=== PATIENT | female | born 1935 | race Caucasian/White ===

== ENCOUNTER 2017-09-25 18:10 | Inpatient (IN) ==
--- NOTE | 2017-09-25 19:35 | Emergency Department Report ---
Psych HPI - General Chief Complaint: Psychiatric Symptoms Stated Complaint: Eval Time Seen by Provider: 09/25/17 20:00 Source: patient Mode of arrival: wheelchair Limitations: no limitations - History of Present Illness HPI Narrative: 82 YO F brought to the ED by family from [place] for medical clearance for [facility]. Family who accompanies patient states that patient has been agitated, aggressive towards staff, having obsessive behaviors with increased memory problems over the last 2 weeks. Family also states that patient intermittently reports pain in different areas of her body and then denies having pain in those same areas later. Family says patient has had fall around the first of the year with no CT done at that time. No known acute injury from fall. Family denies that patient has had fever, chills, cough, CP, vomiting, abdominal pain, dysuria, headaches or ataxia. Patient pain or any complaint on arrival to the ED. MD complaint: other - Related Data Home Medications Medication Instructions Recorded Confirmed Acetaminophen [Acetaminophen Extra 1,000 mg PO BID 09/25/17 09/25/17 Strength] Aspirin [Aspirin EC] 81 mg PO QAM 09/25/17 09/25/17 Calcitonin,[place],Synthetic 1 spray SAE QAM 09/25/17 09/25/17 [Calcitonin-[place]] Calcium Carbonate/Vitamin D3 1 tab PO QAM 09/25/17 09/25/17 [Calcium 600-Vit D3 400 Tablet] Fruit Ball 30 ml PO QAM 09/25/17 09/25/17 Hydrocodone/APAP 5/325 [[place] 1 - 2 tab PO Q4-6HR PRN 09/25/17 09/25/17 5/325] Lovastatin [Mevacor] 40 mg PO HS 09/25/17 09/26/17 Lutein 20 mg PO QAM 09/25/17 09/25/17 Multivitamin with Minerals 1 tab PO QAM 09/25/17 09/25/17 [Eow-Y-Meix-Minerals] Peg 3350 238 G Bottle [Miralax] 17 gm PO BID 09/25/17 09/25/17 Raloxifene [Evista] 60 mg PO QAM 09/25/17 09/25/17 Zeaxanthin 10 mg PO QAM 09/25/17 09/25/17 Ergocalciferol (Vitamin D2) 1 tab PO MO@0800 09/26/17 09/26/17 [Vitamin D2] Fluvoxamine Maleate 50 mg PO HS 09/26/17 09/26/17 Fluvoxamine Maleate 75 mg PO DAILY 09/26/17 09/26/17 Allergies Allergy/AdvReac Type Severity Reaction Status Date / Time alprazolam Allergy Verified 09/25/17 19:48 Sulfa (Sulfonamide Allergy Verified 09/25/17 19:48 Antibiotics) Review of Systems All systems: reviewed and negative except as stated Neurological: Reports: as per HPI (agitation), other (memory problems) Psychiatric: Reports: as per HPI, other (agitated, obsessive behaviors) PFS Patient Stated Medical History Dementia Yes Macular Degeneration Yes Other HEENT Yes: glasses Hypertension Yes Hx Urinary Tract Infection Yes Anemia Yes Other Musculoskeletal Yes: osteoporosis Other Behavioral Health Yes: cognitive communication defiect Surgical History: Lumpectomy 2 Family History: Noncontributory - Social History Housing: long term Physical Exam - Limitations Limitations: no limitations - General General appearance: alert, in no apparent distress - Normal Exams: Head:: Normocephalic without trauma Eyes:: Pupils are PERRLA w/ EOMI, No scleral icterus, irritation ENMT:: No facial trauma, nasal exudates, pharyngeal erythema Neck:: Full range of motion, without adenopathy, JVD Chest/Respirations:: Clear all kim, with good airflow, and symmetry bilaterally Cardiovascular:: Regular rate and rhythm, without murmur or gallop, Pulses 2+ all extremities Abdomen:: Bowel sounds positive, soft, non-tender, non-distended, no hepatosplenomegaly Musculoskeletal:: No tenderness, all extremities Integumentary:: No rashes Neurological:: Patient is alert, and oriented, cranial nerves, motor/sensory/ cerebellar, exams w/o gross deficits, to observation Psychiatric:: Patient exhibits, appropriate attention, emotion and affect - ENT ENT exam: Present: mucous membranes moist, TM's normal bilaterally - Neck Neck exam: Present: trachea midline - Extremities Exam Extremities exam: Present: pedal edema (bilaterally) - Skin Skin exam: Present: warm, dry Course Vital Signs Pulse Rate 80 09/25/17 18:20 Respiratory Rate 16 09/25/17 18:20 Temperature 97.2 F 10/07/17 08:00 Pulse Rate 92 10/07/17 08:00 Respiratory Rate 16 10/07/17 08:00 Blood Pressure 140/74 H 10/07/17 08:00 Pulse Oximetry 96 10/07/17 08:00 Psych - MDM Narrative Medical decision making narrative: Patient labs are unremarkable Patient has been cooperative and pleasant while in the ED. Patient is cleared medically for [facility] - Differential Diagnosis Likely: acute psychosis, depression, drug-induced psychotic disorder, acute anxiety - Lab Data Attestation: I reviewed the patient's lab results. Result diagrams: 10/05/17 06:59 10/05/17 06:59 Lab Results 09/25/17 09/25/17 09/25/17 Range/Units 20:13 20:13 20:13 WBC 4.4 L (4.5-11.0) T/MM3 RBC 3.72 L (4.00-5.20) M/MM3 Hgb 11.7 L (12-16) GM/DL Hct 37.8 (36-46) % MCV 101.6 H (80-100) UM3 MCH 31.5 (26-34) UUG MCHC 31.0 (31-37) GM/DL RDW Std Deviation 50.7 H (36.9-50.2) FL Plt Count 205 (130-400) T/MM3 MPV 9.7 (9.4-12.4) UM3 Immature Gran % (Auto) 0.2 (0.0-0.5) % Neut % (Auto) 60.4 (33-66) % Lymph % (Auto) 23.9 (23-45) % [place] % (Auto) 11.4 H (0-9.0) % Eos % (Auto) 3.2 (0-4) % Baso % (Auto) 0.9 (0-2) % Neut # (Auto) 2.7 (1.8-7.7) T/MM3 Lymph # (Auto) 1.1 (1-4.8) T/MM3 [place] # (Auto) 0.5 (0-0.8) T/MM3 Eos # (Auto) 0.1 (0-0.5) T/MM3 Baso # (Auto) 0.0 (0-0.2) T/MM3 Abs Immat Gran (auto) 0.01 (0.00-0.03) T/MM3 Turbidity < 20 (0-20) Sodium 139 (134-144) MEQ/L Potassium 4.7 (3.6-5) MEQ/L Chloride 105 (98-107) MEQ/L Carbon Dioxide 27 (22-30) MEQ/L Anion Gap 7 (5-15) MEQ/L BUN 21.0 H (7-17) MG/DL Creatinine 0.8 (0.7-1.2) MG/DL GFR Calculation 69 BUN/Creatinine Ratio 26 (6-26) RATIO Glucose 110 (65-110) MG/DL Calculated Osmolality 272 (261-280) MOSM/KG Calcium 9.2 (8.4-10.2) MG/DL Total Bilirubin 0.30 (0.20-1.30) MG/DL Icterus Index < 2 (0-7) AST 34 (14-36) U/L ALT 43 (9-52) U/L Alkaline Phosphatase 117 (38-126) U/L Total Protein 7.3 (6.3-8.2) G/DL Albumin 3.8 (3.5-5.0) G/DL Globulin 3.5 (2.4-3.6) G/DL Albumin/Globulin Ratio 1.1 (1.1-2.2) RATIO Vitamin B12 476 (239-931) PG/ML TSH 1.41 (0.47-4.68) MIU/L Specimen Hemolysis < 15 (0-25) - Radiology Data Attestation: I reviewed the patient's radiology results. Head CT: No acute intracranial findings (V-RAD) Disposition Clinical Impression: Encounter for medical clearance for patient hold Disposition: 65 [place] [facility] [facility] Condition: Stable - Seen By: midlevel
--- OUTSIDE RECORDS SUMMARY | 2017-09-25 21:18 | External Medical Summary | Referral Summary ---
:1935 Author Organization [facility], Surgery Address [address] [address] Care Team Providers Name Role Phone Denita Mg Primary Care Physician Encounter VC Date(s): 05/25/15 - 05/25/15 [facility], 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 Dementia(Confirmed) Active Fracture of left inferior pubic ramus Active with routine healing(Confirmed) Fracture of left superior pubic ramus Active with routine healing(Confirmed) Hyperlipidemia(Confirmed) Active Obesity(Confirmed) Active patient Osteoporosis, Active postmenopausal(Confirmed) 1Problem added automatically by system based on initiation of Bowel Dysfunction Plan of Care Allergies, Adverse Reactions, Alerts Substance Reaction Severity Status ALPRAZolam nightmares Active sulfamethoxazole as a child/ Rash Active Medications acetaminophen 325 mg oral tablet 650 mg 2 tabs, Oral, q4hr, Other (See Comment), 0 Refill(s) Start Date: 10/07/15 Status: Orderedalendronate 70 mg oral tablet 70 mg 1 tabs, Oral, qWeek, # 12 tabs, 1 Refill(s), Pharmacy: [facility] # [id number], 1 tabs Oral qWeek Start Date: 01/19/15 Status: Orderedaspirin 325 mg, Oral, Daily, 0 Refill(s) Start Date: 10/04/15 Status: Orderedcalcium-vitamin D 500 mg-200 intl units oral tablet 1,500 mg, Oral, Daily, 0 Refill(s) Start Date: 04/22/14 Status: OrderedCentrum 1 tabs, Oral, Daily, 0 Refill(s) Start Date: 04/22/14 Status: OrderedEvista 60 mg oral tablet 1 tabs, Oral, Daily, # 30 tabs, eRx: [facility] #[id number], TAKE ONE TABLET BY MOUTH DAILY Start Date: 09/09/14 Status: Orderedhydrochlorothiazide 25 mg, Oral, Daily, 0 Refill(s) Start Date: 10/04/15 Status: Orderedlactulose 10 g/15 mL oral syrup 20 g 30 mL, Oral, TID, 0 Refill(s) Start Date: 10/07/15 Status: Orderedlovastatin 40 mg, Oral, Daily, 0 Refill(s) Start Date: 10/04/15 Status: Orderedlutein 12 mg, Oral, Daily, 0 Refill(s) Start Date: 04/22/14 Status: OrderedMacrobid 100 mg oral capsule 100 mg 1 caps, Oral, BID, # 14 caps, 0 Refill(s) Start Date: 11/04/15 Stop Date: 11/11/15 Status: OrderedMilk of Magnesia 30 mL, Oral, Daily, as needed for constipation, 0 Refill(s) Start Date: 10/04/15 Status: OrderedMiraLax 17 g 1 packets, Oral, BID, 0 Refill(s) Start Date: 10/07/15 Status: Orderedpotassium chloride 10 mEq oral tablet, extended release 10 mEq 1 tabs, Oral, Daily, 0 Refill(s) Start Date: 10/04/15 Status: OrderedProtonix 40 mg oral delayed release tablet 40 mg 1 tabs, Oral, BID, 0 Refill(s) Start Date: 10/07/15 Status: OrderedVitamin C 500 mg, Oral, Daily, 0 Refill(s) Start Date: 04/22/14 Status: OrderedVitamin D2 1999 Int_unit, Oral, Saturday, 0 Refill(s) Start Date: 10/04/15 Status: Ordered Results No data available for this section Immunizations Vaccine Date Refusal Reason tetanus/diphth/pertuss (Tdap) adult/adol 06/21/15 influenza virus vaccine, inactivated 06/21/15 pneumococcal 23-polyvalent vaccine 03/25/07 zoster vaccine live 10/20/09 Procedures Procedure Date Related Diagnosis Body Site CT L PUBIC RAMUS FX [facility] BUHR1 09/23/15 (L) 2007 (R) foot Tubal ligation 1S32.592A, S32.512A L SUPERIOR & INFERIOR PUBIC RAMUS FXS ACC 09/23/2015 HOME [facility] [employer] 12/22/2015 Social History Social History Type Response Smoking Status Former smoker Assessment and Plan Extracted from: Title: Ambulatory Patient Education Author: Yasmin Crump MD Date: Family Medicine Breast Cancer Survivor Follow-up Breast cancer treatment aims to get rid of all cancer cells, but sometimes a few remain in the body. These cells can then grow and cause the cancer to return (recur). If this happens, the goal is to fin d the cancer as soon as possible. Cancer can recur just a few months after treatment or years later. Most cases of recurrent breast cancer develop 35 years after treatment. WILL MY CANCER RETURN? There is no way to know if your breast cancer will return. However, your chance of developing recurrent breast cancer is greater if you had: Breast cancer before 60 years of age. Breast cancer that involved the lymph nodes. A tumor that was bigger than 2 inches (5 cm). A high-grade tumor. These are tumors that grow more quickly than other types of tumors. A close tumor margin. This means the space between the tumor and normal, noncancerous cells was small. Inflammatory breast cancer. HER2 cancer. Surgery to remove the tumor but not the entire breast (lumpectomy) and no radiation therapy. SYMPTOMS OF RECURRENT BREAST CANCER Examine your breasts every month. You may find it helpful to do this on the same day each month and juana your calendar as a reminder. Let your health care provider know immediately if you have any signs or symptoms of recurrent breast cancer. Signs and symptoms of recurrent breast cancer vary. It depends on where the cancer is and how the original cancer was treated. Symptoms of a cancer that comes back in the same spot (local recurrence) after a lumpectomy, or a recurrence in the opposite breast may include: A new lump or thickening in the breast. A change in the way the skin of the breast looks (such as a rash, dimpling , or wrinkling). Redness or swelling of the breast. Changes in the nipple (such as it may be red, puckered, swollen, or leaking fluid). Symptoms of a recurrence after breast removal surgery (mastectomy) may include: A lump or thickening under the skin. A thickening around the mastectomy scar. Symptoms of a cancer that comes back in the lymph nodes near the breast ( regional recurrence) may include: A lump under the arm or above the collarbone. Swelling of the arm. Pain in the arm, shoulder, or chest. Numbness in the hand or arm. Symptoms of cancer that comes back in an area of the body far away from the original cancer site (distant recurrence) may include: A cough that does not go away. Trouble breathing or shortness of breath. Pain in the bones or the chest. This is pain that lasts or does not improve with rest and medicine. Headaches. Sudden vision problems. Dizziness. Nausea or vomiting. Weight loss. Persistent abdominal pain. Changes in bowel movements or blood in the stool. Yellowing of the skin or eyes (jaundice). Blood in the urine or bloody vaginal discharge. FOLLOWING UP WITH YOUR HEALTH CARE PROVIDER Decide who your primary health care provider will be. Most people continue to see their cancer specialist (oncologist) every 36 months for the first year after cancer treatment. At some point, you ma y want to go back to seeing a family health care provider instead of your oncologist for regular checkups. Many women do this about 1 year after getting a breast cancer diagnosis. You would still need t o see your oncologist as directed. You should also: Keep a schedule of appointments for the tests and exams you need ( including physical exams, breast exams, and exams of the lymph nodes). For the first 3 years after being treated for breast cancer, see your health care provider every 36 months. In the fourth and fifth years after being treated for breast cancer, see your health care provider every 612 months. From 5 years on after your breast cancer treatment, see your health care provider at least once a year. Continue to have regular breast X-rays (mammograms), even if you had a mastectomy. Get a mammogram 1 year after the mammogram that first detected breast cancer. Get a mammogram every 612 months after that or as often as your health care provider suggests. Have a pelvic exam every year or as often as your health care provider suggests. Some tests are not recommended for routine screening. Someone recovering from breast cancer does not need to have these tests if there are no problems. The tests have risks, such as radiation expos ure, and can be costly. The risks of these tests are thought to be greater than the benefits: Blood tests. Chest X-rays. Bone scans. Liver ultrasound. CT. MRI. Positron emission tomography (PET scan). SEEK MEDICAL CARE IF: You have any signs or symptoms of recurrent breast cancer. You are taking a medicine prescribed to treat your breast cancer and have vaginal bleeding. You discover new lumps in your breast. You have headaches, bone, chest, or abdominal pain. You have shortness of breath. You have a cough that does not go away. You have discharge from your nipple. You have a rash on your breast. SEEK IMMEDIATE MEDICAL CARE IF: You have trouble breathing. You have chest pain. Document Released: 04/16/2012 Document Revised: 08/24/2014 Document Reviewed: 06/25/2014 [facility] Patient Information 2015 [employer]. This information is not intended to replace advice given to you by your health care provider. Make sure you discuss any questions you have with your health care provider. No follow up information was provided. Extracted from: Title: BREAST CLINIC NOTE Author: Yasmin Crump MD Date: 05/25/15 Assessment/Plan 1.Personal history of breast cancer 1. 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 At this time there is no sign of recurrence or new cancer based on imaging or examination. 2. The patient will be due for aleft diagnostic mammogram in 6 months and will not need to see me back in the office at that time. I would then like her to have bilateral diagnostic mammograms in one year and have her see me back in the office. These were arranged for her today. Ordered: Office Visit Level 3 Est [id number]
--- OUTSIDE RECORDS SUMMARY | 2017-09-25 21:18 | External Medical Summary | Referral Summary ---
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 Discharge Disposition: 01-Home or Self Care Attending Physician: Trinity Glover MD Admitting Physician: Trinity Glover MD Vital Signs Most recent to oldest [Reference Range]: 1 Peripheral Pulse Rate [60-100 bpm] 77 bpm (06/21/15 9:50 AM) Blood Pressure [90-140/60-90 mmHg] 122/90 mmHg (06/21/15 9:50 AM) SpO2 99 % (06/21/15 9:50 AM) Problem List Condition Effective Dates Status Health Status Informant Hypertension, essential, Active benign(Confirmed) Carcinoma in situ of breast(Confirmed) Active Generalized osteoarthritis(Confirmed) Active Dementia(Confirmed) Active Hyperlipidemia(Confirmed) Active Obesity(Confirmed) Active patient Osteoporosis, Active postmenopausal(Confirmed) Allergies, Adverse Reactions, Alerts Substance Reaction Severity Status ALPRAZolam nightmares Active sulfamethoxazole as a child/ Rash Active Medications alendronate 70 mg oral tablet 70 mg 1 tabs, Oral, qWeek, # 12 tabs, 1 Refill(s), Pharmacy: [facility] # [id number], 1 tabs Oral qWeek Start Date: 01/19/15 Status: Orderedcalcium-vitamin D 500 mg-200 intl units oral tablet 1,500 mg, Oral, Daily, 0 Refill(s) Start Date: 04/22/14 Status: OrderedCentrum 1 tabs, Oral, Daily, 0 Refill(s) Start Date: 04/22/14 Status: OrderedDrisdol 50,000 intl units (1.25 mg) oral capsule See Instructions, TAKE 1 CAPSULE BY MOUTH EVERY OTHER WEEK, # 12 caps, eRx: [facility] #[id number], TAKE 1 CAPSULE BY MOUTH EVERY OTHER WEEK Start Date: 03/30/15 Status: Orderedetodolac 400 mg oral tablet, extended release See Instructions, TAKE ONE TABLET BY MOUTH DAILY, # 30 tabs, 3 Refill(s), eRx: [facility] #[id number], TAKE ONE TABLET BY MOUTH DAILY Start Date: 03/24/15 Status: OrderedEvista 60 mg oral tablet 1 tabs, Oral, Daily, # 30 tabs, eRx: [facility] #[id number], TAKE ONE TABLET BY MOUTH DAILY Start Date: 09/09/14 Status: Orderedhydrochlorothiazide 50 mg oral tablet See Instructions, TAKE ONE-HALF TABLET BY MOUTH ONCE A DAY, # 30 tabs, 3 Refill( s), eRx: [facility] #[id number], TAKE ONE TABLET BY MOUTH ONCE A DAY Start Date: 06/16/15 Status: Orderedlovastatin 40 mg oral tablet See Instructions, TAKE ONE TABLET BY MOUTH EVERY DAY, # 30 tabs, 5 Refill(s), eRx: [facility] #[id number], TAKE ONE TABLET BY MOUTH EVERY DAY Start Date: 05/12/15 Status: Orderedlutein 12 mg, Oral, Daily, 0 Refill(s) Start Date: 04/22/14 Status: Orderedpotassium chloride 10 mEq oral tablet, extended release See Instructions, TAKE TWO TABLETS BY MOUTH EVERY DAY, # 60 unknown unit, 5 Refill(s), eRx: [facility] #[id number], TAKE TWO TABLETS BY MOUTH EVERY DAY Start Date: 06/20/15 Status: OrderedVitamin C 500 mg, Oral, Daily, 0 Refill(s) Start Date: 04/22/14 Status: Ordered Results Chemistry Most recent to oldest [Reference Range]: 1 Sodium Lvl [135-144 mEq/L] 134 mEq/L *LOW* (06/21/15 10:48 AM) Potassium Lvl [3.5-5.2 mEq/L] 3.4 mEq/L *LOW* (06/21/15 10:48 AM) Chloride [99-111 mEq/L] 95 mEq/L *LOW* (06/21/15 10:48 AM) CO2 [22-31 mEq/L] 29 mEq/L (06/21/15 10:48 AM) AGAP [3-20] 10 (06/21/15 10:48 AM) BUN [10-20 mg/dL] 11 mg/dL (06/21/15 10:48 AM) Glucose Lvl [70-99 mg/dL] 97 mg/dL (06/21/15 10:48 AM) Creatinine Lvl [0.57-1.11 mg/dL] 0.86 mg/dL (06/21/15 10:48 AM) eGFR [>60 mL/min] >60 mL/min 1 (06/21/15 10:48 AM) Calcium Lvl [8.9-10.5 mg/dL] 10.2 mg/dL (06/21/15 10:48 AM) Albumin Lvl [3.4-4.8 gm/dL] 4.0 gm/dL (06/21/15 10:48 AM) Total Protein [6.2-8.1 gm/dL] 7.2 gm/dL (06/21/15 10:48 AM) Globulin [1.8-4.0 gm/dL] 3.2 gm/dL (06/21/15 10:48 AM) ALT [0-55 U/L] 18 U/L (06/21/15 10:48 AM) AST [5-34 U/L] 27 U/L (06/21/15 10:48 AM) Alk Phos [40-150 U/L] 70 U/L (06/21/15 10:48 AM) Bili Total [0.2-1.2 mg/dL] 0.8 mg/dL (06/21/15 10:48 AM) Chol [0-199 mg/dL] 195 mg/dL (06/21/15 10:48 AM) Trig [0-149 mg/dL] 57 mg/dL (06/21/15 10:48 AM) HDL [40-84 mg/dL] 78 mg/dL (06/21/15 10:48 AM) LDL [0-130 mg/dL] 106 mg/dL (06/21/15 10:48 AM) VLDL Cholesterol [0-28 mg/dL] 11 mg/dL (06/21/15 10:48 AM) Cardiac Risk [0.0-5.0] 2.5 (06/21/15 10:48 AM) 1Result Comment: Multiply eGFR results by 1.21 for race. Immunizations Vaccine Date Refusal Reason tetanus/diphth/pertuss (Tdap) adult/adol 06/21/15 influenza virus vaccine, inactivated 06/21/15 pneumococcal 23-polyvalent vaccine 03/25/07 zoster vaccine live 10/20/09 Procedures Procedure Date Related Diagnosis Body Site (L) 2007 (R) foot Tubal ligation Social History Social History Type Response Smoking Status Former smoker Assessment and Plan Extracted from: Title: Ambulatory Patient Education Author: Trinity Glover MD Date: 06/21/15 Family Medicine Health Maintenance Adopting a healthy lifestyle and getting preventive care can go a long way to promote health and wellness. Talk with your health care provider about what schedule of regular examinations is right for yo u. This is a good chance for you to check in with your provider about disease prevention and staying healthy. In between checkups, there are plenty of things you can do on your own. Experts have done a lot of research about which lifestyle changes and preventive measures are most likely to keep you healthy. Ask your health care provider for more information. WEIGHT AND DIET Eat a healthy diet Be sure to include plenty of vegetables, fruits, low-fat dairy products, and lean protein. Do not eat a lot of foods high in solid fats, added sugars, or salt. Get regular exercise. This is one of the most important things you can do for your health. Most adults should exercise for at least 150 minutes each week. The exercise should increase your heart rate and make you sweat (moderate-intensity exercise). Most adults should also do strengthening exercises at least twice a week. This is in addition to the moderate-intensity exercise. Maintain a healthy weight Body mass index (BMI) is a measurement that can be used to identify possible weight problems. It estimates body fat based on height and weight. Your health care provider can help determine your BMI and help you achieve or maintain a healthy weight. For females 20 years of age and older: A BMI below 18.5 is considered underweight. A BMI of 18.5 to 24.9 is normal. A BMI of 25 to 29.9 is considered overweight. A BMI of 30 and above is considered obese. Watch levels of cholesterol and blood lipids You should start having your blood tested for lipids and cholesterol at 20 years of age, then have this test every 5 years. You may need to have your cholesterol levels checked more often if: Your lipid or cholesterol levels are high. You are older than 50 years of age. You are at high risk for heart disease. CANCER SCREENING Lung Cancer Lung cancer screening is recommended for adults 5580 years old who are at high risk for lung cancer because of a history of smoking. A yearly low-dose CT scan of the lungs is recommended for people who: Currently smoke. Have quit within the past 15 years. Have at least a 96-mtjc-scig history of smoking. A pack year is smoking an average of one pack of cigarettes a day for 1 year. Yearly screening should continue until it has been 15 years since you quit. Yearly screening should stop if you develop a health problem that would prevent you from having lung cancer treatment. Breast Cancer Practice breast self-awareness. This means understanding how your breasts normally appear and feel. It also means doing regular breast self-exams. Let your health care provider know about any changes, no matter how small. If you are in your 20s or 30s, you should have a clinical breast exam (CBE ) by a health care provider every 13 years as part of a regular health exam. If you are 40 or older, have a CBE every year. Also consider having a breast X-ray (mammogram) every year. If you have a family history of breast cancer, talk to your health care provider about genetic screening. If you are at high risk for breast cancer, talk to your health care provider about having an MRI and a mammogram every year. Breast cancer gene (BRCA) assessment is recommended for women who have family members with BRCA-related cancers. BRCA-related cancers include: Breast. Ovarian. Tubal. Peritoneal cancers. Results of the assessment will determine the need for genetic counseling and BRCA1 and BRCA2 testing. Cervical Cancer Routine pelvic examinations to screen for cervical cancer are no longer recommended for non women who are considered low risk for cancer of the pelvic organs (ovaries, uterus, and vagina) and wh o do not have symptoms. A pelvic examination may be necessary if you have symptoms including those associated with pelvic infections. Ask your health care provider if a screening pelvic exam is right for you. The Pap test is the screening test for cervical cancer for women who are considered at risk. If you had a hysterectomy for a problem that was not cancer or a condition that could lead to cancer, then you no longer need Pap tests. If you are older than 65 years, and you have had normal Pap tests for the past 10 years, you no longer need to have Pap tests. If you have had past treatment for cervical cancer or a condition that could lead to cancer, you need Pap tests and screening for cancer for at least 20 years after your treatment. If you no longer get a Pap test, assess your risk factors if they change ( such as having a new sexual partner). This can affect whether you should start being screened again. Some women have medical problems that increase their chance of getting cervical cancer. If this is the case for you, your health care provider may recommend more frequent screening and Pap tests. The human papillomavirus (HPV) test is another test that may be used for cervical cancer screening. The HPV test looks for the virus that can cause cell changes in the cervix. The cells collected during the Pap test can be tested for HPV. The HPV test can be used to screen women 30 years of age and older. Getting tested for HPV can extend the interval between normal Pap tests from three to five years. An HPV test also should be used to screen women of any age who have unclear Pap test results. After 30 years of age, women should have HPV testing as often as Pap tests. Colorectal Cancer This type of cancer can be detected and often prevented. Routine colorectal cancer screening usually begins at 50 years of age and continues through 75 years of age. Your health care provider may recommend screening at an earlier age if you have risk factors for colon cancer. Your health care provider may also recommend using home test kits to check for hidden blood in the stool. A small camera at the end of a tube can be used to examine your colon directly (sigmoidoscopy or colonoscopy). This is done to check for the earliest forms of colorectal cancer. Routine screening usually begins at age 50. Direct examination of the colon should be repeated every 510 years through 75 years of age. However, you may need to be screened more often if early forms of precancerous polyps or small growths are found. Skin Cancer Check your skin from head to toe regularly. Tell your health care provider about any new moles or changes in moles, especially if there is a change in a mole's shape or color. Also tell your health care provider if you have a mole that is larger than the size of a pencil eraser. Always use sunscreen. Apply sunscreen liberally and repeatedly throughout the day. Protect yourself by wearing long sleeves, pants, a wide-brimmed hat, and sunglasses whenever you are outside. HEART DISEASE, DIABETES, AND HIGH BLOOD PRESSURE Have your blood pressure checked at least every 12 years. High blood pressure causes heart disease and increases the risk of stroke. If you are between 55 years and 79 years old, ask your health care provider if you should take aspirin to prevent strokes. Have regular diabetes screenings. This involves taking a blood sample to check your fasting blood sugar level. If you are at a normal weight and have a low risk for diabetes, have this test once every three years after 45 years of age. If you are overweight and have a high risk for diabetes, consider being tested at a younger age or more often. PREVENTING INFECTION Hepatitis B If you have a higher risk for hepatitis B, you should be screened for this virus. You are considered at high risk for hepatitis B if: You were born in a country where hepatitis B is common. Ask your health care provider which countries are considered high risk. Your parents were born in a high-risk country, and you have not been immunized against hepatitis B (hepatitis B vaccine). You have HIV or AIDS. You use needles to inject street drugs. You live with someone who has hepatitis B. You have had sex with someone who has hepatitis B. You get hemodialysis treatment. You take certain medicines for conditions, including cancer, organ transplantation, and autoimmune conditions. Hepatitis C Blood testing is recommended for: Everyone born from 1945 through 1965. Anyone with known risk factors for hepatitis C. Sexually transmitted infections (STIs) You should be screened for sexually transmitted infections (STIs) including gonorrhea and chlamydia if: You are sexually active and are younger than 24 years of age. You are older than 24 years of age and your health care provider tells you that you are at risk for this type of infection. Your sexual activity has changed since you were last screened and you are at an increased risk for chlamydia or gonorrhea. Ask your health care provider if you are at risk. If you do not have HIV, but are at risk, it may be recommended that you take a prescription medicine daily to prevent HIV infection. This is called pre- exposure prophylaxis (PrEP). You are considered at risk if: You are sexually active and do not regularly use condoms or know the HIV status of your partner(s). You take drugs by injection. You are sexually active with a partner who has HIV. Talk with your health care provider about whether you are at high risk of being infected with HIV. If you choose to begin PrEP, you should first be tested for HIV. You should then be tested every 3 months for as long as you are taking PrEP. If you are premenopausal and you may become , ask your health care provider about preconception counseling. If you may become , take 400 to 800 micrograms (mcg) of folic acid every day. If you want to prevent , talk to your health care provider about control (contraception). OSTEOPOROSIS AND MENOPAUSE Osteoporosis is a disease in which the bones lose minerals and strength with aging. This can result in serious bone fractures. Your risk for osteoporosis can be identified using a bone density scan. If you are 65 years of age or older, or if you are at risk for osteoporosis and fractures, ask your health care provider if you should be screened. Ask your health care provider whether you should take a calcium or vitamin D supplement to lower your risk for osteoporosis. Menopause may have certain physical symptoms and risks. Hormone replacement therapy may reduce some of these symptoms and risks. Talk to your health care provider about whether hormone replacement therapy is right for you. HOME CARE INSTRUCTIONS Schedule regular health, dental, and eye exams. Stay current with your immunizations. Do not use any tobacco products including cigarettes, chewing tobacco, or electronic cigarettes. If you are , do not drink alcohol. If you are , limit how much and how often you drink alcohol. Limit alcohol intake to no more than 1 drink per day for non women. One drink equals 12 ounces of beer, 5 ounces of wine, or 1 ounces of hard liquor. Do not use street drugs. Do not share needles. Ask your health care provider for help if you need support or information about quitting drugs. Tell your health care provider if you often feel depressed. Tell your health care provider if you have ever been abused or do not feel safe at home. Document Released: 03/03/2012 Document Revised: 01/03/2015 Document Reviewed: 07/21/2014 ExitCare Patient Information 2015 [employer]. This information is not intended to replace advice given to you by your health care provider. Make sure you discuss any questions you have with your health care provider. No follow up information was provided. Extracted from: Title: Annual Wellness Visit- female Author: Trinity Glover MD Date: 06/21/15 Impression and Plan Diagnosis Medicare annual wellness visit, subsequent (BLE71-OM Z00.00, Discharge, Medical ). Plan: Flu shot: Today and here Tdap: Today and here PPV23: 2006, no need for another shot Zostavax: 2009 Pap's: deferred due to age Mammo 2015: Normal. Due to personal history of carcinoma in situ of the breast , we will do screening mammogram every year. Colonoscopy: Patient refused DEXA scan 2015: Osteoporosis Fall risk: Patient denies any falling episodes or balance problems for the past 6 months. Home Safety Screen: Patient denies loose rugs or clutter in hallways. House had grab bars in bathroom, working smoke detectors, handrails on stairs, and good lighting throughout the house. 2-item depression screen: Negative for depression. Mini-COG screen: Negative for dementia. MMSE: 30/30 Hearing screen: Patient had bilateral hearing aides Vision screen: Deferred to freelance operator Patient is still able to do all basic ADLs and instrumental ADLs independently. Advance directives: Patient had DNR, living will, and DPOA. Provider List: Dr. Satya MARSHALL, Dr. Crump (breast surgeon), Dr. Lisa ( reiki practitioner) DME list: bilateral hearing aides Senior wellness assessment was performed and discussed with patient as mentioned above. MMSE form scanned. Family history, past medical history, and past surgical history reviewed. Medication list was reconciled. Allergy list reviewed and updated as needed. Age-appropriate anticipatory guidance, recommended routine screening tests, and immunizations were discussed to patient. Eating heart-healthy diet and increasing physical activity to maintain healthy weight was reemphasized. Return to clinic in 6 months. . Diagnosis Hypertension, essential, benign ([id number] I10, Discharge, Medical). Course: Well controlled. Orders Current BP at goal. Discussed goal BP (less than 140/90). Continue current antihypertensive medications. Continue heart-healthy, low-salt diet and exercise. . Diagnosis Hyperlipidemia (LLX68-EJ E78.5, Discharge, Medical). Orders Lipids at goal. No myalgia. Continue meds and low-fat diet. For fasting lipid panel and CMP today. . Diagnosis Osteoporosis, postmenopausal (YHY54-JX M81.0, Discharge, Medical). Orders Continue alendronate 70 mg once weekly. Continue calcium and vitamin D supplements. Continue weightbearing exercises. Continue follow-up with Dr. Lisa. . Diagnosis Carcinoma in situ of breast (QUY67-EA D05.90, Discharge, Medical). Orders For screening mammograms every year. Dr. Crump following .
--- OUTSIDE RECORDS SUMMARY | 2017-09-25 21:19 | External Medical Summary | Referral Summary ---
:1935 Author Organization [facility] Address [address] [place] [address] Care Team Providers Name Role Phone Trinity Glover Primary Care Physician Encounter VC Date(s): 06/21/15 - 06/21/15 [facility] [address] [place] [address]- [place] Discharge Diagnosis: Hyperlipidemia Discharge [...] Refill(s), Pharmacy: [facility] # [id number], 1 tabs Oral qWeek Start Date: 01/19/15 Status: Orderedcalcium-vitamin D 500 mg-200 intl units oral tablet 1,500 mg, Oral, Daily, 0 Refill(s) Start Date: 04/22/14 Status: OrderedCentrum 1 tabs, Oral, Daily, 0 Refill(s) Start Date: 04/22/14 Status: OrderedDrisdol 50,000 intl units (1.25 mg) oral capsule See Instructions, TAKE 1 CAPSULE BY MOUTH EVERY OTHER WEEK, # 12 caps, eRx: [facility] #[id number], TAKE 1 CAPSULE BY MOUTH EVERY OTHER WEEK Start Date: 03/30/15 Status: Orderedetodolac 400 mg oral tablet, extended release See Instructions, TAKE ONE TABLET BY MOUTH DAILY, # 30 tabs, 3 Refill(s), eRx: [facility] #[id number], TAKE ONE TABLET BY MOUTH DAILY Start Date: 03/24/15 Status: OrderedEvista 60 mg oral tablet 1 tabs, Oral, Daily, # 30 tabs, eRx: [facility] #[id number], TAKE ONE TABLET BY MOUTH DAILY Start Date: 09/09/14 Status: Orderedhydrochlorothiazide 50 mg oral tablet See Instructions, TAKE ONE-HALF TABLET BY MOUTH ONCE A DAY, # 30 tabs, 3 Refill( s), eRx: [facility] #[id number], TAKE ONE TABLET BY MOUTH ONCE A DAY Start Date: 06/16/15 Status: Orderedlovastatin 40 mg oral tablet See Instructions, TAKE ONE TABLET BY MOUTH EVERY DAY, # 30 tabs, 5 Refill(s), eRx: [facility] #[id number], TAKE ONE TABLET BY MOUTH EVERY DAY Start Date: 05/12/15 Status: Orderedlutein 12 mg, Oral, Daily, 0 Refill(s) Start Date: 04/22/14 Status: Orderedpotassium chloride 10 mEq oral tablet, extended release See Instructions, TAKE TWO TABLETS BY MOUTH EVERY DAY, # 60 unknown unit, 5 Refill(s), eRx: [facility] #[id number], TAKE TWO TABLETS BY MOUTH EVERY DAY [...] past 15 years. Have at least a [id number] history of smoking. A pack year is [...] Document Reviewed: 07/21/2014 ExitCare Patient Information 2015 [employer]. This information is not intended to replace advice given to you by your health care provider. Make sure you discuss any questions you have with your health care provider. No follow up information was provided. Extracted from: Title: Annual Wellness Visit- female Author: Trinity Glover MD Date: 06/21/15 Impression and Plan Diagnosis Medicare annual wellness visit, subsequent (OGL32-VX Z00.00, Discharge, Medical ). Plan: Flu shot: [...] bilateral hearing aides Vision screen: Deferred to editor farm journal Patient is still able to do all basic ADLs and instrumental ADLs independently. Advance directives: Patient had DNR, living will, and DPOA. Provider List: Dr. Satya MARSHALL, Dr. Crump (breast surgeon), Dr. Lisa ( makeup sales consultant) DME list: bilateral hearing aides Senior wellness [...] 6 months. . Diagnosis Hypertension, essential, benign (PFI25-CG I10, Discharge, Medical). Course: Well controlled. Orders Current BP at goal. Discussed goal BP (less than 140/90). Continue current antihypertensive medications. Continue heart-healthy, low-salt diet and exercise. . Diagnosis Hyperlipidemia (YVE82-ES E78.5, Discharge, Medical). Orders Lipids at goal. No myalgia. Continue meds and low-fat diet. For fasting lipid panel and CMP today. . Diagnosis Osteoporosis, postmenopausal (OXB57-TP M81.0, Discharge, Medical). Orders Continue alendronate 70 mg once weekly. Continue calcium and vitamin D supplements. Continue weightbearing exercises. Continue follow-up with Dr. Lisa. . Diagnosis Carcinoma in situ of breast (VEA38-GJ D05.90, Discharge, Medical). Orders For screening mammograms every year. Dr. Crump following .
--- OUTSIDE RECORDS SUMMARY | 2017-09-25 21:19 | External Medical Summary ---
:1935 Author Organization [facility]. Summary purpose CCDA Sent to [facility] Chief Complaint and Reason for Visit No authorized Reason for Visit (Admitting Diagnosis) is available for this visit. Problem list No authorized problems tracked for continuity of care are available for this visit. Encounters No authorized problems tracked for encounter diagnoses are available for this visit. Medications No medications recorded for this patient visit Allergies, adverse reactions, alerts No allergy information is available for this patient. Immunizations No immunizations recorded for this patient visit Relevant diagnostic tests and/or laboratory data No authorized results are available for this patient visit History of procedures No procedures recorded for this patient visit. Functional status No functional or cognitive status observations are available for this visit. Vital signs No authorized vital signs are available for this visit. Social history No Social History or smoking status observations were recorded for this visit. ( Unknown if ever smoked.) Treatment Plan No treatment plan text is available for this visit. Hospital discharge instructions No discharge instruction text is available for this visit.
--- OUTSIDE RECORDS SUMMARY | 2017-09-25 21:19 | External Medical Summary | Referral Summary ---
:1935 Author Organization [facility] Address [address] [place] [address] Care Team Providers Name Role Phone Adalberto Trinity Palacios Primary Care Physician Encounter VC Date(s): 01/19/15 - 01/19/15 [facility] [address] [place] [address]- us Discharge Diagnosis: Osteoporosis Discharge Disposition: 01-Home or Self Care Attending Physician: Annamaria Lisa MD Admitting Physician: Annamaria Lisa MD Vital Signs Most recent to oldest [Reference Range]: 1 Peripheral Pulse Rate [60-100 bpm] 79 bpm (01/19/15 10:36 AM) Blood Pressure [90-140/60-90 mmHg] 138/82 mmHg (01/19/15 10:36 AM) Problem List Condition Effective Dates Status [...] qWeek, # 12 tabs, 1 Refill(s), Pharmacy: [facility] # [id number], 1 tabs Oral qWeek Start Date: 01/19/15 Status: Orderedcalcium-vitamin D 500 mg-200 intl units oral tablet 1,500 mg, Oral, Daily, 0 Refill(s) Start Date: 04/22/14 Status: OrderedCentrum 1 tabs, Oral, Daily, 0 Refill(s) Start Date: 04/22/14 Status: OrderedDrisdol 50,000 intl units (1.25 mg) oral capsule See Instructions, TAKE 1 CAPSULE BY MOUTH EVERY OTHER WEEK, # 12 caps, eRx: [facility] #[id number], TAKE 1 CAPSULE BY MOUTH EVERY OTHER WEEK Start Date: 03/30/15 Status: Orderedetodolac 400 mg oral tablet, extended release See Instructions, TAKE ONE TABLET BY MOUTH DAILY, # 30 tabs, 2 Refill(s), eRx: [facility] #[id number], TAKE ONE TABLET BY MOUTH DAILY Start Date: 07/22/15 Status: OrderedEvista 60 mg oral tablet 1 tabs, Oral, Daily, # 30 tabs, eRx: [facility] #[id number], TAKE ONE TABLET BY MOUTH DAILY Start Date: 09/09/14 Status: Orderedhydrochlorothiazide 50 mg oral tablet See Instructions, TAKE ONE-HALF TABLET BY MOUTH ONCE A DAY, # 30 tabs, 3 Refill( s), eRx: [facility] #[id number], TAKE ONE TABLET BY MOUTH ONCE A DAY Start Date: 06/16/15 Status: Orderedlovastatin 40 mg oral tablet See Instructions, TAKE ONE TABLET BY MOUTH EVERY DAY, # 30 tabs, 5 Refill(s), eRx: [facility] #[id number], TAKE ONE TABLET BY MOUTH EVERY DAY Start Date: 05/12/15 Status: Orderedlutein 12 mg, Oral, Daily, 0 Refill(s) Start Date: 04/22/14 Status: Orderedpotassium chloride 10 mEq oral tablet, extended release See Instructions, TAKE TWO TABLETS BY MOUTH EVERY DAY, # 60 unknown unit, 5 Refill(s), eRx: [facility] #[id number], TAKE TWO TABLETS BY MOUTH EVERY DAY Start Date: 06/20/15 Status: OrderedVitamin C 500 mg, Oral, Daily, 0 Refill(s) Start Date: 04/22/14 Status: Ordered Results No data available for this section Immunizations Vaccine Date Refusal Reason tetanus/diphth/pertuss (Tdap) adult/adol 06/21/15 influenza virus vaccine, inactivated 06/21/15 pneumococcal 23-polyvalent vaccine 03/25/07 zoster vaccine live 10/20/09 Procedures Procedure Date Related Diagnosis Body Site (L) 2008 (R) foot Tubal ligation Social History Social History Type Response Smoking Status Former smoker Assessment and Plan Extracted from: Title: Office note Author: Annamaria Lisa MD Date: 01/19/15 Assessment/Plan 1.Osteoporosis She does have a long-standing history of osteoporosis. She is currently offraloxifene. it ispossible that this medication has helped to keep her bone density stable though it has not given improvement. She does take calcium and vitamin D supplementation.It wouldbe worthwhile to recheck her vitamin D level which has not been checked in some time. I discussed restart ing alendronate. I reviewed the potential risks which may occur in association this medication including jaw necrosis, atypical fractures, gastrointestinal side effects etc. I discussed that she sh ould taking a full glass of water and stay upright for 30 minutes after she takes it and should not take any other intake for at least 30 minutes to help with absorption of the medication andefficacy. I discussed that it isone tablet once a week. She can continue her raloxifene. Her bone density can be repeated in 1-2 years; there is no standard for repeating it after changing the medication.One year may be insufficient to note change. Thank you for allowing me to participate in her care. Please contact with any questions. Follow-up as needed.
--- OUTSIDE RECORDS SUMMARY | 2017-09-25 21:19 | External Medical Summary | Referral Summary ---
:1935 Author Organization [facility] Address [address] [place] [address] Care Team Providers Name Role Phone Trinity Glover Primary Care Physician Encounter VC Date(s): 09/22/15 - 09/22/15 [facility] [address] [place] [address] Discharge Diagnosis: Pubic ramus fracture Discharge Diagnosis: Fall Discharge Disposition: 01-Home or Self Care Attending Physician: Rick Pierre DO Admitting Physician: Rick Pierre DO Vital Signs Most recent to oldest [Reference Range]: 1 Temperature Temporal Artery [36.3-37.8 degC] 36.1 degC *LOW* (09/22/15 1:38 PM) Peripheral Pulse Rate [60-100 bpm] 64 bpm (09/22/15 5:50 PM) Heart Rate Monitored [60-100 bpm] 79 bpm (09/22/15 5:07 PM) Respiratory Rate [14-20 br/min] 17 br/min (09/22/15 5:50 PM) Blood Pressure [90-140/60-90 mmHg] 134/67 mmHg (09/22/15 5:50 PM) Mean Arterial Pressure, Cuff 96 mmHg (09/22/15 5:07 PM) SpO2 97 % (09/22/15 5:50 PM) Problem List Condition Effective Dates Status Health [...] qWeek, # 12 tabs, 1 Refill(s), Pharmacy: [facility] # [id number], 1 tabs Oral qWeek Start Date: 01/19/15 Status: Orderedcalcium-vitamin D 500 mg-200 intl units oral tablet 1,500 mg, Oral, Daily, 0 Refill(s) Start Date: 04/22/14 Status: OrderedCentrum 1 tabs, Oral, Daily, 0 Refill(s) Start Date: 04/22/14 Status: OrderedDrisdol 50,000 intl units (1.25 mg) oral capsule See Instructions, TAKE 1 CAPSULE BY MOUTH EVERY OTHER WEEK, # 12 caps, eRx: [facility] #[id number], TAKE 1 CAPSULE BY MOUTH EVERY OTHER WEEK Start Date: 03/30/15 Status: Orderedetodolac 400 mg oral tablet, extended release See Instructions, TAKE ONE TABLET BY MOUTH DAILY, # 30 tabs, 2 Refill(s), eRx: [facility] #[id number], TAKE ONE TABLET BY MOUTH DAILY Start Date: 07/22/15 Status: OrderedEvista 60 mg oral tablet 1 tabs, Oral, Daily, # 30 tabs, eRx: [facility] #[id number], TAKE ONE TABLET BY MOUTH DAILY Start Date: 09/09/14 Status: Orderedhydrochlorothiazide 50 mg oral tablet See Instructions, TAKE ONE-HALF TABLET BY MOUTH ONCE A DAY, # 30 tabs, 3 Refill( s), eRx: [facility] #[id number], TAKE ONE TABLET BY MOUTH ONCE A DAY Start Date: 06/16/15 Status: OrderedHYDROcodone-acetaminophen 5 mg-325 mg oral tablet 1 tabs, Oral, q4hr, Pain Moderate (4-6), X 3 days, # 18 tabs, 0 Refill(s) Start Date: 09/22/15 Stop Date: 09/25/15 Status: Orderedlovastatin 40 mg oral tablet See Instructions, TAKE ONE TABLET BY MOUTH EVERY DAY, # 30 tabs, 5 Refill(s), eRx: [facility] #[id number], TAKE ONE TABLET BY MOUTH EVERY DAY Start Date: 05/12/15 Status: Orderedlutein 12 mg, Oral, Daily, 0 Refill(s) Start Date: 04/22/14 Status: Orderedpotassium chloride 10 mEq oral tablet, extended release See Instructions, TAKE TWO TABLETS BY MOUTH EVERY DAY, # 60 unknown unit, 5 Refill(s), eRx: [facility] #[id number], TAKE TWO TABLETS BY MOUTH EVERY DAY Start Date: 06/20/15 Status: OrderedVitamin C 500 mg, Oral, Daily, 0 Refill(s) Start Date: 04/22/14 Status: Ordered Results Hematology Most recent to oldest [Reference Range]: 1 WBC [4.8-10.8 10*3/uL] 8.7 10*3/uL (09/22/15 2:13 PM) RBC [4.00-5.20] 4.53 (09/22/15 2:13 PM) Hgb [12.0-16.0 gm/dL] 14.7 gm/dL (09/22/15 2:13 PM) Hct [37.0-47.0 %] 43.0 % (09/22/15 2:13 PM) MCV [82.0-99.0 fL] 94.9 fL (09/22/15 2:13 PM) MCH [27.0-32.0 pg] 32.5 pg *HI* (09/22/15 2:13 PM) MCHC [32.0-36.0 gm/dL] 34.2 gm/dL (09/22/15 2:13 PM) RDW [11.5-14.5 %] 13.2 % (09/22/15 2:13 PM) Platelet [150-400 10*3/uL] 240 10*3/uL (09/22/15 2:13 PM) MPV [9.4-12.4 fL] 9.7 fL (09/22/15 2:13 PM) Immature Granulocytes [0.0-1.0 %] 0.3 % (09/22/15 2:13 PM) Neutrophils [51-75 %] 83 % *HI* (09/22/15 2:13 PM) Lymphocytes [20-46 %] 7 % *LOW* (09/22/15 2:13 PM) Monocytes [4-11 %] 10 % (09/22/15 2:13 PM) Eosinophils [0-4 %] 0 % (09/22/15 2:13 PM) Basophils [0-2 %] 0 % (09/22/15 2:13 PM) Neutro Absolute [1.90-7.00 10*3] 7.20 10*3 *HI* (09/22/15 2:13 PM) Lymph Absolute [0.80-3.30 10*3] 0.59 10*3 *LOW* (09/22/15 2:13 PM) [place] Absolute [0.30-1.00 10*3] 0.83 10*3 (09/22/15 2:13 PM) Eos Absolute [0.00-0.50 10*3] 0.03 10*3 (09/22/15 2:13 PM) Baso Absolute [0.00-0.20 10*3] 0.02 10*3 (09/22/15 2:13 PM) Nucleated RBC Automated [0 /100 WBC] 0.0 /100 WBC (09/22/15 2:13 PM) Chemistry Most recent to oldest [Reference Range]: 1 Sodium Lvl [136-144 mEq/L] 131 mEq/L *LOW* (09/22/15 2:13 PM) Potassium Lvl [3.6-5.1 mEq/L] 2.8 mEq/L 1 *LOW* (09/22/15 2:13 PM) Chloride [99-109 mEq/L] 89 mEq/L *LOW* (09/22/15 2:13 PM) CO2 [22-32 mEq/L] 28 mEq/L (09/22/15 2:13 PM) AGAP [3-20] 14 (09/22/15 2:13 PM) BUN [4-20 mg/dL] 18 mg/dL (09/22/15 2:13 PM) Glucose Lvl [70-100 mg/dL] 126 mg/dL *HI* (09/22/15 2:13 PM) Creatinine Lvl [0.44-1.03 mg/dL] 0.98 mg/dL (09/22/15 2:13 PM) eGFR [>60] 55 2 *ABN* (09/22/15 2:13 PM) Calcium Lvl [8.6-10.0 mg/dL] 10.0 mg/dL (09/22/15 2:13 PM) 1Result Comment: Hemolyzed specimen. The following test may be affected: Potassium.2Result Comment: Multiply eGFR results by 1.21 for race. Immunizations Vaccine Date Refusal Reason tetanus/diphth/pertuss (Tdap) adult/adol 06/21/15 influenza virus vaccine, inactivated 06/21/15 pneumococcal 23-polyvalent vaccine 03/25/07 zoster vaccine live 10/20/09 Procedures Procedure Date Related Diagnosis Body Site (L) 2007 (R) foot Tubal ligation Social History Social History Type Response Smoking Status Former smoker Assessment and Plan No data available for this section
--- OUTSIDE RECORDS SUMMARY | 2017-09-25 21:19 | External Medical Summary ---
:1935 Author Organization [facility]. Summary purpose CCDA Sent to NME Chief Complaint and Reason for Visit No [...] visit Relevant diagnostic tests and/or laboratory data RESULTS CBC [id number] Result Normal Range Units WBC L 4.00 4.8-10.8 x103/mm3 Neutrophil % 55.7 50-70 % Lymph % 30.0 20-50 % [place] % H 12.0 1.0-9.0 % Eosinophil % 2.0 0-4 % Basophil % 0.3 0-2 % Neutrophil # L 2.23 3.0-7.0 x103/mm3 Lymph # 1.20 1.0-4.0 x103/mm3 [place] # 0.48 0.0-0.8 x103/mm3 Eosinophil # 0.08 0-0.5 x103/mm3 Basophil # 0.01 0-0.2 x103/mm3 RBC L 3.85 4.20-5.40 x103/mm3 HGB 12.8 12.0-16.0 g/dl HCT 38.7 37.0-47.0 % MCV H 100.5 81-99 FL MCH H 33.2 27.0-31.0 pg MCHC 33.1 32.0-36.0 g/dl RDW 13.6 12-15 % Platelet 181 150-400 x103/mm3 MPV H 10.9 6.0-10.0 FL History of procedures Procedure Code Code Type Description Date Performed Performing Physician [id number] CPT-4 COMPLETE CBC, 10-03-2016 GRIFFIN HAIRSTON AUTOMATED Functional status No functional or cognitive status [...]
--- OUTSIDE RECORDS SUMMARY | 2017-09-25 21:19 | External Medical Summary ---
:1935 Author Organization [facility]. Summary purpose CCDA Sent to [facility] Chief Complaint and Reason for Visit Admit Diagnosis 1 back pain Problem list No authorized problems tracked for [...]
--- OUTSIDE RECORDS SUMMARY | 2017-09-25 21:19 | External Medical Summary | Referral Summary ---
:1935 Author Organization [facility], [facility] Address [address] [place] [address] Care Team Providers Name Role Phone Trinity Glover Primary Care Physician Encounter VC Date(s): 06/21/15 - 06/21/15 [facility], Internal Medicine [address] [place] [address]- [place] Discharge Diagnosis: Hyperlipidemia Discharge [...] qWeek, # 12 tabs, 1 Refill(s), Pharmacy: [facility] # [id number], 1 tabs Oral qWeek Start Date: 01/19/15 Status: Orderedcalcium-vitamin D 500 mg-200 intl units oral tablet 1,500 mg, Oral, Daily, 0 Refill(s) Start Date: 04/22/14 Status: OrderedCentrum 1 tabs, Oral, Daily, 0 Refill(s) Start Date: 04/22/14 Status: OrderedDrisdol 50,000 intl units (1.25 mg) oral capsule See Instructions, TAKE 1 CAPSULE BY MOUTH EVERY OTHER WEEK, # 12 caps, eRx: [facility] #[id number], TAKE 1 CAPSULE BY MOUTH EVERY OTHER WEEK Start Date: 03/30/15 Status: Orderedetodolac 400 mg oral tablet, extended release See Instructions, TAKE ONE TABLET BY MOUTH DAILY, # 30 tabs, 3 Refill(s), eRx: [facility] #[id number], TAKE ONE TABLET BY MOUTH DAILY Start Date: 03/24/15 Status: OrderedEvista 60 mg oral tablet 1 tabs, Oral, Daily, # 30 tabs, eRx: [facility] #[id number], TAKE ONE TABLET BY MOUTH DAILY Start Date: 09/09/14 Status: Orderedhydrochlorothiazide 50 mg oral tablet See Instructions, TAKE ONE-HALF TABLET BY MOUTH ONCE A DAY, # 30 tabs, 3 Refill( s), eRx: [facility] #[id number], TAKE ONE TABLET BY MOUTH ONCE A DAY Start Date: 06/16/15 Status: Orderedlovastatin 40 mg oral tablet See Instructions, TAKE ONE TABLET BY MOUTH EVERY DAY, # 30 tabs, 5 Refill(s), eRx: [facility] #[id number], TAKE ONE TABLET BY MOUTH EVERY DAY Start Date: 05/12/15 Status: Orderedlutein 12 mg, Oral, Daily, 0 Refill(s) Start Date: 04/22/14 Status: Orderedpotassium chloride 10 mEq oral tablet, extended release See Instructions, TAKE TWO TABLETS BY MOUTH EVERY DAY, # 60 unknown unit, 5 Refill(s), eRx: [facility] #[id number], TAKE TWO TABLETS BY MOUTH EVERY DAY [...] past 15 years. Have at least a 32-[id number]-[id number] history of smoking. A pack year is [...] Document Reviewed: 07/21/2014 Exit[employer] Patient Information 2015 [employer]. This information is not intended to replace advice given to you by your health care provider. Make sure you discuss any questions you have with your health care provider. No follow up information was provided. Extracted from: Title: Annual Wellness Visit- female Author: Trinity Glover MD Date: 06/21/15 Impression and Plan Diagnosis Medicare annual wellness visit, subsequent ([id number] Z00.00, Discharge, Medical ). Plan: Flu shot: [...] bilateral hearing aides Vision screen: Deferred to financial aid counselor Patient is still able to do all basic ADLs and instrumental ADLs independently. Advance directives: Patient had DNR, living will, and DPOA. Provider List: Dr. Satya MARSHALL, Dr. Crump (breast surgeon), Dr. Lisa ( maintenance worker) DME list: bilateral hearing aides Senior wellness [...] 6 months. . Diagnosis Hypertension, essential, benign ([id number] I10, Discharge, Medical). Course: Well controlled. Orders Current BP at goal. Discussed goal BP (less than 140/90). Continue current antihypertensive medications. Continue heart-healthy, low-salt diet and exercise. . Diagnosis Hyperlipidemia ([id number] E78.5, Discharge, Medical). Orders Lipids at goal. No myalgia. Continue meds and low-fat diet. For fasting lipid panel and CMP today. . 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 Orders Continue alendronate 70 mg once weekly. Continue calcium and vitamin D supplements. Continue weightbearing exercises. Continue follow-up with Dr. Lisa. . Diagnosis Carcinoma in situ of breast ([id number] D05.90, Discharge, Medical). Orders For screening mammograms every year. Dr. Crump following .
--- OUTSIDE RECORDS SUMMARY | 2017-09-25 21:19 | External Medical Summary ---
:1935 Author Organization [facility]. Summary purpose CCDA Sent to [facility] Chief Complaint and Reason for [...]
--- OUTSIDE RECORDS SUMMARY | 2017-09-25 21:19 | External Medical Summary | Referral Summary ---
:1935 Author Organization [facility] Address [address] [place] [address] Care Team Providers Name Role Phone Trinity Glover Primary Care Physician Encounter [facility] Date(s): 10/04/15 - 10/08/15 [facility] [address] [place] [address] Discharge Disposition: 03-[facility] Facility Attending Physician: Airam Villagran DO Admitting Physician: Carlos Duran MD Vital Signs Most recent to oldest [Reference Range]: 1 Temperature Oral [35.8-37.3 degC] 36.7 degC (10/08/15 12:00 PM) Peripheral Pulse Rate [60-100 bpm] 85 bpm (10/08/15 12:00 PM) Heart Rate Monitored [60-100 bpm] 86 bpm (10/04/15 10:00 PM) Respiratory Rate [14-20 br/min] 18 br/min (10/08/15 12:00 PM) Blood Pressure [90-140/60-90 mmHg] 119/65 mmHg (10/08/15 12:00 PM) Mean Arterial Pressure, Cuff 120 mmHg (10/04/15 11:05 PM) SpO2 97 % (10/08/15 12:00 PM) Problem List Condition Effective Dates Status [...] qWeek, # 12 tabs, 1 Refill(s), Pharmacy: [facility] # [id number], 1 tabs Oral qWeek Start Date: 01/19/15 Status: Orderedaspirin 325 mg, Oral, Daily, 0 Refill(s) Start Date: 10/04/15 Status: Orderedcalcium-vitamin D 500 mg-200 intl units oral tablet 1,500 mg, Oral, Daily, 0 Refill(s) Start Date: 04/22/14 Status: OrderedCentrum 1 tabs, Oral, Daily, 0 Refill(s) Start Date: 04/22/14 Status: OrderedEvista 60 mg oral tablet 1 tabs, Oral, Daily, # 30 tabs, eRx: [facility] #[id number], TAKE ONE TABLET BY MOUTH DAILY Start Date: 09/09/14 Status: Orderedhydrochlorothiazide 25 mg, Oral, Daily, 0 Refill(s) Start Date: 10/04/15 Status: OrderedKeflex 500 mg oral capsule 500 mg 1 caps, Oral, q8hr, X 4 days, # 12 caps, 0 Refill(s) Start Date: 10/07/15 Stop Date: 10/11/15 Status: Orderedlactulose 10 g/15 mL oral syrup 20 g 30 mL, Oral, TID, 0 Refill(s) Start Date: 10/07/15 Status: Orderedlovastatin 40 mg, Oral, Daily, 0 Refill(s) Start Date: 10/04/15 Status: Orderedlutein 12 mg, Oral, Daily, 0 Refill(s) Start Date: 04/22/14 Status: OrderedMilk of Magnesia 30 mL, Oral, Daily, as needed for constipation, 0 Refill(s) Start Date: 10/04/15 Status: OrderedMiraLax 17 g 1 packets, Oral, BID, 0 Refill(s) Start Date: 10/07/15 Status: OrderedNorco 5 mg-325 mg oral tablet 2 tabs, Oral, q4hr, as needed for pain, 1 to 2 tabs, 0 Refill(s) Start Date: 10/04/15 Status: Orderedpotassium chloride 10 mEq oral tablet, extended release 10 mEq 1 tabs, Oral, Daily, 0 Refill(s) Start Date: 10/04/15 Status: OrderedProtonix 40 mg oral delayed release tablet 40 mg 1 tabs, Oral, BID, 0 Refill(s) Start Date: 10/07/15 Status: OrderedVitamin C 500 mg, Oral, Daily, 0 Refill(s) Start Date: 04/22/14 Status: OrderedVitamin D2 2000 Int_unit, Oral, Saturday, 0 Refill(s) Start Date: 10/04/15 Status: Ordered Results Hematology Most recent to oldest [Reference Range]: 1 WBC [4.8-10.8 10*3/uL] 4.0 10*3/uL *LOW* (10/08/15 6:34 AM) RBC [4.00-5.20] 2.92 *LOW* (10/08/15 6:34 AM) Hgb [12.0-16.0 gm/dL] 9.0 gm/dL *LOW* (10/08/15 6:34 AM) Hct [37.0-47.0 %] 28.3 % *LOW* (10/08/15 6:34 AM) MCV [82.0-99.0 fL] 96.9 fL (10/08/15 6:34 AM) MCH [27.0-32.0 pg] 30.8 pg (10/08/15 6:34 AM) MCHC [32.0-36.0 gm/dL] 31.8 gm/dL *LOW* (10/08/15 6:34 AM) RDW [11.5-14.5 %] 14.1 % (10/08/15 6:34 AM) Platelet [150-400 10*3/uL] 305 10*3/uL (10/08/15 6:34 AM) MPV [9.4-12.4 fL] 9.1 fL *LOW* (10/08/15 6:34 AM) Immature Granulocytes [0.0-1.0 %] 0.4 % (2/5/16 6:22 AM) Neutrophils [51-75 %] 64 % (10/07/15 6:22 AM) Lymphocytes [20-46 %] 22 % (10/07/15 6:22 AM) Monocytes [4-11 %] 12 % *HI* (10/07/15 6:22 AM) Eosinophils [0-4 %] 1 % (10/07/15 6:22 AM) Basophils [0-2 %] 0 % (10/07/15 6:22 AM) Neutro Absolute [1.90-7.00 10*3] 2.91 10*3 (10/07/15 6:22 AM) Lymph Absolute [0.80-3.30 10*3] 1.00 10*3 (10/07/15 6:22 AM) Lyman Absolute [0.30-1.00 10*3] 0.52 10*3 (10/07/15 6:22 AM) Eos Absolute [0.00-0.50 10*3] 0.06 10*3 (10/07/15 6:22 AM) Baso Absolute [0.00-0.20 10*3] 0.02 10*3 (10/07/15 6:22 AM) Nucleated RBC Automated [0 /100 WBC] 0.0 /100 WBC (10/07/15:22 AM) Chemistry Most recent to oldest [Reference Range]: 1 Sodium Lvl [136-144 mEq/L] 131 mEq/L *LOW* (10/08/15 6:34 AM) Potassium Lvl [3.6-5.1 mEq/L] 3.3 mEq/L *LOW* (10/08/15:34 AM) Chloride [99-109 mEq/L] 97 mEq/L *LOW* (10/08/15 6:34 AM) CO2 [22-32 mEq/L] 28 mEq/L (10/08/15 6:34 AM) AGAP [3-20] 6 (10/08/15 6:34 AM) BUN [4-20 mg/dL] 8 mg/dL (10/08/15 6:34 AM) Glucose Lvl [70-100 mg/dL] 99 mg/dL (10/08/15 6:34 AM) Creatinine Lvl [0.44-1.03 mg/dL] 0.60 mg/dL (10/08/15 6:34 AM) eGFR [>60] >60 1 (10/08/15 6:34 AM) Calcium Lvl [8.6-10.0 mg/dL] 7.7 mg/dL *LOW* (10/08/15 6:34 AM) Albumin Lvl [3.5-4.8 gm/dL] 2.0 gm/dL *LOW* (10/08/15 6:34 AM) Total Protein [6.1-7.9 gm/dL] 6.5 gm/dL (10/04/15 5:23 PM) Globulin [1.9-4.3 gm/dL] 3.9 gm/dL (10/04/15 5:23 PM) ALT [14-54 U/L] 40 U/L (10/04/15 5:23 PM) AST [15-41 U/L] 39 U/L (10/04/15 5:23 PM) Alk Phos [26-104 U/L] 145 U/L *HI* (10/04/15 5:23 PM) Bili Total [0.2-1.2 mg/dL] 0.6 mg/dL 2 (10/04/15 5:23 PM) Phosphorus [2.4-4.7 mg/dL] 2.9 mg/dL 3 (10/08/15 6:34 AM) Lipase Lvl [8-48 U/L] 34 U/L (10/04/15 5:23 PM) Lactic Acid Lvl [0.5-2.2 mEq/L] 1.7 mEq/L (10/04/15 9:14 PM) Occult Blood, Stool NPT [Negative] Negative (10/04/15 8:46 PM) Blood Glucose, Capillary [70-100 mg/dL] 105 mg/dL *HI* (10/07/15 5:49 AM) 1Result Comment: Multiply eGFR results by 1.21 for race.2Result Comment: Naproxen, specifically the metabolite O-desmethylnaproxen, may cause spurious elevation in Total Bilirubin levels.3Result Comment: High dosages of liposomal Amphotericin B (AmBisome) therapy or other drug preparations that use a liposomal envelope to facilitate drug delivery may cause falsely elevated results for phosphorus.Urinalysis Most recent to oldest [Reference Range]: 1 UA Color Brisa *ABN* (10/04/15 8:01 PM) UA Appear Cloudy *ABN* (10/04/15 8:01 PM) UA pH [5.0-8.0] 6.0 (10/04/15 8:01 PM) UA Leuk Est [Negative] Pos 2+ *ABN* (10/04/15 8:01 PM) UA Nitrite [Negative] Positive *ABN* (10/04/15 8:01 PM) UA Protein [Negative] Pos 2+ *ABN* (10/04/15 8:01 PM) UA Glucose [Negative] Negative (10/04/15 8:01 PM) UA Ketones [Negative] Negative (10/04/15 8:01 PM) UA Urobilinogen [<1.0] Negative (10/04/15 8:01 PM) UA Bili [Negative] Negative (10/04/15 8:01 PM) UA Blood [Negative] Pos 3+ *ABN* (10/04/15 8:01 PM) UA Spec Grav [1.003-1.030] 1.025 (10/04/15 8:01 PM) Type Clean Catch (10/04/15 8:01 PM) UA WBC [0-4 /HPF] >50 /HPF *ABN* (10/04/15 8:01 PM) UA RBC [0-2 /HPF] >50 /HPF *ABN* (10/04/15 8:01 PM) Epithelial Cells None Seen (10/04/15 8:01 PM) UA Bacteria Numerous *ABN* (10/04/15 8:01 PM) UA Mucous Present (10/04/15 8:01 PM) Microbiology Reports TEST:Blood Culture STATUS:Order in Progress BODY SITE: SOURCE:Blood COLLECTED DATE/TIME:10/04/15 9:14 PMBlood CultureNo growth after 12 hours incubation. Nursing unit will be called if growth is detected. - A blood culture drawn through a catheter with a differential time to positivity at least 2 hours sooner than one drawn from a peripheral vein at the same time suggests a catheter-related bloodstream infection.TEST:Blood Culture STATUS:Order in Progress BODY SITE: SOURCE:Blood COLLECTED DATE/TIME:10/04/15 9:14 PMBlood CultureNo growth after 12 hours incubation. Nursing unit will be called if growth is detected. - A blood culture drawn through a catheter with a differential time to positivity at least 2 hours sooner than one drawn from a peripheral vein at the same time suggests a catheter-related bloodstream infection.TEST:Urine Culture STATUS:Auth (Verified) BODY SITE: SOURCE:Urine COLLECTED DATE/TIME:10/04/15 8:01 PMUrine Culture- - - - - - - Positive urine culture (even if >100,000 cfu/ml) without presence of symptoms does not require antibiotic treatment unless the patient is or undergoing urinary surgery. Please document as bacteriuria. Escherichia coli >100,000 cfu/ml ORGANISM:Escherichia coli Immunizations Vaccine Date Refusal Reason tetanus/diphth/pertuss (Tdap) adult/adol 06/21/15 influenza virus vaccine, inactivated 06/21/15 pneumococcal 23-polyvalent vaccine 03/25/07 zoster vaccine live 10/20/09 Procedures Procedure Date Related Diagnosis Body Site CT L PUBIC RAMUS FX [facility] BUHR1 09/23/15 (L) 2008 (R) foot Tubal ligation 1S32.592A, S32.512A L SUPERIOR & INFERIOR PUBIC RAMUS FXS ACC 09/23/2015 HOME Dreampod 12/22/2015 Social History Social History Type Response Smoking Status Former smoker Assessment and Plan No data available for this section
--- OUTSIDE RECORDS SUMMARY | 2017-09-25 21:19 | External Medical Summary | Referral Summary ---
:1935 Author Organization [facility] Address [address] [place] [address] Care Team Providers Name Role Phone Denita Mg Primary Care Physician Encounter [facility] [id number] Date(s): 11/04/15 - 11/04/15 [facility] [address] [address] [place] [address]- us Discharge Diagnosis: Fracture of left inferior pubic ramus with routine healing Discharge Diagnosis: Fracture of left superior pubic ramus with routine healing Discharge Diagnosis: Encounter for orthopedic follow-up care Discharge Disposition: 01-Home or Self Care Attending Physician: Bruce Burrows APRN Admitting Physician: Bruce Burrows APRN Vital Signs Most recent to oldest [Reference Range]: 1 Respiratory Rate [14-20 br/min] 16 br/min (11/04/15 11:06 AM) Problem List Condition Effective Dates Status [...] # 12 tabs, 1 Refill(s), Pharmacy: [facility] # [id number], 1 tabs Oral qWeek Start Date: 01/19/15 Status: Orderedaspirin 325 mg, Oral, Daily, 0 Refill(s) Start Date: 10/04/15 Status: Orderedcalcium-vitamin D 500 mg-200 intl units oral tablet 1,500 mg, Oral, Daily, 0 Refill(s) Start Date: 04/22/14 Status: OrderedCentrum 1 tabs, Oral, Daily, 0 Refill(s) Start Date: 04/22/14 Status: OrderedEvista 60 mg oral tablet 1 tabs, Oral, Daily, # 30 tabs, eRx: [facility] #[id number], TAKE ONE TABLET BY MOUTH DAILY Start [...] INFERIOR PUBIC RAMUS FXS ACC 09/23/2015 HOME iFulfillment 12/22/2015 Social History Social History Type Response Smoking Status Former smoker Assessment and Plan Extracted from: Title: Office Visit Note Author: Bruce Burrows APRN Date: 11/04/15 Assessment/Plan 1.Fracture of left superior pubic ramus with routine healing Ordered: Postoperative Est 15617 2.Fracture of left inferior pubic ramus with routine healing Ordered: Postoperative Est 50515 3.Encounter for orthopedic follow-up care Reviewed radiographs taken today with the patient and family friend. Discussed patient's progress and prognosis. Patient denies any pain in the pelvis region. A she is not taking anynarcotic pain medication. Patient has been weightbearing as toleratedbilateral lower extremities. Patient is using a walker as an ambulation aide. Recommend patient continue with physical and occupational therapy. Discussed with the patient andfamily friendthat [facility]by the attending provider,therapist,shoe parts caser and nursing staff. Family friend does state thatMs. Torres living at homeindependentlyprior to her falland pelvic fractures.Patient liborio l follow-up on an as-needed basis. Patient and family will call with any questions or concerns regarding care and treatment of the leftpelvic fractures. Patient and family friend are in agreement with this plan. Ordered: Postoperative Est 33480
--- OUTSIDE RECORDS SUMMARY | 2017-09-25 21:19 | External Medical Summary ---
:1935 Author Organization [facility]. Summary purpose CCDA Sent to [facility] Chief Complaint and Reason for Visit No [...] Relevant diagnostic tests and/or laboratory data RESULTS Chemistry Group [id number]:23:00 Result Normal Range Units Sodium 143 134-145 mmol/L Potassium 4.7 3.6-5.0 mmol/L Chloride 99 98-107 mmol/L CO2 29 22-30 mmol/L Glucose 95 75-110 mg/dl BUN 16 9-20 mg/dl Creatinine .80 0.8-1.7 mg/dl eGFR 84 ml/min. Calcium 9.6 8.4-10.2 mg/dl History of procedures No procedures recorded for [...]
--- OUTSIDE RECORDS SUMMARY | 2017-09-25 21:19 | External Medical Summary | Referral Summary ---
:1935 Author Organization [facility] Address [address] [place] [address] Care Team Providers Name Role Phone Trinity Glover Primary Care Physician Encounter [facility] Date(s): 06/21/15 - 06/21/15 [facility] [address] [place] [address]- [place] Discharge Diagnosis: Hyperlipidemia Discharge [...] qWeek, # 12 tabs, 1 Refill(s), Pharmacy: [facility] # [id number], 1 tabs Oral qWeek Start Date: 01/19/15 Status: Orderedcalcium-vitamin D 500 mg-200 intl units oral tablet 1,500 mg, Oral, Daily, 0 Refill(s) Start Date: 04/22/14 Status: OrderedCentrum 1 tabs, Oral, Daily, 0 Refill(s) Start Date: 04/22/14 Status: OrderedDrisdol 50,000 intl units (1.25 mg) oral capsule See Instructions, TAKE 1 CAPSULE BY MOUTH EVERY OTHER WEEK, # 12 caps, eRx: [facility] #[id number], TAKE 1 CAPSULE BY MOUTH EVERY OTHER WEEK Start Date: 03/30/15 Status: Orderedetodolac 400 mg oral tablet, extended release See Instructions, TAKE ONE TABLET BY MOUTH DAILY, # 30 tabs, 3 Refill(s), eRx: [facility] #[id number], TAKE ONE TABLET BY MOUTH DAILY Start Date: 03/24/15 Status: OrderedEvista 60 mg oral tablet 1 tabs, Oral, Daily, # 30 tabs, eRx: [facility] #[id number], TAKE ONE TABLET BY MOUTH DAILY Start Date: 09/09/14 Status: Orderedhydrochlorothiazide 50 mg oral tablet See Instructions, TAKE ONE-HALF TABLET BY MOUTH ONCE A DAY, # 30 tabs, 3 Refill( s), eRx: [facility] #[id number], TAKE ONE TABLET BY MOUTH ONCE A DAY Start Date: 06/16/15 Status: Orderedlovastatin 40 mg oral tablet See Instructions, TAKE ONE TABLET BY MOUTH EVERY DAY, # 30 tabs, 5 Refill(s), eRx: [facility] #[id number], TAKE ONE TABLET BY MOUTH EVERY DAY Start Date: 05/12/15 Status: Orderedlutein 12 mg, Oral, Daily, 0 Refill(s) Start Date: 04/22/14 Status: Orderedpotassium chloride 10 mEq oral tablet, extended release See Instructions, TAKE TWO TABLETS BY MOUTH EVERY DAY, # 60 unknown unit, 5 Refill(s), eRx: [facility] #[id number], TAKE TWO TABLETS BY MOUTH EVERY DAY [...] past 15 years. Have at least a 77-paeb-ihov history of smoking. A pack year is [...] Document Reviewed: 07/21/2014 Exit[employer] Patient Information 2015 [email or web address]. This information is not intended to replace advice given to you by your health care provider. Make sure you discuss any questions you have with your health care provider. No follow up information was provided. Extracted from: Title: Annual Wellness Visit- female Author: Trinity Glover MD Date: 06/21/15 Impression and Plan Diagnosis Medicare annual wellness visit, subsequent (XSY81-CI Z00.00, Discharge, Medical ). Plan: Flu shot: [...] bilateral hearing aides Vision screen: Deferred to plate grainer Patient is still able to do all basic ADLs and instrumental ADLs independently. Advance directives: Patient had DNR, living will, and DPOA. Provider List: Dr. Satya MARSHALL, Dr. Crump (breast surgeon), Dr. Lisa ( carton maker) DME list: bilateral hearing aides Senior wellness [...] 6 months. . Diagnosis Hypertension, essential, benign (WHT89-WN I10, Discharge, Medical). Course: Well controlled. Orders Current BP at goal. Discussed goal BP (less than 140/90). Continue current antihypertensive medications. Continue heart-healthy, low-salt diet and exercise. . Diagnosis Hyperlipidemia (JSR43-YR E78.5, Discharge, Medical). Orders Lipids at goal. No myalgia. Continue meds and low-fat diet. For fasting lipid panel and CMP today. . 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 Orders Continue alendronate 70 mg once weekly. Continue calcium and vitamin D supplements. Continue weightbearing exercises. Continue follow-up with Dr. Lisa. . Diagnosis Carcinoma in situ of breast (MKX84-BB D05.90, Discharge, Medical). Orders For screening mammograms every year. Dr. Crump following .
--- OUTSIDE RECORDS SUMMARY | 2017-09-25 21:19 | External Medical Summary | Referral Summary ---
:1935 Author Organization [facility] Address [address] [place] [address] Care Team Providers Name Role Phone Trinity Glover Primary Care Physician Encounter [facility] Date(s): 09/23/15 - 09/23/15 [facility] [address] [place] [address]- [place] Discharge Disposition: 01-Home or Self Care Attending Physician: Trinity Glover MD Admitting Physician: Trinity Glover MD Referring Physician: Trinity Glover MD Vital Signs Most recent to oldest [Reference Range]: 1 Peripheral Pulse Rate [60-100 bpm] 59 bpm *LOW* (09/23/15 11:34 AM) Blood Pressure [90-140/60-90 mmHg] 122/68 mmHg (09/23/15 11:34 AM) SpO2 95 % (09/23/15 11:34 AM) Problem List Condition Effective Dates Status [...] qWeek, # 12 tabs, 1 Refill(s), Pharmacy: [facility] # [id number], 1 tabs Oral qWeek Start Date: 01/19/15 Status: Orderedcalcium-vitamin D 500 mg-200 intl units oral tablet 1,500 mg, Oral, Daily, 0 Refill(s) Start Date: 04/22/14 Status: OrderedCentrum 1 tabs, Oral, Daily, 0 Refill(s) Start Date: 04/22/14 Status: OrderedDrisdol 50,000 intl units (1.25 mg) oral capsule See Instructions, TAKE 1 CAPSULE BY MOUTH EVERY OTHER WEEK, # 12 caps, eRx: [facility] #[id number], TAKE 1 CAPSULE BY MOUTH EVERY OTHER WEEK Start Date: 03/30/15 Status: Orderedetodolac 400 mg oral tablet, extended release See Instructions, TAKE ONE TABLET BY MOUTH DAILY, # 30 tabs, 2 Refill(s), eRx: [facility] #[id number], TAKE ONE TABLET BY MOUTH DAILY Start Date: 07/22/15 Status: OrderedEvista 60 mg oral tablet 1 tabs, Oral, Daily, # 30 tabs, eRx: [facility] #[id number], TAKE ONE TABLET BY MOUTH DAILY Start Date: 09/09/14 Status: Orderedhydrochlorothiazide 50 mg oral tablet See Instructions, TAKE ONE-HALF TABLET BY MOUTH ONCE A DAY, # 30 tabs, 3 Refill( s), eRx: [facility] #[id number], TAKE ONE TABLET BY MOUTH ONCE A DAY Start Date: 06/16/15 Status: OrderedHYDROcodone-acetaminophen 5 mg-325 mg oral tablet 1 tabs, Oral, q4hr, Pain Moderate (4-6), X 3 days, # 18 tabs, 0 Refill(s) Start Date: 09/22/15 Stop Date: 09/25/15 Status: Orderedlovastatin 40 mg oral tablet See Instructions, TAKE ONE TABLET BY MOUTH EVERY DAY, # 30 tabs, 5 Refill(s), eRx: [facility] #[id number], TAKE ONE TABLET BY MOUTH EVERY DAY Start Date: 05/12/15 Status: Orderedlutein 12 mg, Oral, Daily, 0 Refill(s) Start Date: 04/22/14 Status: Orderedpotassium chloride 10 mEq oral tablet, extended release See Instructions, TAKE TWO TABLETS BY MOUTH EVERY DAY, # 60 unknown unit, 5 Refill(s), eRx: [facility] #[id number], TAKE TWO TABLETS BY MOUTH EVERY DAY [...] smoker Assessment and Plan Extracted from: Title: Ortho Appt Request Author: Heidi Nixon RN Date: 09/23/15 received a phone call from Dr. Glover, stating pt fell on ice yesterday and was seen in ER with pelvic fractures and was discharged as weightbearing, states pt is currently in clinic unable to bear weight and requesting ortho office visit today, discussed no opportunities today for appt, discussed Dr. Jones on trauma call at [facility], Dr. Glover states will refer pt to [facility]
--- OUTSIDE RECORDS SUMMARY | 2017-09-25 21:19 | External Medical Summary ---
:1935 Author Organization [facility]. Summary purpose CCDA Sent to [facility] Chief Complaint and Reason for Visit No [...] tests and/or laboratory data RESULTS Chemistry Group [id number]:00 Result Normal Range Units Cholesterol H 175 130-170 mg/dl Triglyceride 145 < 200 mg/dl HDL 48 40-60 mg/dl LDL Gómez 98 30-100 mg/dl VLDL 29 0 Chol/HDL 3.64 0.00-5.00 Ratio History of procedures Procedure Code Code Type Description Date Performed Performing Physician 25616 CPT-4 LIPID PANEL 02-06-2017 GRIFFIN HAIRSTON Functional status No functional or cognitive status [...]
--- OUTSIDE RECORDS SUMMARY | 2017-09-25 21:19 | External Medical Summary ---
:1935 Author Organization [facility]. Summary purpose CCDA Sent to [facility] Chief Complaint and Reason for Visit No [...] Relevant diagnostic tests and/or laboratory data RESULTS Reference Lab Group [id number] Result Normal Range Units C. Diff toxin B ge See Comment .Site: Received : 10/22/15 14:49 .Order#: [id number] C. difficile toxin B gene by PCR FINAL 10/23/15 07:21 .Negative--Toxigenic C. difficile not detected COLE FOR RESULTS: * - NEW RESULT - RESULT WAS MODIFIED AFTER FINAL STATUS SET C. difficile toxin B gene by PCR performed at [facility], [address] [place] [address] Operations Mgr Fifi Ham DO [id number] Result Normal Range Units Culture Urine See Comment .Site: Received : 10/22/15 14:49 .Order#: [id number] Urine Culture FINAL 10/24/15 08:46 .Escherichia coli .>100,000 cfu/ml . E. coli Antibiotic CAROLE INT Ampicillin <=2 S Ampicillin/sulbactam <=2 S Cefazolin<=4 S Ceftriaxone<=1 S Ciprofloxacin <=0.25 S Gentamicin <=1 S Nitrofurantoin <=16 S Trimethoprim/Sulfa <=20 S .S=SUSCEPTIBLE I=INTERMEDIATE R=RESISTANT S-DD=SUSCEPTIBLE, DOSE DEPENDENT COLE FOR RESULTS: * - NEW RESULT - RESULT WAS MODIFIED AFTER FINAL STATUS SET Urine Culture performed at [facility], [address] [place] [id number] Operations Mgr Fifi Ham DO History of procedures No procedures recorded for [...]
--- OUTSIDE RECORDS SUMMARY | 2017-09-25 21:19 | External Medical Summary ---
:1935 Author Organization [facility]. Summary purpose CCDA Sent to [facility] Chief Complaint and Reason for Visit No [...] diagnostic tests and/or laboratory data RESULTS CBC [id number]:00 Result Normal Range Units WBC L 4.78 4.8-10.8 x103/mm3 Neutrophil % 55.5 50-70 % Lymph % 27.8 20-50 % Trigg % H 12.3 1.0-9.0 % Eosinophil % 3.8 0-4 % Basophil % 0.6 0-2 % Neutrophil # L 2.65 3.0-7.0 x103/mm3 Lymph # 1.33 1.0-4.0 x103/mm3 Trigg # 0.59 0.0-0.8 x103/mm3 Eosinophil # 0.18 0-0.5 x103/mm3 Basophil # 0.03 0-0.2 x103/mm3 RBC L 3.82 4.20-5.40 x103/mm3 HGB 12.3 12.0-16.0 g/dl HCT 37.9 37.0-47.0 % MCV H 99.2 81-99 FL MCH H 32.2 27.0-31.0 pg MCHC 32.5 32.0-36.0 g/dl RDW 13.5 12-15 % Platelet 174 150-400 x103/mm3 MPV H 10.5 6.0-10.0 FL History of procedures Procedure Code Code Type Description Date Performed Performing Physician 86160 CPT-4 COMPLETE CBC, 04-03-2017 GRIFFIN HAIRSTON AUTOMATED Functional status No functional [...]
--- OUTSIDE RECORDS SUMMARY | 2017-09-25 21:19 | External Medical Summary ---
:1935 Author Organization [facility]. Summary purpose CCDA Sent to [facility] Chief Complaint and Reason for Visit No [...] and/or laboratory data RESULTS Reference Lab Group [id number] Result Normal Range Units Vitamin B12 245 213-816 pg/mL Folate Serum 15.7 7.0-31.4 ng/mL B12 and Folate performed at [facility], [address] [place] [address] Pump And Still Operator Fifi Ham, DO Ferritin 45 5-204 ng/mL Ferritin performed at [facility] Reference Lab, [address] [place] [address] Pump And Still Operator Fifi Ham, DO Iron L 19 50-170 ug/dL Iron Binding Capacity 301 260-445 ug/dL UIBC 282 126-382 ug/dl Iron Profile performed at [facility] Reference Lab, [address] [place] [address] Pump And Still Operator Fifi Ham, DO % Saturation L 6 11-46 % Reticulocyte Count H 4.0 0.6-2.5 % Reticulocyte Count Auto performed at [facility] Reference Lab, [address] [place] [address] Pump And Still Operator Fifi Ham, History of procedures No procedures recorded for [...]
--- OUTSIDE RECORDS SUMMARY | 2017-09-25 21:19 | External Medical Summary | Referral Summary ---
:1935 Author Organization [facility], Jimmy Seymour, Internal Medicine Address [address] [place] [address] Care Team Providers Name Role Phone Trinity Glover Primary Care Physician Encounter VC Date(s): 06/21/15 - 06/21/15 [facility], Internal Medicine [address] [place] [address]- [place] Discharge Diagnosis: Hyperlipidemia Discharge [...] # 12 tabs, 1 Refill(s), Pharmacy: [facility] # [id number], 1 tabs Oral qWeek Start Date: 01/19/15 Status: Orderedcalcium-vitamin D 500 mg-200 intl units oral tablet 1,500 mg, Oral, Daily, 0 Refill(s) Start Date: 04/22/14 Status: OrderedCentrum 1 tabs, Oral, Daily, 0 Refill(s) Start Date: 04/22/14 Status: OrderedDrisdol 50,000 intl units (1.25 mg) oral capsule See Instructions, TAKE 1 CAPSULE BY MOUTH EVERY OTHER WEEK, # 12 caps, eRx: [facility] #[id number], TAKE 1 CAPSULE BY MOUTH EVERY OTHER WEEK Start Date: 03/30/15 Status: Orderedetodolac 400 mg oral tablet, extended release See Instructions, TAKE ONE TABLET BY MOUTH DAILY, # 30 tabs, 3 Refill(s), eRx: [facility] #[id number], TAKE ONE TABLET BY MOUTH DAILY Start Date: 03/24/15 Status: OrderedEvista 60 mg oral tablet 1 tabs, Oral, Daily, # 30 tabs, eRx: [facility] #[id number], TAKE ONE TABLET BY MOUTH DAILY Start Date: 09/09/14 Status: Orderedhydrochlorothiazide 50 mg oral tablet See Instructions, TAKE ONE-HALF TABLET BY MOUTH ONCE A DAY, # 30 tabs, 3 Refill( s), eRx: [facility] #[id number], TAKE ONE TABLET BY MOUTH ONCE A DAY Start Date: 06/16/15 Status: Orderedlovastatin 40 mg oral tablet See Instructions, TAKE ONE TABLET BY MOUTH EVERY DAY, # 30 tabs, 5 Refill(s), eRx: [facility] #[id number], TAKE ONE TABLET BY MOUTH EVERY DAY Start Date: 05/12/15 Status: Orderedlutein 12 mg, Oral, Daily, 0 Refill(s) Start Date: 04/22/14 Status: Orderedpotassium chloride 10 mEq oral tablet, extended release See Instructions, TAKE TWO TABLETS BY MOUTH EVERY DAY, # 60 unknown unit, 5 Refill(s), eRx: [facility] #[id number], TAKE TWO TABLETS BY MOUTH EVERY DAY [...] past 15 years. Have at least a 85-lrwq-fijt history of smoking. A pack year is [...] Document Reviewed: 07/21/2014 ExitCare Patient Information 2015 [employer]. This information is not intended to replace advice given to you by your health care provider. Make sure you discuss any questions you have with your health care provider. No follow up information was provided. Extracted from: Title: Annual Wellness Visit- female Author: Trinity Glover MD Date: 06/21/15 Impression and Plan Diagnosis Medicare annual wellness visit, subsequent (QJT10-NW Z00.00, Discharge, Medical ). Plan: Flu shot: [...] bilateral hearing aides Vision screen: Deferred to supervisor reclamation Patient is still able to do all basic ADLs and instrumental ADLs independently. Advance directives: Patient had DNR, living will, and DPOA. Provider List: Dr. Satya MARSHALL, Dr. Crump (breast surgeon), Dr. Lisa ( recovery engineer) DME list: bilateral hearing aides Senior wellness [...] 6 months. . Diagnosis Hypertension, essential, benign ([id number] I10, Discharge, Medical). Course: Well controlled. Orders Current BP at goal. Discussed goal BP (less than 140/90). Continue current antihypertensive medications. Continue heart-healthy, low-salt diet and exercise. . Diagnosis Hyperlipidemia (OHF89-CY E78.5, Discharge, Medical). Orders Lipids at goal. No myalgia. Continue meds and low-fat diet. For fasting lipid panel and CMP today. . Diagnosis Osteoporosis, postmenopausal (NMG84-JX M81.0, Discharge, Medical). Orders Continue alendronate 70 mg once weekly. Continue calcium and vitamin D supplements. Continue weightbearing exercises. Continue follow-up with Dr. Lisa. . Diagnosis Carcinoma in situ of breast (DAK52-PK D05.90, Discharge, Medical). Orders For screening mammograms every year. Dr. Crump following .
--- OUTSIDE RECORDS SUMMARY | 2017-09-25 21:20 | External Medical Summary | Referral Summary ---
:1935 Author Organization [facility], [facility] Se[facility], Internal Medicine Address [address] [place] [address] Care Team Providers Name Role Phone Denita Mg Primary Care Physician Encounter VC Date(s): 06/21/15 - 06/21/15 [facility] Jimmy Seym[facility], Internal Medicine [address] [place] [address]- Discharge Diagnosis: Hyperlipidemia Discharge Diagnosis: Medicare annual [...] qWeek, # 12 tabs, 1 Refill(s), Pharmacy: [facility] # [id number], 1 tabs Oral qWeek Start Date: 01/19/15 Status: Orderedaspirin 325 mg, Oral, Daily, 0 Refill(s) Start Date: 10/04/15 Status: Orderedcalcium-vitamin D 500 mg-200 intl units oral tablet 1,500 mg, Oral, Daily, 0 Refill(s) Start Date: 04/22/14 Status: OrderedCentrum 1 tabs, Oral, Daily, 0 Refill(s) Start Date: 04/22/14 Status: OrderedEvista 60 mg oral tablet 1 tabs, Oral, Daily, # 30 tabs, eRx: [facility] #[id number], TAKE ONE TABLET BY MOUTH DAILY Start [...] Refill(s) Start Date: 10/04/15 Status: Ordered Results Chemistry Most recent to [...] PUBIC RAMUS FXS ACC 09/23/2015 HOME GLOBAL ENDS 12/22/2015 Social History Social History Type Response [...] past 15 years. Have at least a 24-dgdw-pyda history of smoking. A pack year is [...] Document Reviewed: 07/21/2014 ExitCare Patient Information 2015 [employer] [facility]. This information is not intended to replace advice given to you by your health care provider. Make sure you discuss any questions you have with your health care provider. No follow up information was provided. Extracted from: Title: Annual Wellness Visit- female Author: Trinity Glover MD Date: 06/21/15 Impression and Plan Diagnosis Medicare annual wellness visit, subsequent (JVP14-WU Z00.00, Discharge, Medical ). Plan: Flu shot: Today and here Tdap: Today and here PPV23: 2007, no need for another shot Zostavax: 2009 [...] bilateral hearing aides Vision screen: Deferred to allied health instructor Patient is still able to do all basic ADLs and instrumental ADLs independently. Advance directives: Patient had DNR, living will, and DPOA. Provider List: Dr. Satya MARSHALL, Dr. Crump (breast surgeon), Dr. Lisa ( utility teller) DME list: bilateral hearing aides Senior wellness [...] 6 months. . Diagnosis Hypertension, essential, benign ([id number] I10, Discharge, Medical). Course: Well controlled. Orders Current BP at goal. Discussed goal BP (less than 140/90). Continue current antihypertensive medications. Continue heart-healthy, low-salt diet and exercise. . Diagnosis Hyperlipidemia (YYZ46-WZ E78.5, Discharge, Medical). Orders Lipids at goal. No myalgia. Continue meds and low-fat diet. For fasting lipid panel and CMP today. . Diagnosis Osteoporosis, postmenopausal (MRE74-FH M81.0, Discharge, Medical). Orders Continue alendronate 70 mg once weekly. Continue calcium and vitamin D supplements. Continue weightbearing exercises. Continue follow-up with Dr. Lisa. . Diagnosis Carcinoma in situ of breast (SQO47-OK D05.90, Discharge, Medical). Orders For screening mammograms every year. Dr. Crump following .
--- OUTSIDE RECORDS SUMMARY | 2017-09-25 21:20 | External Medical Summary | Referral Summary ---
:1935 Author Organization [facility] Se[facility], Internal Medicine Address [address] [place] [address] Care Team Providers Name Role Phone Trinity Glover Primary Care Physician Encounter VC Date(s): 06/21/15 - 06/21/15 [facility], Jmimy Se[facility], Internal Medicine [address] [place] [address]- [place] Discharge Diagnosis: Hyperlipidemia Discharge [...] qWeek, # 12 tabs, 1 Refill(s), Pharmacy: [facility] # [id number], 1 tabs Oral qWeek Start Date: 01/19/15 Status: Orderedcalcium-vitamin D 500 mg-200 intl units oral tablet 1,500 mg, Oral, Daily, 0 Refill(s) Start Date: 04/22/14 Status: OrderedCentrum 1 tabs, Oral, Daily, 0 Refill(s) Start Date: 04/22/14 Status: OrderedDrisdol 50,000 intl units (1.25 mg) oral capsule See Instructions, TAKE 1 CAPSULE BY MOUTH EVERY OTHER WEEK, # 12 caps, eRx: [facility] #[id number], TAKE 1 CAPSULE BY MOUTH EVERY OTHER WEEK Start Date: 03/30/15 Status: Orderedetodolac 400 mg oral tablet, extended release See Instructions, TAKE ONE TABLET BY MOUTH DAILY, # 30 tabs, 3 Refill(s), eRx: [facility] #[id number], TAKE ONE TABLET BY MOUTH DAILY Start Date: 03/24/15 Status: OrderedEvista 60 mg oral tablet 1 tabs, Oral, Daily, # 30 tabs, eRx: [facility] #[id number], TAKE ONE TABLET BY MOUTH DAILY Start Date: 09/09/14 Status: Orderedhydrochlorothiazide 50 mg oral tablet See Instructions, TAKE ONE-HALF TABLET BY MOUTH ONCE A DAY, # 30 tabs, 3 Refill( s), eRx: [facility] #[id number], TAKE ONE TABLET BY MOUTH ONCE A DAY Start Date: 06/16/15 Status: Orderedlovastatin 40 mg oral tablet See Instructions, TAKE ONE TABLET BY MOUTH EVERY DAY, # 30 tabs, 5 Refill(s), eRx: [facility] #[id number], TAKE ONE TABLET BY MOUTH EVERY DAY Start Date: 05/12/15 Status: Orderedlutein 12 mg, Oral, Daily, 0 Refill(s) Start Date: 04/22/14 Status: Orderedpotassium chloride 10 mEq oral tablet, extended release See Instructions, TAKE TWO TABLETS BY MOUTH EVERY DAY, # 60 unknown unit, 5 Refill(s), eRx: [facility] #[id number], TAKE TWO TABLETS BY MOUTH EVERY DAY [...] past 15 years. Have at least a 72-buqv-vzyf history of smoking. A pack year is [...] Document Reviewed: 07/21/2014 ExitCare Patient Information 2015 [employer]. This information is not intended to replace advice given to you by your health care provider. Make sure you discuss any questions you have with your health care provider. No follow up information was provided. Extracted from: Title: Annual Wellness Visit- female Author: Trinity Glover MD Date: 06/21/15 Impression and Plan Diagnosis Medicare annual wellness visit, subsequent ([id number]-HJ Z00.00, Discharge, Medical ). Plan: Flu shot: [...] bilateral hearing aides Vision screen: Deferred to oral and maxillofacial surgery Patient is still able to do all basic ADLs and instrumental ADLs independently. Advance directives: Patient had DNR, living will, and DPOA. Provider List: Dr. Satya MARSHALL, Dr. Crump (breast surgeon), Dr. Lisa ( flat drier) DME list: bilateral hearing aides Senior wellness [...] 6 months. . Diagnosis Hypertension, essential, benign (JII51-EO I10, Discharge, Medical). Course: Well controlled. Orders Current BP at goal. Discussed goal BP (less than 140/90). Continue current antihypertensive medications. Continue heart-healthy, low-salt diet and exercise. . Diagnosis Hyperlipidemia (NIT14-EQ E78.5, Discharge, Medical). Orders Lipids at goal. No myalgia. Continue meds and low-fat diet. For fasting lipid panel and CMP today. . Diagnosis Osteoporosis, postmenopausal (NOG78-RM M81.0, Discharge, Medical). Orders Continue alendronate 70 mg once weekly. Continue calcium and vitamin D supplements. Continue weightbearing exercises. Continue follow-up with Dr. Lisa. . Diagnosis Carcinoma in situ of breast (ISR28-MP D05.90, Discharge, Medical). Orders For screening mammograms every year. Dr. Crump following .
--- OUTSIDE RECORDS SUMMARY | 2017-09-25 21:20 | External Medical Summary | Continuity of Care Document ---
:1935 Author Organization [facility] Allergies Active Description Code Type Severity Reaction Onset Reported/ Identified Relationship Clinical to Patient Status Yes Alprazolam 05209 Drug Moderate N/A 002WW Aller gy Yes Sulfonamides 55983 Drug Moderate N/A 66663 Aller gy Yes alprazolam alpra Drug Unknown UNKNOWN 09/23/2015 zolam Aller gy Yes sulfamethizo sulfa Drug Unknown UNKNOWN 09/23/2015 le methi Aller zole gy Medications There is no data. Problems Date Dx Attending Type Code Diagnosis Diagnosed By Coded 09/23/2015 Kit Jones MD E78.5 HYPERLIPIDEMIA, R UNSPECIFIED 09/23/2015 Kit Jones MD E87.1 HYPO-OSMOLALITY AND R HYPONATREMIA 09/23/2015 Kit Jones MD E87.6 HYPOKALEMIA R 09/23/2015 Kit Jones MD R10.2 PELVIC AND PERINEAL PAIN R 09/23/2015 Kit Jones MD R60.9 EDEMA, UNSPECIFIED R 09/23/2015 Kit Jones MD S32.502A UNSP FRACTURE OF LEFT R PUBIS, INIT ENCNTR FOR CLOSE 09/23/2015 Kit Jones MD W19.XXXA UNSPECIFIED FALL, INITIAL R ENCOUNTER 09/23/2015 Kit Jones MD Y92.89 [facility] PLACES THE PLACE R OF OCCURRENCE OF THE EXTER 09/23/2015 Kit Jones MD Y93.89 ACTIVITY, OTHER SPECIFIED R 09/23/2015 Kit Jones MD Z79.82 ASSISTED (CURRENT) USE R OF ASPIRIN 09/23/2015 Kit Jones MD 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 10/14/2015 Mino SHELLEY, F 808.8 Unspecified closed pelvic Quin L fracture 10/14/2015 Mino SHELLEY, F 733.09 Osteoporosis, other Quin L 10/14/2015 Mino SHELLEY, F 788.29 Urinary retention, other Quin L specified retention 10/14/2015 Mino SHELLEY, F 272.0 Hypercholesterolemia Quin L 10/15/2015 Mino SHELLEY, F 564.01 Constipation Quin L 10/21/2015 ULLOM MINNICH D R19.4 Change in bowel habit GRIFFIN MONROY 10/21/2015 ULLOM MINNICH D R35.0 Frequency of micturition GRIFFIN MONROY 11/10/2015 Mino SHELLEY, F 401.1 HTN Quin L 11/16/2015 ULLOM MINNICH D D64.9 Anemia, unspecified GRIFFIN MONRYO 11/16/2015 ULLOM MINNICH D E78.5 Hyperlipidemia, GRIFFIN MONROY unspecified 11/16/2015 ULLOM MINNICH D M81.0 Age-related osteoporosis GRIFFIN MONROY w/o current pathological fracture 11/16/2015 ULLOM MINNICH D R60.9 Edema, unspecified GRIFFIN MONROY 11/18/2015 ULKEIVNM MINNICH D D64.9 Anemia, unspecified GRIFFIN MONRYO 11/29/2015 Mino SHELLEY, F 530.81 GERD Quin L 12/16/2015 Mino SHELLEY, F 285.9 Unspecified anemia Quin L 12/16/2015 Mino SHELLEY, F 280.9 Iron deficiency anemia, Quin L unspecified 12/16/2015 Mino SHELLEY, F 285.9 Unspecified anemia Quin L 12/23/2015 Mino SHELLEY, F 266.2 Vitamin B12 deficiency Quin L 02/15/2016 ULLOM MINNICH D M81.0 Age-related osteoporosis GRIFFIN MONROY w/o current pathological fracture 02/15/2016 ULLOM MINNICH D R60.9 Edema, unspecified GRIFFIN MONROY 03/29/2016 ULLOM MINNICH D D64.9 Anemia, unspecified GRIFFIN MORNOY 10/03/2016 ULLOM MINNICH D D64.9 Anemia, unspecified GRIFFIN MONROY 01/31/2017 Mino SHELLEY, F 280.9 Iron deficiency anemia, Quin L unspecified 02/06/2017 ULLOM MINNICH D E78.00 Pure GRIFFIN MONROY hypercholesterolemia, unspecified 04/03/2017 ULLOM MINNICH D D64.9 Anemia, unspecified , GRIFFIN Carter 04/04/2017 Mino SHELLEY, F 280.9 Iron deficiency anemia, Quin Deluca unspecified 06/06/2017 Mino SHELLEY, F 280.9 Iron deficiency anemia, Quin L unspecified 08/09/2017 Mino SHELLEY, F 280.9 Iron deficiency anemia, Quin L unspecified 08/09/2017 Mino SHELLEY, F 290.0 Dementia Quin L 09/20/2017 Mino SHELLEY, F 724.5 Back pain Quin L 09/21/2017 Mino SHELLEY, F 805.2 T12 compression fracture Quin Deluca Procedures Code Description [place] [id number] 10/20/2015 Office/outpatient visit; new patient, level 5 35829 URINE RITCHIE HAIRSTON MD, 10/21/2015 CULTURE/COLONY COUNT GRIFFIN Carter [id number] C DIFF RITCHIE HAIRSTON MD, 10/21/2015 AMPLIFIED PROBE GRIFFIN Carter 42457 Subsequent 10/21/2015 nurse fac care, day, EM pt, 2/3 components; signific complication/problem; 25 minutes [id number] Subsequent 11/08/2015 nurse fac care, day, EM pt, 2/3 components; signific complication/problem; 25 minutes 10679 Subsequent 11/10/2015 nurse fac care, day, EM pt, 2/3 components; signific complication/problem; 25 minutes 77943 COMPREHEN RITCHIE HAIRSTON MD, 11/16/2015 METABOLIC PANEL GRIFFIN R 58511 LIPID PANEL RITCHIE HAIRSTON MD, 11/16/2015 GRIFFIN Carter [id number] COMPLETE CBC, RITCHIE HAIRSTON MD, 11/16/2015 AUTOMATED GRIFFIN Carter [id number] ASSAY OF RITCHIE HAIRSTON MD, 11/18/2015 FERRITIN GRIFFIN Carter 43584 ASSAY OF IRON RITCHIE HAIRSTON MD, 11/18/2015 GRIFFIN Carter [id number] IRON BINDING RITCHIE HAIRSTON MD, 11/18/2015 TEST GRIFFIN Carter [id number] AUTOMATED RITCHIE HAIRSTON MD, 11/18/2015 RETICULOCYTE COUNT GRIFFIN R 12953 Subsequent 12/15/2015 nurse fac care, day, EM pt, 2/3 components; signific complication/problem; 25 minutes 03514 Collection of 12/23/2015 venous blood by venipuncture 43715 Complete blood 12/23/2015 count (CBC), automated (Hgb, Hct, RBC, WBC, platelets) and automated differential WBC 78885 Vitamin D, 12/23/2015 25-Hydroxy 23658 12/23/2015 Office/outpatient visit; established patient, level 4 89589 Collection of 01/17/2016 venous blood by venipuncture 53557 Vitamin D, 01/17/2016 25-Hydroxy 91610 Complete blood 01/17/2016 count (CBC), automated (Hgb, Hct, RBC, WBC, platelets) and automated differential WBC 05758 01/17/2016 Office/outpatient visit; established patient, level 4 48807 Subsequent 01/19/2016 nurse fac care, day, EM pt, 2/3 components; signific complication/problem; 25 minutes 37534 METABOLIC RITCHIE HAIRSTON MD, 02/15/2016 PANEL TOTAL CA GRIFFIN R 03297 COMPLETE CBC, RITCHIE HAIRSTON MD, 03/29/2016 AUTOMATED GRIFFIN R 45730 Subsequent 03/29/2016 nurse fac care, day, EM pt, 2/3 components; signific complication/problem; 25 minutes 64312 Collection of 03/29/2016 venous blood by venipuncture 70156 Complete blood 03/29/2016 count (CBC), automated (Hgb, Hct, RBC, WBC, platelets) and automated differential WBC FU2MO Follow up 03/29/2016 appointment in 2 months MIN20 20 minute 03/29/2016 appointment [id number] 03/29/2016 Office/outpatient visit; established patient, level 4 36265 Complete blood 05/08/2016 count (CBC), automated (Hgb, Hct, RBC, WBC, platelets) and automated differential WBC 28682 05/08/2016 Office/outpatient visit; established patient, level 4 69222 Collection of 05/08/2016 venous blood by venipuncture FU2MO Follow up 05/08/2016 appointment in 2 months MIN20 20 minute 05/08/2016 appointment [id number] 05/29/2016 Office/outpatient visit; established patient, level 4 17293 07/31/2016 Office/outpatient visit; established patient, level 4 FU2MO Follow up 07/31/2016 appointment in 2 months MIN20 20 minute 07/31/2016 appointment [id number] 07/31/2016 Office/outpatient visit; established patient, level 4 73355 09/27/2016 Office/outpatient visit; established patient, level 4 FU2MO Follow up 09/27/2016 appointment in 2 months MIN20 20 minute 09/27/2016 appointment [id number] 09/27/2016 Office/outpatient visit; established patient, level 4 90987 COMPLETE CBC, RITCHIE HAIRSTON MD, 10/03/2016 AUTOMATED GRIFFIN R 52316 11/29/2016 Office/outpatient visit; established patient, level 4 FU2MO Follow up 11/29/2016 appointment in 2 months MIN20 20 minute 11/29/2016 appointment [id number] 11/29/2016 Office/outpatient visit; established patient, level 4 80194 01/31/2017 Office/outpatient visit; established patient, level 4 FU2MO Follow up 01/31/2017 appointment in 2 months MIN20 20 minute 01/31/2017 appointment [id number] Dual-energy 01/31/2017 X-ray absorptiometry (DXA), bone density study, 1 or more sites; axial skeleton (eg hips TWOMO Check the 01/31/2017 chart for orders due in two months 27860 01/31/2017 Office/outpatient visit; established patient, level 4 32946 LIPID PANEL RITCHIE HAIRSTON MD, 02/06/2017 GRIFFIN R 08626 COMPLETE CBC, RITCHIE HAIRSTON MD, 04/03/2017 AUTOMATED GRIFFIN R 02030 04/04/2017 Office/outpatient visit; established patient, level 4 FU2MO Follow up 04/04/2017 appointment in 2 months TWOMO Check the 04/04/2017 chart for orders due in two months MIN20 20 minute 04/04/2017 appointment [id number] Dual-energy 04/04/2017 X-ray absorptiometry (DXA), bone density study, 1 or more sites; axial skeleton (eg hips 71492 Collection of 04/04/2017 venous blood by venipuncture 37429 Vitamin D, 04/04/2017 25-Hydroxy 38691 04/04/2017 Cyanocobalamin, (Vitamin B-12) 14175 04/04/2017 Office/outpatient visit; established patient, level 4 91175 Collection of 06/06/2017 venous blood by venipuncture 47628 Dual-energy 06/06/2017 X-ray absorptiometry (DXA), bone density study, 1 or more sites; axial skeleton (eg hips 98780 Vitamin D, 06/06/2017 25-Hydroxy 20690 06/06/2017 Cyanocobalamin, (Vitamin B-12) 55695 06/06/2017 Office/outpatient visit; established patient, level 4 FU2MO Follow up 06/06/2017 appointment in 2 months MIN20 20 minute 06/06/2017 appointment [id number] 06/07/2017 Office/outpatient visit; established patient, level 4 97889 08/09/2017 Office/outpatient visit; established patient, level 4 FU2MO Follow up 08/09/2017 appointment in 2 months MIN20 20 minute 08/09/2017 appointment [id number] 08/09/2017 Office/outpatient visit; established patient, level 4 90678 09/20/2017 Office/outpatient visit; established patient, level 3 88437 09/21/2017 Office/outpatient visit; established patient, level 3 46466 Initial 09/21/2017 hospital care, per day, level 1 43573 Initial 09/22/2017 hospital care, per day, level 1 81468 Subsequent 09/22/2017 hospital care, per day, level 2 <section xmlns="urn:hl7-org:v3" xmlns:xsi="http://www.w3.org/ 2001/XMLSchema-instance"> <templateId root=" [id number]" /> <templateId root=" [id number]" /> <code codeSystemName=" LOINC" codeSystem="[id number]" code="11754-1&quot ; displayName="Results" /> <title>Results</title> &lt ;text> <table> <thead> <tr> <th& gt;Test</th> <th>Result</th> <th>Range </th> </tr> </thead> <tbody> &lt ;tr> <th colspan="10">CBC W/DIFF - 09/23/15 15:00&lt ;/th> </tr> <tr> <td>BASOPHIL #</ td> <td>0.0 k/cumm</td> <td>0.0-0.2</ td> </tr> <tr> <td>BASOPHIL &#37 ;</td> <td>1 %</td> <td>0-1&lt ;/td> </tr> <tr> <td>EOSINOPHIL #&lt ;/td> <td>0.1 k/cumm</td> <td>0.1-0.5< /td> </tr> <tr> <td>EOSINOPHIL & #37;</td> <td>1 %</td> <td>2-4 </td> </tr> <tr> <td>GRANULOCYTE #</td> <td>3.7 k/cumm</td> <td>2.0-9.0 </td> </tr> <tr> <td>GRANULOCYTE & amp;#37;</td> <td>63 %</td> <td>50-75& lt;/td> </tr> <tr> <td>LYMPHOCYTE #& lt;/td> <td>1.2 k/cumm</td> <td>1.0-4.0& lt;/td> </tr> <tr> <td>LYMPHOCYTE & amp;#37;</td> <td>20 %</td> <td& gt;20-30</td> </tr> <tr> <td> MEAN CELL HGB</td> <td>31.5 pg</td> <td& gt;27.0-33.0</td> </tr> <tr> <td> MEAN CELL HGB CONCENTRATION</td> <td>33.5 g/dL</td> <td>32.0-37.0</td> </tr> <tr> <td>MEAN CELL VOLUME</td> <td>94.0 fl</td&gt ; <td>80.0-100.0</td> </tr> <tr> <td>MONOCYTE #</td> <td>0.9 k/cumm</td& gt; <td>0.1-1.0</td> </tr> <tr> <td>MONOCYTE %</td> <td>15 %&lt ;/td> <td>4-6</td> </tr> <tr> <td>RED BLOOD CELL</td> <td>4.16 m/cumm</td& gt; <td>4.00-6.00</td> </tr> <tr&gt ; <td>RED CELL DISTRIBUTION WIDTH</td> <td> 13.3 %</td> <td>11.0-15.6</td> </tr& gt; <tr> <td>WHITE BLOOD CELL</td> & lt;td>5.9 k/cumm</td> <td>5.0-10.0</td> &lt ;/tr> <tr> <td>HEMOGLOBIN</td> < td>13.1 gm/dL</td> <td>12.0-16.0</td> </ tr> <tr> <td>HEMATOCRIT</td> <td&gt ;39.1 %</td> <td>37.0-47.0</td> </ tr> <tr> <td>PLATELET COUNT</td> & lt;td>263 k/cumm</td> <td>150-400</td> < /tr> <tr> <th colspan="10">C REACTIVE PROTEIN - 09/23/15 15:00</th> </tr> <tr> <td>C REACTIVE PROTEIN</td> <td>20.6 mg/L</td& gt; <td>< 8.0</td> </tr> <tr& gt; <th colspan="10">METABOLIC PANEL, COMPREHN - 15:00</th> </tr> <tr> <td> POTASSIUM</td> <td>3.1 mmol/L</td> <td&gt ;3.5-5.3</td> </tr> <tr> <td>EST GFR (MDRD)</td> <td>60 mL/min</td> <td> > 59</td> </tr> <tr> <td> ANION GAP</td> <td>14 mmol/L</td> <td>5-15 </td> </tr> <tr> <td>GLUCOSE</ td> <td>122 mg/dL</td> <td>70-99</td& gt; </tr> <tr> <td>CALCIUM</td> <td>8.5 mg/dL</td> <td>8.5-10.1</td> & lt;/tr> <tr> <td>BLOOD UREANITROGEN</td> <td>20 mg/dL</td> <td>7-20</td></tr& gt; <tr> <td>CREATININE</td> <td& gt;0.9 mg/dL</td> <td>0.6-1.0</td> </tr&gt ; <tr> <td>SODIUM</td> <td>132 mmol/L</td> <td>135-148</td> </tr> <tr> <td>CHLORIDE</td> <td>93 mmol/L& lt;/td> <td>98-110</td> </tr> <tr > <td>AST/SGOT</td> <td>29 Units/L</td > <td>10-37</td> </tr> <tr> <td>ALT/SGPT</td> <td>25 Units/L</td> <td>< 66</td> </tr> <tr> <td>CARBON DIOXIDE</td> <td>25 mmol/L</td> <td>21-32</td> </tr> <tr> <td>TOTAL PROTEIN</td> <td>7.5 gm/dL</td> <td>6.4-8.2</td> </tr> <tr> & lt;td>ALBUMIN</td> <td>3.2 gm/dL</td> &lt ;td>3.4-5.0</td> </tr> <tr> <td& gt;BILI TOTAL</td> <td>0.5 mg/dL</td> <td >0.0-1.0</td> </tr> <tr> <td> ALKALINE PHOSPHATASE TOTAL</td> <td>172 IU/L</td> <td>45-117</td> </tr> <tr> <thcolspan="10">CHEM/HEM PROFILE-BEDSIDE - 09/23/15 15:14</ th> </tr> <tr> <td>POTASSIUM</td> <td>2.8 mmol/L</td> <td>3.5-5.3</td> </tr> <tr> <td>METHOD</td> & lt;td>Bedside </td> <td /> </tr> &lt ;tr> <td>ANION GAP</td> <td>14 mmol/L< /td> <td>10-20</td> </tr> <tr&gt ; <td>METHOD</td><td>Bedside </td> &lt ;td /> </tr> <tr> <td>GLUCOSE</td > <td>131 mg/dL</td> <td>70-99</td&gt ; </tr> <tr> <td>BLOOD UREA NITROGEN&lt ;/td> <td>21 mg/dL</td> <td>7-20</td& gt; </tr> <tr> <td>CREATININE</td> <td>0.9 mg/dL</td> <td>0.6-1.0</td> </tr> <tr> <td>HEMOGLOBIN</td> < td>12.2 gm/dL</td> <td>12.0-16.0</td> </ tr> <tr> <td>HEMATOCRIT</td> < td>36.0 %</td> <td>37.0-47.0</td> </tr& gt; <tr> <td>SODIUM</td> <td> 130 mmol/L</td> <td>135-148</td> </tr> <tr> <td>CHLORIDE</td> <td>92 mmol/L</td> <td>98-110</td> </tr> <tr> <td>CARBON DIOXIDE</td> <td>28 mmol/L</td> <td>21-32</td></tr> <tr& gt; <td>CALCIUM IONIZED</td> <td>4.1 mg/dL& lt;/td> <td>4.5-5.3</td> </tr> < tr> <th colspan="10">MRSA SURVEILLANCE SCREEN - 20:00</th> </tr> <tr> <td> Microbiology</td> <td> </td> <td /> & lt;/tr> <tr> <th colspan="10">CBC - 06:52</th> </tr> <tr> <td> MEAN CELL HGB</td> <td>31.2 pg</td> <td& gt;27.0-33.0</td> </tr> <tr> <td> MEAN CELL HGB CONCENTRATION</td> <td>32.3 g/dL</td> <td>32.0-37.0</td> </tr> <tr> & lt;td>MEAN CELL VOLUME</td> <td>96.7 fl</td> <td>80.0-100.0</td> </tr> <tr> <td>RED BLOOD CELL</td> <td>3.94 m/cumm</td> <td>4.00-6.00</td> </tr> <tr> <td>RED CELL DISTRIBUTION WIDTH</td> <td>13.4 & amp;#37;</td> <td>11.0-15.6</td> </tr> <tr> <td>WHITE BLOOD CELL</td> <td> 3.3 k/cumm</td> <td>5.0-10.0</td> </tr> <tr> <td>HEMOGLOBIN</td> <td> 12.3 gm/dL</td> <td>12.0-16.0</td> </tr&gt ; <tr> <td>HEMATOCRIT</td> <td> 38.1 %</td> <td>37.0-47.0</td> </tr& gt; <tr> <td>PLATELET COUNT</td> < td>244 k/cumm</td> <td>150-400</td> </tr& gt; <tr> <th colspan="10">METABOLIC PANEL , BASIC- 09/24/15 06:52</th> </tr> <tr> <td>POTASSIUM</td> <td>3.9 mmol/L</td> <td>3.5-5.3</td> </tr> <tr> & lt;td>EST GFR (MDRD)</td> <td>53 mL/min</td> <td>> 59</td> </tr> <tr> <td>ANION GAP</td> <td>7 mmol/L</td> <td>5-15</td> </tr> <tr> <td> EST CrCl (CG)</td> <td>35 mL/min</td> <td >> 59</td> </tr> <tr> <td> GLUCOSE</td> <td>131 mg/dL</td> <td>70 -99</td> </tr> <tr> <td>CALCIUM& lt;/td> <td>8.4 mg/dL</td> <td>8.5-10.1& lt;/td> </tr> <tr> <td>BLOOD UREA NITROGEN& lt;/td> <td>20 mg/dL</td> <td>7-20</td > </tr> <tr> <td>CREATININE</td& gt; <td>1.0 mg/dL</td> <td>0.6-1.0</td> </tr> <tr> <td>SODIUM</td> & lt;td>138 mmol/L</td> <td>135-148</td> < /tr> <tr> <td>CHLORIDE</td> <td&gt ;100 mmol/L</td> <td>98-110</td> </tr> & lt;tr> <td>CARBON DIOXIDE</td> <td>31 mmol/L</td> <td>21-32</td> </tr> < tr> <th colspan="10">MAGNESIUM - 09/24/15 06:52</ th> </tr> <tr> <td>MAGNESIUM</td& gt; <td>2.0 mg/dL</td> <td>1.8-2.4</td&gt ; </tr> <tr> <th colspan="10"&gt ;CALCIUM IONIZED - 09/24/15 06:55</th> </tr> <tr&gt ; <td>CALCIUM IONIZED</td> <td>4.7 mg/dL< /td> <td>4.5-5.3</td> </tr> <tr& gt; <th colspan="10">C. difficile toxin B ge - 15:28</th> </tr> <tr> <td>C. difficile toxin B ge</td> <td>See Comment </td> <td /> </tr> <tr> <th colspan=& quot;10">Culture Urine - 10/24/15 13:28</th> </tr> <tr> <td>Culture Urine</td> <td> See Comment </td> <td /> </tr> <tr& gt; <th colspan="10">[facility] Metabolic Panel - 09:16</th> </tr> <tr> <td> Sodium</td> <td>142 MMOLL</td> <td>134 -145</td> </tr> <tr> <td> Potassium</td> <td>4.2 MMOLL</td> <td>3.6-5.0& lt;/td> </tr> <tr> <td>Chloride</ td> <td>101 MMOLL</td> <td>98-107</td& gt; </tr> <tr> <td>CO2</td> < td>28 MMOLL</td> <td>22-30</td> </tr&gt ; <tr> <td>Glucose</td> <td>90 MG/DL</td> <td>75-110</td> </tr> <tr> <td>BUN</td> <td>16 MG/DL</td& gt; <td>9-20</td> </tr> <tr> <td>Creatinine</td> <td>.68 MG/DL</td> <td>0.8-1.7</td> </tr> <tr> &lt ;td>Calcium</td> <td>9.3 MG/DL</td> < td>8.4-10.2</td> </tr> <tr> <td& gt;T Bili</td> <td>.3 MG/DL</td> <td> 0.2-1.3</td> </tr> <tr> <td>T. Protein</td> <td>7.3 G/DL</td> <td>6.3-8.2< /td> </tr> <tr> <td>A/G Ratio</td > <td>1.0 RATIO</td> <td /> </ tr> <tr> <td>Albumin</td> <td& gt;3.7 G/DL</td> <td>3.5-5.0</td> </tr> <tr> <td>Alk Phos</td> <td>82 U/L< /td> <td>38-126</td> </tr> <tr&gt ; <td>ALT</td> <td>12 U/L</td> <td>11-66</td> </tr> <tr> < td>AST</td> <td>21 U/L</td> <td>14- 36</td> </tr> <tr> <th colspan=&quot ;10">Lipid Profile - 11/16/15 09:16</th> </tr> <tr> <td>HDL</td> <td>60 MG/DL</ td> <td>40-60</td> </tr> <tr> <td>LDL Calculated</td> <td>90 MG/DL</td> <td>30-100</td> </tr> <tr> & lt;td>Triglyceride</td><td>92 MG/DL</td> <td&gt ;< 200</td> </tr> <tr> <td&gt ;VLDL</td> <td>18 </td> <td /> & lt;/tr> <tr> <td>Chol/HDL</td> &lt ;td>2.79 RATIO</td> <td>0.00-5.00</td> < /tr> <tr><td>Cholesterol</td> <td> 168 MG/DL</td> <td>130-170</td> </tr> <tr> <th colspan="10">CBC - 11/16/15 09:39& lt;/th> </tr> <tr> <td>Eos #</td& gt; <td>0.23 x10^3</td> <td>0-0.5</td> & lt;/tr> <tr> <td>Eos %</td> <td>6.5 %</td> <td>0-4</td> </tr&gt ; <tr> <td>HCT</td> <td>31.8 &# 37;</td> <td>37.0-47.0</td> </tr> & lt;tr> <td>HGB</td> <td>9.7 G/DL</td& gt; <td>12.0-16.0</td> </tr> <tr&gt ; <td>Lymph #</td> <td>1.15 x10^3</td&gt ; <td>1.0-4.0</td> </tr> <tr> <td>Lymph %</td> <td>32.7 %< /td> <td>20-50</td> </tr> <tr&gt ; <td>MCH</td> <td>30.6 PG</td> <td>27.0-31.0</td> </tr> <tr> <td>MCHC</td> <td>30.5 G/DL</td> &lt ;td>32.0-36.0</td> </tr> <tr> <td >MCV</td> <td>100.3 FL</td> <td>81- 99</td> </tr> <tr> <td>[place] #< /td> <td>0.46 x10^3</td> <td>0.0-0.8</ td> </tr> <tr> <td>[place] %&lt ;/td> <td>13.1 %</td> <td>1.0-9.0 </td> </tr> <tr> <td>MPV</td& gt; <td>10.4 FL</td> <td>6.0-10.0</td&gt ; </tr> <tr> <td>Platelet</td> <td>280 x10^3</td> <td>150-400</td> </tr> <tr> <td>RBC</td> &lt ;td>3.17 x10^3</td> <td>4.20-5.40</td> < /tr> <tr> <td>RDW</td> <td> 15.6 %</td> <td>12-15</td> </tr&gt ; <tr> <td>WBC</td> <td>3.52 x10^3</td> <td>4.8-10.8</td> </tr> <tr> <td>Baso #</td> <td>0.06 x10^3 </td> <td>0-0.2</td> </tr> <tr& gt; <td>Baso %</td> <td>1.7 &#37 ;</td> <td>0-2</td> </tr> <tr& gt; <td>Neut %</td> <td>46.0 %< /td> <td>50-70</td> </tr> <tr&gt ; <td>Neut #</td> <td>1.62 x10^3</td> <td>3.0-7.0</td> </tr> <tr> &lt ;th colspan="10">Iron/TIBC Profile - 11/19/15 07:28</th> &lt ;/tr> <tr> <td>Iron</td> <td&gt ;19 ug/dL</td> <td>50-170</td> </tr> <tr> <td>% Saturation</td> < td>6 %</td> <td>11-46</td> </tr& gt; <tr> <td>Iron Binding Capacity</td> < td>301 ug/dL</td> <td>260-445</td> </tr& gt; <tr> <td>UIBC</td> <td>282 ug/dl</td> <td>126-382</td> </tr> <tr> <th colspan="10">Ferritin - 11/19/15 07:28 </th> </tr> <tr> <td>Ferritin< /td> <td>45 ng/mL</td> <td>5-204</td& gt; </tr> <tr> <th colspan="10"& gt;B12 and Folate - 11/19/15 07:28</th> </tr> <tr& gt; <td>Folic Acid (Folate)</td><td>15.7 ng/mL</td > <td>7.0-31.4</td> </tr> <tr&gt ; <td>Vitamin B12</td> <td>245 pg/mL</td& gt; <td>213-816</td> </tr> <tr> <th colspan="10">Reticulocyte Count Auto - 11/19/15 07: 28</th> </tr> <tr> <td>Reticulocyte Count Auto</td> <td>4.0 %</td> <td> 0.6-2.5</td> </tr> <tr> <th colspan= "10">Basic Metabolic Panel - 02/15/16 09:11</th> </ tr> <tr><td>Sodium</td> <td>143 MMOLL </td> <td>134-145</td> </tr> < tr> <td>Potassium</td> <td>4.7 MMOLL</ td> <td>3.6-5.0</td> </tr> <tr&gt ; <td>Chloride</td> <td>99 MMOLL</td> <td>98-107</td> </tr> <tr> & lt;td>CO2</td> <td>29 MMOLL</td> <td& gt;22-30</td> </tr> <tr> <td> Glucose</td> <td>95 MG/DL</td> <td>75- 110</td> </tr> <tr> <td>BUN</ td> <td>16 MG/DL</td> <td>9-20</td&gt ; </tr> <tr> <td>Creatinine</td> <td>.80 MG/DL</td> <td>0.8-1.7</td> </tr> <tr> <td>Calcium</td> <td>9.6 MG/DL</td> <td>8.4-10.2</td> </tr> <tr> <td>EGFR</td> &lt ;td>84 MLMIN</td> <td /> </tr> < tr> <th colspan="10">CBC - 03/30/16 12:02</th&gt ; </tr> <tr> <td>Eos #</td> & lt;td>0.09 x10^3</td> <td>0-0.5</td> </ tr> <tr> <td>Eos %</td> & lt;td>1.9 %</td> <td>0-4</td> </ tr> <tr> <td>HCT</td> <td> 38.5 %</td> <td>37.0-47.0</td> </tr > <tr> <td>HGB</td> <td>12.4 G/DL< /td> <td>12.0-16.0</td> </tr> <tr > <td>Lymph #</td> <td>1.37 x10^3</td& gt; <td>1.0-4.0</td> </tr> <tr> <td>Lymph %</td> <td>28.8 %</td& gt; <td>20-50</td> </tr> <tr> <td>MCH</td> <td>31.6 PG</td> & lt;td>27.0-31.0</td> </tr> <tr> < td>MCHC</td> <td>32.2 G/DL</td> <td&gt ;32.0-36.0</td> </tr> <tr> <td> MCV</td> <td>98.2 FL</td> <td>81-99&lt ;/td> </tr> <tr> <td>[place] #</td> <td>0.76 x10^3</td> <td>0.0-0.8</td> </tr> <tr> <td>[place] %</td& gt; <td>16.0 %</td> <td>1.0-9.0</td> </tr> <tr> <td>MPV</td> < td>11.0 FL</td> <td>6.0-10.0</td> </tr& gt; <tr> <td>Platelet</td> <td> 192 x10^3</td> <td>150-400</td> </tr> & lt;tr> <td>RBC</td> <td>3.92 x10^3</td > <td>4.20-5.40</td> </tr> <tr&gt ; <td>RDW</td> <td>14.6 %</td> <td>12-15</td> </tr> <tr> <td& gt;WBC</td> <td>4.76 x10^3</td> <td> 4.8-10.8</td> </tr> <tr> <td> Baso #</td> <td>0.02 x10^3</td> <td>0- 0.2</td> </tr> <tr> <td>Baso %& lt;/td> <td>0.4 %</td> <td>0-2< /td> </tr> <tr> <td>Neut %& lt;/td> <td>52.9 %</td> <td>50-70 </td> </tr> <tr> <td>Neut #</td> <td>2.52 x10^3</td> <td>3.0-7.0</td> </tr> <tr> <th colspan="10"> CBC - 10/03/16 08:34</th> </tr> <tr> <td> Eos #</td> <td>0.08 x10^3</td> <td>0- 0.5</td> </tr> <tr> <td>Eos & #37;</td> <td>2.0 %</td> <td>0 -4</td> </tr> <tr> <td>HCT</td& gt; <td>38.7 %</td> <td>37.0-47.0&lt ;/td> </tr> <tr> <td>HGB</td> <td>12.8 G/DL</td> <td>12.0-16.0</td&gt ; </tr> <tr> <td>Lymph #</td> <td>1.20 x10^3</td> <td>1.0-4.0</td> </tr> <tr> <td>Lymph %</td&gt ; <td>30.0 %</td> <td>20-50</td& gt; </tr> <tr> <td>MCH</td> <td>33.2 PG</td> <td>27.0-31.0</td> </tr> <tr> <td>MCHC</td> <td& gt;33.1 G/DL</td> <td>32.0-36.0</td> </tr& gt; <tr> <td>MCV</td> <td>100.5 FL </td> <td>81-99</td> </tr> <tr > <td>[place] #</td> <td>0.48 x10^3</td> <td>0.0-0.8</td> </tr> <tr> &lt ;td>[place] %</td> <td>12.0 %</td> <td>1.0-9.0</td> </tr> <tr> <td>MPV</td> <td>10.9 FL</td> < td>6.0-10.0</td> </tr> <tr> <td& gt;Platelet</td> <td>181 x10^3</td> <td&gt ;150-400</td> </tr> <tr> <td>RBC& lt;/td> <td>3.85 x10^3</td> <td>4.20-5.40 </td> </tr> <tr> <td>RDW</td& gt; <td>13.6 %</td> <td>12-15</td > </tr> <tr> <td>WBC</td> <td>4.00 x10^3</td> <td>4.8-10.8</td> </tr> <tr> <td>Baso #</td> <td>0.01 x10^3</td> <td>0-0.2</td> &lt ;/tr> <tr> <td>Baso %</td> <td>0.3 %</td> <td>0-2</td> </tr > <tr> <td>Neut %</td> &lt ;td>55.7 %</td> <td>50-70</td> < /tr> <tr> <td>Neut #</td> <td>2.23 x10^3</td> <td>3.0-7.0</td> </tr> <tr> <th colspan="10">Lipid Profile - 02/06/17 08:32</th> </tr> <tr> <td>HDL< /td> <td>48 MG/DL</td> <td>40-60</td&gt ; </tr> <tr> <td>LDL Calculated</td& gt; <td>98 MG/DL</td> <td>30-100</td> & lt;/tr> <tr> <td>Triglyceride</td> <td>145 MG/DL</td> <td>< 200</td> </tr> <tr> <td>VLDL</td> & lt;td>29 </td> <td /> </tr> <tr> <td>Chol/HDL</td> <td>3.64 RATIO</td> <td>0.00-5.00</td> </tr> <tr> &lt ;td>Cholesterol</td> <td>175 MG/DL</td><td> 130-170</td> </tr> <tr> <th colspan= "10">CBC - 04/03/17 08:18</th> </tr> < tr> <td>Eos #</td> <td>0.18 x10^3</td& gt; <td>0-0.5</td> </tr> <tr> <td>Eos %</td> <td>3.8 %</ td> <td>0-4</td> </tr> <tr> <td>HCT</td> <td>37.9 %</td> <td>37.0-47.0</td> </tr> <tr> <td>HGB</td> <td>12.3 G/DL</td> & lt;td>12.0-16.0</td> </tr> <tr> < td>Lymph #</td> <td>1.33 x10^3</td> < td>1.0-4.0</td> </tr> <tr> <td&gt ;Lymph %</td> <td>27.8 %</td> <td>20-50</td> </tr> <tr> < td>MCH</td> <td>32.2 PG</td> <td> 27.0-31.0</td> </tr> <tr> <td> MCHC</td> <td>32.5 G/DL</td> <td>32.0- 36.0</td> </tr> <tr> <td>MCV</td& gt; <td>99.2 FL</td> <td>81-99</td> </tr> <tr> <td>[place] #</td> <td>0.59 x10^3</td> <td>0.0-0.8</td> </tr> <tr> <td>[place] %</td> < td>12.3 %</td> <td>1.0-9.0</td> &lt ;/tr> <tr> <td>MPV</td> <td> 10.5 FL</td> <td>6.0-10.0</td> </tr> <tr> <td>Platelet</td> <td>174 x10^3</td> <td>150-400</td> </tr> <tr> <td>RBC</td> <td>3.82 x10^3< /td> <td>4.20-5.40</td> </tr> <tr > <td>RDW</td> <td>13.5 %</td& gt; <td>12-15</td> </tr> <tr> <td>WBC</td> <td>4.78 x10^3</td> <td>4.8-10.8</td> </tr> <tr> & lt;td>Baso #</td> <td>0.03 x10^3</td> &lt ;td>0-0.2</td> </tr> <tr> <td> Baso %</td> <td>0.6 %</td> & lt;td>0-2</td> </tr> <tr> <td>Neut %</td> <td>55.5 %</td> < td>50-70</td> </tr> <tr> <td> Neut #</td> <td>2.65 x10^3</td> <td> 3.0-7.0</td> </tr> <tr> <th colspan= "10">CBC w/ Auto Diff - 09/18/17 06:54</th> </tr&gt ; <tr> <td>Differential?</td> <td>No & amp;quot;"</td> <td /> </tr> & lt;tr> <td>WBC</td> <td>4.65 "& amp;quot;</td> <td>4.80-10.80</td> </tr> <tr> <td>RBC</td> <td>4.08 x10</ td> <td>4.20-5.40</td> </tr> <tr& gt; <td>Hgb</td> <td>13.1 gm/dL</td> <td>12.0-16.0</td> </tr> <tr> & lt;td>Hct</td> <td>41.8 %</td> & lt;td>37.0-47.0</td> </tr> <tr> < td>MCV</td> <td>102 fL</td> <td>81-99< /td> </tr> <tr> <td>MCH</td> <td>32.1 pg</td> <td>27.0-31.0</td> </tr> <tr> <td>MCHC</td> < td>31.3 gm/dL</td> <td>32.0-36.0</td> </ tr> <tr> <td>RDW</td> <td>14 %</td> <td>12-15</td> </tr> & lt;tr> <td>Platelet</td> <td>228 x10</ td><td>150-400</td> </tr> <tr> <td>MPV</td> <td>10.6 fL</td> <td& gt;6.0-10.0</td> </tr> <tr> <th colspan=& quot;10">.Auto Diff - 09/18/17 06:54</th> </tr> <tr> <td>Neutro Auto</td> <td>60.7 %</td> <td>50.0-70.0</td> </tr> <tr><td>Lymph Auto</td> <td>24.9 &# 37;</td> <td>20.0-50.0</td> </tr> <tr> <td>[place] Auto</td> <td>11.4 %&lt ;/td> <td>1.0-9.0</td> </tr><tr> <td>Eos Auto</td> <td>2.8 %</td> <td>0.0-4.0</td> </tr> <tr> &lt ;td>Basophil Auto</td> <td>0.2 %</td> <td>0.0-2.0</td> </tr> <tr> <td>Neutro Absolute</td> <td>2.8 x10</td> <td>3.0-7.0</td> </tr> <tr> <td>Lymph Absolute</td> <td>1.2 x10</td> <td>1.0-4.0</td> </tr> <tr> <td>[place] Absolute</td> <td>0.5 x10</td> <td>0.0-0.8</td> </tr> <tr> & lt;td>Eos Absolute</td> <td>0.1 x10</td> <td>0.0-0.5</td> </tr> <tr> < td>Baso Absolute</td> <td>0.0 x10</td> <td& gt;0.0-0.2</td> </tr> <tr> <th colspan="10">Hgb A1c - 09/18/17 06:54</th> </tr&gt ; <tr> <td>Hgb A1c</td> <td> 5.9 %</td> <td>4.2-6.5</td> </tr&gt ; <tr> <th colspan="10">Urinalysis Dipstick - 09/21/17 13:45</th> </tr> <tr> <td>UA Color</td> <td>Yellow "" </td> <td /> </tr> <tr> & lt;td>UA Appear</td> <td>Clear ""</td& gt; <td>Clear</td> </tr> <tr> <td>UA pH</td> <td>7.0 ""&lt ;/td> <td>5.0-9.0</td> </tr> <tr& gt; <td>UA Spec Grav</td> <td>1.015 & quot;"</td> <td>1.005-1.030</td> < /tr> <tr> <td>UA Glucose</td> < td>Negative ""</td> <td>Negative</ td> </tr> <tr> <td>UA Ketones</td > <td>Negative ""</td> <td >Negative</td> </tr> <tr> <td> UA Blood</td> <td>Negative ""</td> <td>Negative</td> </tr> <tr>< td>UA Protein</td> <td>Negative ""< /td><td>Negative</td> </tr> <tr> <td>UA Bili</td> <td>Negative "&quot ;</td> <td>Negative</td> </tr> & lt;tr> <td>UA Urobilinogen</td> <td>0.2 mg/dL</td> <td>>=0.2</td> </tr> <tr> <td>UA Nitrite</td> <td> Negative ""</td> <td>Negative</td> </tr> <tr> <td>UALeuk Est</td> <td>Negative ""</td> <td> Negative</td> </tr> </tbody> </table> & lt;/text> <entry> <organizer moodCode="EVN" classCode= "BATTERY"> <templateId root=" 2.16.840.1.901471.10.20.22.4.1" /> <id nullFlavor="NA&quot ; /> <code codeSystem="local" code="CBCD" displayName= "CBC W/DIFF" /> <statusCode code="completed" /&gt ; <component> <observation moodCode="EVN" classCode="OBS"> <templateId root=" 2.16.840.1.273652.10.20.22.4.2" /> <id nullFlavor="NA& quot; /> <code codeSystem="local" code="BA#" displayName="BASOPHIL #" /> <statusCode code=" completed" /> <effectiveTime value="644490321315"/ > <value unit="k/cumm" xsi:type="PQ" value=& quot;0.0" /> <referenceRange> < observationRange> <text>0.0-0.2</text> & lt;/observationRange> </referenceRange> </ observation> </component> <component> < observation moodCode="EVN" classCode="OBS"> < templateId root="2.16.840.1.284783.10.20.22.4.2" /> < id nullFlavor="NA" /> <code codeSystem="local&quot ; code="BA%" displayName="BASOPHIL %" /> <statusCode code="completed" /> < effectiveTime value="218101830014" /> <value unit=&quot ;%" xsi:type="PQ" value="1" /> < referenceRange> <observationRange> <text> 0-1</text> </observationRange> </ referenceRange> </observation> </component> < component> <observation moodCode="EVN" classCode=" OBS"> <templateId root="2.16.840.1.484597.10.20.22.4.2& quot; /> <id nullFlavor="NA" /> <code codeSystem="local" code="EO#" displayName="EOSINOPHIL # " /> <statusCode code="completed" /> & lt;effectiveTime value="535063450733" /> <valueunit=& quot;k/cumm" xsi:type="PQ" value="0.1" /> & lt;referenceRange> <observationRange> <text& gt;0.1-0.5</text> </observationRange> </ referenceRange> </observation> </component> < component> <observation moodCode="EVN" classCode=" OBS"> <templateId root="2.16.840.1.091025.10.20.22.4.2& quot; /> <id nullFlavor="NA" /> <code codeSystem="local" code="EO%" displayName=" EOSINOPHIL %" /> <statusCode code="completed& quot; /> <effectiveTime value="290924372632" /> <value unit="%" xsi:type="PQ" value="1 " /> <interpretationCode codeSystem="local" code=& quot;*" /> <referenceRange> <observationRange> <text>2-4</text> </observationRange> </referenceRange> </observation> </component& gt; <component> <observation moodCode="EVN" classCode="OBS"> <templateId root=" 2.16.840.1.166723.10.20.22.4.2" /> <id nullFlavor="NA& quot; /> <code codeSystem="local" code="GR#" displayName="GRANULOCYTE #" /> <statusCode code=" completed" /> <effectiveTime value="904507083758" /> <value unit="k/cumm" xsi:type="PQ" value=& quot;3.7" /> <referenceRange> < observationRange> <text>2.0-9.0</text> & lt;/observationRange> </referenceRange> </ observation> </component> <component> <observation moodCode="EVN" classCode="OBS"> <templateId root="2.16.840.1.473009.10.20.22.4.2" /> <id nullFlavor ="NA" /> <code codeSystem="local" code="GR& amp;#37;" displayName="GRANULOCYTE %" /> < statusCode code="completed" /> <effectiveTime value=& quot;389323460853" /> <value unit="%" xsi: type="PQ" value="63" /> <referenceRange> <observationRange> <text>50-75</text> </observationRange> </referenceRange> & lt;/observation> </component> <component> < observation moodCode="EVN" classCode="OBS"> < templateId root="2.16.840.1.639378.10.20.22.4.2" /> < id nullFlavor="NA" /> <code codeSystem="local" code="LY#" displayName="LYMPHOCYTE #"/> < statusCode code="completed" /> <effectiveTime value=& quot;754228367282" /> <value unit="k/cumm" xsi: type="PQ" value="1.2" /> <referenceRange> <observationRange><text>1.0-4.0</text> </observationRange> </referenceRange> </ observation> </component> <component> < observation moodCode="EVN" classCode="OBS"> < templateId root="2.16.840.1.678931.10..22.4.2" /> < id nullFlavor="NA" /> <code codeSystem="local&quot ; code="LY%" displayName="LYMPHOCYTE %" /&gt ; <statusCode code="completed" /> < effectiveTime value="014303061219" /> <value unit=&quot ;%" xsi:type="PQ" value="20" /> &lt ;referenceRange> <observationRange><text>20-30</ text> </observationRange> </referenceRange> </observation> </component> <component> <observation moodCode="EVN" classCode="OBS"> <templateId root="2.16.840.1.843485.10.20.22.4.2" /> <id nullFlavor="NA" /> <code codeSystem=" local" code="MCH" displayName="MEAN CELL HGB" /> <statusCode code="completed" /> < effectiveTime value="868279706725" /> <value unit=&quot ;pg" xsi:type="PQ" value="31.5" /> < referenceRange> <observationRange> <text> 27.0-33.0</text> </observationRange> </ referenceRange> </observation> </component> < component> <observation moodCode="EVN" classCode=" OBS"> <templateId root="2.16.840.1.752073.10.20.22.4.2& quot; /> <id nullFlavor="NA" /> <code codeSystem="local" code="MCHC" displayName="MEAN CELL HGB CONCENTRATION" /> <statusCode code="completed&quot ; /> <effectiveTime value="805957363021" /> <value unit="g/dL" xsi:type="PQ" value="33.5&quot ; /> <referenceRange> <observationRange> <text>32.0-37.0</text> </observationRange> </referenceRange> </observation> </component& gt; <component> <observation moodCode="EVN" classCode="OBS"> <templateId root=" 2.16.840.1.688803.10.20.22.4.2" /> <id nullFlavor="NA& quot; /> <code codeSystem="local" code="MCV" displayName="MEAN CELL VOLUME" /> <statusCode code=& quot;completed" /> <effectiveTime value="495630260638& quot; /><value unit="fl" xsi:type="PQ" value=" 94.0" /> <referenceRange> <observationRange > <text>80.0-100.0</text> </ observationRange> </referenceRange> </observation&gt ;</component> <component> <observation moodCode=&quot ;EVN" classCode="OBS"> <templateId root=" 2.16.840.1.184579.10.20.22.4.2" /> <id nullFlavor="NA" /> <code codeSystem="local" code="MO#" displayName="MONOCYTE #" /> <statusCode code=" completed" /> <effectiveTime value="475809650059" /> <value unit="k/cumm" xsi:type="PQ" value=& quot;0.9" /> <referenceRange> <observationRange > <text>0.1-1.0</text> </ observationRange> </referenceRange> </observation&gt ; </component> <component> <observation moodCode=& quot;EVN" classCode="OBS"> <templateId root=" 2.16.840.1.376330.10.20.22.4.2" /> <id nullFlavor="NA& quot; /> <code codeSystem="local" code="MO&#37 ;" displayName="MONOCYTE %" /> < statusCode code="completed" /> <effectiveTime value=& quot;718361441385" /> <value unit="%" xsi: type="PQ" value="15" /> <interpretationCode codeSystem="local" code="*" /> < referenceRange> <observationRange> <text> 4-6</text> </observationRange> </referenceRange> </observation> </component> <component> <observation moodCode="EVN" classCode="OBS"> <templateId root="2.16.840.1.772994.10.20.22.4.2" /> <id nullFlavor="NA" /> <code codeSystem=" local" code="RBC" displayName="RED BLOOD CELL" /> <statusCode code="completed" /> < effectiveTime value="983877332018" /> <value unit=&quot ;m/cumm" xsi:type="PQ" value="4.16" /> < referenceRange> <observationRange> <text>4.00 -6.00</text> </observationRange> </ referenceRange> </observation> </component> < component> <observation moodCode="EVN" classCode=" OBS"> <templateId root="2.16.840.1.115454.10.20.22.4.2& quot; /> <id nullFlavor="NA" /> <code codeSystem="local" code="RDW" displayName="RED CELL DISTRIBUTION WIDTH" /> <statusCode code="completed&quot ; /> <effectiveTime value="374916084422" /> <value unit="%" xsi:type="PQ" value="13.3& quot; /> <referenceRange> <observationRange> <text>11.0-15.6</text> </observationRange > </referenceRange> </observation> </ component> <component> <observation moodCode="EVN& quot; classCode="OBS"> <templateId root=" 2.16.840.1.750153.10.20.22.4.2" /> <id nullFlavor="NA& quot; /> <code codeSystem="local" code="WBC" displayName="WHITE BLOOD CELL" /> <statusCode code=& quot;completed" /> <effectiveTime value="262145406261& quot; /> <value unit="k/cumm" xsi:type="PQ" value="5.9" /> <referenceRange> < observationRange> <text>5.0-10.0</text> </ observationRange> </referenceRange> </observation&gt ; </component> <component> <observation moodCode ="EVN" classCode="OBS"> <templateId root=& quot;2.16.840.1.097865.10.20.22.4.2" /> <id nullFlavor=&quot ;NA" /> <code codeSystem="local" code="HGBT& quot; displayName="HEMOGLOBIN" /> <statusCode code=& quot;completed" /> <effectiveTime value="674534459863& quot; /> <value unit="gm/dL" xsi:type="PQ" value="13.1" /> <referenceRange> < observationRange> <text>12.0-16.0</text> </observationRange> </referenceRange> </ observation> </component> <component> < observation moodCode="EVN" classCode="OBS"> < templateId root="2.16.840.1.126163.10.20.22.4.2" /> < id nullFlavor="NA" /> <code codeSystem="local&quot ; code="HCTT" displayName="HEMATOCRIT" /> < statusCode code="completed" /> <effectiveTime value=& quot;214821032799" /> <value unit="%" xsi:type=& quot;PQ" value="39.1" /> <referenceRange> <observationRange> <text>37.0-47.0</text> </observationRange> </referenceRange> & lt;/observation> </component> <component> < observation moodCode="EVN" classCode="OBS"> < templateId root="2.16.840.1.279444.10.20.22.4.2" /> < id nullFlavor="NA" /> <code codeSystem="local&quot ; code="PLT" displayName="PLATELET COUNT" /> &lt ;statusCode code="completed" /> <effectiveTime value=& quot;889625276395" /> <value unit="k/cumm" xsi: type="PQ" value="263" /> <referenceRange> <observationRange> <text>150-400</text& gt;</observationRange> </referenceRange> </ observation> </component> </organizer> </entry> & lt;entry> <organizer moodCode="EVN" classCode="BATTERY& quot;> <templateId root="2.16.840.1.315146.10..22.4.1" /& gt; <id nullFlavor="NA" /> <code codeSystem=" local" code="CRP" displayName="C REACTIVE PROTEIN" /&gt ; <statusCode code="completed" /> <component> <observation moodCode="EVN" classCode="OBS"> <templateId root="2.16.840.1.822860.10.20.22.4.2" /> <id nullFlavor="NA" /> <code codeSystem="local& quot; code="CRP" displayName="C REACTIVE PROTEIN" /> <statusCode code="completed" /> < effectiveTime value="742597869459" /> <value unit=&quot ;mg/L" xsi:type="PQ" value="20.6" /> < interpretationCode codeSystem="local" code="*" /> <referenceRange><observationRange> <text>& lt; 8.0</text> </observationRange> </ referenceRange> </observation> </component> </ organizer> </entry> <entry> <organizer moodCode="EVN " classCode="BATTERY"> <templateId root=" 2.16.840.1.514180.10.20.22.4.1" /> <id nullFlavor="NA" /& gt; <code codeSystem="local" code="METABC" displayName="METABOLIC PANEL, COMPREHN" /> <statusCode code ="completed" /> <component> <observation moodCode="EVN" classCode="OBS"> <templateId root="2.16.840.1.505626.10.20.22.4.2" /> <id nullFlavor="NA " /> <code codeSystem="local" code="K" displayName="POTASSIUM" /> <statusCode code=" completed" /> <effectiveTime value="595414517639" /> <value unit="mmol/L" xsi:type="PQ" value=& quot;3.1" /> <interpretationCode codeSystem="local&quot ; code="*" /> <referenceRange> < observationRange> <text>3.5-5.3</text> & lt;/observationRange> </referenceRange> </observation> </component> <component> <observation moodCode=& quot;EVN" classCode="OBS"> <templateId root=" 2.16.840.1.657322.10.20.22.4.2" /> <id nullFlavor="NA& quot; /> <code codeSystem="local" code="eGFR&quot ; displayName="EST GFR (MDRD)" /> <statusCode code=& quot;completed" /> <effectiveTime value="& quot; /> <value unit="mL/min" xsi:type="PQ" value="60" /> <referenceRange> < observationRange> <text>> 59</text> < /observationRange> </referenceRange> </observation& gt; </component> <component> <observation moodCode="EVN" classCode="OBS"> <templateId root="2.16.840.1.128488.10..22.4.2" /> <id nullFlavor ="NA" /> <code codeSystem="local" code=" GAP" displayName="ANION GAP" /> <statusCode code=&quot ;completed" /> <effectiveTime value="040459304613&quot ; /> <value unit="mmol/L" xsi:type="PQ" value ="14" /> <referenceRange> < observationRange> <text>5-15</text> </ observationRange> </referenceRange> </observation&gt ; </component> <component> <observation moodCode ="EVN" classCode="OBS"> <templateId root=& quot;2.16.840.1.506250.10.20.22.4.2" /> <id nullFlavor=&quot ;NA" /> <code codeSystem="local" code="GLU& quot; displayName="GLUCOSE" /> <statusCode code=" completed" /> <effectiveTime value="424294301764" /> <value unit="mg/dL" xsi:type="PQ" value=& quot;122" /> <interpretationCode codeSystem="local&quot ; code="*" /> <referenceRange> < observationRange> <text>70-99</text> < /observationRange> </referenceRange> </observation& gt; </component> <component> <observation moodCode="EVN" classCode="OBS"> <templateId root="2.16.840.1.186362.10.20.22.4.2" /> <id nullFlavor ="NA" /> <code codeSystem="local" code=" CA" displayName="CALCIUM" /> <statusCode code=& quot;completed" /> <effectiveTime value="934885356829& quot; /> <value unit="mg/dL" xsi:type="PQ" value="8.5" /> <referenceRange> < observationRange> <text>8.5-10.1</text> & lt;/observationRange> </referenceRange> </observation> </component> <component> <observation moodCode=&quot ;EVN" classCode="OBS"> <templateIdroot=" 2.16.840.1.280550.10.20.22.4.2" /> <id nullFlavor="NA& quot; /> <code codeSystem="local" code="BUN" displayName="BLOOD UREA NITROGEN" /> <statusCode code=& quot;completed" /> <effectiveTime value="043460260051& quot; /> <value unit="mg/dL" xsi:type="PQ" value="20" /> <referenceRange> < observationRange> <text>7-20</text> </ observationRange> </referenceRange> </observation&gt ; </component> <component> <observation moodCode ="EVN" classCode="OBS"> <templateId root=& quot;2.16.840.1.306739.10.20.22.4.2" /> <id nullFlavor=&quot ;NA" /> <code codeSystem="local" code="CREAT& quot; displayName="CREATININE" /> <statusCode code=" completed" /> <effectiveTime value="617991343794" /> <value unit="mg/dL" xsi:type="PQ" value=& quot;0.9" /> <referenceRange> < observationRange> <text>0.6-1.0</text> & lt;/observationRange> </referenceRange> </ observation> </component> <component> < observation moodCode="EVN" classCode="OBS"> < templateId root="2.16.840.1.711158.10.20.22.4.2" /> < id nullFlavor="NA" /> <code codeSystem="local&quot ; code="NA" displayName="SODIUM" /> < statusCode code="completed" /> <effectiveTime value=& quot;627291541785" /> <value unit="mmol/L" xsi: type="PQ" value="132" /> <interpretationCode codeSystem="local" code="*" /> < referenceRange> <observationRange> <text> 135-148</text> </observationRange> </ referenceRange> </observation> </component> < component> <observation moodCode="EVN" classCode=" OBS"> <templateId root="2.16.840.1.243795.10.20.22.4.2& quot; /> <id nullFlavor="NA" /> <code codeSystem="local" code="CL" displayName="CHLORIDE&quot ; /> <statusCode code="completed" /> < effectiveTime value="551833626274" /> <value unit=&quot ;mmol/L" xsi:type="PQ" value="93" /> < interpretationCode codeSystem="local" code="*" /> <referenceRange> <observationRange> <text& gt;98-110</text> </observationRange> </ referenceRange> </observation> </component> < component> <observation moodCode="EVN" classCode=" OBS"> <templateId root="2.16.840.1.168004.10.20.22.4.2& quot; /> <id nullFlavor="NA" /> <code codeSystem="local" code="AST" displayName="AST/SGOT& quot; /> <statusCode code="completed" /> < effectiveTime value="070634215678" /> <value unit=&quot ;Units/L" xsi:type="PQ" value="29" /> < referenceRange> <observationRange> <text> 10-37</text> </observationRange> </ referenceRange> </observation> </component> < component> <observation moodCode="EVN" classCode=" OBS"> <templateId root="2.16.840.1.715824.10.20.22.4.2& quot; /> <id nullFlavor="NA" /> <code codeSystem="local" code="ALT" displayName="ALT/SGPT& quot; /> <statusCode code="completed" /> & lt;effectiveTime value="712962291758" /> <value unit=& quot;Units/L" xsi:type="PQ" value="25" /> & lt;referenceRange> <observationRange> <text& gt;< 66</text> </observationRange> </ referenceRange> </observation> </component> < component> <observation moodCode="EVN" classCode=" OBS"> <templateId root="2.16.840.1.006616.10.20.22.4.2& quot; /> <id nullFlavor="NA" /> <code codeSystem="local" code="CO2" displayName="CARBON DIOXIDE" /> <statusCode code="completed" /> <effectiveTime value="436192759770" /> < value unit="mmol/L" xsi:type="PQ" value="25" /&gt ; <referenceRange> <observationRange> <text>21-32</text> </observationRange> </referenceRange> </observation> </component> <component> <observation moodCode="EVN" classCode= "OBS"> <templateId root=" 2.16.840.1.962262.10.20.22.4.2" /> <id nullFlavor="NA& quot; /> <code codeSystem="local" code="TP" displayName="TOTAL PROTEIN" /> <statusCode code=" completed" /> <effectiveTime value="339965163885" /> <value unit="gm/dL" xsi:type="PQ" value="7.5 " /> <referenceRange> <observationRange&gt ; <text>6.4-8.2</text> </observationRange > </referenceRange> </observation> </ component> <component> <observation moodCode="EVN& quot; classCode="OBS"> <templateId root=" 2.16.840.1.773806.10.20.22.4.2" /> <id nullFlavor="NA& quot; /> <code codeSystem="local" code="ALB" displayName="ALBUMIN" /> <statusCode code=" completed" /> <effectiveTime value="637780151359" /> <value unit="gm/dL" xsi:type="PQ" value=& quot;3.2" /> <interpretationCode codeSystem="local&quot ; code="*" /> <referenceRange> < observationRange> <text>3.4-5.0</text> & lt;/observationRange> </referenceRange></observation> </component> <component> <observation moodCode=& quot;EVN" classCode="OBS"> <templateId root=" 2.16.840.1.560872.10.20.22.4.2" /> <id nullFlavor="NA& quot; /> <code codeSystem="local" code="BILTOT& quot; displayName="BILI TOTAL" /> <statusCode code=& quot;completed" /> <effectiveTime value="322159263050& quot; /> <value unit="mg/dL" xsi:type="PQ" value="0.5" /> <referenceRange> < observationRange> <text>0.0-1.0</text> & lt;/observationRange> </referenceRange> </ observation> </component> <component> < observation moodCode="EVN" classCode="OBS"> < templateId root="216.840.1.927427.10.20.22.4.2" /> < id nullFlavor="NA" /> <code codeSystem="local&quot ; code="ALKP" displayName="ALKALINE PHOSPHATASE TOTAL" /&gt ; <statusCodecode="completed" /> < effectiveTime value="563264944073" /> <value unit="IU/L " xsi:type="PQ" value="172" /> < interpretationCode codeSystem="local" code="*" /> <referenceRange> <observationRange> < text>45-117</text> </observationRange> </ referenceRange> </observation> </component> </ organizer> </entry> <entry> <organizer moodCode="EVN "classCode="BATTERY"> <templateId root=" 2.16.840.1.954295.10.20.22.4.1" /> <id nullFlavor="NA&quot ; /> <code codeSystem="local" code="iCHEM8" displayName="CHEM/HEM PROFILE-BEDSIDE" /> <statusCode code= "completed" /> <component> <observation moodCode="EVN" classCode="OBS"> <templateId root="2..840.1.903061.10..22.4.2" /> <id nullFlavor ="NA" /> <code codeSystem="local" code=" K" displayName="POTASSIUM" /> <statusCode code=& quot;completed" /> <effectiveTime value="[id number]& quot; /> <value unit="mmol/L" xsi:type="PQ" value="2.8" /> <interpretationCode codeSystem=" local" code="*" /> <referenceRange> <observationRange> <text>3.5-5.3</text> </observationRange> </referenceRange> </ observation> </component> <component> < observation moodCode="EVN" classCode="OBS"> < templateId root="[id number]" /> < id nullFlavor="NA" /> <code codeSystem="local&quot ; code="CMETHOD" displayName="METHOD" /> < statusCode code="completed" /> <effectiveTime value=& quot;[id number]" /> <value unit="" xsi:type=& quot;PQ" value="Bedside" /> <referenceRange> <observationRange> <text /> </ observationRange> </referenceRange> </observation> </component> <component> <observation moodCode=& quot;EVN" classCode="OBS"> <templateId root=" [id number]2.4.2" /> <id nullFlavor="NA& quot; /> <code codeSystem="local" code="GAP" displayName="ANION GAP" /> <statusCode code=" completed" /> <effectiveTime value="[id number]" /> <value unit="mmol/L" xsi:type="PQ" value=& quot;14" /><referenceRange> <observationRange> <text>10-20</text> </observationRange> </referenceRange> </observation> </component& gt; <component> <observation moodCode="EVN" classCode="OBS"> <templateId root=" 2.16.840.1.602028.10.20.22.4.2" /> <id nullFlavor="NA& quot; /> <code codeSystem="local" code="HMETHOD& quot; displayName="METHOD" /> <statusCode code=" completed" /> <effectiveTime value="[id number]" /> <value unit="" xsi:type="PQ" value=" Bedside" /> <referenceRange> < observationRange> <text /> </ observationRange> </referenceRange> </observation> </component> <component> <observation moodCode= "EVN" classCode="OBS"> <templateId root=&quot ;2.16.840.1.863896.10.20.22.4.2" /> <id nullFlavor="NA& quot; /> <code codeSystem="local" code="GLU" displayName="GLUCOSE" /> <statusCode code=" completed" /> <effectiveTime value="[id number]" /> <value unit="mg/dL" xsi:type="PQ" value=& quot;131" /> <interpretationCode codeSystem="local&quot ; code="*" /> <referenceRange> < observationRange> <text>70-99</text> < /observationRange> </referenceRange> </observation& gt; </component> <component> <observation moodCode="EVN" classCode="OBS"> <templateId root="2.16.840.1.185696.10.20.22.4.2" /> <id nullFlavor ="NA" /> <code codeSystem="local" code=" BUN" displayName="BLOOD UREA NITROGEN" /> < statusCode code="completed" /> <effectiveTime value=& quot;807060015831" /> <value unit="mg/dL" xsi:type ="PQ" value="21" /> <interpretationCode codeSystem ="local" code="*" /> <referenceRange> <observationRange> <text>7-20</text> &lt ;/observationRange> </referenceRange> </observation& gt; </component> <component> <observation moodCode="EVN" classCode="OBS"> <templateId root="2.16.840.1.323711.10..22.4.2" /> <id nullFlavor ="NA" /> <code codeSystem="local" code=" CREAT" displayName="CREATININE" /> <statusCode code="completed" /> <effectiveTime value=" " /> <value unit="mg/dL" xsi:type=& quot;PQ" value="0.9" /> <referenceRange> < observationRange> <text>0.6-1.0</text> & lt;/observationRange> </referenceRange> </ observation> </component> <component> < observation moodCode="EVN" classCode="OBS"> < templateId root="2.16.840.1.436663.10..22.4.2" /> < id nullFlavor="NA" /> <code codeSystem="local&quot ; code="HGBT" displayName="HEMOGLOBIN" /> < statusCode code="completed" /> <effectiveTime value=& quot;461460863758" /> <value unit="gm/dL" xsi:type ="PQ" value="12.2" /> <referenceRange> <observationRange> <text>12.0-16.0</text&gt ; </observationRange> </referenceRange> </ observation> </component> <component> < observation moodCode="EVN" classCode="OBS"> < templateIdroot="2.16.840.1.161601.10.20.22.4.2" /> <id nullFlavor="NA" /> <code codeSystem="local" code="HCTT" displayName="HEMATOCRIT" /> < statusCode code="completed" /> <effectiveTime value=& quot;868187354457" /> <value unit="%" xsi: type="PQ" value="36.0" /> < interpretationCode codeSystem="local" code="*" /> <referenceRange> <observationRange> < text>37.0-47.0</text> </observationRange> &lt ;/referenceRange> </observation> </component> < component> <observation moodCode="EVN" classCode=" OBS"> <templateId root="2.16.840.1.654960.10.20.22.4.2& quot; /> <id nullFlavor="NA" /> <code codeSystem="local" code="NA" displayName="SODIUM" /> <statusCodecode="completed" /> < effectiveTime value="352498579986" /> <value unit="mmol /L" xsi:type="PQ" value="130" /> < interpretationCode codeSystem="local" code="*" /> <referenceRange> <observationRange> < text>135-148</text> </observationRange> </ referenceRange> </observation> </component> < component> <observation moodCode="EVN" classCode=" OBS"> <templateId root="2.16.840.1.514789.10.20.22.4.2& quot; /> <id nullFlavor="NA" /> <code codeSystem="local" code="CL"displayName="CHLORIDE&quot ; /> <statusCode code="completed" /> < effectiveTime value="416901262046" /> <value unit=&quot ;mmol/L" xsi:type="PQ" value="92" /> < interpretationCode codeSystem="local" code="*" /> <referenceRange> <observationRange> < text>98-110</text> </observationRange> </ referenceRange> </observation> </component> < component> <observation moodCode="EVN" classCode=" OBS"> <templateId root="2.16.840.1.266630.10.20.22.4.2& quot; /> <id nullFlavor="NA" /> <code codeSystem="local" code="CO2" displayName="CARBON DIOXIDE"/> <statusCode code="completed" /> <effectiveTime value="311108781519" /> <value unit="mmol/L" xsi:type="PQ" value="28" /> <referenceRange> <observationRange> &lt ;text>21-32</text> </observationRange> </ referenceRange> </observation> </component> < component> <observation moodCode="EVN" classCode=" OBS"> <templateId root="2.16.840.1.818912.10.20.22.4.2& quot; /> <id nullFlavor="NA" /> <code codeSystem="local" code="CAION" displayName="CALCIUM IONIZED" /> <statusCode code="completed" /> <effectiveTime value="234592977573" /> < value unit="mg/dL" xsi:type="PQ" value="4.1" /&gt ; <interpretationCode codeSystem="local" code="*&quot ; /> <referenceRange> <observationRange> <text>4.5-5.3</text> </observationRange> </referenceRange> </observation> </component& gt; </organizer> </entry> <entry> <organizer moodCode="EVN" classCode="BATTERY"> <templateId root="2.16.840.1.514100.10.20.22.4.1" /> <id nullFlavor=& quot;NA" /> <code codeSystem="local" code="MRSAS& quot; displayName="MRSA SURVEILLANCE SCREEN" /> < statusCode code="completed" /> <component> < observation moodCode="EVN" classCode="OBS"> < templateId root="2.16.840.1.542911.10.20.22.4.2" /> < id nullFlavor="NA" /> <code codeSystem="local&quot ; code="MB" displayName="Microbiology" /> < statusCode code="completed" /> <effectiveTime value=& quot;301829070143" /> <value xsi:type="ST" value="< pre><b>MRSA SURVEILLANCE SCREEN</b> See BelowMRSA SURVEILLANCE SCREEN(F) Neel Date/Time: 09/23/2015 20:00 Oneal Date/Time: 09/25/2015 07: 13SOURCE: ANTERIOR NARESSPEC DESC: NNO [facility]ETHICILLIN [facility]IST[facility] [place] [address]</pre>" / > <referenceRange> <observationRange> & lt;text /> </observationRange> </referenceRange& gt; </observation> </component> </organizer> & lt;/entry> <entry> <organizer moodCode="EVN" classCode ="BATTERY"> <templateId root=" 2.16.840.1.952012.10.20.22.4.1" /> <id nullFlavor="NA&quot ; /> <code codeSystem="local" code="CBC" displayName="CBC" /> <statusCode code="completed&quot ; /> <component> <observation moodCode="EVN" classCode="OBS"> <templateId root=" 2.16.840.1.122658.10.20.22.4.2" /> <id nullFlavor="NA& quot; /> <code codeSystem="local" code="MCH" displayName="MEAN CELL HGB" /> <statusCode code=" completed" /> <effectiveTime value="291008042601" /> <value unit="pg" xsi:type="PQ" value="31.2 " /> <referenceRange> <observationRange&gt ; <text>27.0-33.0</text> </ observationRange> </referenceRange> </observation&gt ; </component> <component> <observation moodCode ="EVN" classCode="OBS"> <templateId root=& quot;2.16.840.1.686317.10.20.22.4.2" /> <id nullFlavor=&quot ;NA" /> <code codeSystem="local" code="MCHC& quot; displayName="MEAN CELL HGB CONCENTRATION" /> < statusCode code="completed" /> <effectiveTime value=" 543046376346" /> <value unit="g/dL" xsi:type=&quot ;PQ" value="32.3" /> <referenceRange> <observationRange> <text>32.0-37.0</text> </observationRange> </referenceRange> </ observation> </component> <component> < observation moodCode="EVN" classCode="OBS"> < templateId root="2.16.840.1.770751.10.20.22.4.2" /> < id nullFlavor="NA" /> <code codeSystem="local&quot ; code="MCV" displayName="MEAN CELL VOLUME" /> & lt;statusCode code="completed" /> <effectiveTime value= "842668328607" /> <value unit="fl" xsi:type=& quot;PQ" value="96.7" /> <referenceRange> <observationRange> <text>80.0-100.0</text&gt ; </observationRange> </referenceRange> & lt;/observation> </component> <component>< observation moodCode="EVN" classCode="OBS"> < templateId root="2.16.840.1.855964.10.20.22.4.2" /> < id nullFlavor="NA" /> <code codeSystem="local" code ="RBC" displayName="RED BLOOD CELL" /> < statusCode code="completed" /> <effectiveTime value=& quot;216442166185" /> <value unit="m/cumm" xsi: type="PQ" value="3.94" /> < interpretationCode codeSystem="local" code="*" /> <referenceRange> <observationRange> < text>4.00-6.00</text> </observationRange> &lt ;/referenceRange> </observation> </component> & lt;component> <observation moodCode="EVN" classCode=&quot ;OBS"> <templateId root="2.16.840.1.869127.10.20.22.4.2 " /> <id nullFlavor="NA" /> <code codeSystem="local" code="RDW" displayName="RED CELL DISTRIBUTION WIDTH" /> <statusCode code="completed" /> <effectiveTime value="229260481334" /> < value unit="%" xsi:type="PQ" value="13.4" /> <referenceRange> <observationRange> <text>11.0-15.6</text> </observationRange> </referenceRange> </observation> </component> <component> <observation moodCode="EVN" classCode ="OBS"> <templateId root=" 2.16.840.1.530123.10.20.22.4.2" /> <id nullFlavor="NA& quot; /> <code codeSystem="local" code="WBC" displayName="WHITE BLOOD CELL" /> <statusCode code=& quot;completed" /> <effectiveTime value="028537681036& quot; /> <value unit="k/cumm" xsi:type="PQ" value="3.3" /> <interpretationCode codeSystem="local& quot; code="*" /> <referenceRange> < observationRange> <text>5.0-10.0</text> </ observationRange> </referenceRange> </observation&gt ; </component> <component> <observation moodCode ="EVN" classCode="OBS"> <templateId root=& quot;2.16.840.1.780456.10.20.22.4.2" /> <id nullFlavor="NA& quot; /> <code codeSystem="local" code="HGBT&quot ; displayName="HEMOGLOBIN" /> <statusCode code=" completed" /> <effectiveTime value="438411926029" /> <value unit="gm/dL" xsi:type="PQ" value=& quot;12.3" /> <referenceRange> < observationRange> <text>12.0-16.0</text> </observationRange> </referenceRange> </ observation> </component> <component> < observation moodCode="EVN" classCode="OBS"> < templateId root="2.16.840.1.584637.10.20.22.4.2" /> < id nullFlavor="NA" /> <code codeSystem="local&quot ; code="HCTT" displayName="HEMATOCRIT" /> < statusCode code="completed" /><effectiveTime value=" 670465572391" /> <value unit="%"xsi:type=& quot;PQ" value="38.1" /> <referenceRange> <observationRange> <text>37.0-47.0</text> </observationRange> </referenceRange> & lt;/observation> </component> <component> < observation moodCode="EVN" classCode="OBS"> < templateId root="2.16.840.1.719693.10.20.22.4.2" /> < id nullFlavor="NA" /> <code codeSystem="local&quot ; code="PLT" displayName="PLATELET COUNT" /> &lt ;statusCode code="completed" /> <effectiveTime value=& quot;845415867514" /> <value unit="k/cumm" xsi: type="PQ" value="244" /> <referenceRange> <observationRange> <text>150-400</text& gt; </observationRange> </referenceRange> </observation> </component> </organizer> </entry > <entry> <organizer moodCode="EVN" classCode=" BATTERY"> <templateId root="2.16.840.1.074140.10.20.22.4.1& quot; /> <id nullFlavor="NA" /> <code codeSystem ="local" code="METAB" displayName="METABOLIC PANEL, BASIC" /> <statusCode code="completed" /> < component> <observation moodCode="EVN" classCode=" OBS"> <templateId root="2.16.840.1.694579.10.20.22.4.2& quot; /> <id nullFlavor="NA" /> <code codeSystem="local" code="K" displayName="POTASSIUM&quot ; /> <statusCode code="completed" /> < effectiveTimevalue="662452175705" /> <value unit=" mmol/L" xsi:type="PQ" value="3.9" /> < referenceRange> <observationRange> <text>3.5 -5.3</text> </observationRange> </ referenceRange> </observation> </component> < component> <observation moodCode="EVN" classCode=" OBS"> <templateId root="2.16.840.1.626025.10..22.4.2& quot; /> <id nullFlavor="NA" /> <code codeSystem="local" code="eGFR" displayName="EST GFR ( MDRD)" /> <statusCode code="completed" /> <effectiveTime value="001924018274" /> <value unit="mL/min" xsi:type="PQ" value="53" /> <interpretationCode codeSystem="local" code="*" /&gt ; <referenceRange> <observationRange> <text>> 59</text> </observationRange> </referenceRange> </observation> </component& gt; <component> <observation moodCode="EVN" classCode="OBS"> <templateId root=" 2.16.840.1.093888.10.20.22.4.2" /> <id nullFlavor="NA& quot; /> <code codeSystem="local" code="GAP" displayName="ANION GAP" /> <statusCode code=" completed" /> <effectiveTime value="655301339006" /> <value unit="mmol/L" xsi:type="PQ" value=& quot;7" /> <referenceRange> < observationRange> <text>5-15</text> </ observationRange> </referenceRange> </observation&gt ; </component> <component> <observation moodCode ="EVN" classCode="OBS"> <templateId root=& quot;2.16.840.1.276559.10.20.22.4.2" /> <id nullFlavor=&quot ;NA" /> <code codeSystem="local" code="eCrCl& quot; displayName="EST CrCl (CG)" /> <statusCode code=& quot;completed"/> <effectiveTime value="054059746256& quot; /> <value unit="mL/min" xsi:type="PQ" value="35" /> <interpretationCode codeSystem=" local" code="*" /> <referenceRange> <observationRange> <text>> 59</text> </observationRange> </referenceRange> </ observation> </component> <component> < observation moodCode="EVN" classCode="OBS"> < templateId root="2.16.840.1.085483.10..22.4.2" /> < id nullFlavor="NA" /> <code codeSystem="local&quot ; code="GLU" displayName="GLUCOSE" /> < statusCode code="completed" /> <effectiveTime value=& quot;929309296182" /> <value unit="mg/dL" xsi:type ="PQ"value="131" /> <interpretationCode codeSystem="local" code="*" /> < referenceRange> <observationRange> <text> 70-99</text> </observationRange> </ referenceRange></observation> </component> < component> <observation moodCode="EVN" classCode=" OBS"> <templateId root="2.16.840.1.431901.10.20.22.4.2& quot; /> <id nullFlavor="NA" /> <code codeSystem="local" code="CA" displayName="CALCIUM&quot ; /> <statusCode code="completed" /> < effectiveTime value="476187200128" /> <value unit="mg/dL& quot; xsi:type="PQ" value="8.4" /> < interpretationCode codeSystem="local" code="*" /> <referenceRange> <observationRange> < text>8.5-10.1</text> </observationRange> < /referenceRange> </observation> </component> &lt ;component> <observation moodCode="EVN" classCode=" OBS"> <templateId root="2.16.840.1.531490.10.20.22.4.2& quot; /> <id nullFlavor="NA" /> <code codeSystem="local" code="BUN" displayName="BLOOD UREA NITROGEN" /> <statusCode code="completed" /> <effectiveTime value="140574692461" /> < value unit="mg/dL" xsi:type="PQ" value="20" /> <referenceRange> <observationRange> <text >7-20</text> </observationRange> </ referenceRange> </observation> </component> < component> <observation moodCode="EVN" classCode=" OBS"> <templateId root="2.16.840.1.415836.10..22.4.2& quot; /> <id nullFlavor="NA" /> <code codeSystem="local" code="CREAT" displayName="CREATININE " /> <statusCode code="completed" /> & lt;effectiveTime value="885284932500" /> <value unit=& quot;mg/dL" xsi:type="PQ" value="1.0" /> & lt;referenceRange> <observationRange> <text& gt;0.6-1.0</text> </observationRange> </ referenceRange> </observation> </component> < component> <observation moodCode="EVN" classCode="OBS" > <templateId root="2.16.840.1.076100.10.20.22.4.2" /& gt; <id nullFlavor="NA" /> <code codeSystem=& quot;local" code="NA" displayName="SODIUM" /> <statusCode code="completed" /> <effectiveTime value="522986615387" /> <value unit="mmol/L" xsi:type="PQ" value="138" /> <referenceRange& gt; <observationRange> <text>135-148</ text> </observationRange> </referenceRange> </observation> </component> <component> < observation moodCode="EVN" classCode="OBS"> < templateId root="2.16.840.1.211613.10.20.22.4.2" /> < id nullFlavor="NA" /> <code codeSystem="local&quot ; code="CL" displayName="CHLORIDE" /> < statusCodecode="completed" /> <effectiveTime value=& quot;764681320401" /> <value unit="mmol/L" xsi:type=& quot;PQ" value="100" /> <referenceRange> <observationRange> <text>98-110</text> </observationRange> </referenceRange> </ observation> </component> <component> < observation moodCode="EVN" classCode="OBS"> < templateId root="2.16.840.1.532414.10.20.22.4.2" /> <id nullFlavor="NA" /> <code codeSystem="local" code="CO2" displayName="CARBON DIOXIDE" /> < statusCode code="completed" /> <effectiveTime value=& quot;309691741214" /> <value unit="mmol/L" xsi: type="PQ" value="31" /> <referenceRange> <observationRange> <text>21-32</text> </observationRange> </referenceRange> & lt;/observation> </component> </organizer> </entry&gt ; <entry> <organizer moodCode="EVN" classCode=" BATTERY"> <templateId root="2.16.840.1.855302.10.20.22.4.1& quot; /> <id nullFlavor="NA" /> <code codeSystem ="local" code="MAG" displayName="MAGNESIUM" /> <statusCode code="completed" /> <component> <observation moodCode="EVN" classCode="OBS"> <templateId root="2.16.840.1.556948.10.20.22.4.2" /> <id nullFlavor="NA" /> <code codeSystem=" local" code="MAG" displayName="MAGNESIUM" /> <statusCode code="completed" /> <effectiveTime value=&quot ;048680543712" /> <value unit="mg/dL" xsi:type=& quot;PQ" value="2.0" /> <referenceRange> <observationRange> <text>1.8-2.4</text> </observationRange> </referenceRange> </ observation> </component> </organizer> </entry> & lt;entry> <organizer moodCode="EVN" classCode="BATTERY& quot;> <templateId root="2.16.840.1.944349.10.20.22.4.1" /& gt; <id nullFlavor="NA" /> <code codeSystem=" local" code="CAION" displayName="CALCIUM IONIZED" /&gt ; <statusCode code="completed" /> <component> <observation moodCode="EVN" classCode="OBS"> <templateId root="2.16.840.1.206244.10.20.22.4.2" /> <id nullFlavor="NA" /> <code codeSystem=" local" code="CAION" displayName="CALCIUM IONIZED" /&gt ; <statusCode code="completed" /> < effectiveTime value="377232011621" /> <value unit=&quot ;mg/dL" xsi:type="PQ" value="4.7" /> < referenceRange> <observationRange> <text> 4.5-5.3</text> </observationRange> </referenceRange&gt ; </observation> </component> </organizer> &lt ;/entry> <entry> <organizer moodCode="EVN" classCode=& quot;BATTERY"> <templateId root=" 2.16.840.1.038157.10.20.22.4.1" /> <id nullFlavor="NA&quot ; /> <code codeSystem="local" code="CDIFBR" displayName="C. difficile toxin B ge" /> <statusCode code=& quot;completed" /> <component> <observation moodCode="EVN" classCode="OBS"> <templateId root=& quot;2.16.840.1.091573.10..22.4.2" /> <id nullFlavor=&quot ;NA" /> <code codeSystem="local" code="CDIFBR " displayName="C. difficile toxin B ge" /> < statusCode code="completed" /> <effectiveTime value=" 138613441545" /> <value unit="" xsi:type="PQ& quot; value="See Comment" /> <referenceRange>< observationRange> <text /> </ observationRange> </referenceRange> </observation&gt ; </component> </organizer> </entry> <entry> <organizer moodCode="EVN" classCode="BATTERY"> <templateId root="2.16.840.1.462150.10..22.4.1" /> < id nullFlavor="NA" /> <code codeSystem="local" code="CUAGR" displayName="Culture Urine" /> < statusCode code="completed" /> <component> < observation moodCode="EVN" classCode="OBS"> < templateId root="2.16.840.1.599272.10..22.4.2" /> < id nullFlavor="NA" /> <code codeSystem="local&quot ; code="CUAIR" displayName="Culture Urine" /> & lt;statusCode code="completed" /> <effectiveTimevalue=& quot;189068358040" /> <value unit="" xsi:type=& quot;PQ" value="See Comment" /> <referenceRange&gt ; <observationRange> <text /> < /observationRange> </referenceRange> </observation> </component> </organizer> </entry> <entry> <organizer moodCode="EVN" classCode="BATTERY"> & lt;templateId root="2.16.840.1.325601.10..22.4.1" /> <id nullFlavor="NA" /> <code codeSystem="local" code= "CMP13" displayName="Comprehensive MetabolicPanel" /> <statusCode code="completed" /> <component>< observation moodCode="EVN" classCode="OBS"> < templateId root="2.16.840.1.286061.10..22.4.2" /> < id nullFlavor="NA" /> <code codeSystem="local" code ="NA" displayName="Sodium" /> <statusCode code=& quot;completed" /> <effectiveTime value="488058099459& quot; /> <value unit="MMOLL" xsi:type="PQ" value="142" /> <referenceRange> < observationRange> <text>134-145</text> & lt;/observationRange> </referenceRange></observation> </component> <component> <observation moodCode=& quot;EVN" classCode="OBS"> <templateId root=" 2.16.840.1.490748.10..22.4.2" /> <id nullFlavor="NA& quot; /> <code codeSystem="local" code="K" displayName="Potassium" /> <statusCode code=" completed" /> <effectiveTime value="258919226306" /> <value unit="MMOLL" xsi:type="PQ" value="4.2 " /> <referenceRange> <observationRange&gt ; <text>3.6-5.0</text> </observationRange& gt; </referenceRange> </observation> </component > <component> <observation moodCode="EVN" classCode="OBS"> <templateId root=" 2.16.840.1.611714.10.20.22.4.2" /> <id nullFlavor="NA&quot ; /> <code codeSystem="local" code="CL" displayName="Chloride" /> <statusCode code=" completed" /> <effectiveTime value="046734940238" /> <value unit="MMOLL" xsi:type="PQ" value=& quot;101" /> <referenceRange> <observationRange& gt; <text>98-107</text> </ observationRange> </referenceRange> </observation&gt ; </component> <component> <observation moodCode=& quot;EVN" classCode="OBS"> <templateId root=" 2.16.840.1.006651.10.20.22.4.2" /> <id nullFlavor="NA& quot; /> <code codeSystem="local" code="CO2" displayName="CO2" /> <statusCode code="completed& quot; /> <effectiveTime value="861839761348" /> <value unit="MMOLL" xsi:type="PQ" value="28& quot; /> <referenceRange> <observationRange> <text>22-30</text> </observationRange&gt ; </referenceRange> </observation> </ component> <component> <observation moodCode="EVN& quot; classCode="OBS"> <templateId root=" 2.16.840.1.574400.10.20.22.4.2" /> <id nullFlavor="NA& quot; /> <code codeSystem="local" code="GLU" displayName="Glucose" /> <statusCode code="completed& quot; /> <effectiveTime value="533783595191" /> <value unit="MG/DL" xsi:type="PQ" value="90& quot; /> <referenceRange> <observationRange> <text>75-110</text> </observationRange& gt; </referenceRange> </observation> </ component> <component> <observation moodCode="EVN& quot; classCode="OBS"> <templateId root=" 2.16.840.1.212964.10.20.22.4.2" /> <id nullFlavor="NA& quot; /> <code codeSystem="local" code="BUN" displayName="BUN" /> <statusCode code="completed& quot; /> <effectiveTime value="051380263253" /> <value unit="MG/DL" xsi:type="PQ" value="16& quot; /> <referenceRange> <observationRange> <text>9-20</text> </observationRange&gt ; </referenceRange> </observation> </ component> <component> <observation moodCode="EVN& quot; classCode="OBS"> <templateId root=" 2.16.840.1.660920.10.20.22.4.2" /> <id nullFlavor="NA& quot; /> <code codeSystem="local" code="CREAT&quot ; displayName="Creatinine" /> <statusCode code=" completed" /> <effectiveTime value="329597686745" /& gt; <value unit="MG/DL" xsi:type="PQ" value=& quot;.68" /> <interpretationCode codeSystem="local&quot ; code="L" /> <referenceRange> < observationRange> <text>0.8-1.7</text> & lt;/observationRange> </referenceRange> </ observation> </component> <component> < observation moodCode="EVN" classCode="OBS"> < templateId root="2.16.840.1.970786.10.20.22.4.2" /> < id nullFlavor="NA" /> <code codeSystem="local" code="CA" displayName="Calcium" /> < statusCode code="completed" /> <effectiveTime value=& quot;503315493263" /> <value unit="MG/DL" xsi:type ="PQ" value="9.3" /> <referenceRange> <observationRange> <text>8.4-10.2</text> </observationRange> </referenceRange> < /observation> </component> <component> < observation moodCode="EVN" classCode="OBS"> < templateId root="2.16.840.1.000454.10.20.22.4.2" /> < id nullFlavor="NA" /> <code codeSystem="local&quot ; code="TBIL" displayName="T Bili" /> < statusCode code="completed" /> <effectiveTime value=& quot;608015357832" /> <value unit="MG/DL" xsi:type= "PQ" value=".3" /> <referenceRange> < observationRange> <text>0.2-1.3</text> & lt;/observationRange> </referenceRange> </ observation> </component> <component> < observation moodCode="EVN" classCode="OBS"> < templateId root="2.16.840.1.878387.10.20.22.4.2" /> < id nullFlavor="NA" /> <code codeSystem="local&quot ; code="TP" displayName="T. Protein" /> < statusCode code="completed" /> <effectiveTime value=& quot;229280084499" /> <value unit="G/DL" xsi:type= "PQ" value="7.3" /> <referenceRange> <observationRange> <text>6.3-8.2</text> </observationRange> </referenceRange> < /observation> </component> <component> < observation moodCode="EVN" classCode="OBS"> < templateId root="2.16.840.1.322721.10.20.22.4.2" /> < id nullFlavor="NA" /> <code codeSystem="local&quot ; code="AG" displayName="A/G Ratio" /> < statusCode code="completed" /> <effectiveTime value=& quot;594768690227" /> <value unit="RATIO" xsi:type ="PQ" value="1.0" /> <referenceRange> <observationRange> <text /> </ observationRange> </referenceRange> </observation&gt ; </component> <component> <observation moodCode ="EVN" classCode="OBS"> <templateId root=& quot;2.1[id number]" /> <id nullFlavor=&quot ;NA" /> <code codeSystem="local" code="ALB& quot; displayName="Albumin" /> <statusCode code="completed& quot; /> <effectiveTime value="[id number]" /> <value unit="G/DL" xsi:type="PQ" value="3.7& quot; /> <referenceRange> <observationRange> <text>3.5-5.0</text> </observationRange& gt; </referenceRange> </observation> </ component> <component> <observation moodCode="EVN& quot; classCode="OBS"> <templateId root=" [id number]" /> <id nullFlavor="NA& quot; /> <code codeSystem="local" code="ALP" displayName="Alk Phos" /> <statusCode code=" completed" /> <effectiveTime value="831784165603" /> <value unit="U/L" xsi:type="PQ" value=& quot;82" /> <referenceRange> < observationRange> <text>38-126</text> </ observationRange> </referenceRange> </observation&gt ; </component> <component> <observation moodCode ="EVN" classCode="OBS"> <templateId root=& quot;2.16.840.1.921047.10.20.22.4.2" /> <id nullFlavor=&quot ;NA" /> <code codeSystem="local" code="ALT& quot; displayName="ALT" /> <statusCode code=" completed" /> <effectiveTime value="862459346542" /> <value unit="U/L" xsi:type="PQ" value="12& quot; /> <referenceRange> <observationRange> <text>11-66</text> </observationRange&gt ; </referenceRange> </observation> </component> <component> <observation moodCode="EVN" classCode="OBS"> <templateId root=" 2.16.840.1.515692.10.20.22.4.2" /> <id nullFlavor="NA& quot; /> <code codeSystem="local" code="AST" displayName="AST" /> <statusCode code="completed& quot; /> <effectiveTime value="991452487462" /> <value unit="U/L" xsi:type="PQ" value="21&quot ; /> <referenceRange> <observationRange> <text>14-36</text> </observationRange> </referenceRange> </observation> </component> </organizer> </entry> <entry> <organizer moodCode=" EVN" classCode="BATTERY"> <templateId root=" 2.16.840.1.138609.10.20.22.4.1" /> <id nullFlavor="NA&quot ; /> <code codeSystem="local" code="LIPID1" displayName="Lipid Profile" /> <statusCode code=" completed" /> <component> <observation moodCode=& quot;EVN" classCode="OBS"> <templateId root=" 2.16.840.1.737897.10.20.22.4.2" /> <id nullFlavor="NA& quot; /> <code codeSystem="local" code="HDL" displayName="HDL" /> <statusCode code="completed& quot; /> <effectiveTime value="091080097009" /> <value unit="MG/DL" xsi:type="PQ" value="60&quot ; /> <referenceRange> <observationRange> <text>40-60</text> </observationRange> </referenceRange> </observation> </component&gt ; <component> <observation moodCode="EVN" classCode="OBS"> <templateId root=" 2.16.840.1.550933.10.20.22.4.2" /> <id nullFlavor="NA& quot; /> <code codeSystem="local" code="LDLCAL& quot; displayName="LDL Calculated" /> <statusCode code= "completed" /> <effectiveTime value="965715349299& quot; /> <valueunit="MG/DL" xsi:type="PQ" value="90" /> <referenceRange> < observationRange> <text>30-100</text> &lt ;/observationRange> </referenceRange> </observation& gt; </component> <component> <observation moodCode="EVN" classCode="OBS"> <templateId root="2.16.840.1.683142.10..22.4.2" /> <id nullFlavor ="NA" /> <code codeSystem="local" code=" TRIG" displayName="Triglyceride" /> <statusCode code="completed" /> <effectiveTime value=" 767625138421" /> <value unit="MG/DL" xsi:type=& quot;PQ" value="92" /> <referenceRange> <observationRange> <text>< 200</text&gt ; </observationRange> </referenceRange> & lt;/observation> </component> <component> < observation moodCode="EVN" classCode="OBS"> < templateId root="2.16.840.1.421058.10..22.4.2" /> < id nullFlavor="NA" /> <code codeSystem="local&quot ; code="VLDL" displayName="VLDL" /> < statusCode code="completed" /> <effectiveTime value=& quot;506932421063" /> <value unit="" xsi:type=& quot;PQ"value="18" /> <referenceRange> <observationRange> <text /> </ observationRange> </referenceRange> </observation&gt ; </component> <component> <observation moodCode ="EVN" classCode="OBS"> <templateId root=& quot;2.16.840.1.258003.10.20.22.4.2" /> <id nullFlavor=&quot ;NA" /> <code codeSystem="local" code="CH& quot; displayName="Chol/HDL" /> <statusCode code=" completed" /> <effectiveTime value="840458522596" /> <value unit="RATIO" xsi:type="PQ" value="2.79& quot; /> <referenceRange> <observationRange> <text>0.00-5.00</text> </ observationRange> </referenceRange> </observation&gt ; </component> <component> <observation moodCode=& quot;EVN" classCode="OBS"> <templateId root=" 2.16.840.1.835438.10.20.22.4.2" /> <id nullFlavor="NA& quot; /> <code codeSystem="local" code="CHOL&quot ; displayName="Cholesterol" /> <statusCode code=" completed" /> <effectiveTime value="485056568918" /> <value unit="MG/DL" xsi:type="PQ" value=& quot;168" /> <referenceRange> < observationRange> <text>130-170</text> & lt;/observationRange> </referenceRange> </ observation> </component> </organizer> </entry> & lt;entry> <organizer moodCode="EVN" classCode="BATTERY& quot;> <templateId root="2.16.840.1.170812.10.20.22.4.1" /& gt; <id nullFlavor="NA" /> <code codeSystem=" local" code="CBC6" displayName="CBC" /> < statusCode code="completed" /> <component> < observation moodCode="EVN" classCode="OBS"> < templateId root="2.16.840.1.925572.10..22.4.2" /> < id nullFlavor="NA" /> <code codeSystem="local&quot ; code="EOS#" displayName="Eos #" /> < statusCode code="completed" /> <effectiveTime value=& quot;531071082983" /> <value unit="x10^3" xsi:type ="PQ" value="0.23" /> <referenceRange> <observationRange> <text>0-0.5</text> </observationRange> </referenceRange> < /observation> </component> <component> < observation moodCode="EVN" classCode="OBS"> < templateId root="2.16.840.1.198056.10.20.22.4.2" /> < id nullFlavor="NA" /> <code codeSystem="local" code="EOS%" displayName="Eos %" /> <statusCode code="completed" /> < effectiveTimevalue="353717786314" /> <value unit=" %" xsi:type="PQ" value="6.5" /> &lt ;interpretationCode codeSystem="local" code="H" /> <referenceRange> <observationRange> < text>0-4</text> </observationRange> </ referenceRange> </observation> </component> < component> <observation moodCode="EVN" classCode=" OBS"> <templateId root="2.16.840.1.413547.10.20.22.4.2& quot; /> <id nullFlavor="NA" /> <code codeSystem="local" code="HCT" displayName="HCT" /& gt; <statusCode code="completed" /> < effectiveTime value="935998435245" /> <value unit="&# 37;" xsi:type="PQ" value="31.8" /> < interpretationCode codeSystem="local" code="L" /> <referenceRange> <observationRange> < text>37.0-47.0</text> </observationRange> </ referenceRange> </observation> </component> < component> <observation moodCode="EVN" classCode=" OBS"> <templateId root="2.16.840.1.866397.10.20.22.4.2& quot; /> <id nullFlavor="NA" /> <code codeSystem="local" code="HGB" displayName="HGB" /& gt; <statusCode code="completed" /> < effectiveTime value="319906965167" /> <value unit=&quot ;G/DL" xsi:type="PQ" value="9.7" /> < interpretationCode codeSystem="local" code="L" /> <referenceRange> <observationRange> < text>12.0-16.0</text> </observationRange> &lt ;/referenceRange> </observation> </component> & lt;component> <observation moodCode="EVN" classCode="OBS& quot;> <templateId root="2.16.840.1.290372.10.20.22.4.2&quot ; /> <id nullFlavor="NA" /> <code codeSystem= "local" code="LYMPH#" displayName="Lymph #" /> <statusCode code="completed" /> < effectiveTime value="035233081860" /> <value unit=&quot ;x10^3" xsi:type="PQ" value="1.15" /> < referenceRange> <observationRange> <text> 1.0-4.0</text> </observationRange> </ referenceRange> </observation> </component> < component> <observation moodCode="EVN" classCode=" OBS"> <templateId root="2.16.840.1.388955.10.20.22.4.2& quot; /> <id nullFlavor="NA" /> <code codeSystem="local" code="LYMPH%" displayName=" Lymph %" /> <statusCode code="completed" /& gt; <effectiveTime value="449956034996" /> &lt ;value unit="%" xsi:type="PQ" value="32.7&quot ; /> <referenceRange> <observationRange> <text>20-50</text> </observationRange> </referenceRange> </observation> </component&gt ; <component> <observation moodCode="EVN" classCode="OBS"> <templateId root=" 2.16.840.1.965401.10.20.22.4.2" /> <id nullFlavor="NA& quot; /> <code codeSystem="local" code="MCH" displayName="MCH" /> <statusCode code="completed& quot; /> <effectiveTime value="649018250336" /> & lt;value unit="PG" xsi:type="PQ" value="30.6" /&gt ; <referenceRange> <observationRange> <text>27.0-31.0</text> </observationRange> </referenceRange> </observation> </component> <component> <observation moodCode="EVN" classCode ="OBS"> <templateId root=" 2.16.840.1.765714.10.20.22.4.2" /> <id nullFlavor="NA& quot; /> <code codeSystem="local" code="MCHC&quot ; displayName="MCHC" /> <statusCode code=" completed"/> <effectiveTime value="233009920163" / > <value unit="G/DL" xsi:type="PQ" value=& quot;30.5" /> <interpretationCode codeSystem="local& quot; code="L" /> <referenceRange> < observationRange> <text>32.0-36.0</text> </observationRange> </referenceRange> </observation > </component> <component> <observation moodCode="EVN" classCode="OBS"> <templateId root="2.16.840.1.909273.10.20.22.4.2" /> <id nullFlavor ="NA" /> <code codeSystem="local" code=" MCV" displayName="MCV" /> <statusCode code=" completed" /> <effectiveTime value="385674817971" /> <value unit="FL" xsi:type="PQ" value=&quot ;100.3" /> <interpretationCode codeSystem="local" code="H"/> <referenceRange> < observationRange> <text>81-99</text> < /observationRange> </referenceRange> </observation& gt; </component> <component> <observation moodCode="EVN" classCode="OBS"> <templateId root="2.16.840.1.035378.10.20.22.4.2" /> <id nullFlavor ="NA" /> <code codeSystem="local" code=" MONO#" displayName="[place] #" /> <statusCode code=& quot;completed" /> <effectiveTime value="890041226017& quot; /> <value unit="x10^3" xsi:type="PQ" value="0.46" /> <referenceRange> < observationRange> <text>0.0-0.8</text> </ observationRange> </referenceRange> </observation&gt ; </component> <component> <observation moodCode ="EVN" classCode="OBS"> <templateId root=& quot;2.16.840.1.509590.10.20.22.4.2" /> <id nullFlavor="NA&quot ; /> <code codeSystem="local" code="MONO%& quot; displayName="[place] %" /> <statusCode code= "completed" /> <effectiveTime value="936878214090& quot; /> <value unit="%" xsi:type="PQ&quot ; value="13.1" /> <interpretationCode codeSystem=" local" code="H" /> <referenceRange> < observationRange> <text>1.0-9.0</text> & lt;/observationRange> </referenceRange> </ observation> </component> <component> < observation moodCode="EVN" classCode="OBS"> < templateId root="2.16.840.1.807099.10.20.22.4.2" /> < id nullFlavor="NA" /> <code codeSystem="local&quot ; code="MPV" displayName="MPV" /> < statusCode code="completed" /> <effectiveTime value=& quot;491384017455" /> <value unit="FL" xsi:type=& quot;PQ" value="10.4" /> <interpretationCode codeSystem="local" code="H" /> < referenceRange> <observationRange> <text>6.0-10.0</ text> </observationRange> </referenceRange> </observation> </component> <component> <observation moodCode="EVN" classCode="OBS"> <templateId root="2.16.840.1.637999.10..22.4.2" /> <id nullFlavor="NA" /> <code codeSystem=" local" code="PLT" displayName="Platelet" /> <statusCode code="completed" /> <effectiveTime value="714234384163"/> <value unit="x10^3" xsi:type="PQ" value="280" /> <referenceRange&gt ; <observationRange> <text>150-400</text& gt; </observationRange> </referenceRange> </observation> </component> <component> &lt ;observation moodCode="EVN" classCode="OBS"> &lt ;templateId root="2.16.840.1.820702.10..22.4.2" /> < id nullFlavor="NA" /> <code codeSystem="local&quot ; code="RBC" displayName="RBC" /> < statusCode code="completed" /> <effectiveTime value=& quot;674132885130" /> <value unit="x10^3" xsi:type ="PQ" value="3.17" /> <interpretationCode codeSystem="local" code="L" /> < referenceRange><observationRange> <text>4.20-5.40&lt ;/text> </observationRange> </referenceRange&gt ; </observation> </component> <component> <observation moodCode="EVN" classCode="OBS"> &lt ;templateId root="2.16.840.1.106658.10.20.22.4.2" /> < id nullFlavor="NA" /> <code codeSystem="local&quot ; code="RDW" displayName="RDW" /> < statusCode code="completed" /> <effectiveTime value=& quot;476937680896" /> <value unit="%" xsi: type="PQ" value="15.6" /> < interpretationCode codeSystem="local" code="H" /> <referenceRange> <observationRange> <text>12-15 </text> </observationRange> </referenceRange& gt; </observation> </component> <component> <observation moodCode="EVN" classCode="OBS"> <templateId root="2.16.840.1.079680.10..22.4.2" /> <id nullFlavor="NA" /> <code codeSystem=&quot ;local" code="WBC" displayName="WBC" /> &lt ;statusCode code="completed" /> <effectiveTime value=& quot;068154917509" /> <value unit="x10^3" xsi:type=& quot;PQ" value="3.52" /> <interpretationCode codeSystem=& quot;local" code="L" /> <referenceRange> <observationRange> <text>4.8-10.8</text> </observationRange> </referenceRange> </ observation> </component> <component> < observation moodCode="EVN" classCode="OBS"> < templateId root="2.16.840.1.139004.10.20.22.4.2" /> < id nullFlavor="NA" /> <code codeSystem="local&quot ; code="BASO#" displayName="Baso #" /> < statusCode code="completed" /> <effectiveTime value=& quot;727730017600" /> <value unit="x10^3" xsi:type ="PQ" value="0.06" /> <referenceRange>< observationRange> <text>0-0.2</text> < /observationRange> </referenceRange> </observation& gt; </component> <component> <observation moodCode="EVN" classCode="OBS"> <templateId root="2.16.840.1.941884.10.20.22.4.2" /> <id nullFlavor ="NA" /> <code codeSystem="local" code=" BASO%" displayName="[place] %" /> < statusCode code="completed" /> <effectiveTime value=" 911933958977" /> <value unit="%" xsi:type= "PQ" value="1.7" /> <referenceRange> <observationRange> <text>0-2</text> </observationRange> </referenceRange> </ observation> </component> <component> < observation moodCode="EVN" classCode="OBS"> < templateId root="2.16.840.1.965331.10.20.22.4.2" /> < id nullFlavor="NA" /> <code codeSystem="local&quot ; code="SEG%" displayName="Neut %" /> <statusCode code="completed" /> < effectiveTime value="488937936556" /> <value unit=&quot ;%" xsi:type="PQ" value="46.0" /> & lt;interpretationCode codeSystem="local" code="L" /> <referenceRange> <observationRange> < text>50-70</text> </observationRange> </ referenceRange> </observation> </component> < component> <observation moodCode="EVN" classCode=" OBS"> <templateId root="2.16.840.1.345817.10.20.22.4.2& quot; /> <id nullFlavor="NA" /> <code codeSystem="local" code="SEG#" displayName="Neut #&quot ; /> <statusCode code="completed" /> < effectiveTime value="551015334491" /> <value unit=&quot ;x10^3" xsi:type="PQ" value="1.62"/> < interpretationCode codeSystem="local" code="L" />< referenceRange> <observationRange> <text> 3.0-7.0</text> </observationRange> </ referenceRange> </observation> </component> </ organizer> </entry> <entry> <organizer moodCode="EVN " classCode="BATTERY"> <templateId root=" 2.16.840.1.827909.10.20.22.4.1" /> <id nullFlavor="NA&quot ; /> <code codeSystem="local" code="FEPG1R" displayName="Iron/TIBC Profile" /> <statusCode code=" completed" /> <component> <observation moodCode=& quot;EVN" classCode="OBS"> <templateId root=" 2.16.840.1.644798.10.20.22.4.2" /> <id nullFlavor="NA& quot; /> <code codeSystem="local" code="DELMA" displayName="Iron" /> <statusCode code="completed& quot; /> <effectiveTime value="877124883317" /> <value unit="ug/dL" xsi:type="PQ" value="19& quot; /> <interpretationCode codeSystem="local" code=& quot;L" /> <referenceRange> <observationRange> <text>50-170</text> </observationRange> </referenceRange> </observation> </ component> <component> <observation moodCode="EVN& quot; classCode="OBS"> <templateId root=" 2.16.840.1.971920.10.20.22.4.2" /> <id nullFlavor="NA& quot; /> <code codeSystem="local" code="SAT" displayName="% Saturation" /> <statusCode code= "completed" /><effectiveTime value="367702933154" /&gt ; <value unit="%"xsi:type="PQ" value=& quot;6" /> <interpretationCode codeSystem="local" code="L" /> <referenceRange> < observationRange> <text>11-46</text> < /observationRange> </referenceRange> </observation& gt; </component> <component> <observation moodCode="EVN" classCode="OBS"> <templateId root="2.16.840.1.794750.10.20.22.4.2" /> <id nullFlavor ="NA" /><code codeSystem="local" code="TIBCR&quot ; displayName="Iron Binding Capacity" /> <statusCode code="completed" /> <effectiveTime value=" 585176678612" /> <value unit="ug/dL" xsi:type=& quot;PQ" value="301" /> <referenceRange> <observationRange> <text>260-445</text> & lt;/observationRange> </referenceRange> </ observation> </component> <component> < observation moodCode="EVN" classCode="OBS"> < templateId root="2.16.840.1.882751.10.20.22.4.2" /> < id nullFlavor="NA" /> <code codeSystem="local&quot ; code="UIBCR" displayName="UIBC" /> < statusCode code="completed" /> <effectiveTime value=& quot;245206666952" /> <value unit="ug/dl" xsi:type ="PQ" value="282" /> <referenceRange> <observationRange> <text>126-382</text> </observationRange> </referenceRange> < /observation> </component> </organizer> </entry> <entry> <organizer moodCode="EVN" classCode="BATTERY& quot;> <templateId root="2.16.840.1.389982.10.20.22.4.1" /& gt; <id nullFlavor="NA" /> <code codeSystem=" local" code="FERR" displayName="Ferritin" /> & lt;statusCode code="completed" /> <component> &lt ;observation moodCode="EVN" classCode="OBS"> &lt ;templateId root="2.16.840.1.695591.10.20.22.4.2" /> < id nullFlavor="NA" /> <code codeSystem="local&quot ; code="FERR" displayName="Ferritin" /> < statusCode code="completed" /> <effectiveTime value=& quot;878170809151" /> <value unit="ng/mL" xsi:type ="PQ" value="45" /> <referenceRange> <observationRange> <text>5-204</text> </observationRange> </referenceRange> </ observation> </component> </organizer> </entry> & lt;entry> <organizer moodCode="EVN" classCode="BATTERY& quot;> <templateId root="2.16.840.1.952294.10.20.22.4.1" /& gt; <id nullFlavor="NA" /> <code codeSystem=" local" code="S66JA3G" displayName="B12 and Folate" /&gt ; <statusCode code="completed" /> <component> <observation moodCode="EVN" classCode="OBS"> <templateId root="2.16.840.1.956372.10.20.22.4.2" /> & lt;id nullFlavor="NA" /> <code codeSystem="local& quot; code="FOLR" displayName="Folic Acid (Folate)" /> <statusCode code="completed" /> < effectiveTime value="558920469852" /> <value unit=&quot ;ng/mL" xsi:type="PQ" value="15.7" /> < referenceRange> <observationRange> <text> 7.0-31.4</text> </observationRange> </ referenceRange> </observation> </component> < component> <observation moodCode="EVN" classCode=" OBS"> <templateId root="2.16.840.1.401426.10.20.22.4.2& quot; /> <id nullFlavor="NA" /> <code codeSystem="local" code="B12R" displayName="Vitamin B12 " /> <statusCode code="completed" /> & lt;effectiveTime value="534413892361" /> <value unit=& quot;pg/mL" xsi:type="PQ" value="245" /> & lt;referenceRange> <observationRange> <text& gt;213-816</text> </observationRange> </ referenceRange> </observation> </component> </ organizer> </entry> <entry> <organizer moodCode="EVN " classCode="BATTERY"> <templateId root=" 2.16.840.1.162581.10.20.22.4.1" /> <id nullFlavor="NA&quot ; /> <code codeSystem="local" code="RETICR" displayName="Reticulocyte Count Auto" /> <statusCode code=& quot;completed" /> <component> <observation moodCode="EVN" classCode="OBS"> <templateId root="2.16.840.1.655988.10.20.22.4.2" /> <idnullFlavor= "NA" /> <code codeSystem="local" code=" RETICR" displayName="Reticulocyte Count Auto" /> < statusCode code="completed" /> <effectiveTime value=& quot;493222664163" /> <value unit="%" xsi: type="PQ" value="4.0" /> <interpretationCode codeSystem="local" code="H" /> < referenceRange><observationRange> <text>0.6-2.5</ text> </observationRange> </referenceRange> </observation> </component> </organizer> </ entry> <entry> <organizer moodCode="EVN" classCode=& quot;BATTERY"> <templateId root=" 2.16.840.1.776633.10.20.22.4.1" /> <id nullFlavor="NA&quot ; /> <code codeSystem="local" code="BMP15" displayName="Basic Metabolic Panel" /> <statusCode code=& quot;completed" /> <component> <observation moodCode="EVN" classCode="OBS"> <templateId root="2.16.840.1.737098.10.20.22.4.2" /> <id nullFlavor ="NA" /> <code codeSystem="local" code=" NA" displayName="Sodium" /> <statusCode code=&quot ;completed" /> <effectiveTime value="172266222548&quot ; /> <value unit="MMOLL" xsi:type="PQ" value= "143" /> <referenceRange> < observationRange> <text>134-145</text> & lt;/observationRange> </referenceRange> </observation> </component> <component> <observation moodCode= "EVN" classCode="OBS"> <templateId root=&quot ;2.16.840.1.754592.10.20.22.4.2" /> <id nullFlavor="NA& quot; /> <code codeSystem="local" code="K" displayName="Potassium" /> <statusCode code=" completed" /> <effectiveTime value="392675349665" /> <value unit="MMOLL" xsi:type="PQ" value=& quot;4.7" /> <referenceRange> < observationRange> <text>3.6-5.0</text> </ observationRange> </referenceRange> </observation&gt ; </component> <component> <observation moodCode ="EVN" classCode="OBS"> <templateId root=& quot;2.16.840.1.391379.10.20.22.4.2" /> <id nullFlavor=&quot ;NA" /> <code codeSystem="local" code="CL& quot; displayName="Chloride" /> <statusCode code=" completed" /> <effectiveTime value="845182115245" /> <value unit="MMOLL" xsi:type="PQ" value=& quot;99" /> <referenceRange> <observationRange& gt; <text>98-107</text> </ observationRange> </referenceRange> </observation&gt ; </component> <component> <observation moodCode ="EVN"classCode="OBS"> <templateId root=&quot ;2.16.840.1.106535.10.20.22.4.2" /> <id nullFlavor="NA& quot; /> <code codeSystem="local" code="CO2" displayName="CO2" /> <statusCode code="completed& quot; /> <effectiveTime value="485988151161" /> <value unit="MMOLL" xsi:type="PQ" value="29& quot; /> <referenceRange> <observationRange> <text>22-30</text> </observationRange> </referenceRange> </observation> </ component> <component> <observation moodCode="EVN& quot; classCode="OBS"> <templateId root=" 2.16.840.1.372084.10.20.22.4.2" /> <id nullFlavor="NA& quot; /> <code codeSystem="local" code="GLU" displayName="Glucose" /> <statusCode code=" completed" /> <effectiveTime value="112170398866" /> <value unit="MG/DL" xsi:type="PQ" value=& quot;95" /> <referenceRange> < observationRange> <text>75-110</text> &lt ;/observationRange> </referenceRange> </observation& gt; </component> <component> <observation moodCode=& quot;EVN" classCode="OBS"> <templateId root=" 2.16.840.1.961451.10.20.22.4.2" /> <id nullFlavor="NA& quot; /> <code codeSystem="local" code="BUN" displayName="BUN" /> <statusCode code="completed& quot; /> <effectiveTime value="352663517866" /> <value unit="MG/DL" xsi:type="PQ" value="16& quot; /> <referenceRange> <observationRange> <text>9-20</text> </observationRange&gt ; </referenceRange> </observation> </ component> <component> <observation moodCode="EVN& quot; classCode="OBS"> <templateId root=" 2.16.840.1.900239.10.20.22.4.2" /> <id nullFlavor="NA& quot; /> <code codeSystem="local" code="CREAT&quot ; displayName="Creatinine" /> <statusCodecode=" completed" /> <effectiveTime value="363083852038" /> <value unit="MG/DL" xsi:type="PQ" value=" .80" /> <referenceRange> <observationRange& gt; <text>0.8-1.7</text> </ observationRange> </referenceRange> </observation&gt ; </component> <component> <observation moodCode=& quot;EVN" classCode="OBS"> <templateId root=" 2.16.840.1.578080.10.20.22.4.2" /> <id nullFlavor="NA& quot; /> <code codeSystem="local" code="CA" displayName="Calcium" /> <statusCode code=" completed" /> <effectiveTime value="074941153126" /> <value unit="MG/DL" xsi:type="PQ" value=& quot;9.6" /> <referenceRange> <observationRange& gt; <text>8.4-10.2</text> </ observationRange> </referenceRange> </observation&gt ; </component> <component> <observation moodCode=& quot;EVN" classCode="OBS"> <templateId root=" 2.16.840.1.927353.10.20.22.4.2" /> <id nullFlavor="NA& quot; /> <code codeSystem="local" code="EGFR&quot ; displayName="EGFR" /> <statusCode code=" completed" /> <effectiveTime value="737989488364" /> <value unit="MLMIN" xsi:type="PQ" value=& quot;84" /> <referenceRange> < observationRange> <text /> </ observationRange> </referenceRange> </observation&gt ; </component> </organizer> </entry> <entry> <organizer moodCode="EVN" classCode="BATTERY"> <templateId root="[id number]" /> < id nullFlavor="NA" /> <code codeSystem="local" code ="CBC6" displayName="CBC" /> <statusCode code=" completed" /> <component> <observation moodCode=& quot;EVN" classCode="OBS"> <templateId root=" [id number]" /> <id nullFlavor="NA& quot; /> <code codeSystem="local" code="EOS#&quot ; displayName="Eos #" /> <statusCode code=" completed" /> <effectiveTime value="987554682876" /> <value unit="x10^3" xsi:type="PQ" value=&quot ;0.09" /> <referenceRange> <observationRange> <text>0-0.5</text> </observationRange> </referenceRange> </observation> </component& gt; <component> <observation moodCode="EVN" classCode="OBS"> <templateId root=" 2.16.840.1.138447.10.20.22.4.2" /> <id nullFlavor="NA& quot; /> <code codeSystem="local" code="EOS&# 37;" displayName="Eos %" /> <statusCode code="completed" /> <effectiveTime value=" 391890781025" /> <value unit="%" xsi:type= "PQ" value="1.9" /> <referenceRange> <observationRange> <text>0-4</text> & lt;/observationRange> </referenceRange> </ observation> </component> <component> < observation moodCode="EVN" classCode="OBS"> < templateId root="2.16.840.1.405261.10.20.22.4.2" /> <id nullFlavor="NA" /> <code codeSystem="local" code="HCT" displayName="HCT" /> <statusCode code="completed" /> <effectiveTime value="101692880399 " /> <value unit="%" xsi:type="PQ& quot; value="38.5" /> <referenceRange> < observationRange> <text>37.0-47.0</text> </observationRange> </referenceRange> </ observation> </component> <component> < observation moodCode="EVN" classCode="OBS"> < templateId root="2.16.840.1.955387.10.20.22.4.2" /> < id nullFlavor="NA" /> <code codeSystem="local&quot ; code="HGB" displayName="HGB" /> < statusCode code="completed" /> <effectiveTime value=& quot;865860480968" /> <value unit="G/DL" xsi:type= "PQ" value="12.4" /> <referenceRange> <observationRange> <text>12.0-16.0</text> </observationRange> </referenceRange> & lt;/observation> </component> <component> < observation moodCode="EVN" classCode="OBS"> < templateId root="2.16.840.1.918000.10.20.22.4.2" /> < id nullFlavor="NA" /> <code codeSystem="local" code=& quot;LYMPH#" displayName="Lymph #" /> <statusCode code="completed" /> <effectiveTime value=" 263303607428" /> <value unit="x10^3" xsi:type=& quot;PQ" value="1.37" /> <referenceRange> <observationRange> <text>1.0-4.0</text> </observationRange> </referenceRange> </ observation> </component> <component> < observation moodCode="EVN" classCode="OBS"> < templateId root="2.16.840.1.077748.10.20.22.4.2" /> < id nullFlavor="NA" /> <code codeSystem="local&quot ; code="LYMPH%" displayName="Lymph %" /> <statusCode code="completed" /> < effectiveTime value="372531866923" /> <value unit=&quot ;%" xsi:type="PQ" value="28.8" /> & lt;referenceRange> <observationRange> <text& gt;20-50</text> </observationRange> </ referenceRange> </observation> </component> < component> <observation moodCode="EVN" classCode=" OBS"> <templateId root="2.16.840.1.572924.10.20.22.4.2& quot; /> <id nullFlavor="NA" /> <code codeSystem="local" code="MCH" displayName="MCH" /& gt; <statusCode code="completed" /> < effectiveTime value="503237689951" /> <value unit="PG&quot ; xsi:type="PQ" value="31.6" /> < interpretationCode codeSystem="local" code="H" /> <referenceRange> <observationRange> < text>27.0-31.0</text> </observationRange> &lt ;/referenceRange> </observation> </component> & lt;component> <observation moodCode="EVN" classCode=&quot ;OBS"> <templateId root="2.16.840.1.996774.10.20.22.4.2 " /> <id nullFlavor="NA" /> <code codeSystem="local" code="MCHC" displayName="MCHC" /> <statusCode code="completed" /> < effectiveTime value="635260758755" /> <value unit=&quot ;G/DL" xsi:type="PQ" value="32.2" /> < referenceRange> <observationRange> <text> 32.0-36.0</text> </observationRange> </ referenceRange> </observation> </component> < component> <observation moodCode="EVN" classCode=" OBS"> <templateId root="2.16.840.1.036088.10.20.22.4.2& quot; /> <id nullFlavor="NA" /> <code codeSystem="local" code="MCV" displayName="MCV"/& gt; <statusCode code="completed" /> < effectiveTime value="284321566421" /> <value unit=&quot ;FL" xsi:type="PQ" value="98.2" /> < referenceRange> <observationRange> <text> 81-99</text> </observationRange> </ referenceRange> </observation> </component> < component> <observation moodCode="EVN" classCode=" OBS"> <templateId root="2.16.840.1.754840.10.20.22.4.2& quot; /> <id nullFlavor="NA" /> <code codeSystem="local" code="MONO#" displayName="[place] #& quot; /> <statusCode code="completed" /> & lt;effectiveTime value="522602157321" /> <value unit=& quot;x10^3" xsi:type="PQ" value="0.76" /> < referenceRange> <observationRange> <text> 0.0-0.8</text> </observationRange> </ referenceRange> </observation> </component> < component> <observation moodCode="EVN" classCode=" OBS"> <templateId root="2.16.840.1.001455.10.20.22.4.2& quot; /> <id nullFlavor="NA" /> <code codeSystem="local" code="MONO%" displayName=" [place] %" /> <statusCode code="completed" /& gt; <effectiveTime value="043147128204" /> <value unit="%" xsi:type="PQ" value="16.0" />& lt;interpretationCode codeSystem="local" code="H" /> <referenceRange> <observationRange> & lt;text>1.0-9.0</text></observationRange> </ referenceRange> </observation> </component> < component> <observation moodCode="EVN" classCode=" OBS"> <templateId root="2.16.840.1.068495.10.20.22.4.2& quot; /> <id nullFlavor="NA" /> <code codeSystem="local" code="MPV" displayName="MPV" /& gt; <statusCode code="completed" /> <effectiveTime value="105460945609" /> <value unit="FL" xsi: type="PQ" value="11.0" /> < interpretationCode codeSystem="local" code="H" /> <referenceRange> <observationRange> < text>6.0-10.0</text> </observationRange> < /referenceRange> </observation> </component> &lt ;component> <observation moodCode="EVN" classCode=" OBS"> <templateId root="2.16.840.1.459407.10.20.22.4.2& quot; /> <id nullFlavor="NA" /><code codeSystem=& quot;local" code="PLT" displayName="Platelet" /> <statusCode code="completed" /> <effectiveTime value="961385763742" /> <value unit="x10^3" xsi:type="PQ" value="192" /> <referenceRange& gt; <observationRange> <text>150-400</ text> </observationRange> </referenceRange> </observation> </component> <component> <observation moodCode="EVN" classCode="OBS"> <templateId root="2.16.840.1.480376.10.20.22.4.2" /> <id nullFlavor="NA" /> <code codeSystem=" local" code="RBC" displayName="RBC" /> < statusCode code="completed" /> <effectiveTime value=& quot;387584318723" /> <value unit="x10^3" xsi:type ="PQ" value="3.92" /> <interpretationCode codeSystem="local" code="L" /> < referenceRange> <observationRange> <text> 4.20-5.40</text> </observationRange> </ referenceRange> </observation> </component> < component> <observation moodCode="EVN" classCode=" OBS"> <templateId root="2.16.840.1.622447.10.20.22.4.2& quot; /> <id nullFlavor="NA" /> <code codeSystem="local" code="RDW" displayName="RDW" /& gt; <statusCode code="completed" /> < effectiveTime value="738979592792" /> <value unit=&quot ;%" xsi:type="PQ" value="14.6" /> & lt;referenceRange> <observationRange> <text& gt;12-15</text> </observationRange> </ referenceRange> </observation> </component> < component> <observation moodCode="EVN" classCode=" OBS"> <templateId root="2.16.840.1.640980.10.20.22.4.2& quot; /> <id nullFlavor="NA" /> <code codeSystem="local" code="WBC" displayName="WBC" /& gt; <statusCode code="completed" /> < effectiveTime value="873489065089" /> <value unit=&quot ;x10^3" xsi:type="PQ" value="4.76" /> < interpretationCode codeSystem="local" code="L" /> <referenceRange> <observationRange> < text>4.8-10.8</text> </observationRange> < /referenceRange> </observation> </component> &lt ;component> <observation moodCode="EVN" classCode=" OBS"> <templateId root="2.16.840.1.433135.10.20.22.4.2& quot; /> <id nullFlavor="NA" /> <code codeSystem="local" code="BASO#" displayName="[place] #& quot; /> <statusCode code="completed" /> & lt;effectiveTime value="745926511249" /> <value unit=& quot;x10^3" xsi:type="PQ" value="0.02" /> & lt;referenceRange> <observationRange> <text& gt;0-0.2</text> </observationRange> </referenceRange > </observation> </component> <component> <observation moodCode="EVN" classCode="OBS"> <templateId root="2.16.840.1.506939.10.20.22.4.2" /> & lt;id nullFlavor="NA" /> <code codeSystem="local& quot; code="BASO%" displayName="[place] %" /&gt ; <statusCode code="completed" /> < effectiveTime value="157555086097" /> <valueunit=" %" xsi:type="PQ" value="0.4" /> &lt ;referenceRange> <observationRange> <text&gt ;0-2</text> </observationRange> </ referenceRange> </observation> </component> < component> <observation moodCode="EVN" classCode=" OBS"> <templateId root="2.16.840.1.120402.10.20.22.4.2& quot; /> <id nullFlavor="NA" /> <code codeSystem="local" code="SEG%" displayName=" Neut %" /> <statusCode code="completed" /& gt; <effectiveTime value="951786722172" /> &lt ;value unit="%" xsi:type="PQ" value="52.9&quot ; /> <referenceRange> <observationRange> <text>50-70</text> </observationRange> </referenceRange> </observation> </component& gt; <component> <observation moodCode="EVN" classCode="OBS"> <templateId root=" 2.16.840.1.347923.10.20.22.4.2" /> <id nullFlavor="NA& quot; /> <code codeSystem="local" code="SEG#&quot ; displayName="Neut #" /> <statusCode code=" completed" /> <effectiveTime value="370106574890" /> <value unit="x10^3" xsi:type="PQ" value=& quot;2.52" /> <interpretationCode codeSystem="local& quot; code="L" /> <referenceRange> < observationRange> <text>3.0-7.0</text> < /observationRange> </referenceRange> </observation& gt; </component> </organizer> </entry> <entry&gt ; <organizer moodCode="EVN" classCode="BATTERY"> <templateId root="2.16.840.1.939679.10.20.22.4.1" /> & lt;id nullFlavor="NA" /> <code codeSystem="local&quot ; code="CBC6" displayName="CBC" /> <statusCode code="completed" /> <component> <observation moodCode="EVN" classCode="OBS"> <templateId root="2.16.840.1.342874.10..22.4.2" /> <id nullFlavor ="NA" /> <code codeSystem="local" code=" EOS#" displayName="Eos #" /> <statusCode code=& quot;completed" /> <effectiveTime value="621249833690& quot; /> <value unit="x10^3" xsi:type="PQ" value="0.08" /> <referenceRange> < observationRange> <text>0-0.5</text> < /observationRange> </referenceRange> </observation& gt; </component> <component> <observation moodCode="EVN" classCode="OBS"> <templateId root="2.16.840.1.527870.10..22.4.2" /> <id nullFlavor ="NA" /> <code codeSystem="local" code=" EOS%" displayName="Eos %" /> < statusCode code="completed" /> <effectiveTime value=& quot;823690014530" /> <value unit="%" xsi: type="PQ" value="2.0" /> <referenceRange> <observationRange> <text>0-4</text> </observationRange> </referenceRange> </ observation> </component> <component> < observation moodCode="EVN" classCode="OBS"> < templateId root="2.16.840.1.475358.10.20.22.4.2" /> < id nullFlavor="NA" /> <code codeSystem="local&quot ; code="HCT" displayName="HCT" /> < statusCode code="completed" /> <effectiveTime value=& quot;417776690959" /> <value unit="%" xsi: type="PQ" value="38.7" /> <referenceRange&gt ; <observationRange> <text>37.0-47.0</ text> </observationRange> </referenceRange> </observation> </component> <component> <observation moodCode="EVN" classCode="OBS"> <templateId root="2.16.840.1.122138.10.20.22.4.2" /> <id nullFlavor="NA" /> <code codeSystem=" local" code="HGB" displayName="HGB" /> < statusCode code="completed" /> <effectiveTime value=& quot;881948026537" /> <value unit="G/DL" xsi:type= "PQ" value="12.8" /> <referenceRange> <observationRange> <text>12.0-16.0</text&gt ; </observationRange> </referenceRange> </ observation> </component> <component> < observation moodCode="EVN" classCode="OBS"> < templateId root="2.16.840.1.835913.10.20.22.4.2" /> < id nullFlavor="NA" /> <code codeSystem="local&quot ; code="LYMPH#" displayName="Lymph #" /> < statusCode code="completed" /> <effectiveTime value=& quot;131945379825" /> <value unit="x10^3" xsi:type ="PQ" value="1.20" /> <referenceRange> <observationRange> <text>1.0-4.0</text> </observationRange> </referenceRange> </ observation> </component> <component> < observation moodCode="EVN" classCode="OBS"> < templateId root="2.16.840.1.397322.10.20.22.4.2" /> < id nullFlavor="NA" /> <code codeSystem="local&quot ; code="LYMPH%" displayName="Lymph %" /> <statusCode code="completed" /> < effectiveTime value="348045884303" /> <value unit=&quot ;%" xsi:type="PQ" value="30.0" /> & lt;referenceRange> <observationRange> <text>20-50 </text> </observationRange> </referenceRange& gt; </observation> </component> <component> <observation moodCode="EVN" classCode="OBS"> <templateId root="2.16.840.1.294077.10.20.22.4.2" /> <id nullFlavor="NA" /> <codecodeSystem=" local" code="MCH" displayName="MCH" /> < statusCode code="completed" /> <effectiveTime value=& quot;134542096066" /> <value unit="PG" xsi:type=& quot;PQ" value="33.2" /> <interpretationCode codeSystem=& quot;local" code="H" /> <referenceRange> <observationRange> <text>27.0-31.0</text> </observationRange> </referenceRange> </ observation> </component> <component> < observation moodCode="EVN" classCode="OBS"> < templateId root="2.16.840.1.237691.10.20.22.4.2" /> <id nullFlavor="NA" /> <code codeSystem="local" code="MCHC" displayName="MCHC" /> < statusCode code="completed" /> <effectiveTime value=&quot ;586653287603" /> <value unit="G/DL" xsi:type=& quot;PQ" value="33.1" /> <referenceRange> <observationRange> <text>32.0-36.0</text> </observationRange> </referenceRange> & lt;/observation> </component> <component> < observation moodCode="EVN" classCode="OBS">< templateId root="2.16.840.1.912816.10.20.22.4.2" /> < id nullFlavor="NA" /> <code codeSystem="local&quot ; code="MCV" displayName="MCV" /> < statusCode code="completed" /> <effectiveTimevalue=& quot;433110819311" /> <value unit="FL" xsi:type=& quot;PQ" value="100.5" /> <interpretationCode codeSystem="local" code="H" /> < referenceRange> <observationRange> <text> 81-99</text> </observationRange> </ referenceRange> </observation> </component> < component> <observation moodCode="EVN" classCode=" OBS"> <templateId root="2.16.840.1.976975.10..22.4.2& quot; /> <id nullFlavor="NA" /> <code codeSystem="local" code="MONO#" displayName="[place] #& quot; /> <statusCodecode="completed" /> &lt ;effectiveTime value="447425405846" /> <value unit="x10 ^3" xsi:type="PQ" value="0.48" /> < referenceRange> <observationRange> <text> 0.0-0.8</text> </observationRange> </ referenceRange> </observation> </component> < component> <observation moodCode="EVN" classCode=" OBS"> <templateId root="2.16.840.1.062853.10..22.4.2& quot; /> <id nullFlavor="NA" /> <code codeSystem="local" code="MONO%" displayName=" [place] %" /> <statusCode code="completed" /& gt; <effectiveTime value="128201563748" /> &lt ;value unit="%" xsi:type="PQ" value="12.0&quot ; /> <interpretationCode codeSystem="local" code=" H" /> <referenceRange> <observationRange&gt ; <text>1.0-9.0</text> </observationRange > </referenceRange> </observation> </ component> <component> <observation moodCode="EVN& quot; classCode="OBS"> <templateId root=" 2.16.840.1.705583.10.20.22.4.2" /> <idnullFlavor="NA& quot; /> <code codeSystem="local" code="MPV" displayName="MPV" /> <statusCode code="completed& quot; /> <effectiveTime value="361712001454" /> <value unit="FL" xsi:type="PQ" value="10.9& quot; /> <interpretationCode codeSystem="local" code=& quot;H" /> <referenceRange> < observationRange> <text>6.0-10.0</text> </ observationRange> </referenceRange> </observation&gt ; </component> <component> <observation moodCode ="EVN" classCode="OBS"> <templateId root=& quot;2.16.840.1.816069.10.20.22.4.2" /> <id nullFlavor=&quot ;NA" /> <code codeSystem="local" code="PLT& quot; displayName="Platelet" /> <statusCode code=" completed" /> <effectiveTime value="302243890885" /> <value unit="x10^3" xsi:type="PQ" value=& quot;181" /> <referenceRange> < observationRange> <text>150-400</text> & lt;/observationRange> </referenceRange> </ observation> </component> <component> < observation moodCode="EVN" classCode="OBS"> < templateId root="2.16.840.1.089193.10.20.22.4.2" /> < id nullFlavor="NA" /> <code codeSystem="local&quot ; code="RBC" displayName="RBC" /> < statusCode code="completed" /> <effectiveTime value=& quot;533312645469" /> <value unit="x10^3" xsi:type ="PQ" value="3.85" /> <interpretationCode codeSystem="local" code="L" /> < referenceRange> <observationRange> <text>4.20 -5.40</text> </observationRange> </ referenceRange> </observation> </component> < component> <observation moodCode="EVN" classCode=" OBS"> <templateId root="2.16.840.1.437465.10.20.22.4.2& quot; /> <id nullFlavor="NA" /> <code codeSystem="local" code="RDW" displayName="RDW" /& gt; <statusCode code="completed" /> < effectiveTime value="511604647968" /> <value unit=&quot ;%" xsi:type="PQ" value="13.6" /> & lt;referenceRange> <observationRange> <text& gt;12-15</text> </observationRange> </referenceRange& gt; </observation> </component> <component> <observation moodCode="EVN" classCode="OBS"> <templateIdroot="2.16.840.1.814209.10.20.22.4.2" /> <id nullFlavor="NA" /> <code codeSystem=" local" code="WBC" displayName="WBC" /> < statusCode code="completed" /> <effectiveTime value=& quot;729973982450" /> <value unit="x10^3" xsi:type ="PQ" value="4.00" /> <interpretationCode codeSystem="local" code="L" /> < referenceRange> <observationRange> <text> 4.8-10.8</text> </observationRange> </ referenceRange> </observation> </component> < component> <observation moodCode="EVN" classCode=" OBS"> <templateId root="2.16.840.1.480190.10.20.22.4.2& quot; /> <id nullFlavor="NA" /> <code codeSystem="local" code="BASO#" displayName="[place] #& quot; /> <statusCode code="completed" /> & lt;effectiveTime value="011150888808" /> <value unit=& quot;x10^3" xsi:type="PQ" value="0.01" /> & lt;referenceRange> <observationRange> <text& gt;0-0.2</text> </observationRange> </referenceRange&gt ; </observation> </component> <component> <observation moodCode="EVN" classCode="OBS"> <templateId root="2.16.840.1.311572.10.20.22.4.2" /> <id nullFlavor="NA" /> <code codeSystem=" local" code="BASO%" displayName="[place] %&quot ; /> <statusCode code="completed" /> < effectiveTime value="057731597038" /> <value unit=&quot ;%" xsi:type="PQ" value="0.3" /> & lt;referenceRange> <observationRange> <text& gt;0-2</text> </observationRange> </ referenceRange> </observation> </component> < component> <observation moodCode="EVN" classCode=" OBS"> <templateId root="2.16.840.1.590893.10..22.4.2& quot; /> <id nullFlavor="NA" /> <code codeSystem="local" code="SEG%" displayName=" Neut %" /> <statusCode code="completed" /& gt; <effectiveTime value="944017652591" /> &lt ;value unit="%" xsi:type="PQ" value="55.7&quot ; /> <referenceRange> <observationRange> <text>50-70</text> </observationRange> </referenceRange> </observation> </component& gt; <component> <observation moodCode="EVN" classCode="OBS"> <templateId root=" 2.16.840.1.424500.10..22.4.2" /> <id nullFlavor="NA& quot; /> <code codeSystem="local" code="SEG#&quot ; displayName="Neut #" /> <statusCode code=" completed" /> <effectiveTime value="399905534498" /> <value unit="x10^3" xsi:type="PQ" value=& quot;2.23" /> <interpretationCode codeSystem="local& quot; code="L" /> <referenceRange> < observationRange> <text>3.0-7.0</text> </ observationRange> </referenceRange> </observation&gt ; </component> </organizer> </entry> <entry> <organizer moodCode="EVN" classCode="BATTERY"> <templateId root="2.16.840.1.631940.10.20.22.4.1" /> < id nullFlavor="NA" /> <code codeSystem="local" code="LIPID1" displayName="Lipid Profile" /> < statusCode code="completed" /> <component> < observation moodCode="EVN" classCode="OBS"> < templateId root="2.16.840.1.784861.10.20.22.4.2" /> < id nullFlavor="NA" /> <code codeSystem="local" code= "HDL" displayName="HDL" /> <statusCode code=" completed" /> <effectiveTime value="513708630614" /> <value unit="MG/DL" xsi:type="PQ" value=& quot;48" /> <referenceRange> < observationRange> <text>40-60</text> < /observationRange> </referenceRange> </observation& gt; </component> <component> <observation moodCode="EVN" classCode="OBS"> <templateId root="2.16.840.1.860476.10.20.22.4.2" /> <id nullFlavor ="NA" /> <code codeSystem="local" code=" LDLCAL" displayName="LDL Calculated" /> < statusCode code="completed" /> <effectiveTime value=& quot;345276140922" /> <value unit="MG/DL" xsi:type=& quot;PQ" value="98" /> <referenceRange> <observationRange> <text>30-100</text> </observationRange> </referenceRange> </ observation> </component> <component> < observation moodCode="EVN" classCode="OBS"> < templateId root="2.16.840.1.254554.10..22.4.2" /> <id nullFlavor="NA" /> <code codeSystem="local" code="TRIG" displayName="Triglyceride" /> < statusCode code="completed" /> <effectiveTime value=& quot;067017868970" /> <value unit="MG/DL" xsi:type ="PQ" value="145" /> <referenceRange> <observationRange> <text>< 200</text& gt;</observationRange> </referenceRange> </ observation> </component> <component> < observation moodCode="EVN" classCode="OBS"> < templateId root="2.16.840.1.393690.10..22.4.2" /> < id nullFlavor="NA" /> <code codeSystem="local&quot ; code="VLDL" displayName="VLDL" /> < statusCode code="completed" /> <effectiveTime value=" 367232164238" /> <value unit="" xsi:type="PQ& quot; value="29" /> <referenceRange> < observationRange> <text /> </ observationRange> </referenceRange> </observation&gt ; </component> <component> <observation moodCode ="EVN" classCode="OBS"> <templateId root=& quot;2.16.840.1.857013.10.20.22.4.2" /> <id nullFlavor=&quot ;NA" /> <code codeSystem="local" code="CH& quot; displayName="Chol/HDL" /> <statusCode code=" completed" /> <effectiveTime value="736411176401" /> <value unit="RATIO" xsi:type="PQ" value=& quot;3.64" /> <referenceRange> < observationRange> <text>0.00-5.00</text> </observationRange> </referenceRange> </ observation> </component> <component> < observation moodCode="EVN" classCode="OBS"> < templateId root="2.16.840.1.350323.10.20.22.4.2" /> < id nullFlavor="NA" /> <code codeSystem="local&quot ; code="CHOL" displayName="Cholesterol" /> < statusCode code="completed" /> <effectiveTime value=& quot;607466113029" /> <value unit="MG/DL" xsi:type=" PQ" value="175" /> <interpretationCode codeSystem= "local" code="H" /> <referenceRange> <observationRange> <text>130-170</text> </observationRange> </referenceRange> < /observation> </component> </organizer> </entry> <entry> <organizer moodCode="EVN"classCode="BATTERY& quot;> <templateId root="2.16.840.1.599710.10.20.22.4.1" /& gt; <id nullFlavor="NA" /> <code codeSystem=" local" code="CBC6" displayName="CBC" /> < statusCode code="completed" /> <component> < observation moodCode="EVN" classCode="OBS"> < templateId root="2.16.840.1.867782.10.20.22.4.2" /> < id nullFlavor="NA" /> <code codeSystem="local&quot ; code="EOS#" displayName="Eos #" /> < statusCode code="completed" /> <effectiveTime value=& quot;819129862329" /> <value unit="x10^3" xsi:type ="PQ" value="0.18" /> <referenceRange> <observationRange> <text>0-0.5</text> </observationRange></referenceRange> </ observation> </component> <component> < observation moodCode="EVN" classCode="OBS"> < templateId root="2.16.840.1.875516.10.20.22.4.2" /> < id nullFlavor="NA" /> <code codeSystem="local&quot ; code="EOS%" displayName="Eos %" /> <statusCode code="completed" /> < effectiveTime value="314870439300" /> <value unit=&quot ;%" xsi:type="PQ" value="3.8" /> & lt;referenceRange> <observationRange> <text& gt;0-4</text> </observationRange> </ referenceRange> </observation> </component> < component> <observation moodCode="EVN" classCode=" OBS"> <templateId root="2.16.840.1.672663.10.20.22.4.2& quot; /> <id nullFlavor="NA" /><code codeSystem=& quot;local" code="HCT" displayName="HCT" /> < statusCode code="completed" /> <effectiveTime value=& quot;[id number]" /> <value unit="%" xsi: type="PQ" value="37.9" /> <referenceRange&gt ; <observationRange> <text>37.0-47.0</ text> </observationRange> </referenceRange> & lt;/observation> </component> <component> < observation moodCode="EVN" classCode="OBS"> < templateId root="[id number]" /> < id nullFlavor="NA" /> <code codeSystem="local&quot ; code="HGB" displayName="HGB" /> < statusCode code="completed" /> <effectiveTime value=& quot;[id number]" /><value unit="G/DL" xsi:type="PQ& quot; value="12.3" /> <referenceRange> & lt;observationRange> <text>12.0-16.0</text> </observationRange> </referenceRange> </ observation> </component> <component> < observation moodCode="EVN" classCode="OBS"> < templateId root="2.16.840.1.287134.10.20.22.4.2" /> <id nullFlavor="NA" /> <code codeSystem="local" code="LYMPH#" displayName="Lymph #" /> < statusCode code="completed" /> <effectiveTime value=& quot;508947941632" /> <value unit="x10^3" xsi:type ="PQ" value="1.33" /> <referenceRange> <observationRange> <text>1.0-4.0</text> </observationRange> </referenceRange> </ observation> </component> <component> < observation moodCode="EVN" classCode="OBS"> < templateId root="2.16.840.1.938341.10..22.4.2" /> < id nullFlavor="NA" /> <code codeSystem="local&quot ; code="LYMPH%" displayName="Lymph %" /> <statusCode code="completed" /> < effectiveTime value="454796601384" /> <value unit=&quot ;%" xsi:type="PQ" value="27.8" /> & lt;referenceRange> <observationRange> <text> 20-50</text> </observationRange> </ referenceRange> </observation> </component> < component> <observation moodCode="EVN" classCode=" OBS"> <templateId root="2.16.840.1.943614.10.20.22.4.2& quot; /> <id nullFlavor="NA" /> <code codeSystem="local" code="MCH" displayName="MCH" /& gt; <statusCode code="completed" /> < effectiveTime value="320284549484" /> <value unit=&quot ;PG" xsi:type="PQ" value="32.2" /> < interpretationCode codeSystem="local" code="H" /> <referenceRange> <observationRange><text>27.0- 31.0</text> </observationRange> </ referenceRange> </observation> </component> < component> <observation moodCode="EVN" classCode=" OBS"> <templateId root="2.16.840.1.879164.10.20.22.4.2& quot; /> <id nullFlavor="NA" /> <code codeSystem="local" code="MCHC" displayName="MCHC" /> <statusCode code="completed" /> < effectiveTime value="032897472275" /> <value unit=&quot ;G/DL" xsi:type="PQ" value="32.5" /> < referenceRange> <observationRange> <text> 32.0-36.0</text> </observationRange> </ referenceRange> </observation> </component> < component> <observation moodCode="EVN" classCode=" OBS"> <templateId root="2.16.840.1.169040.10.20.22.4.2& quot; /> <id nullFlavor="NA" /> <code codeSystem="local" code="MCV" displayName="MCV" /& gt; <statusCode code="completed" /> < effectiveTime value="413388041996" /> <value unit=&quot ;FL" xsi:type="PQ" value="99.2" /> < interpretationCodecodeSystem="local" code="H" /> <referenceRange> <observationRange> < text>81-99</text> </observationRange> </ referenceRange> </observation> </component> < component> <observation moodCode="EVN" classCode=" OBS"> <templateId root="2.16.840.1.010084.10.20.22.4.2& quot; /> <id nullFlavor="NA" /> <code codeSystem="local" code="MONO#" displayName="[place] #& quot; /> <statusCode code="completed" /> & lt;effectiveTime value="905730289031" /> <value unit=& quot;x10^3" xsi:type="PQ" value="0.59" /> & lt;referenceRange> <observationRange> <text> 0.0-0.8</text> </observationRange> </ referenceRange> </observation> </component> < component> <observation moodCode="EVN" classCode=" OBS"> <templateId root="2.16.840.1.835083.10.20.22.4.2& quot; /> <id nullFlavor="NA" /> <code codeSystem="local" code="MONO%" displayName=" [place] %" /> <statusCode code="completed" /& gt; <effectiveTime value="328501431090" /> &lt ;value unit="%" xsi:type="PQ" value="12.3&quot ; /> <interpretationCode codeSystem="local" code=" H" /> <referenceRange> <observationRange&gt ; <text>1.0-9.0</text> </observationRange > </referenceRange> </observation> </component& gt; <component> <observation moodCode="EVN" classCode="OBS"> <templateId root=" 2.16.840.1.721400.10.20.22.4.2" /> <id nullFlavor="NA& quot; /> <code codeSystem="local" code="MPV" displayName="MPV" /> <statusCode code="completed& quot; /> <effectiveTime value="134086527056" /> < value unit="FL" xsi:type="PQ" value="10.5" /> <interpretationCode codeSystem="local" code="H" /> <referenceRange> <observationRange> <text>6.0-10.0</text> </observationRange> </referenceRange> </observation> </component& gt; <component> <observation moodCode="EVN" classCode="OBS"> <templateId root=" 2.16.840.1.761735.10.20.22.4.2" /> <id nullFlavor="NA& quot; /> <code codeSystem="local" code="PLT" displayName="Platelet" /> <statusCode code=" completed" /> <effectiveTime value="091631196912" /> <value unit="x10^3" xsi:type="PQ" value=& quot;174" /> <referenceRange> < observationRange> <text>150-400</text> & lt;/observationRange> </referenceRange> </observation&gt ; </component> <component> <observation moodCode ="EVN" classCode="OBS"> <templateId root=& quot;2.16.840.1.650102.10.20.22.4.2" /> <id nullFlavor=&quot ;NA" /> <code codeSystem="local" code="RBC& quot; displayName="RBC"/> <statusCode code=" completed" /> <effectiveTime value="049247908237" /> <value unit="x10^3" xsi:type="PQ" value=& quot;3.82" /> <interpretationCode codeSystem="local& quot; code="L" /> <referenceRange> < observationRange> <text>4.20-5.40</text> </observationRange> </referenceRange> </ observation> </component> <component> < observation moodCode="EVN" classCode="OBS"> < templateId root="2.16.840.1.906700.10..22.4.2" /> < id nullFlavor="NA" /> <code codeSystem="local&quot ; code="RDW" displayName="RDW" /> < statusCode code="completed" /> <effectiveTime value=& quot;402188564073" /> <value unit="%" xsi: type="PQ" value="13.5" /> <referenceRange&gt ; <observationRange> <text>12-15</text&gt ; </observationRange> </referenceRange> </ observation> </component> <component> < observation moodCode="EVN" classCode="OBS"> < templateId root="2.16.840.1.433802.10.20.22.4.2" /> <id nullFlavor="NA" /> <code codeSystem="local" code="WBC" displayName="WBC" /> <statusCode code="completed" /> <effectiveTime value=" 473832627878" /> <value unit="x10^3" xsi:type=& quot;PQ" value="4.78" /> <interpretationCode codeSystem="local" code="L" /> < referenceRange> <observationRange> <text> 4.8-10.8</text> </observationRange></referenceRange&gt ; </observation> </component> <component> <observation moodCode="EVN" classCode="OBS"> <templateId root="2.16.840.1.736543.10.20.22.4.2" /> <id nullFlavor="NA" /> <code codeSystem="local " code="BASO#" displayName="Baso #"/> < statusCode code="completed" /> <effectiveTime value=& quot;643200309338" /> <value unit="x10^3" xsi:type ="PQ" value="0.03" /> <referenceRange> <observationRange><text>0-0.2</text> </ observationRange> </referenceRange> </observation&gt ; </component> <component> <observation moodCode ="EVN" classCode="OBS"> <templateId root=& quot;2.16.840.1.957219.10..22.4.2" /> <id nullFlavor=&quot ;NA" /> <code codeSystem="local" code="BASO& amp;#37;" displayName="Baso %" /> < statusCode code="completed" /> <effectiveTime value=& quot;292777187517" /> <value unit="%" xsi: type="PQ" value="0.6" /> <referenceRange> <observationRange> <text>0-2</text> </observationRange> </referenceRange></ observation> </component> <component> < observation moodCode="EVN" classCode="OBS"> < templateId root="2.16.840.1.684883.10.20.22.4.2" /> < id nullFlavor="NA" /> <code codeSystem="local&quot ; code="SEG%" displayName="Neut %" /> <statusCode code="completed" /> < effectiveTime value="952091569703" /> <value unit=&quot ;%" xsi:type="PQ" value="55.5" /> & lt;referenceRange> <observationRange> <text& gt;50-70</text> </observationRange> </ referenceRange> </observation> </component> < component> <observation moodCode="EVN" classCode=" OBS"> <templateId root="2.16.840.1.334462.10.20.22.4.2& quot; /> <id nullFlavor="NA" /> <code codeSystem="local" code="SEG#" displayName="Neut #&quot ; /> <statusCode code="completed" /> < effectiveTime value="517617862153" /> <value unit=&quot ;x10^3" xsi:type="PQ" value="2.65" /> < interpretationCode codeSystem="local" code="L" /> <referenceRange> <observationRange> < text>3.0-7.0</text> </observationRange> </ referenceRange> </observation> </component> </ organizer> </entry> <entry> <organizer moodCode="EVN " classCode="BATTERY"> <templateId root=" 2.16.840.1.629329.10.20.22.4.1" /> <id nullFlavor="NA&quot ; /> <code codeSystem="local" code="68109753" displayName="CBC w/ Auto Diff" /> <statusCode code=" completed" /> <component> <observation moodCode=& quot;EVN" classCode="OBS"> <templateId root=" 2.16.840.1.960050.10.20.22.4.2" /><id nullFlavor="NA" /&gt ; <code codeSystem="local" code="236735" displayName="Differential?" /> <statusCode code=" completed" /> <effectiveTime value="152534066321" /> <value unit="""" xsi:type="PQ " value="No" /> <referenceRange> &lt ;observationRange> <text /> </ observationRange> </referenceRange> </observation&gt ; </component><component> <observation moodCode=&quot ;EVN" classCode="OBS"> <templateId root=" 2..840.1.533673...22.4.2" /> <id nullFlavor="NA& quot; /> <code codeSystem="local" code="234437& quot; displayName="WBC" /> <statusCode code=" completed" /> <effectiveTime value="485804292635" /> <value unit=""""xsi:type="PQ& quot; value="4.65" /> <interpretationCode codeSystem=& quot;local" code="LOW" /> <referenceRange> <observationRange> <text>4.80-10.80</text&gt ; </observationRange> </referenceRange> </ observation> </component> <component> < observation moodCode="EVN" classCode="OBS"> < templateIdroot="2.16.840.1.585162.10.20.22.4.2" /> <id nullFlavor="NA" /> <code codeSystem="local" code="165993" displayName="RBC" /> < statusCode code="completed" /> <effectiveTime value=& quot;716611179407" /> <value unit="x10" xsi:type=& quot;PQ" value="4.08" /> <interpretationCode codeSystem="local" code="LOW" /> < referenceRange> <observationRange> <text> 4.20-5.40</text> </observationRange> </ referenceRange> </observation> </component> < component> <observation moodCode="EVN" classCode=" OBS"> <templateId root="2.16.840.1.349891.10.20.22.4.2& quot; /> <id nullFlavor="NA" /> <code codeSystem="local" code="936021" displayName="Hgb&quot ; /> <statusCode code="completed" /> < effectiveTime value="155591792410" /> <value unit=&quot ;gm/dL" xsi:type="PQ" value="13.1" /> < referenceRange> <observationRange> <text> 12.0-16.0</text> </observationRange> </ referenceRange> </observation> </component> < component> <observation moodCode="EVN" classCode=" OBS"> <templateId root="2.16.840.1.636786.10.20.22.4.2& quot; /> <id nullFlavor="NA" /> <code codeSystem="local" code="938411" displayName="Hct&quot ; /> <statusCode code="completed" /> < effectiveTime value="782945465595" /> <value unit=&quot ;%" xsi:type="PQ" value="41.8" /> & lt;referenceRange> <observationRange> <text> 37.0-47.0</text> </observationRange> </ referenceRange> </observation> </component> < component> <observation moodCode="EVN" classCode=" OBS"> <templateId root="2.16.840.1.017501.10.20.22.4.2& quot; /> <id nullFlavor="NA" /> <code codeSystem="local" code="165126" displayName="MCV&quot ; /> <statusCode code="completed" /> < effectiveTime value="390240907211" /> <value unit=&quot ;fL" xsi:type="PQ" value="102" /> < interpretationCode codeSystem="local" code="HI" /> <referenceRange> <observationRange> <text> 81-99</text> </observationRange> </ referenceRange> </observation> </component> < component> <observation moodCode="EVN" classCode=" OBS"> <templateId root="2.16.840.1.748429.10.20.22.4.2& quot; /> <id nullFlavor="NA" /> <code codeSystem="local" code="609031" displayName="MCH&quot ; /> <statusCode code="completed" /> < effectiveTime value="381079238434" /> <value unit=&quot ;pg" xsi:type="PQ" value="32.1" /> < interpretationCode codeSystem="local" code="HI" /> <referenceRange> <observationRange> < text>27.0-31.0</text> </observationRange> </ referenceRange> </observation> </component> < component> <observation moodCode="EVN" classCode=" OBS"> <templateId root="2.16.840.1.783114.10.20.22.4.2& quot; /> <id nullFlavor="NA" /> <code codeSystem="local" code="417484" displayName="MCHC&quot ; /> <statusCode code="completed" /> < effectiveTime value="089856522611" /> <value unit=&quot ;gm/dL" xsi:type="PQ" value="31.3" /> < interpretationCode codeSystem="local" code="LOW" /> <referenceRange> <observationRange> &lt ;text>32.0-36.0</text> </observationRange> &lt ;/referenceRange> </observation> </component> & lt;component> <observation moodCode="EVN" classCode=&quot ;OBS"> <templateId root="2.16.840.1.396178.10.20.22.4.2 " /> <id nullFlavor="NA" /> <code codeSystem="local" code="782382" displayName="RDW&quot ; /> <statusCode code="completed" /> < effectiveTime value="087057886164" /> <value unit=&quot ;%" xsi:type="PQ" value="14" /> &lt ;referenceRange> <observationRange> <text>12- 15</text> </observationRange> </ referenceRange> </observation> </component> < component> <observation moodCode="EVN" classCode=" OBS"> <templateId root="2.16.840.1.107787.10.20.22.4.2& quot; /> <id nullFlavor="NA" /> <code codeSystem="local" code="082109" displayName="Platelet& quot; /> <statusCode code="completed" /> < effectiveTime value="177864248225" /> <value unit=&quot ;x10" xsi:type="PQ" value="228" /> < referenceRange> <observationRange> <text> 150-400</text> </observationRange> </ referenceRange> </observation> </component> < component> <observation moodCode="EVN" classCode=" OBS"> <templateId root="2.16.840.1.464886.10.20.22.4.2& quot; /> <id nullFlavor="NA" /> <code codeSystem="local" code="822307" displayName="MPV&quot ; /> <statusCode code="completed" /> < effectiveTime value="075497723291" /> <value unit=&quot ;fL" xsi:type="PQ" value="10.6" /> < interpretationCode codeSystem="local" code="HI" /> <referenceRange> <observationRange> <text& gt;6.0-10.0</text> </observationRange> </ referenceRange> </observation> </component> </ organizer> </entry> <entry> <organizer moodCode="EVN " classCode="BATTERY"> <templateId root=" 2.16.840.1.732874.10.20.22.4.1" /> <id nullFlavor="NA" /> <code codeSystem="local" code="4615864" displayName=".Auto Diff" /> <statusCode code=" completed" /> <component> <observation moodCode=& quot;EVN" classCode="OBS"> <templateId root=" 2.16.840.1.819466.10.20.22.4.2" /> <id nullFlavor="NA& quot; /> <code codeSystem="local" code="962712& quot; displayName="Neutro Auto" /> <statusCode code=& quot;completed" /> <effectiveTime value="319701796012&quot ; /> <value unit="%" xsi:type="PQ" value="60.7" /> <referenceRange> < observationRange> <text>50.0-70.0</text> </observationRange> </referenceRange> </ observation> </component> <component> < observation moodCode="EVN" classCode="OBS"> < templateId root="2.16.840.1.246722.10.20.22.4.2" /> < id nullFlavor="NA" /> <code codeSystem="local&quot ; code="025186" displayName="Lymph Auto" /> < statusCode code="completed" /> <effectiveTime value=& quot;048351074059" /> <value unit="%" xsi: type="PQ" value="24.9" /> <referenceRange&gt ; <observationRange> <text>20.0-50.0</ text> </observationRange> </referenceRange> </observation> </component> <component> <observation moodCode="EVN" classCode="OBS"> <templateId root="2.16.840.1.573945.10.20.22.4.2" /> & lt;id nullFlavor="NA" /> <code codeSystem="local& quot; code="591330" displayName="[place] Auto" /> & lt;statusCode code="completed" /> <effectiveTime value= "134798503338" /> <value unit="%" xsi :type="PQ" value="11.4" /> < interpretationCode codeSystem="local" code="HI" /> <referenceRange> <observationRange> <text>1.0- 9.0</text> </observationRange> </ referenceRange> </observation> </component> < component> <observation moodCode="EVN" classCode=" OBS"> <templateId root="2.16.840.1.457396.10.20.22.4.2& quot; /> <id nullFlavor="NA" /> <code codeSystem="local" code="118981" displayName="Eos Auto& quot; /> <statusCode code="completed" /> & lt;effectiveTime value="781330714084" /> <value unit=& quot;%" xsi:type="PQ" value="2.8"/> <referenceRange> <observationRange> < text>0.0-4.0</text> </observationRange> </ referenceRange> </observation> </component> < component> <observation moodCode="EVN" classCode=" OBS"> <templateId root="2.16.840.1.896785.10.20.22.4.2& quot; /> <id nullFlavor="NA" /> <code codeSystem="local" code="940341" displayName="Basophil Auto" /> <statusCode code="completed" /> <effectiveTime value="733146651122" /> <value unit= "%" xsi:type="PQ" value="0.2" /> &lt ;referenceRange> <observationRange> <text&gt ;0.0-2.0</text> </observationRange> </ referenceRange> </observation> </component> < component> <observation moodCode="EVN" classCode=" OBS"> <templateId root="2.16.840.1.106353.10.20.22.4.2& quot;/> <id nullFlavor="NA" /> <code codeSystem="local"code="60832058" displayName="Neutro Absolute" /> <statusCode code="completed" /> <effectiveTime value="229814702472" /><value unit=& quot;x10" xsi:type="PQ" value="2.8" /> < interpretationCode codeSystem="local" code="LOW" /> <referenceRange> <observationRange> &lt ;text>3.0-7.0</text> </observationRange> < /referenceRange> </observation> </component> &lt ;component> <observation moodCode="EVN" classCode=" OBS"> <templateId root="2.16.840.1.524638.10.20.22.4.2& quot; /> <id nullFlavor="NA" /> <code codeSystem="local" code="42426570"displayName="Lymph Absolute" /> <statusCode code="completed" /> <effectiveTime value="514684416065" /> < value unit="x10" xsi:type="PQ" value="1.2" /> <referenceRange> <observationRange> <text>1.0-4.0</text> </observationRange> </referenceRange> </observation> </component> <component> <observation moodCode="EVN" classCode= "OBS"> <templateId root=" 2.16.840.1.288555.10.20.22.4.2" /> <id nullFlavor="NA& quot; /> <code codeSystem="local" code="61324069& quot; displayName="[place] Absolute" /> <statusCode code=& quot;completed" /> <effectiveTime value="984040932326& quot; /> <value unit="x10" xsi:type="PQ" value="0.5" /> <referenceRange> < observationRange> <text>0.0-0.8</text> & lt;/observationRange> </referenceRange> </ observation> </component> <component> < observation moodCode="EVN" classCode="OBS"> < templateId root="2.16.840.1.774745.10.20.22.4.2" /> < id nullFlavor="NA" /> <code codeSystem="local" code="48517988" displayName="Eos Absolute" /> & lt;statusCode code="completed" /> <effectiveTime value= "370539016726" /> <value unit="x10" xsi:type= "PQ" value="0.1" /> <referenceRange> <observationRange> <text>0.0-0.5</text> </observationRange> </referenceRange> </ observation> </component> <component> < observation moodCode="EVN" classCode="OBS"> < templateId root="2.16.840.1.828821.10.20.22.4.2" /> < id nullFlavor="NA" /> <code codeSystem="local&quot ; code="10669203" displayName="Baso Absolute" /> & lt;statusCode code="completed" /> <effectiveTime value= "540534704835" /> <value unit="x10" xsi:type= "PQ" value="0.0" /> <referenceRange> <observationRange> <text>0.0-0.2</text> </observationRange> </referenceRange> < /observation> </component> </organizer> </entry> <entry> <organizer moodCode="EVN" classCode="BATTERY& quot;> <templateId root="2.16.840.1.743371.10.20.22.4.1" /& gt; <id nullFlavor="NA" /> <code codeSystem=" local" code="87499129" displayName="Hgb A1c" /> <statusCode code="completed" /> <component> <observation moodCode="EVN" classCode="OBS"> <templateId root="2.16.840.1.229079.10.20.22.4.2" /> & lt;id nullFlavor="NA" /> <code codeSystem="local& quot; code="341176" displayName="Hgb A1c" /> &lt ;statusCode code="completed" /> <effectiveTime value=& quot;090700353157" /> <value unit="%" xsi: type="PQ" value="5.9" /> <referenceRange> <observationRange> <text>4.2-6.5</text> </observationRange> </referenceRange> < /observation> </component> </organizer> </entry> <entry> <organizer moodCode="EVN" classCode="BATTERY& quot;> <templateId root="2.16.840.1.807794.10..22.4.1" /& gt; <id nullFlavor="NA" /> <code codeSystem=" local" code="76890256" displayName="Urinalysis Dipstick&quot ; /> <statusCode code="completed" /> <component& gt; <observation moodCode="EVN" classCode="OBS"&gt ; <templateId root="2.16.840.1.820154.10..22.4.2" /> <id nullFlavor="NA" /> <code codeSystem=& quot;local" code="818609" displayName="UA Color" /> <statusCode code="completed" /> < effectiveTime value="600512115808" /> <value unit="& amp;quot;"" xsi:type="PQ" value="Yellow" /&gt ; <referenceRange> <observationRange> <text /> </observationRange> </ referenceRange> </observation> </component> < component> <observation moodCode="EVN" classCode=" OBS"> <templateId root="2.16.840.1.383073.10.20.22.4.2& quot; /> <id nullFlavor="NA" /> <code codeSystem="local" code="306607" displayName="UA Appear " /> <statusCode code="completed" /> & lt;effectiveTime value="126768738465" /> <value unit=& quot;""" xsi:type="PQ" value="Clear" /> <referenceRange> <observationRange> <text>Clear</text> </observationRange> </referenceRange> </observation> </component> <component> <observation moodCode="EVN" classCode=& quot;OBS"> <templateId root=" 2.16.840.1.209665.10.20.22.4.2" /> <id nullFlavor="NA&quot ; /> <code codeSystem="local" code="162796" displayName="UA pH" /> <statusCode code="completed " /> <effectiveTime value="885533910070" /> <value unit="""" xsi:type="PQ" value="7.0" /> <referenceRange> < observationRange> <text>5.0-9.0</text> </ observationRange> </referenceRange> </observation&gt ; </component> <component> <observation moodCode ="EVN" classCode="OBS"> <templateId root=& quot;2.16.840.1.637319.10.20.22.4.2" /> <id nullFlavor=&quot ;NA" /> <code codeSystem="local" code="437595 " displayName="UA Spec Grav" /> <statusCode code=& quot;completed" /> <effectiveTime value="699576209780& quot; /> <value unit="""" xsi:type=& quot;PQ" value="1.015" /> <referenceRange> <observationRange> <text>1.005-1.030</text& gt; </observationRange> </referenceRange> &lt ;/observation> </component> <component> < observation moodCode="EVN" classCode="OBS"> < templateId root="2.16.840.1.479828.10.20.22.4.2" /> <id nullFlavor="NA" /> <code codeSystem="local" code="579109" displayName="UA Glucose" /> < statusCode code="completed" /> <effectiveTime value=& quot;096167167858" /> <value unit=""" " xsi:type="PQ" value="Negative" /> < referenceRange> <observationRange> <text> Negative</text> </observationRange> </ referenceRange> </observation> </component> < component> <observation moodCode="EVN" classCode=" OBS"> <templateId root="2.16.840.1.401035.10.20.22.4.2& quot; /> <id nullFlavor="NA" /> <code codeSystem="local" code="514128" displayName="UA Ketones" /> <statusCode code="completed" /> <effectiveTime value="923081640126" /> < value unit="""" xsi:type="PQ" value=" Negative" /> <referenceRange> < observationRange> <text>Negative</text> & lt;/observationRange> </referenceRange> </ observation> </component> <component> < observation moodCode="EVN" classCode="OBS"> < templateId root="2.16.840.1.029835.10.20.22.4.2" /> < id nullFlavor="NA" /> <code codeSystem="local&quot ; code="187204" displayName="UA Blood" /> < statusCode code="completed" /> <effectiveTime value=& quot;520096164427" /> <value unit=""" " xsi:type="PQ" value="Negative" /> < referenceRange> <observationRange> <text> Negative</text> </observationRange> </ referenceRange> </observation> </component> < component> <observation moodCode="EVN" classCode=" OBS"> <templateId root="2.16.840.1.946598.10.20.22.4.2& quot; /> <id nullFlavor="NA" /> <code codeSystem="local" code="867633" displayName="UA Protein" /> <statusCode code="completed" /> <effectiveTime value="387473602797" /> < value unit="""" xsi:type="PQ" value=" Negative" /> <referenceRange> <observationRange&gt ; <text>Negative</text> </ observationRange> </referenceRange> </observation&gt ; </component> <component> <observation moodCode ="EVN" classCode="OBS"> <templateId root=& quot;2.16.840.1.100553.10.20.22.4.2" /> <id nullFlavor=&quot ;NA" /> <code codeSystem="local" code="327069 " displayName="UA Bili" /> <statusCode code=" completed" /> <effectiveTime value="656252460432" /> <value unit="""" xsi:type="PQ " value="Negative" /> <referenceRange> < observationRange> <text>Negative</text> & lt;/observationRange> </referenceRange> </ observation> </component> <component> < observation moodCode="EVN" classCode="OBS"> < templateId root="2.16.840.1.055679.10.20.22.4.2" /> < id nullFlavor="NA" /> <code codeSystem="local&quot ; code="310125" displayName="UA Urobilinogen" /> <statusCode code="completed" /> <effectiveTime value="732237789430" /> <value unit="mg/dL" xsi:type="PQ" value="0.2" /> <referenceRange& gt; <observationRange> <text>>=0.2&lt ;/text> </observationRange> </referenceRange> </observation> </component> <component> &lt ;observation moodCode="EVN" classCode="OBS"> &lt ;templateId root="[id number]" /> <id nullFlavor="NA" /> <code codeSystem="local" code="946186" displayName="UA Nitrite" /> < statusCode code="completed" /> <effectiveTime value=& quot;[id number]" /> <value unit=""" " xsi:type="PQ" value="Negative" /> < referenceRange> <observationRange> <text> Negative</text> </observationRange> </ referenceRange> </observation> </component> < component> <observation moodCode="EVN" classCode=" OBS"> <templateId root="[id number]& quot; /> <id nullFlavor="NA" /> <code codeSystem="local" code="091209" displayName="UA Leuk Est" /> <statusCode code="completed" /> <effectiveTime value="[id number]" /> <value unit="""" xsi:type="PQ" value=" Negative" /> <referenceRange> <observationRange> <text>Negative</text> </observationRange > </referenceRange> </observation> </ component> </organizer> </entry></section> Encounters ACCT No. Visit Discharge Status Pt. Type Provider Facility Loc./Unit Complaint Date/Time [id number] 11/12/2013 11/12/2013 [facility] 09:53:00 23:59:59 t [id number] 11/09/2013 11/09/2013 [facility] 10:52:00 23:59:59 t [id number] 10/20/2013 10/20/2013 [facility] 11:28:00 23:59:59 t [id number] 09/30/2013 09/30/2013 CLS Outpatien 11:20:00 23:59:59 t [id number] 09/23/2015 09/26/2015 DIS Inpatient Karen MORNOY, Jurgen Romero9TN 576 15:30:00 14:20:00 [facility] [id number] 09/22/2017 09/22/2017 DIS Outpatien [facility]_ M 3 09:41:48 15:07:42 t [facility] [id number] 09/21/2017 09/21/2017 DIS Emergency [facility] 06:38:00 11:15:00 [facility] [id number] 09/18/2017 09/18/2017 DIS Outpatien [facility] 14:43:00 14:43:00 nitish Benedict MD, [facility] R [id number] 04/03/2017 04/03/2017 DIS Outpatien [facility] [place] [facility] 13:21:00 13:21:00 nitish Benedict MD, [facility] R [id number] 02/06/2017 02/06/2017 DIS Outpatien [facility] [place] [facility] 11:38:00 11:38:00 nitish Beneidct MD, [facility] R [id number] 10/03/2016 10/03/2016 DIS Outpatien [facility] [place] [facility] 14:44:00 14:44:00 nitish Benedict MD, [facility] R [id number] 03/30/2016 03/30/2016 DIS Outpatien [facility] [place] [facility] 10:42:00 10:42:00 nitish Benedict MD, [facility] R [id number] 02/15/2016 02/15/2016 DIS Outpatien [facility] [place] [facility] 15:34:00 15:34:00 t YOVANNY Benedict MD, [facility] R [id number] 11/18/2015 11/18/2015 DIS Outpatien [facility] [place] [facility] 16:06:00 16:06:00 nitish Benedict MD, [facility] R [id number] 11/16/2015 11/16/2015 DIS Outpatien [facility] [place] [facility] 16:26:00 16:26:00 nitish Benedict MD, [facility] R [id number] 10/21/2015 10/21/2015 DIS Outpatien [facility] [place] [facility] 19:06:00 19:06:00 nitish Benedict MD, [facility] R [id number] 09/21/2017 ACT Inpatient [facility] [place] NS1 12:08:00 K[facility]
--- OUTSIDE RECORDS SUMMARY | 2017-09-25 21:20 | External Medical Summary ---
:1935 Author Organization [facility]. Summary purpose CCDA Sent to [facility] Chief Complaint and Reason for Visit No [...] diagnostic tests and/or laboratory data RESULTS CBC [id number]:10:00 Result Normal Range Units WBC L 4.76 4.8-10.8 x103/mm3 Neutrophil % 52.9 50-70 % Lymph % 28.8 20-50 % [place] % H 16.0 1.0-9.0 % Eosinophil % 1.9 0-4 % Basophil % 0.4 0-2 % Neutrophil # L 2.52 3.0-7.0 x103/mm3 Lymph # 1.37 1.0-4.0 x103/mm3 [place] # 0.76 0.0-0.8 x103/mm3 Eosinophil # 0.09 0-0.5 x103/mm3 Basophil # 0.02 0-0.2 x103/mm3 RBC L 3.92 4.20-5.40 x103/mm3 HGB 12.4 12.0-16.0 g/dl HCT 38.5 37.0-47.0 % MCV 98.2 81-99 FL MCH H 31.6 27.0-31.0 pg MCHC 32.2 32.0-36.0 g/dl RDW 14.6 12-15 % Platelet 192 150-400 x103/mm3 MPV H 11.0 6.0-10.0 FL History of procedures No procedures recorded for [...]
--- OUTSIDE RECORDS SUMMARY | 2017-09-25 21:20 | External Medical Summary | Referral Summary ---
:1935 Author Organization [facility], Internal Medicine Address [address] [place] [address] Care Team Providers Name Role Phone Trinity Glover Primary Care Physician Encounter VC Date(s): 06/21/15 - 06/21/15 [facility] [address] [place] [address]- [place] Discharge Diagnosis: Hyperlipidemia Discharge Diagnosis: Medicare annual wellness visit, subsequent Discharge Diagnosis: Hypertension, essential, benign Discharge Disposition: 01-Home or Self Care Attending [...] benign(Confirmed) Carcinoma in situ of breast(Confirmed) Active Dementia(Confirmed) Active Hyperlipidemia(Confirmed) Active Obesity(Confirmed) Active patient Osteoporosis, Active postmenopausal(Confirmed) Allergies, Adverse Reactions, Alerts Substance Reaction Severity Status ALPRAZolam nightmares Active sulfamethoxazole as a child/ Rash Active Medications alendronate 70 mg oral tablet 70 mg 1 tabs, Oral, qWeek, # 12 tabs, 1 Refill(s), Pharmacy: [facility] # [id number], 1 tabs Oral qWeek Start Date: 01/19/15 Status: Orderedcalcium-vitamin D 500 mg-200 intl units oral tablet 1,500 mg, Oral, Daily, 0 Refill(s) Start Date: 04/22/14 Status: OrderedCentrum 1 tabs, Oral, Daily, 0 Refill(s) Start Date: 04/22/14 Status: OrderedDrisdol 50,000 intl units (1.25 mg) oral capsule See Instructions, TAKE 1 CAPSULE BY MOUTH EVERY OTHER WEEK, # 12 caps, eRx: [facility] #[id number], TAKE 1 CAPSULE BY MOUTH EVERY OTHER WEEK Start Date: 03/30/15 Status: Orderedetodolac 400 mg oral tablet, extended release See Instructions, TAKE ONE TABLET BY MOUTH DAILY, # 30 tabs, 3 Refill(s), eRx: [facility] #[id number], TAKE ONE TABLET BY MOUTH DAILY Start Date: 03/24/15 Status: OrderedEvista 60 mg oral tablet 1 tabs, Oral, Daily, # 30 tabs, eRx: [facility] #[id number], TAKE ONE TABLET BY MOUTH DAILY Start Date: 09/09/14 Status: Orderedhydrochlorothiazide 50 mg oral tablet See Instructions, TAKE ONE TABLET BY MOUTH ONCE A DAY, # 30 tabs, 3 Refill(s), eRx: [facility]#[id number], TAKE ONE TABLET BY MOUTH ONCE A DAY Start Date: 06/16/15 Status: Orderedlovastatin 40 mg oral tablet See Instructions, TAKE ONE TABLET BY MOUTH EVERY DAY, # 30 tabs, 5 Refill(s), eRx: [facility] #[id number], TAKE ONE TABLET BY MOUTH EVERY DAY Start Date: 05/12/15 Status: Orderedlutein 12 mg, Oral, Daily, 0 Refill(s) Start Date: 04/22/14 Status: Orderedpotassium chloride 10 mEq oral tablet, extended release See Instructions, TAKE TWO TABLETS BY MOUTH EVERY DAY, # 60 unknown unit, 5 Refill(s), eRx: [facility] #[id number], TAKE TWO TABLETS BY MOUTH EVERY DAY [...] past 15 years. Have at least a 92-[id number] history of smoking. A pack year is [...] Document Reviewed: 07/21/2014 Exit[employer] Patient Information 2015 [facility], [facility]. This information is not intended to replace advice given to you by your health care provider. Make sure you discuss any questions you have with your health care provider. No follow up information was provided.
--- OUTSIDE RECORDS SUMMARY | 2017-09-25 21:20 | External Medical Summary ---
:1935 Author Organization [facility]. Summary purpose CCDA Sent to [facility] Chief Complaint and Reason for Visit No [...] diagnostic tests and/or laboratory data RESULTS CBC :59:00 Result Normal Range Units WBC L 3.52 4.8-10.8 x103/mm3 Neutrophil % L 46.0 50-70 % Lymph % 32.7 20-50 % [place] % H 13.1 1.0-9.0 % Eosinophil % H 6.5 0-4 % Basophil % 1.7 0-2 % Neutrophil # L 1.62 3.0-7.0 x103/mm3 Lymph # 1.15 1.0-4.0 x103/mm3 [place] # 0.46 0.0-0.8 x103/mm3 Eosinophil # 0.23 0-0.5 x103/mm3 Basophil # 0.06 0-0.2 x103/mm3 RBC L 3.17 4.20-5.40 x103/mm3 HGB L 9.7 12.0-16.0 g/dl HCT L 31.8 37.0-47.0 % MCV H 100.3 81-99 FL MCH 30.6 27.0-31.0 pg MCHC L 30.5 32.0-36.0 g/dl RDW H 15.6 12-15 % Platelet 280 150-400 x103/mm3 MPV H 10.4 6.0-10.0 FL Chemistry Group :59:00 Result Normal Range Units Sodium 142 134-145 mmol/L Potassium 4.2 3.6-5.0 mmol/L Chloride 101 98-107 mmol/L CO2 28 22-30 mmol/L Glucose 90 75-110 mg/dl BUN 16 9-20 mg/dl Creatinine L .68 0.8-1.7 mg/dl Total Protein 7.3 6.3-8.2 g/dl Albumin 3.7 3.5-5.0 g/dl Calcium 9.3 8.4-10.2 mg/dl Alk Phos 82 38-126 U/L AST 21 14-36 U/L ALT 12 11-66 U/L T Bili .3 0.2-1.3 mg/dl A/G Ratio 1.0 Ratio Cholesterol 168 130-170 mg/dl Triglyceride 92 < 200 mg/dl HDL 60 40-60 mg/dl LDL Gómez 90 30-100 mg/dl VLDL 18 0 Chol/HDL 2.79 0.00-5.00 Ratio History of procedures Procedure Code Code Type Description Date Performed Performing Physician 81365 CPT-4 COMPREHEN METABOLIC 11-16-2015 [facility] PANEL 24610 CPT-4 LIPID PANEL 11-16-2015 [facility] 73610 CPT-4 COMPLETE CBC, 11-16-2015 [facility] AUTOMATED Functional status No functional or cognitive [...]
--- OUTSIDE RECORDS SUMMARY | 2017-09-25 23:19 | External Medical Summary | Continuity of Care Document ---
:1935 Author Organization [facility] Allergies Active Description Code Type Severity Reaction Onset Reported/ Identified Relationship Clinical to Patient Status Yes Alprazolam 30005 Drug Moderate N/A 002WW Aller gy Yes Sulfonamides 93874 Drug Moderate N/A 22689 Aller gy Yes alprazolam alpra Drug Unknown [...] R ENCOUNTER 09/23/2015 Kit Jones MD Y92.89 [facility] PLAC[facility] THE PLACE R OF OCCURRENCE OF THE EXTER 09/23/2015 Kit Jones MD Y93.89 ACTIVITY, OTHER SPECIFIED R 09/23/2015 Kit Jones MD Z79.82 CORRECTION (CURRENT) USE R OF ASPIRIN 09/23/2015 Kit [...] MINNICH D D64.9 Anemia, unspecified GRIFFIN MONROY 11/16/2015 ULLOM MINNICH D E78.5 Hyperlipidemia, GRIFFIN MONROY unspecified 11/16/2015 ULLOM MINNICH D M81.0 Age-related osteoporosis GRIFFIN MONROY w/o current pathological fracture 11/16/2015 ULLOM MINNICH D R60.9 Edema, unspecified GRIFFIN MONROY 11/18/2015 ULKEVINM MINNICH D D64.9 Anemia, unspecified GRIFFIN MONROY 11/29/2015 Mino SHELLEY, F 530.81 GERD Quin [...] MINNICH D D64.9 Anemia, unspecified GRIFFIN MONROY 10/03/2016 ULLOM MINNICH D D64.9 Anemia, unspecified GRIFFIN MONROY 01/31/2017 Mino SHELLEY, F 280.9 Iron deficiency anemia, uQin L unspecified 02/06/2017 ULLOM MINNICH D E78.00 [...] Procedures Code Description [place] [address] 10/20/2015 Office/outpatient visit; new patient, level 5 80453 URINE RITCHIE HAIRSTON MD, 10/21/2015 CULTURE/COLONY COUNT GRIFFIN Carter 98730 C DIFF RITCHIE HAIRSTON MD, 10/21/2015 AMPLIFIED PROBE GRIFFIN Carter 44004 Subsequent 10/21/2015 nurse fac care, day, EM pt, 2/3 components; signific complication/problem; 25 minutes 80484 Subsequent 11/08/2015 nurse fac care, day, EM pt, 2/3 components; signific complication/problem; 25 minutes 14119 Subsequent 11/10/2015 nurse fac care, day, EM pt, 2/3 components; signific complication/problem; 25 minutes 94281 COMPREHEN RITCHIE HAIRSTON MD, 11/16/2015 METABOLIC PANEL GRIFFIN R 88307 LIPID PANEL RITCHIE HAIRSTON MD, 11/16/2015 GRIFFIN Carter 10134 COMPLETE CBC, RITCHIE HAIRSTON MD, 11/16/2015 AUTOMATED GRIFFIN Carter 47278 ASSAY OF RITCHIE HAIRSTON MD, 11/18/2015 FERRITIN GRIFFIN Carter 23128 ASSAY OF IRON RITCHIE HAIRSTON MD, 11/18/2015 GRIFFIN Carter 24614 IRON BINDING RITCHIE HAIRSTON MD, 11/18/2015 TEST GRIFFIN Carter 89342 AUTOMATED RITCHIE HAIRSTON MD, 11/18/2015 RETICULOCYTE COUNT GRIFFIN R 11386 Subsequent 12/15/2015 nurse fac care, day, EM pt, 2/3 components; signific complication/problem; 25 minutes 26349 Collection of 12/23/2015 venous blood by venipuncture 84983 Complete blood 12/23/2015 count (CBC), automated (Hgb, Hct, RBC, WBC, platelets) and automated differential WBC 76551 Vitamin D, 12/23/2015 25-Hydroxy 11361 12/23/2015 Office/outpatient visit; established patient, level 4 94259 Collection of 01/17/2016 venous blood by venipuncture 85920 Vitamin D, 01/17/2016 25-Hydroxy 09010 Complete blood 01/17/2016 count (CBC), automated (Hgb, Hct, RBC, WBC, platelets) and automated differential WBC 74600 01/17/2016 Office/outpatient visit; established patient, level 4 61589 Subsequent 01/19/2016 nurse fac care, day, EM pt, 2/3 components; signific complication/problem; 25 minutes 03029 METABOLIC RITCHIE HAIRSTON MD, 02/15/2016 PANEL TOTAL CA GRIFFIN R 27880 COMPLETE CBC, RITCHIE HAIRSTON MD, 03/29/2016 AUTOMATED GRIFFIN R 23660 Subsequent 03/29/2016 nurse fac care, day, EM pt, 2/3 components; signific complication/problem; 25 minutes 55863 Collection of 03/29/2016 venous blood by venipuncture 81019 Complete blood 03/29/2016 count (CBC), automated (Hgb, Hct, RBC, WBC, platelets) and automated differential WBC FU2MO Follow up 03/29/2016 appointment in 2 months MIN20 20 minute 03/29/2016 appointment [id number] 03/29/2016 Office/outpatient visit; established patient, level 4 75142 Complete blood 05/08/2016 count (CBC), automated (Hgb, Hct, RBC, WBC, platelets) and automated differential WBC 88094 05/08/2016 Office/outpatient visit; established patient, level 4 09466 Collection of 05/08/2016 venous blood by venipuncture FU2MO Follow up 05/08/2016 appointment in 2 months MIN20 20 minute 05/08/2016 appointment [id number] 05/29/2016 Office/outpatient visit; established patient, level 4 87115 07/31/2016 Office/outpatient visit; established patient, level 4 FU2MO Follow up 07/31/2016 appointment in 2 months MIN20 20 minute 07/31/2016 appointment [id number] 07/31/2016 Office/outpatient visit; established patient, level 4 48113 09/27/2016 Office/outpatient visit; established patient, level 4 FU2MO Follow up 09/27/2016 appointment in 2 months MIN20 20 minute 09/27/2016 appointment [id number] 09/27/2016 Office/outpatient visit; established patient, level 4 77495 COMPLETE CBC, RITCHIE HAIRSTON MD, 10/03/2016 AUTOMATED GRIFFIN R 91893 11/29/2016 Office/outpatient visit; established patient, level 4 FU2MO Follow up 11/29/2016 appointment in 2 months MIN20 20 minute 11/29/2016 appointment [id number] 11/29/2016 Office/outpatient visit; established patient, level 4 24858 01/31/2017 Office/outpatient visit; established patient, level 4 FU2MO Follow up 01/31/2017 appointment in 2 months MIN20 20 minute 01/31/2017 appointment [id number] Dual-energy 01/31/2017 X-ray absorptiometry (DXA), bone density study, 1 or more sites; axial skeleton (eg hips TWOMO Check the 01/31/2017 chart for orders due in two months 20943 01/31/2017 Office/outpatient visit; established patient, level 4 22354 LIPID PANEL RITCHIE HAIRSTON MD, 02/06/2017 GRIFFIN R 80823 COMPLETE CBC, RITCHIE HAIRSTON MD, 04/03/2017 AUTOMATED GRIFFIN R 68406 04/04/2017 Office/outpatient visit; established patient, level 4 FU2MO Follow up 04/04/2017 appointment in 2 months TWOMO Check the 04/04/2017 chart for orders due in two months MIN20 20 minute 04/04/2017 appointment [id number] Dual-energy 04/04/2017 X-ray absorptiometry (DXA), bone density study, 1 or more sites; axial skeleton (eg hips 93930 Collection of 04/04/2017 venous blood by venipuncture 81767 Vitamin D, 04/04/2017 25-Hydroxy 46443 04/04/2017 Cyanocobalamin, (Vitamin B-12) 62715 04/04/2017 Office/outpatient visit; established patient, level 4 86564 Collection of 06/06/2017 venous blood by venipuncture 87119 Dual-energy 06/06/2017 X-ray absorptiometry (DXA), bone density study, 1 or more sites; axial skeleton (eg hips 15433 Vitamin D, 06/06/2017 25-Hydroxy 40488 06/06/2017 Cyanocobalamin, (Vitamin B-12) 97003 06/06/2017 Office/outpatient visit; established patient, level 4 FU2MO Follow up 06/06/2017 appointment in 2 months MIN20 20 minute 06/06/2017 appointment [id number] 06/07/2017 Office/outpatient visit; established patient, level 4 99812 08/09/2017 Office/outpatient visit; established patient, level 4 FU2MO Follow up 08/09/2017 appointment in 2 months MIN20 20 minute 08/09/2017 appointment [id number] 08/09/2017 Office/outpatient visit; established patient, level 4 84773 09/20/2017 Office/outpatient visit; established patient, level 3 44791 09/21/2017 Office/outpatient visit; established patient, level 3 32710 Initial 09/21/2017 hospital care, per day, level 1 57744 Initial 09/22/2017 hospital care, per day, level 1 89074 Subsequent 09/22/2017 hospital care, per day, level 2 <section xmlns="urn:hl7-org:v3" xmlns:xsi="http://www.w3.org/ 2001/XMLSchema-instance"> <templateId root=" 2.16.840.1.435637.10.20.22.2.3" /> <templateId root=" 2.16.840.1.964348.10..22.2.3.1" /> <code codeSystemName=" LOINC" codeSystem="2.16.840.1.014661.6.1" code="38696-5&quot ; displayName="Results" /> <title>Results</title> &lt ;text> <table> [...] </td> <td /> </tr> <tr& gt; <th colspan="10">[facility] Metabolic Panel - 09:16</th> </tr> <tr> <td> [...] >MCV</td> <td>100.3 FL</td> <td>81- 99</td> </tr> <tr> <td>[place] #< /td> <td>0.46 x10^3</td> <td>0.0-0.8</ td> </tr> <tr> <td>[place] %&lt ;/td> <td>13.1 %</td> <td>1.0-9.0 </td> </tr> [...] MCV</td> <td>98.2 FL</td> <td>81-99&lt ;/td> </tr> <tr> <td>[place] #</td> <td>0.76 x10^3</td> <td>0.0-0.8</td> </tr> <tr> <td>[place] %</td& gt; <td>16.0 %</td> <td>1.0-9.0</td> </tr> <tr> [...] <td>100.5 FL </td> <td>81-99</td> </tr> <tr > <td>[place] #</td> <td>0.48 x10^3</td> <td>0.0-0.8</td> </tr> <tr> &lt ;td>[place] %</td> <td>12.0 %</td> <td>1.0-9.0</td> </tr> <tr> <td>MPV</td> [...] <td>MCV</td& gt; <td>99.2 FL</td> <td>81-99</td> </tr> <tr> <td>[place] #</td> <td>0.59 x10^3</td> <td>0.0-0.8</td> </tr> <tr> <td>[place] %</td> < td>12.3 %</td> <td>1.0-9.0</td> &lt ;/tr> [...] Auto</td> <td>24.9 &# 37;</td> <td>20.0-50.0</td> </tr> <tr> <td>[place] Auto</td> <td>11.4 %&lt ;/td> <td>1.0-9.0</td> </tr><tr> <td>Eos Auto</td> <td>2.8 %</td> <td>0.0-4.0</td> </tr> <tr> &lt ;td>Basophil Auto</td> <td>0.2 %</td> <td>0.0-2.0</td> </tr> <tr> <td>Neutro Absolute</td> <td>2.8 x10</td> <td>3.0-7.0</td> </tr> <tr> <td>Lymph Absolute</td> <td>1.2 x10</td> <td>1.0-4.0</td> </tr> <tr> <td>[place] Absolute</td> <td>0.5 x10</td> <td>0.0-0.8</td> </tr> <tr> & [...] <entry> <organizer moodCode="EVN" classCode= "BATTERY"> <templateId root=" 2.16.840.1.718492.10.20.22.4.1" /> <id nullFlavor="NA&quot ; /> <code codeSystem="local" code="CBCD" displayName= "CBC W/DIFF" /> <statusCode code="completed" /&gt ; <component> <observation moodCode="EVN" classCode="OBS"> <templateId root=" 2.16.840.1.884392.10.20.22.4.2" /> <id nullFlavor="NA& quot; /> <code codeSystem="local" code="BA#" displayName="BASOPHIL #" /> <statusCode code=" completed" /> <effectiveTime value="208704381754"/ > <value unit="k/cumm" xsi:type="PQ" value=& quot;0.0" /> <referenceRange> < observationRange> <text>0.0-0.2</text> & lt;/observationRange> </referenceRange> </ observation> </component> <component> < observation moodCode="EVN" classCode="OBS"> < templateId root="2.16.840.1.243931.10.20.22.4.2" /> < id nullFlavor="NA" /> <code codeSystem="local&quot ; code="BA%" displayName="BASOPHIL %" /> <statusCode code="completed" /> < effectiveTime value="891374693182" /> <value unit=&quot ;%" xsi:type="PQ" value="1" /> < referenceRange> <observationRange> <text> 0-1</text> </observationRange> </ referenceRange> </observation> </component> < component> <observation moodCode="EVN" classCode=" OBS"> <templateId root="2.16.840.1.247109.10.20.22.4.2& quot; /> <id nullFlavor="NA" /> <code codeSystem="local" code="EO#" displayName="EOSINOPHIL # " /> <statusCode code="completed" /> & lt;effectiveTime value="659054852114" /> <valueunit=& quot;k/cumm" xsi:type="PQ" value="0.1" /> & lt;referenceRange> <observationRange> <text& gt;0.1-0.5</text> </observationRange> </ referenceRange> </observation> </component> < component> <observation moodCode="EVN" classCode=" OBS"> <templateId root="2.16.840.1.806955.10.20.22.4.2& quot; /> <id nullFlavor="NA" /> <code codeSystem="local" code="EO%" displayName=" EOSINOPHIL %" /> <statusCode code="completed& quot; /> <effectiveTime value="291261657750" /> <value unit="%" xsi:type="PQ" value="1 " /> <interpretationCode codeSystem="local" code=& quot;*" /> <referenceRange> <observationRange> <text>2-4</text> </observationRange> </referenceRange> </observation> </component& gt; <component> <observation moodCode="EVN" classCode="OBS"> <templateId root=" 2.16.840.1.672003.10.20.22.4.2" /> <id nullFlavor="NA& quot; /> <code codeSystem="local" code="GR#" displayName="GRANULOCYTE #" /> <statusCode code=" completed" /> <effectiveTime value="904006611182" /> <value unit="k/cumm" xsi:type="PQ" value=& quot;3.7" /> <referenceRange> < observationRange> <text>2.0-9.0</text> & lt;/observationRange> </referenceRange> </ observation> </component> <component> <observation moodCode="EVN" classCode="OBS"> <templateId root="2.16.840.1.146153.10.20.22.4.2" /> <id nullFlavor ="NA" /> <code codeSystem="local" code="GR& amp;#37;" displayName="GRANULOCYTE %" /> < statusCode code="completed" /> <effectiveTime value=& quot;072625429402" /> <value unit="%" xsi: type="PQ" value="63" /> <referenceRange> <observationRange> <text>50-75</text> </observationRange> </referenceRange> & lt;/observation> </component> <component> < observation moodCode="EVN" classCode="OBS"> < templateId root="2.16.840.1.709384.10.20.22.4.2" /> < id nullFlavor="NA" /> <code codeSystem="local" code="LY#" displayName="LYMPHOCYTE #"/> < statusCode code="completed" /> <effectiveTime value=& quot;393429357004" /> <value unit="k/cumm" xsi: type="PQ" value="1.2" /> <referenceRange> <observationRange><text>1.0-4.0</text> </observationRange> </referenceRange> </ observation> </component> <component> < observation moodCode="EVN" classCode="OBS"> < templateId root="2.16.840.1.745930.10..22.4.2" /> < id nullFlavor="NA" /> <code codeSystem="local&quot ; code="LY%" displayName="LYMPHOCYTE %" /&gt ; <statusCode code="completed" /> < effectiveTime value="758920517098" /> <value unit=&quot ;%" xsi:type="PQ" value="20" /> &lt ;referenceRange> <observationRange><text>20-30</ text> </observationRange> </referenceRange> </observation> </component> <component> <observation moodCode="EVN" classCode="OBS"> <templateId root="2.16.840.1.817901.10.20.22.4.2" /> <id nullFlavor="NA" /> <code codeSystem=" local" code="MCH" displayName="MEAN CELL HGB" /> <statusCode code="completed" /> < effectiveTime value="840449291880" /> <value unit=&quot ;pg" xsi:type="PQ" value="31.5" /> < referenceRange> <observationRange> <text> 27.0-33.0</text> </observationRange> </ referenceRange> </observation> </component> < component> <observation moodCode="EVN" classCode=" OBS"> <templateId root="2.16.840.1.288911.10.20.22.4.2& quot; /> <id nullFlavor="NA" /> <code codeSystem="local" code="MCHC" displayName="MEAN CELL HGB CONCENTRATION" /> <statusCode code="completed&quot ; /> <effectiveTime value="756357077192" /> <value unit="g/dL" xsi:type="PQ" value="33.5&quot ; /> <referenceRange> <observationRange> <text>32.0-37.0</text> </observationRange> </referenceRange> </observation> </component& gt; <component> <observation moodCode="EVN" classCode="OBS"> <templateId root=" 2.16.840.1.342776.10.20.22.4.2" /> <id nullFlavor="NA& quot; /> <code codeSystem="local" code="MCV" displayName="MEAN CELL VOLUME" /> <statusCode code=& quot;completed" /> <effectiveTime value="788413149554& quot; /><value unit="fl" xsi:type="PQ" value=" 94.0" /> <referenceRange> <observationRange > <text>80.0-100.0</text> </ observationRange> </referenceRange> </observation&gt ;</component> <component> <observation moodCode=&quot ;EVN" classCode="OBS"> <templateId root=" 2.16.840.1.798943.10.20.22.4.2" /> <id nullFlavor="NA" /> <code codeSystem="local" code="MO#" displayName="MONOCYTE #" /> <statusCode code=" completed" /> <effectiveTime value="374112528392" /> <value unit="k/cumm" xsi:type="PQ" value=& quot;0.9" /> <referenceRange> <observationRange > <text>0.1-1.0</text> </ observationRange> </referenceRange> </observation&gt ; </component> <component> <observation moodCode=& quot;EVN" classCode="OBS"> <templateId root=" 2.16.840.1.263144.10.20.22.4.2" /> <id nullFlavor="NA& quot; /> <code codeSystem="local" code="MO&#37 ;" displayName="MONOCYTE %" /> < statusCode code="completed" /> <effectiveTime value=& quot;078753155780" /> <value unit="%" xsi: type="PQ" value="15" /> <interpretationCode codeSystem="local" code="*" /> < referenceRange> <observationRange> <text> 4-6</text> </observationRange> </referenceRange> </observation> </component> <component> <observation moodCode="EVN" classCode="OBS"> <templateId root="2.16.840.1.623242.10.20.22.4.2" /> <id nullFlavor="NA" /> <code codeSystem=" local" code="RBC" displayName="RED BLOOD CELL" /> <statusCode code="completed" /> < effectiveTime value="626125097508" /> <value unit=&quot ;m/cumm" xsi:type="PQ" value="4.16" /> < referenceRange> <observationRange> <text>4.00 -6.00</text> </observationRange> </ referenceRange> </observation> </component> < component> <observation moodCode="EVN" classCode=" OBS"> <templateId root="2.16.840.1.163486.10.20.22.4.2& quot; /> <id nullFlavor="NA" /> <code codeSystem="local" code="RDW" displayName="RED CELL DISTRIBUTION WIDTH" /> <statusCode code="completed&quot ; /> <effectiveTime value="685726751233" /> <value unit="%" xsi:type="PQ" value="13.3& quot; /> <referenceRange> <observationRange> <text>11.0-15.6</text> </observationRange > </referenceRange> </observation> </ component> <component> <observation moodCode="EVN& quot; classCode="OBS"> <templateId root=" 2.16.840.1.486155.10.20.22.4.2" /> <id nullFlavor="NA& quot; /> <code codeSystem="local" code="WBC" displayName="WHITE BLOOD CELL" /> <statusCode code=& quot;completed" /> <effectiveTime value="984586480679& quot; /> <value unit="k/cumm" xsi:type="PQ" value="5.9" /> <referenceRange> < observationRange> <text>5.0-10.0</text> </ observationRange> </referenceRange> </observation&gt ; </component> <component> <observation moodCode ="EVN" classCode="OBS"> <templateId root=& quot;2.16.840.1.161457.10.20.22.4.2" /> <id nullFlavor=&quot ;NA" /> <code codeSystem="local" code="HGBT& quot; displayName="HEMOGLOBIN" /> <statusCode code=& quot;completed" /> <effectiveTime value="615299157120& quot; /> <value unit="gm/dL" xsi:type="PQ" value="13.1" /> <referenceRange> < observationRange> <text>12.0-16.0</text> </observationRange> </referenceRange> </ observation> </component> <component> < observation moodCode="EVN" classCode="OBS"> < templateId root="2.16.840.1.830453.10.20.22.4.2" /> < id nullFlavor="NA" /> <code codeSystem="local&quot ; code="HCTT" displayName="HEMATOCRIT" /> < statusCode code="completed" /> <effectiveTime value=& quot;964168437788" /> <value unit="%" xsi:type=& quot;PQ" value="39.1" /> <referenceRange> <observationRange> <text>37.0-47.0</text> </observationRange> </referenceRange> & lt;/observation> </component> <component> < observation moodCode="EVN" classCode="OBS"> < templateId root="2.16.840.1.695240.10.20.22.4.2" /> < id nullFlavor="NA" /> <code codeSystem="local&quot ; code="PLT" displayName="PLATELET COUNT" /> &lt ;statusCode code="completed" /> <effectiveTime value=& quot;865598763142" /> <value unit="k/cumm" xsi: type="PQ" value="263" /> <referenceRange> <observationRange> <text>150-400</text& gt;</observationRange> </referenceRange> </ observation> </component> </organizer> </entry> & lt;entry> <organizer moodCode="EVN" classCode="BATTERY& quot;> <templateId root="2.16.840.1.313064.10..22.4.1" /& gt; <id nullFlavor="NA" /> <code codeSystem=" local" code="CRP" displayName="C REACTIVE PROTEIN" /&gt ; <statusCode code="completed" /> <component> <observation moodCode="EVN" classCode="OBS"> <templateId root="2.16.840.1.222918.10.20.22.4.2" /> <id nullFlavor="NA" /> <code codeSystem="local& quot; code="CRP" displayName="C REACTIVE PROTEIN" /> <statusCode code="completed" /> < effectiveTime value="625564387273" /> <value unit=&quot ;mg/L" xsi:type="PQ" value="20.6" /> < interpretationCode codeSystem="local" code="*" /> <referenceRange><observationRange> <text>& lt; 8.0</text> </observationRange> </ referenceRange> </observation> </component> </ organizer> </entry> <entry> <organizer moodCode="EVN " classCode="BATTERY"> <templateId root=" 2.16.840.1.151436.10.20.22.4.1" /> <id nullFlavor="NA" /& gt; <code codeSystem="local" code="METABC" displayName="METABOLIC PANEL, COMPREHN" /> <statusCode code ="completed" /> <component> <observation moodCode="EVN" classCode="OBS"> <templateId root="2.16.840.1.526395.10.20.22.4.2" /> <id nullFlavor="NA " /> <code codeSystem="local" code="K" displayName="POTASSIUM" /> <statusCode code=" completed" /> <effectiveTime value="542374126154" /> <value unit="mmol/L" xsi:type="PQ" value=& quot;3.1" /> <interpretationCode codeSystem="local&quot ; code="*" /> <referenceRange> < observationRange> <text>3.5-5.3</text> & lt;/observationRange> </referenceRange> </observation> </component> <component> <observation moodCode=& quot;EVN" classCode="OBS"> <templateId root=" 2.16.840.1.806665.10.20.22.4.2" /> <id nullFlavor="NA& quot; /> <code codeSystem="local" code="eGFR&quot ; displayName="EST GFR (MDRD)" /> <statusCode code=& quot;completed" /> <effectiveTime value="& quot; /> <value unit="mL/min" xsi:type="PQ" value="60" /> <referenceRange> < observationRange> <text>> 59</text> < /observationRange> </referenceRange> </observation& gt; </component> <component> <observation moodCode="EVN" classCode="OBS"> <templateId root="2.16.840.1.117122.10..22.4.2" /> <id nullFlavor ="NA" /> <code codeSystem="local" code=" GAP" displayName="ANION GAP" /> <statusCode code=&quot ;completed" /> <effectiveTime value="454436100419&quot ; /> <value unit="mmol/L" xsi:type="PQ" value ="14" /> <referenceRange> < observationRange> <text>5-15</text> </ observationRange> </referenceRange> </observation&gt ; </component> <component> <observation moodCode ="EVN" classCode="OBS"> <templateId root=& quot;2.16.840.1.664133.10.20.22.4.2" /> <id nullFlavor=&quot ;NA" /> <code codeSystem="local" code="GLU& quot; displayName="GLUCOSE" /> <statusCode code=" completed" /> <effectiveTime value="493487372932" /> <value unit="mg/dL" xsi:type="PQ" value=& quot;122" /> <interpretationCode codeSystem="local&quot ; code="*" /> <referenceRange> < observationRange> <text>70-99</text> < /observationRange> </referenceRange> </observation& gt; </component> <component> <observation moodCode="EVN" classCode="OBS"> <templateId root="2.16.840.1.951568.10.20.22.4.2" /> <id nullFlavor ="NA" /> <code codeSystem="local" code=" CA" displayName="CALCIUM" /> <statusCode code=& quot;completed" /> <effectiveTime value="474822622425& quot; /> <value unit="mg/dL" xsi:type="PQ" value="8.5" /> <referenceRange> < observationRange> <text>8.5-10.1</text> & lt;/observationRange> </referenceRange> </observation> </component> <component> <observation moodCode=&quot ;EVN" classCode="OBS"> <templateIdroot=" 2.16.840.1.693433.10.20.22.4.2" /> <id nullFlavor="NA& quot; /> <code codeSystem="local" code="BUN" displayName="BLOOD UREA NITROGEN" /> <statusCode code=& quot;completed" /> <effectiveTime value="504756694235& quot; /> <value unit="mg/dL" xsi:type="PQ" value="20" /> <referenceRange> < observationRange> <text>7-20</text> </ observationRange> </referenceRange> </observation&gt ; </component> <component> <observation moodCode ="EVN" classCode="OBS"> <templateId root=& quot;2.16.840.1.372537.10.20.22.4.2" /> <id nullFlavor=&quot ;NA" /> <code codeSystem="local" code="CREAT& quot; displayName="CREATININE" /> <statusCode code=" completed" /> <effectiveTime value="689814653003" /> <value unit="mg/dL" xsi:type="PQ" value=& quot;0.9" /> <referenceRange> < observationRange> <text>0.6-1.0</text> & lt;/observationRange> </referenceRange> </ observation> </component> <component> < observation moodCode="EVN" classCode="OBS"> < templateId root="2.16.840.1.002138.10.20.22.4.2" /> < id nullFlavor="NA" /> <code codeSystem="local&quot ; code="NA" displayName="SODIUM" /> < statusCode code="completed" /> <effectiveTime value=& quot;965199199712" /> <value unit="mmol/L" xsi: type="PQ" value="132" /> <interpretationCode codeSystem="local" code="*" /> < referenceRange> <observationRange> <text> 135-148</text> </observationRange> </ referenceRange> </observation> </component> < component> <observation moodCode="EVN" classCode=" OBS"> <templateId root="2.16.840.1.426661.10.20.22.4.2& quot; /> <id nullFlavor="NA" /> <code codeSystem="local" code="CL" displayName="CHLORIDE&quot ; /> <statusCode code="completed" /> < effectiveTime value="[id number]" /> <value unit=&quot ;mmol/L" xsi:type="PQ" value="93" /> < interpretationCode codeSystem="local" code="*" /> <referenceRange> <observationRange> <text& gt;98-110</text> </observationRange> </ referenceRange> </observation> </component> < component> <observation moodCode="EVN" classCode=" OBS"> <templateId root="[id number]& quot; /> <id nullFlavor="NA" /> <code codeSystem="local" code="AST" displayName="AST/SGOT& quot; /> <statusCode code="completed" /> < effectiveTime value="[id number]" /> <value unit=&quot ;Units/L" xsi:type="PQ" value="29" /> < referenceRange> <observationRange> <text> 10-37</text> </observationRange> </ referenceRange> </observation> </component> < component> <observation moodCode="EVN" classCode=" OBS"> <templateId root="2.16.840.1.013966.10.20.22.4.2& quot; /> <id nullFlavor="NA" /> <code codeSystem="local" code="ALT" displayName="ALT/SGPT& quot; /> <statusCode code="completed" /> & lt;effectiveTime value="602812521134" /> <value unit=& quot;Units/L" xsi:type="PQ" value="25" /> & lt;referenceRange> <observationRange> <text& gt;< 66</text> </observationRange> </ referenceRange> </observation> </component> < component> <observation moodCode="EVN" classCode=" OBS"> <templateId root="2.16.840.1.921973.10.20.22.4.2& quot; /> <id nullFlavor="NA" /> <code codeSystem="local" code="CO2" displayName="CARBON DIOXIDE" /> <statusCode code="completed" /> <effectiveTime value="595938000440" /> < value unit="mmol/L" xsi:type="PQ" value="25" /&gt ; <referenceRange> <observationRange> <text>21-32</text> </observationRange> </referenceRange> </observation> </component> <component> <observation moodCode="EVN" classCode= "OBS"> <templateId root=" 2.16.840.1.801092.10.20.22.4.2" /> <id nullFlavor="NA& quot; /> <code codeSystem="local" code="TP" displayName="TOTAL PROTEIN" /> <statusCode code=" completed" /> <effectiveTime value="429788419959" /> <value unit="gm/dL" xsi:type="PQ" value="7.5 " /> <referenceRange> <observationRange&gt ; <text>6.4-8.2</text> </observationRange > </referenceRange> </observation> </ component> <component> <observation moodCode="EVN& quot; classCode="OBS"> <templateId root=" 2.16.840.1.282450.10.20.22.4.2" /> <id nullFlavor="NA& quot; /> <code codeSystem="local" code="ALB" displayName="ALBUMIN" /> <statusCode code=" completed" /> <effectiveTime value="983515650103" /> <value unit="gm/dL" xsi:type="PQ" value=& quot;3.2" /> <interpretationCode codeSystem="local&quot ; code="*" /> <referenceRange> < observationRange> <text>3.4-5.0</text> & lt;/observationRange> </referenceRange></observation> </component> <component> <observation moodCode=& quot;EVN" classCode="OBS"> <templateId root=" 2.16.840.1.480475.10.20.22.4.2" /> <id nullFlavor="NA& quot; /> <code codeSystem="local" code="BILTOT& quot; displayName="BILI TOTAL" /> <statusCode code=& quot;completed" /> <effectiveTime value="916274921142& quot; /> <value unit="mg/dL" xsi:type="PQ" value="0.5" /> <referenceRange> < observationRange> <text>0.0-1.0</text> & lt;/observationRange> </referenceRange> </ observation> </component> <component> < observation moodCode="EVN" classCode="OBS"> < templateId root="216.840.1.493831.10.20.22.4.2" /> < id nullFlavor="NA" /> <code codeSystem="local&quot ; code="ALKP" displayName="ALKALINE PHOSPHATASE TOTAL" /&gt ; <statusCodecode="completed" /> < effectiveTime value="328898785522" /> <value unit="IU/L " xsi:type="PQ" value="172" /> < interpretationCode codeSystem="local" code="*" /> <referenceRange> <observationRange> < text>45-117</text> </observationRange> </ referenceRange> </observation> </component> </ organizer> </entry> <entry> <organizer moodCode="EVN "classCode="BATTERY"> <templateId root=" 2.16.840.1.844887.10.20.22.4.1" /> <id nullFlavor="NA&quot ; /> <code codeSystem="local" code="iCHEM8" displayName="CHEM/HEM PROFILE-BEDSIDE" /> <statusCode code= "completed" /> <component> <observation moodCode="EVN" classCode="OBS"> <templateId root="2..840.1.659479.10..22.4.2" /> <id nullFlavor ="NA" /> <code codeSystem="local" code=" K" displayName="POTASSIUM" /> <statusCode code=& quot;completed" /> <effectiveTime value="923369255724& quot; /> <value unit="mmol/L" xsi:type="PQ" value="2.8" /> <interpretationCode codeSystem=" local" code="*" /> <referenceRange> <observationRange> <text>3.5-5.3</text> </observationRange> </referenceRange> </ observation> </component> <component> < observation moodCode="EVN" classCode="OBS"> < templateId root="2.16.840.1.088548.10.20.22.4.2" /> < id nullFlavor="NA" /> <code codeSystem="local&quot ; code="CMETHOD" displayName="METHOD" /> < statusCode code="completed" /> <effectiveTime value=& quot;391838978881" /> <value unit="" xsi:type=& quot;PQ" value="Bedside" /> <referenceRange> <observationRange> <text /> </ observationRange> </referenceRange> </observation> </component> <component> <observation moodCode=& quot;EVN" classCode="OBS"> <templateId root=" 2.16.840.1.942777.10.20.22.4.2" /> <id nullFlavor="NA& quot; /> <code codeSystem="local" code="GAP" displayName="ANION GAP" /> <statusCode code=" completed" /> <effectiveTime value="356330592216" /> <value unit="mmol/L" xsi:type="PQ" value=& quot;14" /><referenceRange> <observationRange> <text>10-20</text> </observationRange> </referenceRange> </observation> </component& gt; <component> <observation moodCode="EVN" classCode="OBS"> <templateId root=" 2.16.840.1.829517.10.20.22.4.2" /> <id nullFlavor="NA& quot; /> <code codeSystem="local" code="HMETHOD& quot; displayName="METHOD" /> <statusCode code=" completed" /> <effectiveTime value="056421801384" /> <value unit="" xsi:type="PQ" value=" Bedside" /> <referenceRange> < observationRange> <text /> </ observationRange> </referenceRange> </observation> </component> <component> <observation moodCode= "EVN" classCode="OBS"> <templateId root=&quot ;2.16.840.1.027575.10.20.22.4.2" /> <id nullFlavor="NA& quot; /> <code codeSystem="local" code="GLU" displayName="GLUCOSE" /> <statusCode code=" completed" /> <effectiveTime value="443947385870" /> <value unit="mg/dL" xsi:type="PQ" value=& quot;131" /> <interpretationCode codeSystem="local&quot ; code="*" /> <referenceRange> < observationRange> <text>70-99</text> < /observationRange> </referenceRange> </observation& gt; </component> <component> <observation moodCode="EVN" classCode="OBS"> <templateId root="2.16.840.1.879747.10.20.22.4.2" /> <id nullFlavor ="NA" /> <code codeSystem="local" code=" BUN" displayName="BLOOD UREA NITROGEN" /> < statusCode code="completed" /> <effectiveTime value=& quot;437800442382" /> <value unit="mg/dL" xsi:type ="PQ" value="21" /> <interpretationCode codeSystem ="local" code="*" /> <referenceRange> <observationRange> <text>7-20</text> &lt ;/observationRange> </referenceRange> </observation& gt; </component> <component> <observation moodCode="EVN" classCode="OBS"> <templateId root="2.16.840.1.237288.10..22.4.2" /> <id nullFlavor ="NA" /> <code codeSystem="local" code=" CREAT" displayName="CREATININE" /> <statusCode code="completed" /> <effectiveTime value=" " /> <value unit="mg/dL" xsi:type=& quot;PQ" value="0.9" /> <referenceRange> < observationRange> <text>0.6-1.0</text> & lt;/observationRange> </referenceRange> </ observation> </component> <component> < observation moodCode="EVN" classCode="OBS"> < templateId root="2.16.840.1.289157.10..22.4.2" /> < id nullFlavor="NA" /> <code codeSystem="local&quot ; code="HGBT" displayName="HEMOGLOBIN" /> < statusCode code="completed" /> <effectiveTime value=& quot;064412393535" /> <value unit="gm/dL" xsi:type ="PQ" value="12.2" /> <referenceRange> <observationRange> <text>12.0-16.0</text&gt ; </observationRange> </referenceRange> </ observation> </component> <component> < observation moodCode="EVN" classCode="OBS"> < templateIdroot="2.16.840.1.512954.10.20.22.4.2" /> <id nullFlavor="NA" /> <code codeSystem="local" code="HCTT" displayName="HEMATOCRIT" /> < statusCode code="completed" /> <effectiveTime value=& quot;447537334512" /> <value unit="%" xsi: type="PQ" value="36.0" /> < interpretationCode codeSystem="local" code="*" /> <referenceRange> <observationRange> < text>37.0-47.0</text> </observationRange> &lt ;/referenceRange> </observation> </component> < component> <observation moodCode="EVN" classCode=" OBS"> <templateId root="2.16.840.1.982749.10.20.22.4.2& quot; /> <id nullFlavor="NA" /> <code codeSystem="local" code="NA" displayName="SODIUM" /> <statusCodecode="completed" /> < effectiveTime value="814778594065" /> <value unit="mmol /L" xsi:type="PQ" value="130" /> < interpretationCode codeSystem="local" code="*" /> <referenceRange> <observationRange> < text>135-148</text> </observationRange> </ referenceRange> </observation> </component> < component> <observation moodCode="EVN" classCode=" OBS"> <templateId root="2.16.840.1.376419.10.20.22.4.2& quot; /> <id nullFlavor="NA" /> <code codeSystem="local" code="CL"displayName="CHLORIDE&quot ; /> <statusCode code="completed" /> < effectiveTime value="721630768834" /> <value unit=&quot ;mmol/L" xsi:type="PQ" value="92" /> < interpretationCode codeSystem="local" code="*" /> <referenceRange> <observationRange> < text>98-110</text> </observationRange> </ referenceRange> </observation> </component> < component> <observation moodCode="EVN" classCode=" OBS"> <templateId root="2.16.840.1.123163.10.20.22.4.2& quot; /> <id nullFlavor="NA" /> <code codeSystem="local" code="CO2" displayName="CARBON DIOXIDE"/> <statusCode code="completed" /> <effectiveTime value="192668458611" /> <value unit="mmol/L" xsi:type="PQ" value="28" /> <referenceRange> <observationRange> &lt ;text>21-32</text> </observationRange> </ referenceRange> </observation> </component> < component> <observation moodCode="EVN" classCode=" OBS"> <templateId root="2.16.840.1.028337.10.20.22.4.2& quot; /> <id nullFlavor="NA" /> <code codeSystem="local" code="CAION" displayName="CALCIUM IONIZED" /> <statusCode code="completed" /> <effectiveTime value="569320697496" /> < value unit="mg/dL" xsi:type="PQ" value="4.1" /&gt ; <interpretationCode codeSystem="local" code="*&quot ; /> <referenceRange> <observationRange> <text>4.5-5.3</text> </observationRange> </referenceRange> </observation> </component& gt; </organizer> </entry> <entry> <organizer moodCode="EVN" classCode="BATTERY"> <templateId root="2.16.840.1.735866.10.20.22.4.1" /> <id nullFlavor=& quot;NA" /> <code codeSystem="local" code="MRSAS& quot; displayName="MRSA SURVEILLANCE SCREEN" /> < statusCode code="completed" /> <component> < observation moodCode="EVN" classCode="OBS"> < templateId root="2.16.840.1.799135.10.20.22.4.2" /> < id nullFlavor="NA" /> <code codeSystem="local&quot ; code="MB" displayName="Microbiology" /> < statusCode code="completed" /> <effectiveTime value=& quot;506800446162" /> <value xsi:type="ST" value="< pre><b>MRSA SURVEILLANCE SCREEN</b> See BelowMRSA SURVEILLANCE SCREEN(F) Neel Date/Time: 09/23/2015 20:00 Oneal Date/Time: 09/25/2015 07: 13SOURCE: ANTERIOR NARESSPEC DESC: NNO METHICILLIN RESISTANT ST[facility] [place] [address]</pre>" / > <referenceRange> <observationRange> & lt;text /> </observationRange> </referenceRange& gt; </observation> </component> </organizer> & lt;/entry> <entry> <organizer moodCode="EVN" classCode ="BATTERY"> <templateId root=" 2.16.840.1.392014.10.20.22.4.1" /> <id nullFlavor="NA&quot ; /> <code codeSystem="local" code="CBC" displayName="CBC" /> <statusCode code="completed&quot ; /> <component> <observation moodCode="EVN" classCode="OBS"> <templateId root=" 2.16.840.1.891564.10.20.22.4.2" /> <id nullFlavor="NA& quot; /> <code codeSystem="local" code="MCH" displayName="MEAN CELL HGB" /> <statusCode code=" completed" /> <effectiveTime value="213486605971" /> <value unit="pg" xsi:type="PQ" value="31.2 " /> <referenceRange> <observationRange&gt ; <text>27.0-33.0</text> </ observationRange> </referenceRange> </observation&gt ; </component> <component> <observation moodCode ="EVN" classCode="OBS"> <templateId root=& quot;2.16.840.1.830808.10.20.22.4.2" /> <id nullFlavor=&quot ;NA" /> <code codeSystem="local" code="MCHC& quot; displayName="MEAN CELL HGB CONCENTRATION" /> < statusCode code="completed" /> <effectiveTime value=" 559570262720" /> <value unit="g/dL" xsi:type=&quot ;PQ" value="32.3" /> <referenceRange> <observationRange> <text>32.0-37.0</text> </observationRange> </referenceRange> </ observation> </component> <component> < observation moodCode="EVN" classCode="OBS"> < templateId root="2.16.840.1.650222.10.20.22.4.2" /> < id nullFlavor="NA" /> <code codeSystem="local&quot ; code="MCV" displayName="MEAN CELL VOLUME" /> & lt;statusCode code="completed" /> <effectiveTime value= "195035405015" /> <value unit="fl" xsi:type=& quot;PQ" value="96.7" /> <referenceRange> <observationRange> <text>80.0-100.0</text&gt ; </observationRange> </referenceRange> & lt;/observation> </component> <component>< observation moodCode="EVN" classCode="OBS"> < templateId root="2.16.840.1.662526.10.20.22.4.2" /> < id nullFlavor="NA" /> <code codeSystem="local" code ="RBC" displayName="RED BLOOD CELL" /> < statusCode code="completed" /> <effectiveTime value=& quot;798215727182" /> <value unit="m/cumm" xsi: type="PQ" value="3.94" /> < interpretationCode codeSystem="local" code="*" /> <referenceRange> <observationRange> < text>4.00-6.00</text> </observationRange> &lt ;/referenceRange> </observation> </component> & lt;component> <observation moodCode="EVN" classCode=&quot ;OBS"> <templateId root="2.16.840.1.297481.10.20.22.4.2 " /> <id nullFlavor="NA" /> <code codeSystem="local" code="RDW" displayName="RED CELL DISTRIBUTION WIDTH" /> <statusCode code="completed" /> <effectiveTime value="691877700382" /> < value unit="%" xsi:type="PQ" value="13.4" /> <referenceRange> <observationRange> <text>11.0-15.6</text> </observationRange> </referenceRange> </observation> </component> <component> <observation moodCode="EVN" classCode ="OBS"> <templateId root=" 2.16.840.1.291229.10.20.22.4.2" /> <id nullFlavor="NA& quot; /> <code codeSystem="local" code="WBC" displayName="WHITE BLOOD CELL" /> <statusCode code=& quot;completed" /> <effectiveTime value="518164757611& quot; /> <value unit="k/cumm" xsi:type="PQ" value="3.3" /> <interpretationCode codeSystem="local& quot; code="*" /> <referenceRange> < observationRange> <text>5.0-10.0</text> </ observationRange> </referenceRange> </observation&gt ; </component> <component> <observation moodCode ="EVN" classCode="OBS"> <templateId root=& quot;2.16.840.1.392476.10.20.22.4.2" /> <id nullFlavor="NA& quot; /> <code codeSystem="local" code="HGBT&quot ; displayName="HEMOGLOBIN" /> <statusCode code=" completed" /> <effectiveTime value="339354359536" /> <value unit="gm/dL" xsi:type="PQ" value=& quot;12.3" /> <referenceRange> < observationRange> <text>12.0-16.0</text> </observationRange> </referenceRange> </ observation> </component> <component> < observation moodCode="EVN" classCode="OBS"> < templateId root="2.16.840.1.797118.10.20.22.4.2" /> < id nullFlavor="NA" /> <code codeSystem="local&quot ; code="HCTT" displayName="HEMATOCRIT" /> < statusCode code="completed" /><effectiveTime value=" 260439387560" /> <value unit="%"xsi:type=& quot;PQ" value="38.1" /> <referenceRange> <observationRange> <text>37.0-47.0</text> </observationRange> </referenceRange> & lt;/observation> </component> <component> < observation moodCode="EVN" classCode="OBS"> < templateId root="2.16.840.1.856798.10.20.22.4.2" /> < id nullFlavor="NA" /> <code codeSystem="local&quot ; code="PLT" displayName="PLATELET COUNT" /> &lt ;statusCode code="completed" /> <effectiveTime value=& quot;429784640224" /> <value unit="k/cumm" xsi: type="PQ" value="244" /> <referenceRange> <observationRange> <text>150-400</text& gt; </observationRange> </referenceRange> </observation> </component> </organizer> </entry > <entry> <organizer moodCode="EVN" classCode=" BATTERY"> <templateId root="2.16.840.1.736359.10.20.22.4.1& quot; /> <id nullFlavor="NA" /> <code codeSystem ="local" code="METAB" displayName="METABOLIC PANEL, BASIC" /> <statusCode code="completed" /> < component> <observation moodCode="EVN" classCode=" OBS"> <templateId root="2.16.840.1.367632.10.20.22.4.2& quot; /> <id nullFlavor="NA" /> <code codeSystem="local" code="K" displayName="POTASSIUM&quot ; /> <statusCode code="completed" /> < effectiveTimevalue="001662126346" /> <value unit=" mmol/L" xsi:type="PQ" value="3.9" /> < referenceRange> <observationRange> <text>3.5 -5.3</text> </observationRange> </ referenceRange> </observation> </component> < component> <observation moodCode="EVN" classCode=" OBS"> <templateId root="2.16.840.1.018897.10..22.4.2& quot; /> <id nullFlavor="NA" /> <code codeSystem="local" code="eGFR" displayName="EST GFR ( MDRD)" /> <statusCode code="completed" /> <effectiveTime value="362077731965" /> <value unit="mL/min" xsi:type="PQ" value="53" /> <interpretationCode codeSystem="local" code="*" /&gt ; <referenceRange> <observationRange> <text>> 59</text> </observationRange> </referenceRange> </observation> </component& gt; <component> <observation moodCode="EVN" classCode="OBS"> <templateId root=" 2.16.840.1.773080.10.20.22.4.2" /> <id nullFlavor="NA& quot; /> <code codeSystem="local" code="GAP" displayName="ANION GAP" /> <statusCode code=" completed" /> <effectiveTime value="445861443007" /> <value unit="mmol/L" xsi:type="PQ" value=& quot;7" /> <referenceRange> < observationRange> <text>5-15</text> </ observationRange> </referenceRange> </observation&gt ; </component> <component> <observation moodCode ="EVN" classCode="OBS"> <templateId root=& quot;2.16.840.1.801710.10.20.22.4.2" /> <id nullFlavor=&quot ;NA" /> <code codeSystem="local" code="eCrCl& quot; displayName="EST CrCl (CG)" /> <statusCode code=& quot;completed"/> <effectiveTime value="418386721749& quot; /> <value unit="mL/min" xsi:type="PQ" value="35" /> <interpretationCode codeSystem=" local" code="*" /> <referenceRange> <observationRange> <text>> 59</text> </observationRange> </referenceRange> </ observation> </component> <component> < observation moodCode="EVN" classCode="OBS"> < templateId root="2.16.840.1.885650.10..22.4.2" /> < id nullFlavor="NA" /> <code codeSystem="local&quot ; code="GLU" displayName="GLUCOSE" /> < statusCode code="completed" /> <effectiveTime value=& quot;454507858329" /> <value unit="mg/dL" xsi:type ="PQ"value="131" /> <interpretationCode codeSystem="local" code="*" /> < referenceRange> <observationRange> <text> 70-99</text> </observationRange> </ referenceRange></observation> </component> < component> <observation moodCode="EVN" classCode=" OBS"> <templateId root="2.16.840.1.299549.10.20.22.4.2& quot; /> <id nullFlavor="NA" /> <code codeSystem="local" code="CA" displayName="CALCIUM&quot ; /> <statusCode code="completed" /> < effectiveTime value="205138864178" /> <value unit="mg/dL& quot; xsi:type="PQ" value="8.4" /> < interpretationCode codeSystem="local" code="*" /> <referenceRange> <observationRange> < text>8.5-10.1</text> </observationRange> < /referenceRange> </observation> </component> &lt ;component> <observation moodCode="EVN" classCode=" OBS"> <templateId root="2.16.840.1.760103.10.20.22.4.2& quot; /> <id nullFlavor="NA" /> <code codeSystem="local" code="BUN" displayName="BLOOD UREA NITROGEN" /> <statusCode code="completed" /> <effectiveTime value="415390114329" /> < value unit="mg/dL" xsi:type="PQ" value="20" /> <referenceRange> <observationRange> <text >7-20</text> </observationRange> </ referenceRange> </observation> </component> < component> <observation moodCode="EVN" classCode=" OBS"> <templateId root="2.16.840.1.435763.10..22.4.2& quot; /> <id nullFlavor="NA" /> <code codeSystem="local" code="CREAT" displayName="CREATININE " /> <statusCode code="completed" /> & lt;effectiveTime value="977827711374" /> <value unit=& quot;mg/dL" xsi:type="PQ" value="1.0" /> & lt;referenceRange> <observationRange> <text& gt;0.6-1.0</text> </observationRange> </ referenceRange> </observation> </component> < component> <observation moodCode="EVN" classCode="OBS" > <templateId root="2.16.840.1.660954.10.20.22.4.2" /& gt; <id nullFlavor="NA" /> <code codeSystem=& quot;local" code="NA" displayName="SODIUM" /> <statusCode code="completed" /> <effectiveTime value="378337657059" /> <value unit="mmol/L" xsi:type="PQ" value="138" /> <referenceRange& gt; <observationRange> <text>135-148</ text> </observationRange> </referenceRange> </observation> </component> <component> < observation moodCode="EVN" classCode="OBS"> < templateId root="2.16.840.1.095828.10.20.22.4.2" /> < id nullFlavor="NA" /> <code codeSystem="local&quot ; code="CL" displayName="CHLORIDE" /> < statusCodecode="completed" /> <effectiveTime value=& quot;915882864854" /> <value unit="mmol/L" xsi:type=& quot;PQ" value="100" /> <referenceRange> <observationRange> <text>98-110</text> </observationRange> </referenceRange> </ observation> </component> <component> < observation moodCode="EVN" classCode="OBS"> < templateId root="2.16.840.1.852542.10.20.22.4.2" /> <id nullFlavor="NA" /> <code codeSystem="local" code="CO2" displayName="CARBON DIOXIDE" /> < statusCode code="completed" /> <effectiveTime value=& quot;547845772526" /> <value unit="mmol/L" xsi: type="PQ" value="31" /> <referenceRange> <observationRange> <text>21-32</text> </observationRange> </referenceRange> & lt;/observation> </component> </organizer> </entry&gt ; <entry> <organizer moodCode="EVN" classCode=" BATTERY"> <templateId root="2.16.840.1.946715.10.20.22.4.1& quot; /> <id nullFlavor="NA" /> <code codeSystem ="local" code="MAG" displayName="MAGNESIUM" /> <statusCode code="completed" /> <component> <observation moodCode="EVN" classCode="OBS"> <templateId root="2.16.840.1.999564.10.20.22.4.2" /> <id nullFlavor="NA" /> <code codeSystem=" local" code="MAG" displayName="MAGNESIUM" /> <statusCode code="completed" /> <effectiveTime value=&quot ;950673467673" /> <value unit="mg/dL" xsi:type=& quot;PQ" value="2.0" /> <referenceRange> <observationRange> <text>1.8-2.4</text> </observationRange> </referenceRange> </ observation> </component> </organizer> </entry> & lt;entry> <organizer moodCode="EVN" classCode="BATTERY& quot;> <templateId root="2.16.840.1.258044.10.20.22.4.1" /& gt; <id nullFlavor="NA" /> <code codeSystem=" local" code="CAION" displayName="CALCIUM IONIZED" /&gt ; <statusCode code="completed" /> <component> <observation moodCode="EVN" classCode="OBS"> <templateId root="2.16.840.1.576263.10.20.22.4.2" /> <id nullFlavor="NA" /> <code codeSystem=" local" code="CAION" displayName="CALCIUM IONIZED" /&gt ; <statusCode code="completed" /> < effectiveTime value="192421662314" /> <value unit=&quot ;mg/dL" xsi:type="PQ" value="4.7" /> < referenceRange> <observationRange> <text> 4.5-5.3</text> </observationRange> </referenceRange&gt ; </observation> </component> </organizer> &lt ;/entry> <entry> <organizer moodCode="EVN" classCode=& quot;BATTERY"> <templateId root=" 2.16.840.1.008466.10.20.22.4.1" /> <id nullFlavor="NA&quot ; /> <code codeSystem="local" code="CDIFBR" displayName="C. difficile toxin B ge" /> <statusCode code=& quot;completed" /> <component> <observation moodCode="EVN" classCode="OBS"> <templateId root=& quot;2.16.840.1.154343.10..22.4.2" /> <id nullFlavor=&quot ;NA" /> <code codeSystem="local" code="CDIFBR " displayName="C. difficile toxin B ge" /> < statusCode code="completed" /> <effectiveTime value=" 289924325516" /> <value unit="" xsi:type="PQ& quot; value="See Comment" /> <referenceRange>< observationRange> <text /> </ observationRange> </referenceRange> </observation&gt ; </component> </organizer> </entry> <entry> <organizer moodCode="EVN" classCode="BATTERY"> <templateId root="2.16.840.1.788466.10..22.4.1" /> < id nullFlavor="NA" /> <code codeSystem="local" code="CUAGR" displayName="Culture Urine" /> < statusCode code="completed" /> <component> < observation moodCode="EVN" classCode="OBS"> < templateId root="2.16.840.1.223784.10..22.4.2" /> < id nullFlavor="NA" /> <code codeSystem="local&quot ; code="CUAIR" displayName="Culture Urine" /> & lt;statusCode code="completed" /> <effectiveTimevalue=& quot;218277038481" /> <value unit="" xsi:type=& quot;PQ" value="See Comment" /> <referenceRange&gt ; <observationRange> <text /> < /observationRange> </referenceRange> </observation> </component> </organizer> </entry> <entry> <organizer moodCode="EVN" classCode="BATTERY"> & lt;templateId root="[id number]" /> <id nullFlavor="NA" /> <code codeSystem="local" code= "CMP13" displayName="Comprehensive MetabolicPanel" /> <statusCode code="completed" /> <component>< observation moodCode="EVN" classCode="OBS"> < templateId root="[id number]" /> < id nullFlavor="NA" /> <code codeSystem="local" code ="NA" displayName="Sodium" /> <statusCode code=& quot;completed" /> <effectiveTime value="378921339482& quot; /> <value unit="MMOLL" xsi:type="PQ" value="142" /> <referenceRange> < observationRange> <text>134-145</text> & lt;/observationRange> </referenceRange></observation> </component> <component> <observation moodCode=& quot;EVN" classCode="OBS"> <templateId root=" 2.16.840.1.270874.10..22.4.2" /> <id nullFlavor="NA& quot; /> <code codeSystem="local" code="K" displayName="Potassium" /> <statusCode code=" completed" /> <effectiveTime value="331249504052" /> <value unit="MMOLL" xsi:type="PQ" value="4.2 " /> <referenceRange> <observationRange&gt ; <text>3.6-5.0</text> </observationRange& gt; </referenceRange> </observation> </component > <component> <observation moodCode="EVN" classCode="OBS"> <templateId root=" 2.16.840.1.198541.10.20.22.4.2" /> <id nullFlavor="NA&quot ; /> <code codeSystem="local" code="CL" displayName="Chloride" /> <statusCode code=" completed" /> <effectiveTime value="031632746827" /> <value unit="MMOLL" xsi:type="PQ" value=& quot;101" /> <referenceRange> <observationRange& gt; <text>98-107</text> </ observationRange> </referenceRange> </observation&gt ; </component> <component> <observation moodCode=& quot;EVN" classCode="OBS"> <templateId root=" 2.16.840.1.632374.10.20.22.4.2" /> <id nullFlavor="NA& quot; /> <code codeSystem="local" code="CO2" displayName="CO2" /> <statusCode code="completed& quot; /> <effectiveTime value="436829978392" /> <value unit="MMOLL" xsi:type="PQ" value="28& quot; /> <referenceRange> <observationRange> <text>22-30</text> </observationRange&gt ; </referenceRange> </observation> </ component> <component> <observation moodCode="EVN& quot; classCode="OBS"> <templateId root=" 2.16.840.1.316561.10.20.22.4.2" /> <id nullFlavor="NA& quot; /> <code codeSystem="local" code="GLU" displayName="Glucose" /> <statusCode code="completed& quot; /> <effectiveTime value="451976259158" /> <value unit="MG/DL" xsi:type="PQ" value="90& quot; /> <referenceRange> <observationRange> <text>75-110</text> </observationRange& gt; </referenceRange> </observation> </ component> <component> <observation moodCode="EVN& quot; classCode="OBS"> <templateId root=" 2.16.840.1.535048.10.20.22.4.2" /> <id nullFlavor="NA& quot; /> <code codeSystem="local" code="BUN" displayName="BUN" /> <statusCode code="completed& quot; /> <effectiveTime value="832183614423" /> <value unit="MG/DL" xsi:type="PQ" value="16& quot; /> <referenceRange> <observationRange> <text>9-20</text> </observationRange&gt ; </referenceRange> </observation> </ component> <component> <observation moodCode="EVN& quot; classCode="OBS"> <templateId root=" 2.16.840.1.066496.10.20.22.4.2" /> <id nullFlavor="NA& quot; /> <code codeSystem="local" code="CREAT&quot ; displayName="Creatinine" /> <statusCode code=" completed" /> <effectiveTime value="321776669709" /& gt; <value unit="MG/DL" xsi:type="PQ" value=& quot;.68" /> <interpretationCode codeSystem="local&quot ; code="L" /> <referenceRange> < observationRange> <text>0.8-1.7</text> & lt;/observationRange> </referenceRange> </ observation> </component> <component> < observation moodCode="EVN" classCode="OBS"> < templateId root="2.16.840.1.021491.10.20.22.4.2" /> < id nullFlavor="NA" /> <code codeSystem="local" code="CA" displayName="Calcium" /> < statusCode code="completed" /> <effectiveTime value=& quot;226190053975" /> <value unit="MG/DL" xsi:type ="PQ" value="9.3" /> <referenceRange> <observationRange> <text>8.4-10.2</text> </observationRange> </referenceRange> < /observation> </component> <component> < observation moodCode="EVN" classCode="OBS"> < templateId root="2.16.840.1.061284.10.20.22.4.2" /> < id nullFlavor="NA" /> <code codeSystem="local&quot ; code="TBIL" displayName="T Bili" /> < statusCode code="completed" /> <effectiveTime value=& quot;373487181652" /> <value unit="MG/DL" xsi:type= "PQ" value=".3" /> <referenceRange> < observationRange> <text>0.2-1.3</text> & lt;/observationRange> </referenceRange> </ observation> </component> <component> < observation moodCode="EVN" classCode="OBS"> < templateId root="2.16.840.1.419378.10.20.22.4.2" /> < id nullFlavor="NA" /> <code codeSystem="local&quot ; code="TP" displayName="T. Protein" /> < statusCode code="completed" /> <effectiveTime value=& quot;395096988208" /> <value unit="G/DL" xsi:type= "PQ" value="7.3" /> <referenceRange> <observationRange> <text>6.3-8.2</text> </observationRange> </referenceRange> < /observation> </component> <component> < observation moodCode="EVN" classCode="OBS"> < templateId root="2.16.840.1.971587.10.20.22.4.2" /> < id nullFlavor="NA" /> <code codeSystem="local&quot ; code="AG" displayName="A/G Ratio" /> < statusCode code="completed" /> <effectiveTime value=& quot;368284951537" /> <value unit="RATIO" xsi:type ="PQ" value="1.0" /> <referenceRange> <observationRange> <text /> </ observationRange> </referenceRange> </observation&gt ; </component> <component> <observation moodCode ="EVN" classCode="OBS"> <templateId root=& quot;2.16.840.1.456417.10.20.22.4.2" /> <id nullFlavor=&quot ;NA" /> <code codeSystem="local" code="ALB& quot; displayName="Albumin" /> <statusCode code="completed& quot; /> <effectiveTime value="531229697217" /> <value unit="G/DL" xsi:type="PQ" value="3.7& quot; /> <referenceRange> <observationRange> <text>3.5-5.0</text> </observationRange& gt; </referenceRange> </observation> </ component> <component> <observation moodCode="EVN& quot; classCode="OBS"> <templateId root=" 2.16.840.1.369708.10.20.22.4.2" /> <id nullFlavor="NA& quot; /> <code codeSystem="local" code="ALP" displayName="Alk Phos" /> <statusCode code=" completed" /> <effectiveTime value="732722520521" /> <value unit="U/L" xsi:type="PQ" value=& quot;82" /> <referenceRange> < observationRange> <text>38-126</text> </ observationRange> </referenceRange> </observation&gt ; </component> <component> <observation moodCode ="EVN" classCode="OBS"> <templateId root=& quot;2.16.840.1.046376.10.20.22.4.2" /> <id nullFlavor=&quot ;NA" /> <code codeSystem="local" code="ALT& quot; displayName="ALT" /> <statusCode code=" completed" /> <effectiveTime value="392856797599" /> <value unit="U/L" xsi:type="PQ" value="12& quot; /> <referenceRange> <observationRange> <text>11-66</text> </observationRange&gt ; </referenceRange> </observation> </component> <component> <observation moodCode="EVN" classCode="OBS"> <templateId root=" 2.16.840.1.924659.10.20.22.4.2" /> <id nullFlavor="NA& quot; /> <code codeSystem="local" code="AST" displayName="AST" /> <statusCode code="completed& quot; /> <effectiveTime value="467765781609" /> <value unit="U/L" xsi:type="PQ" value="21&quot ; /> <referenceRange> <observationRange> <text>14-36</text> </observationRange> </referenceRange> </observation> </component> </organizer> </entry> <entry> <organizer moodCode=" EVN" classCode="BATTERY"> <templateId root=" 2.16.840.1.927905.10.20.22.4.1" /> <id nullFlavor="NA&quot ; /> <code codeSystem="local" code="LIPID1" displayName="Lipid Profile" /> <statusCode code=" completed" /> <component> <observation moodCode=& quot;EVN" classCode="OBS"> <templateId root=" 2.16.840.1.509667.10.20.22.4.2" /> <id nullFlavor="NA& quot; /> <code codeSystem="local" code="HDL" displayName="HDL" /> <statusCode code="completed& quot; /> <effectiveTime value="053525437805" /> <value unit="MG/DL" xsi:type="PQ" value="60&quot ; /> <referenceRange> <observationRange> <text>40-60</text> </observationRange> </referenceRange> </observation> </component&gt ; <component> <observation moodCode="EVN" classCode="OBS"> <templateId root=" 2.16.840.1.570318.10.20.22.4.2" /> <id nullFlavor="NA& quot; /> <code codeSystem="local" code="LDLCAL& quot; displayName="LDL Calculated" /> <statusCode code= "completed" /> <effectiveTime value="656273939038& quot; /> <valueunit="MG/DL" xsi:type="PQ" value="90" /> <referenceRange> < observationRange> <text>30-100</text> &lt ;/observationRange> </referenceRange> </observation& gt; </component> <component> <observation moodCode="EVN" classCode="OBS"> <templateId root="2.16.840.1.899439.10..22.4.2" /> <id nullFlavor ="NA" /> <code codeSystem="local" code=" TRIG" displayName="Triglyceride" /> <statusCode code="completed" /> <effectiveTime value=" 390040042022" /> <value unit="MG/DL" xsi:type=& quot;PQ" value="92" /> <referenceRange> <observationRange> <text>< 200</text&gt ; </observationRange> </referenceRange> & lt;/observation> </component> <component> < observation moodCode="EVN" classCode="OBS"> < templateId root="2.16.840.1.996398.10..22.4.2" /> < id nullFlavor="NA" /> <code codeSystem="local&quot ; code="VLDL" displayName="VLDL" /> < statusCode code="completed" /> <effectiveTime value=& quot;264379855785" /> <value unit="" xsi:type=& quot;PQ"value="18" /> <referenceRange> <observationRange> <text /> </ observationRange> </referenceRange> </observation&gt ; </component> <component> <observation moodCode ="EVN" classCode="OBS"> <templateId root=& quot;2.16.840.1.278756.10.20.22.4.2" /> <id nullFlavor=&quot ;NA" /> <code codeSystem="local" code="CH& quot; displayName="Chol/HDL" /> <statusCode code=" completed" /> <effectiveTime value="831911874518" /> <value unit="RATIO" xsi:type="PQ" value="2.79& quot; /> <referenceRange> <observationRange> <text>0.00-5.00</text> </ observationRange> </referenceRange> </observation&gt ; </component> <component> <observation moodCode=& quot;EVN" classCode="OBS"> <templateId root=" 2.16.840.1.230998.10.20.22.4.2" /> <id nullFlavor="NA& quot; /> <code codeSystem="local" code="CHOL&quot ; displayName="Cholesterol" /> <statusCode code=" completed" /> <effectiveTime value="526038606866" /> <value unit="MG/DL" xsi:type="PQ" value=& quot;168" /> <referenceRange> < observationRange> <text>130-170</text> & lt;/observationRange> </referenceRange> </ observation> </component> </organizer> </entry> & lt;entry> <organizer moodCode="EVN" classCode="BATTERY& quot;> <templateId root="2.16.840.1.833327.10.20.22.4.1" /& gt; <id nullFlavor="NA" /> <code codeSystem=" local" code="CBC6" displayName="CBC" /> < statusCode code="completed" /> <component> < observation moodCode="EVN" classCode="OBS"> < templateId root="2.16.840.1.171155.10..22.4.2" /> < id nullFlavor="NA" /> <code codeSystem="local&quot ; code="EOS#" displayName="Eos #" /> < statusCode code="completed" /> <effectiveTime value=& quot;257362725254" /> <value unit="x10^3" xsi:type ="PQ" value="0.23" /> <referenceRange> <observationRange> <text>0-0.5</text> </observationRange> </referenceRange> < /observation> </component> <component> < observation moodCode="EVN" classCode="OBS"> < templateId root="2.16.840.1.354038.10.20.22.4.2" /> < id nullFlavor="NA" /> <code codeSystem="local" code="EOS%" displayName="Eos %" /> <statusCode code="completed" /> < effectiveTimevalue="228446991573" /> <value unit=" %" xsi:type="PQ" value="6.5" /> &lt ;interpretationCode codeSystem="local" code="H" /> <referenceRange> <observationRange> < text>0-4</text> </observationRange> </ referenceRange> </observation> </component> < component> <observation moodCode="EVN" classCode=" OBS"> <templateId root="2.16.840.1.085976.10.20.22.4.2& quot; /> <id nullFlavor="NA" /> <code codeSystem="local" code="HCT" displayName="HCT" /& gt; <statusCode code="completed" /> < effectiveTime value="791107050579" /> <value unit="&# 37;" xsi:type="PQ" value="31.8" /> < interpretationCode codeSystem="local" code="L" /> <referenceRange> <observationRange> < text>37.0-47.0</text> </observationRange> </ referenceRange> </observation> </component> < component> <observation moodCode="EVN" classCode=" OBS"> <templateId root="2.16.840.1.412555.10.20.22.4.2& quot; /> <id nullFlavor="NA" /> <code codeSystem="local" code="HGB" displayName="HGB" /& gt; <statusCode code="completed" /> < effectiveTime value="369441250757" /> <value unit=&quot ;G/DL" xsi:type="PQ" value="9.7" /> < interpretationCode codeSystem="local" code="L" /> <referenceRange> <observationRange> < text>12.0-16.0</text> </observationRange> &lt ;/referenceRange> </observation> </component> & lt;component> <observation moodCode="EVN" classCode="OBS& quot;> <templateId root="2.16.840.1.304516.10.20.22.4.2&quot ; /> <id nullFlavor="NA" /> <code codeSystem= "local" code="LYMPH#" displayName="Lymph #" /> <statusCode code="completed" /> < effectiveTime value="363961185623" /> <value unit=&quot ;x10^3" xsi:type="PQ" value="1.15" /> < referenceRange> <observationRange> <text> 1.0-4.0</text> </observationRange> </ referenceRange> </observation> </component> < component> <observation moodCode="EVN" classCode=" OBS"> <templateId root="2.16.840.1.195855.10.20.22.4.2& quot; /> <id nullFlavor="NA" /> <code codeSystem="local" code="LYMPH%" displayName=" Lymph %" /> <statusCode code="completed" /& gt; <effectiveTime value="944177696763" /> &lt ;value unit="%" xsi:type="PQ" value="32.7&quot ; /> <referenceRange> <observationRange> <text>20-50</text> </observationRange> </referenceRange> </observation> </component&gt ; <component> <observation moodCode="EVN" classCode="OBS"> <templateId root=" 2.16.840.1.586712.10.20.22.4.2" /> <id nullFlavor="NA& quot; /> <code codeSystem="local" code="MCH" displayName="MCH" /> <statusCode code="completed& quot; /> <effectiveTime value="288991585819" /> & lt;value unit="PG" xsi:type="PQ" value="30.6" /&gt ; <referenceRange> <observationRange> <text>27.0-31.0</text> </observationRange> </referenceRange> </observation> </component> <component> <observation moodCode="EVN" classCode ="OBS"> <templateId root=" 2.16.840.1.049103.10.20.22.4.2" /> <id nullFlavor="NA& quot; /> <code codeSystem="local" code="MCHC&quot ; displayName="MCHC" /> <statusCode code=" completed"/> <effectiveTime value="140077218367" / > <value unit="G/DL" xsi:type="PQ" value=& quot;30.5" /> <interpretationCode codeSystem="local& quot; code="L" /> <referenceRange> < observationRange> <text>32.0-36.0</text> </observationRange> </referenceRange> </observation > </component> <component> <observation moodCode="EVN" classCode="OBS"> <templateId root="2.16.840.1.308951.10.20.22.4.2" /> <id nullFlavor ="NA" /> <code codeSystem="local" code=" MCV" displayName="MCV" /> <statusCode code=" completed" /> <effectiveTime value="707216758174" /> <value unit="FL" xsi:type="PQ" value=&quot ;100.3" /> <interpretationCode codeSystem="local" code="H"/> <referenceRange> < observationRange> <text>81-99</text> < /observationRange> </referenceRange> </observation& gt; </component> <component> <observation moodCode="EVN" classCode="OBS"> <templateId root="2.16.840.1.222888.10.20.22.4.2" /> <id nullFlavor ="NA" /> <code codeSystem="local" code=" MONO#" displayName="[place] #" /> <statusCode code=& quot;completed" /> <effectiveTime value="641070463503& quot; /> <value unit="x10^3" xsi:type="PQ" value="0.46" /> <referenceRange> < observationRange> <text>0.0-0.8</text> </ observationRange> </referenceRange> </observation&gt ; </component> <component> <observation moodCode ="EVN" classCode="OBS"> <templateId root=& quot;2.16.840.1.253025.10.20.22.4.2" /> <id nullFlavor="NA&quot ; /> <code codeSystem="local" code="MONO%& quot; displayName="[place] %" /> <statusCode code= "completed" /> <effectiveTime value="852376759304& quot; /> <value unit="%" xsi:type="PQ&quot ; value="13.1" /> <interpretationCode codeSystem=" local" code="H" /> <referenceRange> < observationRange> <text>1.0-9.0</text> & lt;/observationRange> </referenceRange> </ observation> </component> <component> < observation moodCode="EVN" classCode="OBS"> < templateId root="2.16.840.1.715932.10.20.22.4.2" /> < id nullFlavor="NA" /> <code codeSystem="local&quot ; code="MPV" displayName="MPV" /> < statusCode code="completed" /> <effectiveTime value=& quot;587181678336" /> <value unit="FL" xsi:type=& quot;PQ" value="10.4" /> <interpretationCode codeSystem="local" code="H" /> < referenceRange> <observationRange> <text>6.0-10.0</ text> </observationRange> </referenceRange> </observation> </component> <component> <observation moodCode="EVN" classCode="OBS"> <templateId root="2.16.840.1.571020.10..22.4.2" /> <id nullFlavor="NA" /> <code codeSystem=" local" code="PLT" displayName="Platelet" /> <statusCode code="completed" /> <effectiveTime value="548887063656"/> <value unit="x10^3" xsi:type="PQ" value="280" /> <referenceRange&gt ; <observationRange> <text>150-400</text& gt; </observationRange> </referenceRange> </observation> </component> <component> &lt ;observation moodCode="EVN" classCode="OBS"> &lt ;templateId root="2.16.840.1.200776.10..22.4.2" /> < id nullFlavor="NA" /> <code codeSystem="local&quot ; code="RBC" displayName="RBC" /> < statusCode code="completed" /> <effectiveTime value=& quot;846014327679" /> <value unit="x10^3" xsi:type ="PQ" value="3.17" /> <interpretationCode codeSystem="local" code="L" /> < referenceRange><observationRange> <text>4.20-5.40&lt ;/text> </observationRange> </referenceRange&gt ; </observation> </component> <component> <observation moodCode="EVN" classCode="OBS"> &lt ;templateId root="2.16.840.1.346019.10.20.22.4.2" /> < id nullFlavor="NA" /> <code codeSystem="local&quot ; code="RDW" displayName="RDW" /> < statusCode code="completed" /> <effectiveTime value=& quot;235068036697" /> <value unit="%" xsi: type="PQ" value="15.6" /> < interpretationCode codeSystem="local" code="H" /> <referenceRange> <observationRange> <text>12-15 </text> </observationRange> </referenceRange& gt; </observation> </component> <component> <observation moodCode="EVN" classCode="OBS"> <templateId root="2.16.840.1.687661.10..22.4.2" /> <id nullFlavor="NA" /> <code codeSystem=&quot ;local" code="WBC" displayName="WBC" /> &lt ;statusCode code="completed" /> <effectiveTime value=& quot;601497317411" /> <value unit="x10^3" xsi:type=& quot;PQ" value="3.52" /> <interpretationCode codeSystem=& quot;local" code="L" /> <referenceRange> <observationRange> <text>4.8-10.8</text> </observationRange> </referenceRange> </ observation> </component> <component> < observation moodCode="EVN" classCode="OBS"> < templateId root="2.16.840.1.369228.10.20.22.4.2" /> < id nullFlavor="NA" /> <code codeSystem="local&quot ; code="BASO#" displayName="Baso #" /> < statusCode code="completed" /> <effectiveTime value=& quot;439394549359" /> <value unit="x10^3" xsi:type ="PQ" value="0.06" /> <referenceRange>< observationRange> <text>0-0.2</text> < /observationRange> </referenceRange> </observation& gt; </component> <component> <observation moodCode="EVN" classCode="OBS"> <templateId root="2.16.840.1.391732.10.20.22.4.2" /> <id nullFlavor ="NA" /> <code codeSystem="local" code=" BASO%" displayName="Baso %" /> < statusCode code="completed" /> <effectiveTime value=" 443497735612" /> <value unit="%" xsi:type= "PQ" value="1.7" /> <referenceRange> <observationRange> <text>0-2</text> </observationRange> </referenceRange> </ observation> </component> <component> < observation moodCode="EVN" classCode="OBS"> < templateId root="2.16.840.1.392375.10.20.22.4.2" /> < id nullFlavor="NA" /> <code codeSystem="local&quot ; code="SEG%" displayName="Neut %" /> <statusCode code="completed" /> < effectiveTime value="520303714835" /> <value unit=&quot ;%" xsi:type="PQ" value="46.0" /> & lt;interpretationCode codeSystem="local" code="L" /> <referenceRange> <observationRange> < text>50-70</text> </observationRange> </ referenceRange> </observation> </component> < component> <observation moodCode="EVN" classCode=" OBS"> <templateId root="2.16.840.1.507043.10.20.22.4.2& quot; /> <id nullFlavor="NA" /> <code codeSystem="local" code="SEG#" displayName="Neut #&quot ; /> <statusCode code="completed" /> < effectiveTime value="133254786917" /> <value unit=&quot ;x10^3" xsi:type="PQ" value="1.62"/> < interpretationCode codeSystem="local" code="L" />< referenceRange> <observationRange> <text> 3.0-7.0</text> </observationRange> </ referenceRange> </observation> </component> </ organizer> </entry> <entry> <organizer moodCode="EVN " classCode="BATTERY"> <templateId root=" 2.16.840.1.655075.10.20.22.4.1" /> <id nullFlavor="NA&quot ; /> <code codeSystem="local" code="FEPG1R" displayName="Iron/TIBC Profile" /> <statusCode code=" completed" /> <component> <observation moodCode=& quot;EVN" classCode="OBS"> <templateId root=" 2.16.840.1.059304.10.20.22.4.2" /> <id nullFlavor="NA& quot; /> <code codeSystem="local" code="DELMA" displayName="Iron" /> <statusCode code="completed& quot; /> <effectiveTime value="437761484416" /> <value unit="ug/dL" xsi:type="PQ" value="19& quot; /> <interpretationCode codeSystem="local" code=& quot;L" /> <referenceRange> <observationRange> <text>50-170</text> </observationRange> </referenceRange> </observation> </ component> <component> <observation moodCode="EVN& quot; classCode="OBS"> <templateId root=" 2.16.840.1.860014.10.20.22.4.2" /> <id nullFlavor="NA& quot; /> <code codeSystem="local" code="SAT" displayName="% Saturation" /> <statusCode code= "completed" /><effectiveTime value="806940487148" /&gt ; <value unit="%"xsi:type="PQ" value=& quot;6" /> <interpretationCode codeSystem="local" code="L" /> <referenceRange> < observationRange> <text>11-46</text> < /observationRange> </referenceRange> </observation& gt; </component> <component> <observation moodCode="EVN" classCode="OBS"> <templateId root="2.16.840.1.555228.10.20.22.4.2" /> <id nullFlavor ="NA" /><code codeSystem="local" code="TIBCR&quot ; displayName="Iron Binding Capacity" /> <statusCode code="completed" /> <effectiveTime value=" 776754591405" /> <value unit="ug/dL" xsi:type=& quot;PQ" value="301" /> <referenceRange> <observationRange> <text>260-445</text> & lt;/observationRange> </referenceRange> </ observation> </component> <component> < observation moodCode="EVN" classCode="OBS"> < templateId root="2.16.840.1.463152.10.20.22.4.2" /> < id nullFlavor="NA" /> <code codeSystem="local&quot ; code="UIBCR" displayName="UIBC" /> < statusCode code="completed" /> <effectiveTime value=& quot;281765698705" /> <value unit="ug/dl" xsi:type ="PQ" value="282" /> <referenceRange> <observationRange> <text>126-382</text> </observationRange> </referenceRange> < /observation> </component> </organizer> </entry> <entry> <organizer moodCode="EVN" classCode="BATTERY& quot;> <templateId root="2.16.840.1.822711.10.20.22.4.1" /& gt; <id nullFlavor="NA" /> <code codeSystem=" local" code="FERR" displayName="Ferritin" /> & lt;statusCode code="completed" /> <component> &lt ;observation moodCode="EVN" classCode="OBS"> &lt ;templateId root="2.16.840.1.222331.10.20.22.4.2" /> < id nullFlavor="NA" /> <code codeSystem="local&quot ; code="FERR" displayName="Ferritin" /> < statusCode code="completed" /> <effectiveTime value=& quot;457551637474" /> <value unit="ng/mL" xsi:type ="PQ" value="45" /> <referenceRange> <observationRange> <text>5-204</text> </observationRange> </referenceRange> </ observation> </component> </organizer> </entry> & lt;entry> <organizer moodCode="EVN" classCode="BATTERY& quot;> <templateId root="2.16.840.1.932813.10.20.22.4.1" /& gt; <id nullFlavor="NA" /> <code codeSystem=" local" code="[id number]" displayName="B12 and Folate" /&gt ; <statusCode code="completed" /> <component> <observation moodCode="EVN" classCode="OBS"> <templateId root="2.16.840.1.007672.10.20.22.4.2" /> & lt;id nullFlavor="NA" /> <code codeSystem="local& quot; code="FOLR" displayName="Folic Acid (Folate)" /> <statusCode code="completed" /> < effectiveTime value="854907055875" /> <value unit=&quot ;ng/mL" xsi:type="PQ" value="15.7" /> < referenceRange> <observationRange> <text> 7.0-31.4</text> </observationRange> </ referenceRange> </observation> </component> < component> <observation moodCode="EVN" classCode=" OBS"> <templateId root="[id number]& quot; /> <id nullFlavor="NA" /> <code codeSystem="local" code="B12R" displayName="Vitamin B12 " /> <statusCode code="completed" /> & lt;effectiveTime value="[id number]" /> <value unit=& quot;pg/mL" xsi:type="PQ" value="245" /> & lt;referenceRange> <observationRange> <text& gt;213-816</text> </observationRange> </ referenceRange> </observation> </component> </ organizer> </entry> <entry> <organizer moodCode="EVN " classCode="BATTERY"> <templateId root=" 2.16.840.1.042163.10.20.22.4.1" /> <id nullFlavor="NA&quot ; /> <code codeSystem="local" code="RETICR" displayName="Reticulocyte Count Auto" /> <statusCode code=& quot;completed" /> <component> <observation moodCode="EVN" classCode="OBS"> <templateId root="2.16.840.1.369551.10.20.22.4.2" /> <idnullFlavor= "NA" /> <code codeSystem="local" code=" RETICR" displayName="Reticulocyte Count Auto" /> < statusCode code="completed" /> <effectiveTime value=& quot;850632133890" /> <value unit="%" xsi: type="PQ" value="4.0" /> <interpretationCode codeSystem="local" code="H" /> < referenceRange><observationRange> <text>0.6-2.5</ text> </observationRange> </referenceRange> </observation> </component> </organizer> </ entry> <entry> <organizer moodCode="EVN" classCode=& quot;BATTERY"> <templateId root=" 2.16.840.1.862288.10.20.22.4.1" /> <id nullFlavor="NA&quot ; /> <code codeSystem="local" code="BMP15" displayName="Basic Metabolic Panel" /> <statusCode code=& quot;completed" /> <component> <observation moodCode="EVN" classCode="OBS"> <templateId root="2.16.840.1.104990.10.20.22.4.2" /> <id nullFlavor ="NA" /> <code codeSystem="local" code=" NA" displayName="Sodium" /> <statusCode code=&quot ;completed" /> <effectiveTime value="909879553638&quot ; /> <value unit="MMOLL" xsi:type="PQ" value= "143" /> <referenceRange> < observationRange> <text>134-145</text> & lt;/observationRange> </referenceRange> </observation> </component> <component> <observation moodCode= "EVN" classCode="OBS"> <templateId root=&quot ;2.16.840.1.586097.10.20.22.4.2" /> <id nullFlavor="NA& quot; /> <code codeSystem="local" code="K" displayName="Potassium" /> <statusCode code=" completed" /> <effectiveTime value="639177339391" /> <value unit="MMOLL" xsi:type="PQ" value=& quot;4.7" /> <referenceRange> < observationRange> <text>3.6-5.0</text> </ observationRange> </referenceRange> </observation&gt ; </component> <component> <observation moodCode ="EVN" classCode="OBS"> <templateId root=& quot;2.16.840.1.549032.10.20.22.4.2" /> <id nullFlavor=&quot ;NA" /> <code codeSystem="local" code="CL& quot; displayName="Chloride" /> <statusCode code=" completed" /> <effectiveTime value="692968404138" /> <value unit="MMOLL" xsi:type="PQ" value=& quot;99" /> <referenceRange> <observationRange& gt; <text>98-107</text> </ observationRange> </referenceRange> </observation&gt ; </component> <component> <observation moodCode ="EVN"classCode="OBS"> <templateId root=&quot ;2.16.840.1.835719.10.20.22.4.2" /> <id nullFlavor="NA& quot; /> <code codeSystem="local" code="CO2" displayName="CO2" /> <statusCode code="completed& quot; /> <effectiveTime value="693078114584" /> <value unit="MMOLL" xsi:type="PQ" value="29& quot; /> <referenceRange> <observationRange> <text>22-30</text> </observationRange> </referenceRange> </observation> </ component> <component> <observation moodCode="EVN& quot; classCode="OBS"> <templateId root=" 2.16.840.1.867699.10.20.22.4.2" /> <id nullFlavor="NA& quot; /> <code codeSystem="local" code="GLU" displayName="Glucose" /> <statusCode code=" completed" /> <effectiveTime value="095879336640" /> <value unit="MG/DL" xsi:type="PQ" value=& quot;95" /> <referenceRange> < observationRange> <text>75-110</text> &lt ;/observationRange> </referenceRange> </observation& gt; </component> <component> <observation moodCode=& quot;EVN" classCode="OBS"> <templateId root=" 2.16.840.1.486018.10.20.22.4.2" /> <id nullFlavor="NA& quot; /> <code codeSystem="local" code="BUN" displayName="BUN" /> <statusCode code="completed& quot; /> <effectiveTime value="978009029348" /> <value unit="MG/DL" xsi:type="PQ" value="16& quot; /> <referenceRange> <observationRange> <text>9-20</text> </observationRange&gt ; </referenceRange> </observation> </ component> <component> <observation moodCode="EVN& quot; classCode="OBS"> <templateId root=" 2.16.840.1.679516.10.20.22.4.2" /> <id nullFlavor="NA& quot; /> <code codeSystem="local" code="CREAT&quot ; displayName="Creatinine" /> <statusCodecode=" completed" /> <effectiveTime value="191399569930" /> <value unit="MG/DL" xsi:type="PQ" value=" .80" /> <referenceRange> <observationRange& gt; <text>0.8-1.7</text> </ observationRange> </referenceRange> </observation&gt ; </component> <component> <observation moodCode=& quot;EVN" classCode="OBS"> <templateId root=" 2.16.840.1.469854.10.20.22.4.2" /> <id nullFlavor="NA& quot; /> <code codeSystem="local" code="CA" displayName="Calcium" /> <statusCode code=" completed" /> <effectiveTime value="121080305517" /> <value unit="MG/DL" xsi:type="PQ" value=& quot;9.6" /> <referenceRange> <observationRange& gt; <text>8.4-10.2</text> </ observationRange> </referenceRange> </observation&gt ; </component> <component> <observation moodCode=& quot;EVN" classCode="OBS"> <templateId root=" 2.16.840.1.674694.10.20.22.4.2" /> <id nullFlavor="NA& quot; /> <code codeSystem="local" code="EGFR&quot ; displayName="EGFR" /> <statusCode code=" completed" /> <effectiveTime value="655168320281" /> <value unit="MLMIN" xsi:type="PQ" value=& quot;84" /> <referenceRange> < observationRange> <text /> </ observationRange> </referenceRange> </observation&gt ; </component> </organizer> </entry> <entry> <organizer moodCode="EVN" classCode="BATTERY"> <templateId root="2.16.840.1.717859.10.20.22.4.1" /> < id nullFlavor="NA" /> <code codeSystem="local" code ="CBC6" displayName="CBC" /> <statusCode code=" completed" /> <component> <observation moodCode=& quot;EVN" classCode="OBS"> <templateId root=" 2.16.840.1.542125.10.20.22.4.2" /> <id nullFlavor="NA& quot; /> <code codeSystem="local" code="EOS#&quot ; displayName="Eos #" /> <statusCode code=" completed" /> <effectiveTime value="406656554252" /> <value unit="x10^3" xsi:type="PQ" value=&quot ;0.09" /> <referenceRange> <observationRange> <text>0-0.5</text> </observationRange> </referenceRange> </observation> </component& gt; <component> <observation moodCode="EVN" classCode="OBS"> <templateId root=" 2.16.840.1.405436.10.20.22.4.2" /> <id nullFlavor="NA& quot; /> <code codeSystem="local" code="EOS&# 37;" displayName="Eos %" /> <statusCode code="completed" /> <effectiveTime value=" 121635710851" /> <value unit="%" xsi:type= "PQ" value="1.9" /> <referenceRange> <observationRange> <text>0-4</text> & lt;/observationRange> </referenceRange> </ observation> </component> <component> < observation moodCode="EVN" classCode="OBS"> < templateId root="2.16.840.1.393079.10.20.22.4.2" /> <id nullFlavor="NA" /> <code codeSystem="local" code="HCT" displayName="HCT" /> <statusCode code="completed" /> <effectiveTime value="763754869477 " /> <value unit="%" xsi:type="PQ& quot; value="38.5" /> <referenceRange> < observationRange> <text>37.0-47.0</text> </observationRange> </referenceRange> </ observation> </component> <component> < observation moodCode="EVN" classCode="OBS"> < templateId root="2.16.840.1.400040.10.20.22.4.2" /> < id nullFlavor="NA" /> <code codeSystem="local&quot ; code="HGB" displayName="HGB" /> < statusCode code="completed" /> <effectiveTime value=& quot;656295387461" /> <value unit="G/DL" xsi:type= "PQ" value="12.4" /> <referenceRange> <observationRange> <text>12.0-16.0</text> </observationRange> </referenceRange> & lt;/observation> </component> <component> < observation moodCode="EVN" classCode="OBS"> < templateId root="2.16.840.1.761650.10.20.22.4.2" /> < id nullFlavor="NA" /> <code codeSystem="local" code=& quot;LYMPH#" displayName="Lymph #" /> <statusCode code="completed" /> <effectiveTime value=" 110965400305" /> <value unit="x10^3" xsi:type=& quot;PQ" value="1.37" /> <referenceRange> <observationRange> <text>1.0-4.0</text> </observationRange> </referenceRange> </ observation> </component> <component> < observation moodCode="EVN" classCode="OBS"> < templateId root="2.16.840.1.426167.10.20.22.4.2" /> < id nullFlavor="NA" /> <code codeSystem="local&quot ; code="LYMPH%" displayName="Lymph %" /> <statusCode code="completed" /> < effectiveTime value="812153549515" /> <value unit=&quot ;%" xsi:type="PQ" value="28.8" /> & lt;referenceRange> <observationRange> <text& gt;20-50</text> </observationRange> </ referenceRange> </observation> </component> < component> <observation moodCode="EVN" classCode=" OBS"> <templateId root="2.16.840.1.214531.10.20.22.4.2& quot; /> <id nullFlavor="NA" /> <code codeSystem="local" code="MCH" displayName="MCH" /& gt; <statusCode code="completed" /> < effectiveTime value="156349806776" /> <value unit="PG&quot ; xsi:type="PQ" value="31.6" /> < interpretationCode codeSystem="local" code="H" /> <referenceRange> <observationRange> < text>27.0-31.0</text> </observationRange> &lt ;/referenceRange> </observation> </component> & lt;component> <observation moodCode="EVN" classCode=&quot ;OBS"> <templateId root="2.16.840.1.441641.10.20.22.4.2 " /> <id nullFlavor="NA" /> <code codeSystem="local" code="MCHC" displayName="MCHC" /> <statusCode code="completed" /> < effectiveTime value="543018740048" /> <value unit=&quot ;G/DL" xsi:type="PQ" value="32.2" /> < referenceRange> <observationRange> <text> 32.0-36.0</text> </observationRange> </ referenceRange> </observation> </component> < component> <observation moodCode="EVN" classCode=" OBS"> <templateId root="2.16.840.1.671005.10.20.22.4.2& quot; /> <id nullFlavor="NA" /> <code codeSystem="local" code="MCV" displayName="MCV"/& gt; <statusCode code="completed" /> < effectiveTime value="187980142119" /> <value unit=&quot ;FL" xsi:type="PQ" value="98.2" /> < referenceRange> <observationRange> <text> 81-99</text> </observationRange> </ referenceRange> </observation> </component> < component> <observation moodCode="EVN" classCode=" OBS"> <templateId root="2.16.840.1.593216.10.20.22.4.2& quot; /> <id nullFlavor="NA" /> <code codeSystem="local" code="MONO#" displayName="[place] #& quot; /> <statusCode code="completed" /> & lt;effectiveTime value="904093393779" /> <value unit=& quot;x10^3" xsi:type="PQ" value="0.76" /> < referenceRange> <observationRange> <text> 0.0-0.8</text> </observationRange> </ referenceRange> </observation> </component> < component> <observation moodCode="EVN" classCode=" OBS"> <templateId root="2.16.840.1.625810.10.20.22.4.2& quot; /> <id nullFlavor="NA" /> <code codeSystem="local" code="MONO%" displayName=" [place] %" /> <statusCode code="completed" /& gt; <effectiveTime value="849213893319" /> <value unit="%" xsi:type="PQ" value="16.0" />& lt;interpretationCode codeSystem="local" code="H" /> <referenceRange> <observationRange> & lt;text>1.0-9.0</text></observationRange> </ referenceRange> </observation> </component> < component> <observation moodCode="EVN" classCode=" OBS"> <templateId root="2.16.840.1.722725.10.20.22.4.2& quot; /> <id nullFlavor="NA" /> <code codeSystem="local" code="MPV" displayName="MPV" /& gt; <statusCode code="completed" /> <effectiveTime value="257927771392" /> <value unit="FL" xsi: type="PQ" value="11.0" /> < interpretationCode codeSystem="local" code="H" /> <referenceRange> <observationRange> < text>6.0-10.0</text> </observationRange> < /referenceRange> </observation> </component> &lt ;component> <observation moodCode="EVN" classCode=" OBS"> <templateId root="2.16.840.1.454501.10.20.22.4.2& quot; /> <id nullFlavor="NA" /><code codeSystem=& quot;local" code="PLT" displayName="Platelet" /> <statusCode code="completed" /> <effectiveTime value="448400156833" /> <value unit="x10^3" xsi:type="PQ" value="192" /> <referenceRange& gt; <observationRange> <text>150-400</ text> </observationRange> </referenceRange> </observation> </component> <component> <observation moodCode="EVN" classCode="OBS"> <templateId root="2.16.840.1.756776.10.20.22.4.2" /> <id nullFlavor="NA" /> <code codeSystem=" local" code="RBC" displayName="RBC" /> < statusCode code="completed" /> <effectiveTime value=& quot;350687356477" /> <value unit="x10^3" xsi:type ="PQ" value="3.92" /> <interpretationCode codeSystem="local" code="L" /> < referenceRange> <observationRange> <text> 4.20-5.40</text> </observationRange> </ referenceRange> </observation> </component> < component> <observation moodCode="EVN" classCode=" OBS"> <templateId root="2.16.840.1.837192.10.20.22.4.2& quot; /> <id nullFlavor="NA" /> <code codeSystem="local" code="RDW" displayName="RDW" /& gt; <statusCode code="completed" /> < effectiveTime value="889221146961" /> <value unit=&quot ;%" xsi:type="PQ" value="14.6" /> & lt;referenceRange> <observationRange> <text& gt;12-15</text> </observationRange> </ referenceRange> </observation> </component> < component> <observation moodCode="EVN" classCode=" OBS"> <templateId root="2.16.840.1.035682.10.20.22.4.2& quot; /> <id nullFlavor="NA" /> <code codeSystem="local" code="WBC" displayName="WBC" /& gt; <statusCode code="completed" /> < effectiveTime value="476640982159" /> <value unit=&quot ;x10^3" xsi:type="PQ" value="4.76" /> < interpretationCode codeSystem="local" code="L" /> <referenceRange> <observationRange> < text>4.8-10.8</text> </observationRange> < /referenceRange> </observation> </component> &lt ;component> <observation moodCode="EVN" classCode=" OBS"> <templateId root="2.16.840.1.858838.10.20.22.4.2& quot; /> <id nullFlavor="NA" /> <code codeSystem="local" code="BASO#" displayName="Baso #& quot; /> <statusCode code="completed" /> & lt;effectiveTime value="607349719969" /> <value unit=& quot;x10^3" xsi:type="PQ" value="0.02" /> & lt;referenceRange> <observationRange> <text& gt;0-0.2</text> </observationRange> </referenceRange > </observation> </component> <component> <observation moodCode="EVN" classCode="OBS"> <templateId root="2.16.840.1.510610.10.20.22.4.2" /> & lt;id nullFlavor="NA" /> <code codeSystem="local& quot; code="BASO%" displayName="Baso %" /&gt ; <statusCode code="completed" /> < effectiveTime value="251876749112" /> <valueunit=" %" xsi:type="PQ" value="0.4" /> &lt ;referenceRange> <observationRange> <text&gt ;0-2</text> </observationRange> </ referenceRange> </observation> </component> < component> <observation moodCode="EVN" classCode=" OBS"> <templateId root="2.16.840.1.193140.10.20.22.4.2& quot; /> <id nullFlavor="NA" /> <code codeSystem="local" code="SEG%" displayName=" Neut %" /> <statusCode code="completed" /& gt; <effectiveTime value="943951604717" /> &lt ;value unit="%" xsi:type="PQ" value="52.9&quot ; /> <referenceRange> <observationRange> <text>50-70</text> </observationRange> </referenceRange> </observation> </component& gt; <component> <observation moodCode="EVN" classCode="OBS"> <templateId root=" 2.16.840.1.274734.10.20.22.4.2" /> <id nullFlavor="NA& quot; /> <code codeSystem="local" code="SEG#&quot ; displayName="Neut #" /> <statusCode code=" completed" /> <effectiveTime value="216991024687" /> <value unit="x10^3" xsi:type="PQ" value=& quot;2.52" /> <interpretationCode codeSystem="local& quot; code="L" /> <referenceRange> < observationRange> <text>3.0-7.0</text> < /observationRange> </referenceRange> </observation& gt; </component> </organizer> </entry> <entry&gt ; <organizer moodCode="EVN" classCode="BATTERY"> <templateId root="2.16.840.1.644820.10.20.22.4.1" /> & lt;id nullFlavor="NA" /> <code codeSystem="local&quot ; code="CBC6" displayName="CBC" /> <statusCode code="completed" /> <component> <observation moodCode="EVN" classCode="OBS"> <templateId root="2.16.840.1.987678.10..22.4.2" /> <id nullFlavor ="NA" /> <code codeSystem="local" code=" EOS#" displayName="Eos #" /> <statusCode code=& quot;completed" /> <effectiveTime value="522087173091& quot; /> <value unit="x10^3" xsi:type="PQ" value="0.08" /> <referenceRange> < observationRange> <text>0-0.5</text> < /observationRange> </referenceRange> </observation& gt; </component> <component> <observation moodCode="EVN" classCode="OBS"> <templateId root="2.16.840.1.238795.10..22.4.2" /> <id nullFlavor ="NA" /> <code codeSystem="local" code=" EOS%" displayName="Eos %" /> < statusCode code="completed" /> <effectiveTime value=& quot;894460625847" /> <value unit="%" xsi: type="PQ" value="2.0" /> <referenceRange> <observationRange> <text>0-4</text> </observationRange> </referenceRange> </ observation> </component> <component> < observation moodCode="EVN" classCode="OBS"> < templateId root="2.16.840.1.141967.10.20.22.4.2" /> < id nullFlavor="NA" /> <code codeSystem="local&quot ; code="HCT" displayName="HCT" /> < statusCode code="completed" /> <effectiveTime value=& quot;555213845362" /> <value unit="%" xsi: type="PQ" value="38.7" /> <referenceRange&gt ; <observationRange> <text>37.0-47.0</ text> </observationRange> </referenceRange> </observation> </component> <component> <observation moodCode="EVN" classCode="OBS"> <templateId root="2.16.840.1.572330.10.20.22.4.2" /> <id nullFlavor="NA" /> <code codeSystem=" local" code="HGB" displayName="HGB" /> < statusCode code="completed" /> <effectiveTime value=& quot;697283953375" /> <value unit="G/DL" xsi:type= "PQ" value="12.8" /> <referenceRange> <observationRange> <text>12.0-16.0</text&gt ; </observationRange> </referenceRange> </ observation> </component> <component> < observation moodCode="EVN" classCode="OBS"> < templateId root="2.16.840.1.314563.10.20.22.4.2" /> < id nullFlavor="NA" /> <code codeSystem="local&quot ; code="LYMPH#" displayName="Lymph #" /> < statusCode code="completed" /> <effectiveTime value=& quot;243667511637" /> <value unit="x10^3" xsi:type ="PQ" value="1.20" /> <referenceRange> <observationRange> <text>1.0-4.0</text> </observationRange> </referenceRange> </ observation> </component> <component> < observation moodCode="EVN" classCode="OBS"> < templateId root="2.16.840.1.281925.10.20.22.4.2" /> < id nullFlavor="NA" /> <code codeSystem="local&quot ; code="LYMPH%" displayName="Lymph %" /> <statusCode code="completed" /> < effectiveTime value="225984148653" /> <value unit=&quot ;%" xsi:type="PQ" value="30.0" /> & lt;referenceRange> <observationRange> <text>20-50 </text> </observationRange> </referenceRange& gt; </observation> </component> <component> <observation moodCode="EVN" classCode="OBS"> <templateId root="2.16.840.1.846777.10.20.22.4.2" /> <id nullFlavor="NA" /> <codecodeSystem=" local" code="MCH" displayName="MCH" /> < statusCode code="completed" /> <effectiveTime value=& quot;250083409400" /> <value unit="PG" xsi:type=& quot;PQ" value="33.2" /> <interpretationCode codeSystem=& quot;local" code="H" /> <referenceRange> <observationRange> <text>27.0-31.0</text> </observationRange> </referenceRange> </ observation> </component> <component> < observation moodCode="EVN" classCode="OBS"> < templateId root="2.16.840.1.758573.10.20.22.4.2" /> <id nullFlavor="NA" /> <code codeSystem="local" code="MCHC" displayName="MCHC" /> < statusCode code="completed" /> <effectiveTime value=&quot ;525326158493" /> <value unit="G/DL" xsi:type=& quot;PQ" value="33.1" /> <referenceRange> <observationRange> <text>32.0-36.0</text> </observationRange> </referenceRange> & lt;/observation> </component> <component> < observation moodCode="EVN" classCode="OBS">< templateId root="2.16.840.1.356713.10.20.22.4.2" /> < id nullFlavor="NA" /> <code codeSystem="local&quot ; code="MCV" displayName="MCV" /> < statusCode code="completed" /> <effectiveTimevalue=& quot;918434610395" /> <value unit="FL" xsi:type=& quot;PQ" value="100.5" /> <interpretationCode codeSystem="local" code="H" /> < referenceRange> <observationRange> <text> 81-99</text> </observationRange> </ referenceRange> </observation> </component> < component> <observation moodCode="EVN" classCode=" OBS"> <templateId root="2.16.840.1.987717.10..22.4.2& quot; /> <id nullFlavor="NA" /> <code codeSystem="local" code="MONO#" displayName="[place] #& quot; /> <statusCodecode="completed" /> &lt ;effectiveTime value="264317179149" /> <value unit="x10 ^3" xsi:type="PQ" value="0.48" /> < referenceRange> <observationRange> <text> 0.0-0.8</text> </observationRange> </ referenceRange> </observation> </component> < component> <observation moodCode="EVN" classCode=" OBS"> <templateId root="2.16.840.1.393547.10..22.4.2& quot; /> <id nullFlavor="NA" /> <code codeSystem="local" code="MONO%" displayName=" [place] %" /> <statusCode code="completed" /& gt; <effectiveTime value="434891081407" /> &lt ;value unit="%" xsi:type="PQ" value="12.0&quot ; /> <interpretationCode codeSystem="local" code=" H" /> <referenceRange> <observationRange&gt ; <text>1.0-9.0</text> </observationRange > </referenceRange> </observation> </ component> <component> <observation moodCode="EVN& quot; classCode="OBS"> <templateId root=" 2.16.840.1.068779.10.20.22.4.2" /> <idnullFlavor="NA& quot; /> <code codeSystem="local" code="MPV" displayName="MPV" /> <statusCode code="completed& quot; /> <effectiveTime value="557777854105" /> <value unit="FL" xsi:type="PQ" value="10.9& quot; /> <interpretationCode codeSystem="local" code=& quot;H" /> <referenceRange> < observationRange> <text>6.0-10.0</text> </ observationRange> </referenceRange> </observation&gt ; </component> <component> <observation moodCode ="EVN" classCode="OBS"> <templateId root=& quot;2.16.840.1.914624.10.20.22.4.2" /> <id nullFlavor=&quot ;NA" /> <code codeSystem="local" code="PLT& quot; displayName="Platelet" /> <statusCode code=" completed" /> <effectiveTime value="431014928311" /> <value unit="x10^3" xsi:type="PQ" value=& quot;181" /> <referenceRange> < observationRange> <text>150-400</text> & lt;/observationRange> </referenceRange> </ observation> </component> <component> < observation moodCode="EVN" classCode="OBS"> < templateId root="2.16.840.1.291728.10.20.22.4.2" /> < id nullFlavor="NA" /> <code codeSystem="local&quot ; code="RBC" displayName="RBC" /> < statusCode code="completed" /> <effectiveTime value=& quot;593946156780" /> <value unit="x10^3" xsi:type ="PQ" value="3.85" /> <interpretationCode codeSystem="local" code="L" /> < referenceRange> <observationRange> <text>4.20 -5.40</text> </observationRange> </ referenceRange> </observation> </component> < component> <observation moodCode="EVN" classCode=" OBS"> <templateId root="2.16.840.1.383533.10.20.22.4.2& quot; /> <id nullFlavor="NA" /> <code codeSystem="local" code="RDW" displayName="RDW" /& gt; <statusCode code="completed" /> < effectiveTime value="509028753284" /> <value unit=&quot ;%" xsi:type="PQ" value="13.6" /> & lt;referenceRange> <observationRange> <text& gt;12-15</text> </observationRange> </referenceRange& gt; </observation> </component> <component> <observation moodCode="EVN" classCode="OBS"> <templateIdroot="2.16.840.1.986748.10.20.22.4.2" /> <id nullFlavor="NA" /> <code codeSystem=" local" code="WBC" displayName="WBC" /> < statusCode code="completed" /> <effectiveTime value=& quot;633147353506" /> <value unit="x10^3" xsi:type ="PQ" value="4.00" /> <interpretationCode codeSystem="local" code="L" /> < referenceRange> <observationRange> <text> 4.8-10.8</text> </observationRange> </ referenceRange> </observation> </component> < component> <observation moodCode="EVN" classCode=" OBS"> <templateId root="2.16.840.1.145028.10.20.22.4.2& quot; /> <id nullFlavor="NA" /> <code codeSystem="local" code="BASO#" displayName="Baso #& quot; /> <statusCode code="completed" /> & lt;effectiveTime value="063310839223" /> <value unit=& quot;x10^3" xsi:type="PQ" value="0.01" /> & lt;referenceRange> <observationRange> <text& gt;0-0.2</text> </observationRange> </referenceRange&gt ; </observation> </component> <component> <observation moodCode="EVN" classCode="OBS"> <templateId root="[id number]" /> <id nullFlavor="NA" /> <code codeSystem=" local" code="BASO%" displayName="Baso %&quot ; /> <statusCode code="completed" /> < effectiveTime value="[id number]" /> <value unit=&quot ;%" xsi:type="PQ" value="0.3" /> & lt;referenceRange> <observationRange> <text& gt;0-2</text> </observationRange> </ referenceRange> </observation> </component> < component> <observation moodCode="EVN" classCode=" OBS"> <templateId root="[id number]& quot; /> <id nullFlavor="NA" /> <code codeSystem="local" code="SEG%" displayName=" Neut %" /> <statusCode code="completed" /& gt; <effectiveTime value="[id number]" /> &lt ;value unit="%" xsi:type="PQ" value="55.7&quot ; /> <referenceRange> <observationRange> <text>50-70</text> </observationRange> </referenceRange> </observation> </component& gt; <component> <observation moodCode="EVN" classCode="OBS"> <templateId root=" 2.16.840.1.606406.10..22.4.2" /> <id nullFlavor="NA& quot; /> <code codeSystem="local" code="SEG#&quot ; displayName="Neut #" /> <statusCode code=" completed" /> <effectiveTime value="733002061312" /> <value unit="x10^3" xsi:type="PQ" value=& quot;2.23" /> <interpretationCode codeSystem="local& quot; code="L" /> <referenceRange> < observationRange> <text>3.0-7.0</text> </ observationRange> </referenceRange> </observation&gt ; </component> </organizer> </entry> <entry> <organizer moodCode="EVN" classCode="BATTERY"> <templateId root="2.16.840.1.137634.10.20.22.4.1" /> < id nullFlavor="NA" /> <code codeSystem="local" code="LIPID1" displayName="Lipid Profile" /> < statusCode code="completed" /> <component> < observation moodCode="EVN" classCode="OBS"> < templateId root="2.16.840.1.929705.10.20.22.4.2" /> < id nullFlavor="NA" /> <code codeSystem="local" code= "HDL" displayName="HDL" /> <statusCode code=" completed" /> <effectiveTime value="313676990112" /> <value unit="MG/DL" xsi:type="PQ" value=& quot;48" /> <referenceRange> < observationRange> <text>40-60</text> < /observationRange> </referenceRange> </observation& gt; </component> <component> <observation moodCode="EVN" classCode="OBS"> <templateId root="2.16.840.1.834596.10.20.22.4.2" /> <id nullFlavor ="NA" /> <code codeSystem="local" code=" LDLCAL" displayName="LDL Calculated" /> < statusCode code="completed" /> <effectiveTime value=& quot;474521127984" /> <value unit="MG/DL" xsi:type=& quot;PQ" value="98" /> <referenceRange> <observationRange> <text>30-100</text> </observationRange> </referenceRange> </ observation> </component> <component> < observation moodCode="EVN" classCode="OBS"> < templateId root="2.16.840.1.570749.10..22.4.2" /> <id nullFlavor="NA" /> <code codeSystem="local" code="TRIG" displayName="Triglyceride" /> < statusCode code="completed" /> <effectiveTime value=& quot;547600526674" /> <value unit="MG/DL" xsi:type ="PQ" value="145" /> <referenceRange> <observationRange> <text>< 200</text& gt;</observationRange> </referenceRange> </ observation> </component> <component> < observation moodCode="EVN" classCode="OBS"> < templateId root="2.16.840.1.329896.10..22.4.2" /> < id nullFlavor="NA" /> <code codeSystem="local&quot ; code="VLDL" displayName="VLDL" /> < statusCode code="completed" /> <effectiveTime value=" 590749574057" /> <value unit="" xsi:type="PQ& quot; value="29" /> <referenceRange> < observationRange> <text /> </ observationRange> </referenceRange> </observation&gt ; </component> <component> <observation moodCode ="EVN" classCode="OBS"> <templateId root=& quot;2.16.840.1.478419.10.20.22.4.2" /> <id nullFlavor=&quot ;NA" /> <code codeSystem="local" code="CH& quot; displayName="Chol/HDL" /> <statusCode code=" completed" /> <effectiveTime value="371223595697" /> <value unit="RATIO" xsi:type="PQ" value=& quot;3.64" /> <referenceRange> < observationRange> <text>0.00-5.00</text> </observationRange> </referenceRange> </ observation> </component> <component> < observation moodCode="EVN" classCode="OBS"> < templateId root="2.16.840.1.329935.10.20.22.4.2" /> < id nullFlavor="NA" /> <code codeSystem="local&quot ; code="CHOL" displayName="Cholesterol" /> < statusCode code="completed" /> <effectiveTime value=& quot;166746786047" /> <value unit="MG/DL" xsi:type=" PQ" value="175" /> <interpretationCode codeSystem= "local" code="H" /> <referenceRange> <observationRange> <text>130-170</text> </observationRange> </referenceRange> < /observation> </component> </organizer> </entry> <entry> <organizer moodCode="EVN"classCode="BATTERY& quot;> <templateId root="2.16.840.1.416695.10.20.22.4.1" /& gt; <id nullFlavor="NA" /> <code codeSystem=" local" code="CBC6" displayName="CBC" /> < statusCode code="completed" /> <component> < observation moodCode="EVN" classCode="OBS"> < templateId root="2.16.840.1.424253.10.20.22.4.2" /> < id nullFlavor="NA" /> <code codeSystem="local&quot ; code="EOS#" displayName="Eos #" /> < statusCode code="completed" /> <effectiveTime value=& quot;367752258028" /> <value unit="x10^3" xsi:type ="PQ" value="0.18" /> <referenceRange> <observationRange> <text>0-0.5</text> </observationRange></referenceRange> </ observation> </component> <component> < observation moodCode="EVN" classCode="OBS"> < templateId root="2.16.840.1.513789.10.20.22.4.2" /> < id nullFlavor="NA" /> <code codeSystem="local&quot ; code="EOS%" displayName="Eos %" /> <statusCode code="completed" /> < effectiveTime value="859130456161" /> <value unit=&quot ;%" xsi:type="PQ" value="3.8" /> & lt;referenceRange> <observationRange> <text& gt;0-4</text> </observationRange> </ referenceRange> </observation> </component> < component> <observation moodCode="EVN" classCode=" OBS"> <templateId root="2.16.840.1.635861.10.20.22.4.2& quot; /> <id nullFlavor="NA" /><code codeSystem=& quot;local" code="HCT" displayName="HCT" /> < statusCode code="completed" /> <effectiveTime value=& quot;360440808956" /> <value unit="%" xsi: type="PQ" value="37.9" /> <referenceRange&gt ; <observationRange> <text>37.0-47.0</ text> </observationRange> </referenceRange> & lt;/observation> </component> <component> < observation moodCode="EVN" classCode="OBS"> < templateId root="2.16.840.1.002261.10.20.22.4.2" /> < id nullFlavor="NA" /> <code codeSystem="local&quot ; code="HGB" displayName="HGB" /> < statusCode code="completed" /> <effectiveTime value=& quot;932384069190" /><value unit="G/DL" xsi:type="PQ& quot; value="12.3" /> <referenceRange> & lt;observationRange> <text>12.0-16.0</text> </observationRange> </referenceRange> </ observation> </component> <component> < observation moodCode="EVN" classCode="OBS"> < templateId root="2.16.840.1.213040.10.20.22.4.2" /> <id nullFlavor="NA" /> <code codeSystem="local" code="LYMPH#" displayName="Lymph #" /> < statusCode code="completed" /> <effectiveTime value=& quot;008958672643" /> <value unit="x10^3" xsi:type ="PQ" value="1.33" /> <referenceRange> <observationRange> <text>1.0-4.0</text> </observationRange> </referenceRange> </ observation> </component> <component> < observation moodCode="EVN" classCode="OBS"> < templateId root="2.16.840.1.919848.10..22.4.2" /> < id nullFlavor="NA" /> <code codeSystem="local&quot ; code="LYMPH%" displayName="Lymph %" /> <statusCode code="completed" /> < effectiveTime value="895387155035" /> <value unit=&quot ;%" xsi:type="PQ" value="27.8" /> & lt;referenceRange> <observationRange> <text> 20-50</text> </observationRange> </ referenceRange> </observation> </component> < component> <observation moodCode="EVN" classCode=" OBS"> <templateId root="2.16.840.1.826039.10.20.22.4.2& quot; /> <id nullFlavor="NA" /> <code codeSystem="local" code="MCH" displayName="MCH" /& gt; <statusCode code="completed" /> < effectiveTime value="665805972892" /> <value unit=&quot ;PG" xsi:type="PQ" value="32.2" /> < interpretationCode codeSystem="local" code="H" /> <referenceRange> <observationRange><text>27.0- 31.0</text> </observationRange> </ referenceRange> </observation> </component> < component> <observation moodCode="EVN" classCode=" OBS"> <templateId root="2.16.840.1.445903.10.20.22.4.2& quot; /> <id nullFlavor="NA" /> <code codeSystem="local" code="MCHC" displayName="MCHC" /> <statusCode code="completed" /> < effectiveTime value="107343868150" /> <value unit=&quot ;G/DL" xsi:type="PQ" value="32.5" /> < referenceRange> <observationRange> <text> 32.0-36.0</text> </observationRange> </ referenceRange> </observation> </component> < component> <observation moodCode="EVN" classCode=" OBS"> <templateId root="2.16.840.1.173416.10.20.22.4.2& quot; /> <id nullFlavor="NA" /> <code codeSystem="local" code="MCV" displayName="MCV" /& gt; <statusCode code="completed" /> < effectiveTime value="741704622090" /> <value unit=&quot ;FL" xsi:type="PQ" value="99.2" /> < interpretationCodecodeSystem="local" code="H" /> <referenceRange> <observationRange> < text>81-99</text> </observationRange> </ referenceRange> </observation> </component> < component> <observation moodCode="EVN" classCode=" OBS"> <templateId root="2.16.840.1.906521.10.20.22.4.2& quot; /> <id nullFlavor="NA" /> <code codeSystem="local" code="MONO#" displayName="[place] #& quot; /> <statusCode code="completed" /> & lt;effectiveTime value="993151261465" /> <value unit=& quot;x10^3" xsi:type="PQ" value="0.59" /> & lt;referenceRange> <observationRange> <text> 0.0-0.8</text> </observationRange> </ referenceRange> </observation> </component> < component> <observation moodCode="EVN" classCode=" OBS"> <templateId root="2.16.840.1.849489.10.20.22.4.2& quot; /> <id nullFlavor="NA" /> <code codeSystem="local" code="MONO%" displayName=" [place] %" /> <statusCode code="completed" /& gt; <effectiveTime value="529256057173" /> &lt ;value unit="%" xsi:type="PQ" value="12.3&quot ; /> <interpretationCode codeSystem="local" code=" H" /> <referenceRange> <observationRange&gt ; <text>1.0-9.0</text> </observationRange > </referenceRange> </observation> </component& gt; <component> <observation moodCode="EVN" classCode="OBS"> <templateId root=" 2.16.840.1.322836.10.20.22.4.2" /> <id nullFlavor="NA& quot; /> <code codeSystem="local" code="MPV" displayName="MPV" /> <statusCode code="completed& quot; /> <effectiveTime value="633385244438" /> < value unit="FL" xsi:type="PQ" value="10.5" /> <interpretationCode codeSystem="local" code="H" /> <referenceRange> <observationRange> <text>6.0-10.0</text> </observationRange> </referenceRange> </observation> </component& gt; <component> <observation moodCode="EVN" classCode="OBS"> <templateId root=" 2.16.840.1.414328.10.20.22.4.2" /> <id nullFlavor="NA& quot; /> <code codeSystem="local" code="PLT" displayName="Platelet" /> <statusCode code=" completed" /> <effectiveTime value="018218468212" /> <value unit="x10^3" xsi:type="PQ" value=& quot;174" /> <referenceRange> < observationRange> <text>150-400</text> & lt;/observationRange> </referenceRange> </observation&gt ; </component> <component> <observation moodCode ="EVN" classCode="OBS"> <templateId root=& quot;2.16.840.1.573840.10.20.22.4.2" /> <id nullFlavor=&quot ;NA" /> <code codeSystem="local" code="RBC& quot; displayName="RBC"/> <statusCode code=" completed" /> <effectiveTime value="246319769932" /> <value unit="x10^3" xsi:type="PQ" value=& quot;3.82" /> <interpretationCode codeSystem="local& quot; code="L" /> <referenceRange> < observationRange> <text>4.20-5.40</text> </observationRange> </referenceRange> </ observation> </component> <component> < observation moodCode="EVN" classCode="OBS"> < templateId root="2.16.840.1.053992.10..22.4.2" /> < id nullFlavor="NA" /> <code codeSystem="local&quot ; code="RDW" displayName="RDW" /> < statusCode code="completed" /> <effectiveTime value=& quot;407671832641" /> <value unit="%" xsi: type="PQ" value="13.5" /> <referenceRange&gt ; <observationRange> <text>12-15</text&gt ; </observationRange> </referenceRange> </ observation> </component> <component> < observation moodCode="EVN" classCode="OBS"> < templateId root="2.16.840.1.835567.10.20.22.4.2" /> <id nullFlavor="NA" /> <code codeSystem="local" code="WBC" displayName="WBC" /> <statusCode code="completed" /> <effectiveTime value=" 404527856540" /> <value unit="x10^3" xsi:type=& quot;PQ" value="4.78" /> <interpretationCode codeSystem="local" code="L" /> < referenceRange> <observationRange> <text> 4.8-10.8</text> </observationRange></referenceRange&gt ; </observation> </component> <component> <observation moodCode="EVN" classCode="OBS"> <templateId root="2.16.840.1.713720.10.20.22.4.2" /> <id nullFlavor="NA" /> <code codeSystem="local " code="BASO#" displayName="Baso #"/> < statusCode code="completed" /> <effectiveTime value=& quot;910578057148" /> <value unit="x10^3" xsi:type ="PQ" value="0.03" /> <referenceRange> <observationRange><text>0-0.2</text> </ observationRange> </referenceRange> </observation&gt ; </component> <component> <observation moodCode ="EVN" classCode="OBS"> <templateId root=& quot;2.16.840.1.140243.10..22.4.2" /> <id nullFlavor=&quot ;NA" /> <code codeSystem="local" code="BASO& amp;#37;" displayName="Baso %" /> < statusCode code="completed" /> <effectiveTime value=& quot;253188054152" /> <value unit="%" xsi: type="PQ" value="0.6" /> <referenceRange> <observationRange> <text>0-2</text> </observationRange> </referenceRange></ observation> </component> <component> < observation moodCode="EVN" classCode="OBS"> < templateId root="2.16.840.1.009902.10.20.22.4.2" /> < id nullFlavor="NA" /> <code codeSystem="local&quot ; code="SEG%" displayName="Neut %" /> <statusCode code="completed" /> < effectiveTime value="087507481690" /> <value unit=&quot ;%" xsi:type="PQ" value="55.5" /> & lt;referenceRange> <observationRange> <text& gt;50-70</text> </observationRange> </ referenceRange> </observation> </component> < component> <observation moodCode="EVN" classCode=" OBS"> <templateId root="2.16.840.1.411150.10.20.22.4.2& quot; /> <id nullFlavor="NA" /> <code codeSystem="local" code="SEG#" displayName="Neut #&quot ; /> <statusCode code="completed" /> < effectiveTime value="669087259145" /> <value unit=&quot ;x10^3" xsi:type="PQ" value="2.65" /> < interpretationCode codeSystem="local" code="L" /> <referenceRange> <observationRange> < text>3.0-7.0</text> </observationRange> </ referenceRange> </observation> </component> </ organizer> </entry> <entry> <organizer moodCode="EVN " classCode="BATTERY"> <templateId root=" 2.16.840.1.123150.10.20.22.4.1" /> <id nullFlavor="NA&quot ; /> <code codeSystem="local" code="88574798" displayName="CBC w/ Auto Diff" /> <statusCode code=" completed" /> <component> <observation moodCode=& quot;EVN" classCode="OBS"> <templateId root=" 2.16.840.1.907394.10.20.22.4.2" /><id nullFlavor="NA" /&gt ; <code codeSystem="local" code="941824" displayName="Differential?" /> <statusCode code=" completed" /> <effectiveTime value="989484214438" /> <value unit="""" xsi:type="PQ " value="No" /> <referenceRange> &lt ;observationRange> <text /> </ observationRange> </referenceRange> </observation&gt ; </component><component> <observation moodCode=&quot ;EVN" classCode="OBS"> <templateId root=" 2..840.1.325790...22.4.2" /> <id nullFlavor="NA& quot; /> <code codeSystem="local" code="443776& quot; displayName="WBC" /> <statusCode code=" completed" /> <effectiveTime value="433033536304" /> <value unit=""""xsi:type="PQ& quot; value="4.65" /> <interpretationCode codeSystem=& quot;local" code="LOW" /> <referenceRange> <observationRange> <text>4.80-10.80</text&gt ; </observationRange> </referenceRange> </ observation> </component> <component> < observation moodCode="EVN" classCode="OBS"> < templateIdroot="2.16.840.1.400622.10.20.22.4.2" /> <id nullFlavor="NA" /> <code codeSystem="local" code="199831" displayName="RBC" /> < statusCode code="completed" /> <effectiveTime value=& quot;999466373110" /> <value unit="x10" xsi:type=& quot;PQ" value="4.08" /> <interpretationCode codeSystem="local" code="LOW" /> < referenceRange> <observationRange> <text> 4.20-5.40</text> </observationRange> </ referenceRange> </observation> </component> < component> <observation moodCode="EVN" classCode=" OBS"> <templateId root="2.16.840.1.624484.10.20.22.4.2& quot; /> <id nullFlavor="NA" /> <code codeSystem="local" code="280418" displayName="Hgb&quot ; /> <statusCode code="completed" /> < effectiveTime value="273981379445" /> <value unit=&quot ;gm/dL" xsi:type="PQ" value="13.1" /> < referenceRange> <observationRange> <text> 12.0-16.0</text> </observationRange> </ referenceRange> </observation> </component> < component> <observation moodCode="EVN" classCode=" OBS"> <templateId root="2.16.840.1.121317.10.20.22.4.2& quot; /> <id nullFlavor="NA" /> <code codeSystem="local" code="434658" displayName="Hct&quot ; /> <statusCode code="completed" /> < effectiveTime value="931618451061" /> <value unit=&quot ;%" xsi:type="PQ" value="41.8" /> & lt;referenceRange> <observationRange> <text> 37.0-47.0</text> </observationRange> </ referenceRange> </observation> </component> < component> <observation moodCode="EVN" classCode=" OBS"> <templateId root="2.16.840.1.180601.10.20.22.4.2& quot; /> <id nullFlavor="NA" /> <code codeSystem="local" code="390560" displayName="MCV&quot ; /> <statusCode code="completed" /> < effectiveTime value="119021558361" /> <value unit=&quot ;fL" xsi:type="PQ" value="102" /> < interpretationCode codeSystem="local" code="HI" /> <referenceRange> <observationRange> <text> 81-99</text> </observationRange> </ referenceRange> </observation> </component> < component> <observation moodCode="EVN" classCode=" OBS"> <templateId root="2.16.840.1.155979.10.20.22.4.2& quot; /> <id nullFlavor="NA" /> <code codeSystem="local" code="913237" displayName="MCH&quot ; /> <statusCode code="completed" /> < effectiveTime value="778971033632" /> <value unit=&quot ;pg" xsi:type="PQ" value="32.1" /> < interpretationCode codeSystem="local" code="HI" /> <referenceRange> <observationRange> < text>27.0-31.0</text> </observationRange> </ referenceRange> </observation> </component> < component> <observation moodCode="EVN" classCode=" OBS"> <templateId root="2.16.840.1.196688.10.20.22.4.2& quot; /> <id nullFlavor="NA" /> <code codeSystem="local" code="626895" displayName="MCHC&quot ; /> <statusCode code="completed" /> < effectiveTime value="143687365570" /> <value unit=&quot ;gm/dL" xsi:type="PQ" value="31.3" /> < interpretationCode codeSystem="local" code="LOW" /> <referenceRange> <observationRange> &lt ;text>32.0-36.0</text> </observationRange> &lt ;/referenceRange> </observation> </component> & lt;component> <observation moodCode="EVN" classCode=&quot ;OBS"> <templateId root="2.16.840.1.889534.10.20.22.4.2 " /> <id nullFlavor="NA" /> <code codeSystem="local" code="249910" displayName="RDW&quot ; /> <statusCode code="completed" /> < effectiveTime value="942492063316" /> <value unit=&quot ;%" xsi:type="PQ" value="14" /> &lt ;referenceRange> <observationRange> <text>12- 15</text> </observationRange> </ referenceRange> </observation> </component> < component> <observation moodCode="EVN" classCode=" OBS"> <templateId root="2.16.840.1.534307.10.20.22.4.2& quot; /> <id nullFlavor="NA" /> <code codeSystem="local" code="834961" displayName="Platelet& quot; /> <statusCode code="completed" /> < effectiveTime value="730641395183" /> <value unit=&quot ;x10" xsi:type="PQ" value="228" /> < referenceRange> <observationRange> <text> 150-400</text> </observationRange> </ referenceRange> </observation> </component> < component> <observation moodCode="EVN" classCode=" OBS"> <templateId root="2.16.840.1.788394.10.20.22.4.2& quot; /> <id nullFlavor="NA" /> <code codeSystem="local" code="534191" displayName="MPV&quot ; /> <statusCode code="completed" /> < effectiveTime value="731115794048" /> <value unit=&quot ;fL" xsi:type="PQ" value="10.6" /> < interpretationCode codeSystem="local" code="HI" /> <referenceRange> <observationRange> <text& gt;6.0-10.0</text> </observationRange> </ referenceRange> </observation> </component> </ organizer> </entry> <entry> <organizer moodCode="EVN " classCode="BATTERY"> <templateId root=" 2.16.840.1.592747.10.20.22.4.1" /> <id nullFlavor="NA" /> <code codeSystem="local" code="0636759" displayName=".Auto Diff" /> <statusCode code=" completed" /> <component> <observation moodCode=& quot;EVN" classCode="OBS"> <templateId root=" 2.16.840.1.823623.10.20.22.4.2" /> <id nullFlavor="NA& quot; /> <code codeSystem="local" code="671657& quot; displayName="Neutro Auto" /> <statusCode code=& quot;completed" /> <effectiveTime value="186693391190&quot ; /> <value unit="%" xsi:type="PQ" value="60.7" /> <referenceRange> < observationRange> <text>50.0-70.0</text> </observationRange> </referenceRange> </ observation> </component> <component> < observation moodCode="EVN" classCode="OBS"> < templateId root="2.16.840.1.948941.10.20.22.4.2" /> < id nullFlavor="NA" /> <code codeSystem="local&quot ; code="925444" displayName="Lymph Auto" /> < statusCode code="completed" /> <effectiveTime value=& quot;400164247690" /> <value unit="%" xsi: type="PQ" value="24.9" /> <referenceRange&gt ; <observationRange> <text>20.0-50.0</ text> </observationRange> </referenceRange> </observation> </component> <component> <observation moodCode="EVN" classCode="OBS"> <templateId root="2.16.840.1.792812.10.20.22.4.2" /> & lt;id nullFlavor="NA" /> <code codeSystem="local& quot; code="923693" displayName="[place] Auto" /> & lt;statusCode code="completed" /> <effectiveTime value= "924812107421" /> <value unit="%" xsi :type="PQ" value="11.4" /> < interpretationCode codeSystem="local" code="HI" /> <referenceRange> <observationRange> <text>1.0- 9.0</text> </observationRange> </ referenceRange> </observation> </component> < component> <observation moodCode="EVN" classCode=" OBS"> <templateId root="2.16.840.1.676604.10.20.22.4.2& quot; /> <id nullFlavor="NA" /> <code codeSystem="local" code="109485" displayName="Eos Auto& quot; /> <statusCode code="completed" /> & lt;effectiveTime value="281784116943" /> <value unit=& quot;%" xsi:type="PQ" value="2.8"/> <referenceRange> <observationRange> < text>0.0-4.0</text> </observationRange> </ referenceRange> </observation> </component> < component> <observation moodCode="EVN" classCode=" OBS"> <templateId root="2.16.840.1.133431.10.20.22.4.2& quot; /> <id nullFlavor="NA" /> <code codeSystem="local" code="528587" displayName="Basophil Auto" /> <statusCode code="completed" /> <effectiveTime value="323039100409" /> <value unit= "%" xsi:type="PQ" value="0.2" /> &lt ;referenceRange> <observationRange> <text&gt ;0.0-2.0</text> </observationRange> </ referenceRange> </observation> </component> < component> <observation moodCode="EVN" classCode=" OBS"> <templateId root="2.16.840.1.123522.10.20.22.4.2& quot;/> <id nullFlavor="NA" /> <code codeSystem="local"code="33609561" displayName="Neutro Absolute" /> <statusCode code="completed" /> <effectiveTime value="117361098751" /><value unit=& quot;x10" xsi:type="PQ" value="2.8" /> < interpretationCode codeSystem="local" code="LOW" /> <referenceRange> <observationRange> &lt ;text>3.0-7.0</text> </observationRange> < /referenceRange> </observation> </component> &lt ;component> <observation moodCode="EVN" classCode=" OBS"> <templateId root="2.16.840.1.773920.10.20.22.4.2& quot; /> <id nullFlavor="NA" /> <code codeSystem="local" code="44240870"displayName="Lymph Absolute" /> <statusCode code="completed" /> <effectiveTime value="470488400576" /> < value unit="x10" xsi:type="PQ" value="1.2" /> <referenceRange> <observationRange> <text>1.0-4.0</text> </observationRange> </referenceRange> </observation> </component> <component> <observation moodCode="EVN" classCode= "OBS"> <templateId root=" 2.16.840.1.718621.10.20.22.4.2" /> <id nullFlavor="NA& quot; /> <code codeSystem="local" code="46271232& quot; displayName="[place] Absolute" /> <statusCode code=& quot;completed" /> <effectiveTime value="615242550758& quot; /> <value unit="x10" xsi:type="PQ" value="0.5" /> <referenceRange> < observationRange> <text>0.0-0.8</text> & lt;/observationRange> </referenceRange> </ observation> </component> <component> < observation moodCode="EVN" classCode="OBS"> < templateId root="2.16.840.1.480654.10.20.22.4.2" /> < id nullFlavor="NA" /> <code codeSystem="local" code="74672302" displayName="Eos Absolute" /> & lt;statusCode code="completed" /> <effectiveTime value= "536772452774" /> <value unit="x10" xsi:type= "PQ" value="0.1" /> <referenceRange> <observationRange> <text>0.0-0.5</text> </observationRange> </referenceRange> </ observation> </component> <component> < observation moodCode="EVN" classCode="OBS"> < templateId root="2.16.840.1.837202.10.20.22.4.2" /> < id nullFlavor="NA" /> <code codeSystem="local&quot ; code="32536689" displayName="Baso Absolute" /> & lt;statusCode code="completed" /> <effectiveTime value= "248479940195" /> <value unit="x10" xsi:type= "PQ" value="0.0" /> <referenceRange> <observationRange> <text>0.0-0.2</text> </observationRange> </referenceRange> < /observation> </component> </organizer> </entry> <entry> <organizer moodCode="EVN" classCode="BATTERY& quot;> <templateId root="2.16.840.1.753778.10.20.22.4.1" /& gt; <id nullFlavor="NA" /> <code codeSystem=" local" code="24215616" displayName="Hgb A1c" /> <statusCode code="completed" /> <component> <observation moodCode="EVN" classCode="OBS"> <templateId root="2.16.840.1.415335.10.20.22.4.2" /> & lt;id nullFlavor="NA" /> <code codeSystem="local& quot; code="231991" displayName="Hgb A1c" /> &lt ;statusCode code="completed" /> <effectiveTime value=& quot;913429575133" /> <value unit="%" xsi: type="PQ" value="5.9" /> <referenceRange> <observationRange> <text>4.2-6.5</text> </observationRange> </referenceRange> < /observation> </component> </organizer> </entry> <entry> <organizer moodCode="EVN" classCode="BATTERY& quot;> <templateId root="2.16.840.1.214712.10..22.4.1" /& gt; <id nullFlavor="NA" /> <code codeSystem=" local" code="91773792" displayName="Urinalysis Dipstick&quot ; /> <statusCode code="completed" /> <component& gt; <observation moodCode="EVN" classCode="OBS"&gt ; <templateId root="2.16.840.1.688954.10..22.4.2" /> <id nullFlavor="NA" /> <code codeSystem=& quot;local" code="652603" displayName="UA Color" /> <statusCode code="completed" /> < effectiveTime value="369247566288" /> <value unit="& amp;quot;"" xsi:type="PQ" value="Yellow" /&gt ; <referenceRange> <observationRange> <text /> </observationRange> </ referenceRange> </observation> </component> < component> <observation moodCode="EVN" classCode=" OBS"> <templateId root="2.16.840.1.856875.10.20.22.4.2& quot; /> <id nullFlavor="NA" /> <code codeSystem="local" code="614980" displayName="UA Appear " /> <statusCode code="completed" /> & lt;effectiveTime value="318718642748" /> <value unit=& quot;""" xsi:type="PQ" value="Clear" /> <referenceRange> <observationRange> <text>Clear</text> </observationRange> </referenceRange> </observation> </component> <component> <observation moodCode="EVN" classCode=& quot;OBS"> <templateId root=" 2.16.840.1.312729.10.20.22.4.2" /> <id nullFlavor="NA&quot ; /> <code codeSystem="local" code="284844" displayName="UA pH" /> <statusCode code="completed " /> <effectiveTime value="313466596302" /> <value unit="""" xsi:type="PQ" value="7.0" /> <referenceRange> < observationRange> <text>5.0-9.0</text> </ observationRange> </referenceRange> </observation&gt ; </component> <component> <observation moodCode ="EVN" classCode="OBS"> <templateId root=& quot;2.16.840.1.406419.10.20.22.4.2" /> <id nullFlavor=&quot ;NA" /> <code codeSystem="local" code="893141 " displayName="UA Spec Grav" /> <statusCode code=& quot;completed" /> <effectiveTime value="396321032309& quot; /> <value unit="""" xsi:type=& quot;PQ" value="1.015" /> <referenceRange> <observationRange> <text>1.005-1.030</text& gt; </observationRange> </referenceRange> &lt ;/observation> </component> <component> < observation moodCode="EVN" classCode="OBS"> < templateId root="2.16.840.1.935251.10.20.22.4.2" /> <id nullFlavor="NA" /> <code codeSystem="local" code="670583" displayName="UA Glucose" /> < statusCode code="completed" /> <effectiveTime value=& quot;723013839590" /> <value unit=""" " xsi:type="PQ" value="Negative" /> < referenceRange> <observationRange> <text> Negative</text> </observationRange> </ referenceRange> </observation> </component> < component> <observation moodCode="EVN" classCode=" OBS"> <templateId root="2.16.840.1.832113.10.20.22.4.2& quot; /> <id nullFlavor="NA" /> <code codeSystem="local" code="397085" displayName="UA Ketones" /> <statusCode code="completed" /> <effectiveTime value="432716977761" /> < value unit="""" xsi:type="PQ" value=" Negative" /> <referenceRange> < observationRange> <text>Negative</text> & lt;/observationRange> </referenceRange> </ observation> </component> <component> < observation moodCode="EVN" classCode="OBS"> < templateId root="2.16.840.1.745759.10.20.22.4.2" /> < id nullFlavor="NA" /> <code codeSystem="local&quot ; code="546675" displayName="UA Blood" /> < statusCode code="completed" /> <effectiveTime value=& quot;567484294686" /> <value unit=""" " xsi:type="PQ" value="Negative" /> < referenceRange> <observationRange> <text> Negative</text> </observationRange> </ referenceRange> </observation> </component> < component> <observation moodCode="EVN" classCode=" OBS"> <templateId root="2.16.840.1.553343.10.20.22.4.2& quot; /> <id nullFlavor="NA" /> <code codeSystem="local" code="940309" displayName="UA Protein" /> <statusCode code="completed" /> <effectiveTime value="602820010203" /> < value unit="""" xsi:type="PQ" value=" Negative" /> <referenceRange> <observationRange&gt ; <text>Negative</text> </ observationRange> </referenceRange> </observation&gt ; </component> <component> <observation moodCode ="EVN" classCode="OBS"> <templateId root=& quot;2.16.840.1.147520.10.20.22.4.2" /> <id nullFlavor=&quot ;NA" /> <code codeSystem="local" code="362724 " displayName="UA Bili" /> <statusCode code=" completed" /> <effectiveTime value="058614185798" /> <value unit="""" xsi:type="PQ " value="Negative" /> <referenceRange> < observationRange> <text>Negative</text> & lt;/observationRange> </referenceRange> </ observation> </component> <component> < observation moodCode="EVN" classCode="OBS"> < templateId root="2.16.840.1.055841.10.20.22.4.2" /> < id nullFlavor="NA" /> <code codeSystem="local&quot ; code="046832" displayName="UA Urobilinogen" /> <statusCode code="completed" /> <effectiveTime value="870277611772" /> <value unit="mg/dL" xsi:type="PQ" value="0.2" /> <referenceRange& gt; <observationRange> <text>>=0.2&lt ;/text> </observationRange> </referenceRange> </observation> </component> <component> &lt ;observation moodCode="EVN" classCode="OBS"> &lt ;templateId root="2.16.840.1.024805.10.20.22.4.2" /> <id nullFlavor="NA" /> <code codeSystem="local" code="196940" displayName="UA Nitrite" /> < statusCode code="completed" /> <effectiveTime value=& quot;908066114377" /> <value unit=""" " xsi:type="PQ" value="Negative" /> < referenceRange> <observationRange> <text> Negative</text> </observationRange> </ referenceRange> </observation> </component> < component> <observation moodCode="EVN" classCode=" OBS"> <templateId root="2.16.840.1.846149.10.20.22.4.2& quot; /> <id nullFlavor="NA" /> <code codeSystem="local" code="848880" displayName="UA Leuk Est" /> <statusCode code="completed" /> <effectiveTime value="770628449955" /> <value unit="""" xsi:type="PQ" value=" Negative" /> <referenceRange> <observationRange> <text>Negative</text> </observationRange > </referenceRange> </observation> </ component> </organizer> </entry></section> Encounters ACCT No. Visit Discharge Status Pt. Type Provider Facility Loc./Unit Complaint Date/Time [id number] 11/12/2013 11/12/2013 [facility] 09:53:00 23:59:59 t [id number] 11/09/2013 11/09/2013 [facility] 10:52:00 23:59:59 t [id number] 10/20/2013 10/20/2013 [facility] 11:28:00 23:59:59 t [id number] 09/30/2013 09/30/2013 CLS Outpatien 11:20:00 23:59:59 t [id number] 09/23/2015 09/26/2015 DIS Inpatient Karen MONROY, Jurgen Romero9TN 576 15:30:00 14:20:00 [facility] [id number] 09/22/2017 09/22/2017 DIS Outpatien [facility]_ M 3 09:41:48 15:07:[address] [facility] [id number] 09/21/2017 09/22/2017 DIS Inpatient CLAASSEN [facility] NS1 12:08:00 16:40:00 KARSTEN [facility] [id number] 09/21/2017 09/21/2017 DIS Emergency CLAASSEN [facility] ER 06:38:00 11:15:00 KARSTEN [facility] [id number] 09/18/2017 09/18/2017 DIS Outpatien ULLOM [facility] LAB 14:43:00 14:43:00 nitish Benedict MD, [facility] R [id number] 04/03/2017 04/03/2017 DIS Outpatien ULLOM [facility] PINEV 13:21:00 13:21:00 nitish Benedict MD, [facility] R [id number] 02/06/2017 02/06/2017 DIS Outpatien ULLOM [facility] PINEV 11:38:00 11:38:00 nitish Benedict MD, [facility] R [id number] 10/03/2016 10/03/2016 DIS Outpatien ULLOM [facility] PINEV 14:44:00 14:44:00 nitish Benedict MD, [facility] R [id number] 03/30/2016 03/30/2016 DIS Outpatien ULLOM [facility] PINEV 10:42:00 10:42:00 t YOVANNY Benedict MD, [facility] R [id number] 02/15/2016 02/15/2016 DIS Outpatien ULLOM [facility] PINEV 15:34:00 15:34:00 nitish Benedict MD, [facility] R [id number] 11/18/2015 11/18/2015 DIS Outpatien ULLOM [facility] PINEV 16:06:00 16:06:00 nitish Benedict MD, [facility] R [id number] 11/16/2015 11/16/2015 DIS Outpatien ULLOM [facility] PINEV 16:26:00 16:26:00 nitish Benedict MD, [facility] R [id number] 10/21/2015 10/21/2015 DIS Outpatien ULLOM [facility] PINEV 19:06:00 19:06:00 nitish Benedict MD, [facility] R
[2017-09-26] MEDS ORDERED: HALOPERIDOL 5 MG/ML INJECTION IM PRN (00:06)
[2017-09-26] MEDS ORDERED: HYDROCODONE/APAP 5mg/325mg TABLET PO PRN ×2 (00:06→06:44)
[2017-09-26] MEDS ORDERED: HALOPERIDOL 0.5 MG TABLET PO PRN (00:06)
[2017-09-26 00:53] VITALS: BMI 28.8
[2017-09-26] MEDS: HALOPERIDOL 0.5 MG TABLET PO PRN (04:25)
--- NOTE | 2017-09-26 08:24 | History & Physical Report ---
History of Present Illness Date: 09/26/17 Chief complaint: Abdominal pain HPI: Ira Lucio is an 82 y/o resident of [place] who was admitted to [facility] on 09/25/17 for further eval of obsessive behaviors, which have escalated over the last 2 weeks. She has been trying to take items off the wall ; she has been tangential in conversation and making bizarre statements. She has demonstrated odd behavior with food as well - drinking 6-8 shakes in one sitting or taking food into her room and trying to flush it. She's been aggressive towards staff. According to accompanying records, she fell on 09/02/17 , and remained neurologically intact though no CT was done at that time. Increasing behaviors prompted starting citalopram 10 mg on 07/09/17, then a psych consult was done on 08/06/17 and citalopram was changed to fluvoxamine. labs 09/18/17: BUN 24, Cr 0.94, WBC 4.65, hgb 13.1, plt 228; A1c 5.9%. Bactrim completed on 09/18 for unknown reason. I was called to urgently assess Ira b/c of a "hard" abdomen and screaming in pain. When I arrived, she was walking to the bathroom, and she was in no acute distress (ie laughing) but intermittently c/o pain. She was reassessed after returning to bed. She was in no acute distress and was pleasant and cooperative. She doesn't think that her abdominal pain is acute, but she can't quite be sure. She thinks it's been going on for a long time. She states that her appetite has been "too good" and denies n/v/d/c (though chart reveals hx of constipation). She denies any blood in bowel movements. No f/c or sweating. She denies urinary c/o such as pain, frequency, or hematuria. No cough/cold, SOA, chest pain, palpitations, weakness or dizziness. She denies recent injuries. Legs are sometimes a little swollen but this usually resolves with elevating her legs. Review of Systems All systems PM: 10-point ROS was reviewed, no additional remarkable complaints except - Constitutional Constitutional: Present: as per HPI - EENMT Eyes: Absent: change in vision Nose: Present: as per HPI Mouth/Throat: Absent: changes in swallowing, painful swallowing - Cardiovascular Cardiovascular: Present: as per HPI Vascular: Present: see HPI - Respiratory Respiratory: Present: as per HPI - Gastrointestinal Gastrointestinal: Present: as per HPI - Genitourinary Genitourinary: Present: as per HPI - Musculoskeletal Musculoskeletal: Present: as per HPI - Integumentary/Breasts Integumentary: Absent: rash - Neurological Neurological: Present: as per HPI - Psychiatric Psychiatric: Present: as per HPI - Endocrine Endocrine: Present: as per HPI - Allergic/Immunologic Allergic/Immunologic: Absent: seasonal rhinorrhea Past Medical History HTN vascular dementia hyperlipidemia urinary retention hx of UTI anemia depression & anxiety vitamin b12 deficiency constipation osteoporosis breast cancer in remission Surgical History: left lumpectomy x2 Family History Updates: states that her mother and maternal grandmother both had diabetes. Denies any abdominal problems in the family ie diverticulitis or colon cancer. She denies other medical family history. Records fro PCP's office indicate family hisotry of heart disease, cancer, and DM2. - Social History Smoking status: Former smoker (quit 30 years ago) Current occupational status: retired Previous occupational history: typing secretary Social history: PCP _ Denita Mg MD Medications Home Medications Medication Instructions Recorded Confirmed Type Acetaminophen [Acetaminophen Extra 1,000 mg PO BID 09/25/17 09/25/17 History Strength] Aspirin [Aspirin EC] 81 mg PO QAM 09/25/17 09/25/17 History Calcitonin,[place],Synthetic 1 spray SAE QAM 09/25/17 09/25/17 History [Calcitonin-[place]] Calcium Carbonate/Vitamin D3 1 tab PO QAM 09/25/17 09/25/17 History [Calcium 600-Vit D3 400 Tablet] Fruit Ball 30 ml PO QAM 09/25/17 09/25/17 History Hydrocodone/APAP 5/325 [[place] 1 - 2 tab PO Q4-6HR PRN 09/25/17 09/25/17 History 5/325] Lovastatin [Mevacor] 40 mg PO HS 09/25/17 09/26/17 History Lutein 20 mg PO QAM 09/25/17 09/25/17 History Multivitamin with Minerals 1 tab PO QAM 09/25/17 09/25/17 History [Pla-W-Oibw-Minerals] Peg 3350 238 G Bottle [Miralax] 17 gm PO BID 09/25/17 09/25/17 History Raloxifene [Evista] 60 mg PO QAM 09/25/17 09/25/17 History Zeaxanthin 10 mg PO QAM 09/25/17 09/25/17 History Ergocalciferol (Vitamin D2) 1 tab PO MO@0800 09/26/17 09/26/17 History [Vitamin D2] Fluvoxamine Maleate 50 mg PO HS 09/26/17 09/26/17 History Fluvoxamine Maleate 75 mg PO DAILY 09/26/17 09/26/17 History Allergies Allergy/AdvReac Type Severity Reaction Status Date / Time alprazolam Allergy Verified 09/25/17 19:48 Sulfa (Sulfonamide Allergy Verified 09/25/17 19:48 Antibiotics) Exam Vital Signs: Temperature 97.4 F 09/25/17 23:25 Pulse Rate 79 09/25/17 23:25 Respiratory Rate 16 09/25/17 23:25 Blood Pressure 172/83 H 09/25/17 23:25 Pulse Oximetry 96 09/25/17 23:25 Height/Weight/BMI: Height 1.47 m Weight 62.709 kg Body Mass Index 28.8 - Constitutional Present: no acute distress, well nourished, well developed - Routine HEENT Exam Head: Present: normocephalic Eye: Absent: conjunctival icterus, scleral injection ENT: Present: mucous membranes moist. Absent: dentition normal (dentures in place) - Routine Neck Exam Present: supple - Routine Respiratory Exam Present: CTA bilaterally - Routine Cardiovascular Exam Present: RRR, S1, S2 - Routine Abdominal Exam Present: tenderness (tenderness with guarding diffusely), distended (mild). Absent: normoactive bowel sounds (hypoactive, especially noted to RUQ/RLQ) - Routine Extremities Exam Present: edema (trace BLE), pulses intact - Routine Skin Exam Present: intact, dry, warm - Routine Neurological Exam Present: alert, moving all extremities, hearing grossly intact (MARY'S IGLOO), normal speech. Absent: motor deficit - Routine Psychiatric Exam Present: normal thought process, cooperative Results - Labs CBC & Chem 7: 09/25/17 20:13 09/25/17 20:13 Assessment and Plan Assessment and Plan: IMPRESSION Abdominal pain Behavioral changes leukopenia HTN vascular dementia hyperlipidemia urinary retention hx of UTI anemia depression & anxiety r/o OCD & personality d/o vitamin b12 deficiency constipation osteoporosis breast cancer in remission PLAN Abd pain: KUB personally reviewed - small/lg bowel distention; no free air or air-fluid levels. Radiologist suggests possible ileus. Hx pos for constipation - resume MiraLAX BID and also will start Senna Plus BID; MOM and dulc supp PRN. Also w/ hx of urinary retention (had incontinent void this am) - check bladder residual. Labs reviewed: mild leukopenia (stable from labs on 09/18 - located in chart); mild macrocytic anemia (known hx of vit B12 def and is on IM injections at facility); A1c 5.9% done at outside facility. BMP and TSH stable. UA not suggestive of UTI but will need to have low threshold for developing UTI d/t hx of chronic UTI. BP elevated on admit but she is not on any antiHTN - monitor for now and consider adding in BP med if remains elevated. External records reviewed. Discussed with RN and with attending. Resuscitation Status: Full Code - Physician Narrative Physician: Giancarlo Mcguire MD Narrative: Date: 09/26/17 Time: 1954 Have independently interviewed and examined patient. Chart reviewed. Case discussed with [facility] nursing and my LAUNDRY OPERATOR. Care plan developed with my supervision; agree with above. Patient admitted to [facility] secondary to escalating obsessive behaviors and tangential thinking. Medically, not with acute complaints. Denies SOA or congestion. Notes rare cough-nothing bothersome or problematic. No pain with breathing. Denies chest pressure, pain, or palpitation. Had ab pain this am- symptoms resolved. Patient not remembering ab pain earlier today. Is very forgetful according to nursing staff. Lungs: clear bilaterally, no distress CV: regular AB; soft nt BS present MSE : awake alert, not restless or agitated Plan: Agree with admission to [facility] for geropsychiatric evaluation and treatment. Provide safe supportive environment. Nursing reports prn [place] has not been restarted-will hold on Narcotic pain meds for now, using Tylenol for discomfort. Increase bowel medication. Will check Vit B12 level due to history of Vit B12 deficiency and not being on replacements. Medically stable to [facility] floor activities. Hospital Course Summary Disclaimer: The visit summary below is not to be considered part of the above Progress Note. Hospital Course: 09/26/17 Abd pain: KUB personally reviewed - small/lg bowel distention; no free air or air-fluid levels. Radiologist suggests possible ileus. Hx pos for constipation - resume MiraLAX BID and also will start Senna Plus BID; MOM and dulc supp PRN. Also w/ hx of urinary retention (had incontinent void this am) - check bladder residual. Labs reviewed: mild leukopenia (stable from labs on 09/18 - located in chart); mild macrocytic anemia (known hx of vit B12 def and is on IM injections at facility); A1c 5.9% done at outside facility. BMP and TSH stable. UA not suggestive of UTI but will need to have low threshold for developing UTI d/t hx of chronic UTI. BP elevated on admit but she is not on any antiHTN - monitor for now and consider adding in BP med if remains elevated.
--- NOTE | 2017-09-26 08:56 | XRay Report ---
EXAM: XR KUB COMPARISON: None available. HISTORY: abd distention with guarding . FINDINGS: There are some air-filled loops of nondilated large and small bowel. The visceral organ outlines appear unremarkable. No abnormal calcifications are appreciated. The lung bases are clear. IMPRESSION: Air-filled loops of nondilated large and small bowel in a nonspecific nonobstructive pattern, but may represent a mild ileus. [place] [facility] [place]
[2017-09-26] MEDS ORDERED: LUTEIN 20 MG CAPSULE PO SCH (09:00)
[2017-09-26] MEDS ORDERED: ACETAMINOPHEN 500 MG TABLET PO SCH (09:00)
[2017-09-26] MEDS ORDERED: CALCITONIN NASAL SPRAY 3.7ml NS SCH (09:00)
[2017-09-26] MEDS ORDERED: RALOXIFENE 60 MG TABLET PO SCH (09:00)
[2017-09-26] MEDS ORDERED: FLUVOXAMINE MALEATE PO SCH (09:00)
[2017-09-26] MEDS ORDERED: POLYETHYL. GLYCOL 3350 BOTTLE 238 GM PO SCH (09:00)
[2017-09-26] MEDS ORDERED: ASPIRIN *EC* 81 MG TABLET PO SCH (09:00)
[2017-09-26] MEDS ORDERED: LOVASTATIN 40 MG TABLET PO SCH (09:00)
[2017-09-26] MEDS ORDERED: CALCIUM 600 + VIT D 400 TABLET PO SCH (09:00)
[2017-09-26] MEDS ORDERED: ZEAXANTHIN PO SCH (09:00)
--- NOTE | 2017-09-26 09:15 | CT Scan Report ---
EXAM: CT head/brain wo con COMPARISON: None available. HISTORY: fell struck head in last few days [place] [facility] [place]CHNIQUE: Without IV contrast, axial images were obtained through the brain and reviewed in brain, soft tissue, bone, and subdural windows. The current CT scan was performed using radiation dose-reduction techniques. FINDINGS: The CSF spaces are prominent likely related to atrophy in keeping with age. Periventricular deep white matter hypodensities are noted likely related to small vessel ischemic disease. The suprasellar cistern and quadrigeminal plate cisterns are intact. The blunt-white junctions are distinct. No sulcal effacement is identified. The basal ganglia, posterior fossa and brainstem region appear unremarkable. There is no evidence for midline shift or mass effect. The midline structures appear unremarkable. No osseous abnormalities are identified. The paranasal sinuses and mastoid air cells are clear. IMPRESSION: 1. Atrophy in keeping with age. 2. Periventricular deep white matter hypodensities are noted likely related to small vessel ischemic disease. NOTE: This study was reviewed via teleradiology by ad and a preliminary impression consistent with above findings was conveyed to the ordering clinician immediately after the exam. .
[2017-09-26] MEDS: FLUVOXAMINE 50 MG TABLET PO SCH (12:34)
[2017-09-26] MEDS: POLYETHYL GLYCOL 3350 17gm PACKET PO SCH ×2 (12:35→20:53)
[2017-09-26] MEDS: SENNA + DOCUSATE TABLET PO SCH ×2 (15:29→20:53)
[2017-09-26] MEDS: ACETAMINOPHEN 325 MG TABLET PO PRN (16:25)
[2017-09-26] MEDS: BISACODYL 10 MG SUPPOSITORY RECTALLY PRN ×2 (20:54→22:13)
[2017-09-26] MEDS ORDERED: FLUVOXAMINE 50 MG TABLET PO SCH (21:00)
--- NOTE | 2017-09-26 22:24 | 24 Hour Neuropsychiatic Eval ---
Date of Admission: 09/25/17 21:52 Chief complaint: "I really don't know why I'm here" History of Present Illness: Patient is an 82-year-old female who was admitted to [facility] on 09/25/17 from [facility] facility in [place], [place]. On interview, patient states that she feels she has been very confused and she doesn't know why she is here. She is oriented to city/building ("[facility] ") but this takes significant thought. She is not oriented to even month or year. She denies all psychiatric history but when asked about harming others, says "There's about to be a murderous event!" and jabs her plastic fork towards me. I asked her what that meant and she said it was a poor attempt at humor. She denies SI, AVH. She denies any change in sleep or appetite. I do not believe patient is reporting accurately due to STM loss. Per nursing staff last night, patient was easily agitated after admission. At NM , patient was reporteldy taking items off the atwood, "obsessing wit food," binging protein shakes, and making bizarre statements. Per SW: "Social work student contacted DPOA (Jesusita Velasquez-pt's niece) by phone to gather information on pt's PSH. Jesusita put the phone on speaker phone so other family members were able to assist in providing information. Pt was born 1935 in [place], [place]. Pt is with no children. Jesusita reports that pt 's mother in 2010 and and pt has become more isolated and had some behavior changes since then. Jesusita reports that pt has had 4 falls since Oct 2016 that has caused major behavior changes as well. Pt currently lives in [place] in [place], [place] and has been living there for about 2 years. Pt has no current use of alcohol or drugs and no past issues with substance abuse. Pt smoked in the past but quit about 30 or 40 years ago. Pt's family hopes that pt can can stop falling, address behaviors, and stabilize medications while pt is in [facility]. Pt is receiving no mental health care and has not in the past. Pt's father did have "manic depression" (Bipolar) as reported by family. Family reports that pt is not suicidal and has not been in the past. 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 Pt supports herself with social security benefits and pension. Pt has no history of physical, sexual, or emotional abuse that the family knows of. Pt voiced that they were concerned about pt's medications and believes that a "OCD medication has caused behavioral problems" for pt. Family asked that physician look at medications and see if there are any that would be causing current behavior issues that pt is experiencing. Family also identified that pt likes to isolate and she has been that way all of her life so that would likely not change. Social work student let family know that we always encourage our patients to join psychosocial activities and therapy groups to encourage socialization on the unit. Social work student acknowledged that pt can decline participation if she wanted to. Family also stated that pt has never slept very much so to expect very much sleep at night from pt. Social work student let family know that we encourage pt's to get at least 6 hours of sleep per night, but we understand some pt's are not able to sleep but we do hope for routine and structure for bed time and waking up. Family reports that pt is a DNR. Social work student notified family that [facility] does not have DNR paperwork on file. Family stated they would bring DNR paperwork for pt's chart as soon as possible." Margaret: Decreased judgment, Irritability, Need less sleep Psychosis: Disorganized behavior Dementia: Memory Impairment, Poor Executive Functioning [facility] Patient Stated Medical History Dementia Yes Hearing Loss Yes Macular Degeneration Yes Other HEENT Yes: glasses Hypertension Yes Diabetes Mellitus Type 2 Yes Hx Urinary Tract Infection Yes Anemia Yes Other Musculoskeletal Yes: osteoporosis Surgical History: left lumpectomy x2 Family History: Reportedly has a family history of bipolar disorder per HPI. - Social History Smoking status: Former smoker (quit 30 years ago) Substance use type: does not use Alcohol intake frequency: does not drink Current residence: [facility] Social history: Strengths: Able to verbally communicate well, has some supportive family members , has placement Review of Systems All systems: reviewed and no additional remarkable complaints except as stated - EENMT Eyes: Present: loss of vision (chronic, needs glasses) Ears: Present: other (hard of hearing) Nose: Present: as per HPI Mouth/Throat: Absent: changes in swallowing, painful swallowing - Cardiovascular Cardiovascular: Absent: chest pain - Respiratory Respiratory: Absent: dyspnea - Gastrointestinal Gastrointestinal: Absent: abdominal pain - Genitourinary Genitourinary: Absent: difficulty urinating - Neurological Neurological: Present: memory loss - Psychiatric Psychiatric: Present: abnormal sleep pattern (chronic per family), behavioral changes. Absent: auditory hallucinations (per patient), visual hallucinations ( per patient) Mental Status Exam Vitals: Last Vital Signs Temp 98.2 F 09/26/17 19:55 Pulse 105 H 09/26/17 19:55 Resp 18 09/26/17 19:55 BP 139/78 09/26/17 19:55 Pulse Ox 94 09/26/17 19:55 Height: 1.47 m Weight: 62.709 kg - Mental Status Exam Muscle Strength/Tone: Normal Dressing: Casual Grooming: Fair Attitude: Uncooperative, Guarded, Defensive, Argumentative Motor Activity: Fidgety Eye Contact: Good Speech: Normal Volume: Loud (patient hard of hearing) Rhythm: Appropriate Rhythm Sensory: Alert Orientation: Disoriented to time, Disoriented to situation, Oriented to person, Oriented to place Mood: Irritable Affect: Hostile, Manic (possible) Thought Organization: Confused Associations: Illogical Abstract Reasoning: Poor abstract reasoning Thought Content: Other (Upset about being here) Perception/Psychotic: Perception Normal (per patient - not observed responding to internal stimuli) Language: Naming Intact Fund of Knowledge: Poor fund of knowledge Memory: Poor-recent Suicidal Ideation: Denies Homicidal Ideation: Other (Made a statement about harming me, then said she was joking - I do not feel that she was truly going to harm me but I do feel this shows poor judgment, bizarre thikning) Insight: Impaired Judgement: Impaired Impulse Control: Poor - Laboratory Result Diagrams: 09/25/17 20:13 09/25/17 20:13 Laboratory Results - last 24 hr 09/25/17 22:25 Ur Collection Type Urine, void-cc/notcc Urine Color Yellow Urine Clarity Clear Urine pH 7.5 Ur Specific [place] 1.010 L Urine Protein Negative Urine Glucose (UA) Negative Urine Ketones Negative Urine Occult Blood Trace-intact Urine Nitrate Negative Urine Bilirubin Negative Urine Urobilinogen 0.2 Ur Leukocyte Esterase 2+ A Urine RBC None seen Urine WBC 5-10 H Urine Bacteria Trace H Ur Culture Indicated? Cult not indicated Assessment and Plan (1) Major neurocognitive disorder Problem details: R/O Bipolar disorder Current visit: Yes Status: Acute Admit to [facility] for psychiatric evaluation and stabilization. Maintain safety and elopement precautions. Will review standard labs: CBC, CMP, TSH, UA, B12 and folate levels. Review head CT. Consult hospitalist for management of medical comorbidities. Monitor mood and behavior on the unit, assessing for signs of current manic episode.
[2017-09-27] MEDS: ACETAMINOPHEN 325 MG TABLET PO PRN ×2 (03:13→16:44)
[2017-09-27] MEDS: FLUVOXAMINE 50 MG TABLET PO SCH ×4 (08:50→20:46)
[2017-09-27] MEDS: POLYETHYL GLYCOL 3350 17gm PACKET PO SCH ×2 (08:51→20:48)
[2017-09-27] MEDS: SENNA + DOCUSATE TABLET PO SCH ×2 (08:51→20:48)
--- NOTE | 2017-09-27 15:50 | Neuropsych Progress Note ---
[facility] Subjective Date: 09/27/17 - Sujective/Severity of Illness Medications: Acetaminophen (Tylenol) 325 - 650 mg PO Q5H PRN PRN Reason: Discomfort Last Admin: 09/27/17 03:13 Dose: 650 mg Bisacodyl (Dulcolax) 10 mg RECTALLY DAILY PRN PRN Reason: Constipation Last Admin: 09/26/17 20:54 Dose: 10 mg Ergocalciferol (Vitamin D-2) 50,000 unit PO MO@0800 [facility] Fluvoxamine Maleate (Luvox) 50 mg PO HS [facility] Last Admin: 09/26/17 20:53 Dose: 50 mg Fluvoxamine Maleate (Luvox) 75 mg PO QAM [facility] Last Admin: 09/27/17 08:50 Dose: 75 mg Haloperidol (Haldol) 0.5 mg PO Q6H PRN PRN Reason: Extreme agitation Last Admin: 09/26/17 04:25 Dose: 0.5 mg Haloperidol Lactate (Haldol) 0.5 mg IM Q6H PRN PRN Reason: Extreme agitation Magnesium Hydroxide (Mom) 30 ml PO DAILY PRN PRN Reason: Constipation Last Admin: 09/26/17 22:09 Dose: 30 ml Polyethylene Glycol (Miralax) 17 gm PO BID [facility] Last Admin: 09/27/17 08:51 Dose: 17 gm Senna/Docusate Sodium (Senna Plus Tablet) 1 tab PO BID [facility] Last Admin: 09/27/17 08:51 Dose: 1 tab Subjective: Patient seen and chart reviewed. Case discussed with treatment team. On interview, patient is pleasant but denies all symptoms. She reports her mood is good, she is sleeping well and eating well, this is a great place, etc. She tells me within 10 seconds that her milkshake is terrible and then instead says it is good. Patient denies any SI, HI or AVH. Patient denies any adverse side effects related to psychotropic medications. Nursing staff report patient continues to have disorganized behavior at times and can be dramatic. She isolates to her room frequently. Patient has been adherent with medications. Patient slept 8 hours overnight. VSS. Patient is eating well. Psychotropic PRNs required in the past 24 hours: none. Discussed care (diagnosis, treatment plan) with niece/DPJANET Mc, who is in agreement with trial taper of Luvox due to concern for bipolar disorder exacerbated by antidepressant. Start Time: 11:20 Stop Time: 11:40 Mental Status Exam Vitals: Last Vital Signs Temp 98.2 F 09/26/17 19:55 Pulse 105 H 09/26/17 19:55 Resp 18 09/26/17 19:55 BP 139/78 09/26/17 19:55 Pulse Ox 94 09/26/17 19:55 Height: 1.47 m Weight: 62.709 kg - Mental Status Exam Muscle Strength/Tone: Normal Dressing: Casual Grooming: Fair Attitude: Guarded, Defensive Motor Activity: Normal Eye Contact: Good Speech: Normal Volume: Loud (patient hard of hearing) Rhythm: Appropriate Rhythm Orientation: Disoriented to time, Disoriented to situation, Oriented to person, Oriented to place Mood: Euthymic Affect: Manic (possible) Thought Organization: Confused Associations: Illogical Abstract Reasoning: Poor abstract reasoning Thought Content: Other (Patient is guarded about symptoms - difficult to fully assess) Perception/Psychotic: Perception Normal (per patient - not observed responding to internal stimuli) Language: Naming Intact Fund of Knowledge: Poor fund of knowledge Memory: Poor-recent Suicidal Ideation: Denies Homicidal Ideation: Denies Insight: Impaired Judgement: Impaired Impulse Control: Poor - Laboratory Result Diagrams: 09/25/17 20:13 09/25/17 20:13 Assessment and Plan (1) Major neurocognitive disorder Problem details: R/O Bipolar disorder Current visit: Yes Status: Acute Will decrease Luvox to 25mg PO BID with plan to decrease further on Saturday to minimize withdrawal symptoms. Hospital Course Summary Disclaimer: The visit summary below is not to be considered part of the above Progress Note. Hospital Course: 09/26/17 Abd pain: KUB personally reviewed - small/lg bowel distention; no free air or air-fluid levels. Radiologist suggests possible ileus. Hx pos for constipation - resume MiraLAX BID and also will start Senna Plus BID; MOM and dulc supp PRN. Also w/ hx of urinary retention (had incontinent void this am) - check bladder residual. Labs reviewed: mild leukopenia (stable from labs on 09/18 - located in chart); mild macrocytic anemia (known hx of vit B12 def and is on IM injections at facility); A1c 5.9% done at outside facility. BMP and TSH stable. UA not suggestive of UTI but will need to have low threshold for developing UTI d/t hx of chronic UTI. BP elevated on admit but she is not on any antiHTN - monitor for now and consider adding in BP med if remains elevated. 09/27/17 Psych: Will decrease Luvox to 25mg PO BID with plan to decrease further on Sunday 10/01 to minimize withdrawal symptoms.
[2017-09-28] MEDS: ACETAMINOPHEN 325 MG TABLET PO PRN ×3 (01:11→16:23)
[2017-09-28] MEDS: HALOPERIDOL 0.5 MG TABLET PO PRN (02:56)
[2017-09-28] MEDS: SENNA + DOCUSATE TABLET PO SCH ×3 (08:30→20:43)
[2017-09-28] MEDS: POLYETHYL GLYCOL 3350 17gm PACKET PO SCH ×3 (08:31→20:42)
[2017-09-28] MEDS: FLUVOXAMINE 50 MG TABLET PO SCH ×2 (08:31→20:14)
--- NOTE | 2017-09-28 10:16 | Neuropsych Progress Note ---
[facility] Subjective Date: 09/28/17 - Sujective/Severity of Illness Medications: Acetaminophen (Tylenol) 325 - 650 mg PO Q5H PRN PRN Reason: Discomfort Last Admin: 09/28/17 01:11 Dose: 650 mg Bisacodyl (Dulcolax) 10 mg RECTALLY DAILY PRN PRN Reason: Constipation Last Admin: 09/26/17 20:54 Dose: 10 mg Ergocalciferol (Vitamin D-2) 50,000 unit PO MO@0800 [facility] Fluvoxamine Maleate (Luvox) 25 mg PO QAM [facility] Last Admin: 09/28/17 08:31 Dose: 25 mg Fluvoxamine Maleate (Luvox) 25 mg PO HS [facility] Last Admin: 09/27/17 20:46 Dose: 25 mg Haloperidol (Haldol) 0.5 mg PO Q6H PRN PRN Reason: Extreme agitation Last Admin: 09/28/17 02:56 Dose: 0.5 mg Haloperidol Lactate (Haldol) 0.5 mg IM Q6H PRN PRN Reason: Extreme agitation Magnesium Hydroxide (Mom) 30 ml PO DAILY PRN PRN Reason: Constipation Last Admin: 09/26/17 22:09 Dose: 30 ml Polyethylene Glycol (Miralax) 17 gm PO BID [facility] Last Admin: 09/28/17 08:38 Dose: Not Given Senna/Docusate Sodium (Senna Plus Tablet) 1 tab PO BID [facility] Last Admin: 09/28/17 08:38 Dose: Not Given Subjective: Patient seen and chart reviewed. Nursing reports pt is doing fairly well. Pt has not been feeling well and tends to isolate. Is oriented x 2. On face to face the pt is pleasant. She reports her mood is stable and denies feeling depressed. She denies pain and voices no concerns at this time. Tolerating meds Start Time: 09:30 Stop Time: 09:45 Mental Status Exam Vitals: Last Vital Signs Temp 98.0 F 09/28/17 03:03 Pulse 80 09/28/17 03:03 Resp 18 09/28/17 03:03 BP 144/81 H 09/28/17 03:03 Pulse Ox 94 09/28/17 03:03 Height: 1.47 m Weight: 62.709 kg - Mental Status Exam Muscle Strength/Tone: Normal Dressing: Casual Grooming: Fair Attitude: Guarded, Defensive Motor Activity: Normal Eye Contact: Good Speech: Normal Volume: Loud (patient hard of hearing) Rhythm: Appropriate Rhythm Orientation: Disoriented to time, Disoriented to situation, Oriented to person, Oriented to place Mood: Euthymic Thought Organization: Confused Associations: Illogical Abstract Reasoning: Poor abstract reasoning Thought Content: Other (Patient is guarded about symptoms - difficult to fully assess) Perception/Psychotic: Perception Normal (per patient - not observed responding to internal stimuli) Language: Naming Intact Fund of Knowledge: Poor fund of knowledge Memory: Poor-recent Suicidal Ideation: Denies Homicidal Ideation: Denies Insight: Impaired Judgement: Impaired Impulse Control: Poor - Laboratory Result Diagrams: 09/25/17 20:13 09/25/17 20:13 Laboratory Results - last 24 hr 09/27/17 18:37 Glucometer 131 Assessment and Plan (1) Major neurocognitive disorder Problem details: R/O Bipolar disorder Current visit: Yes Status: Acute Hospital Course Summary Disclaimer: The visit summary below is not to be considered part of the above Progress Note. Hospital Course: 09/26/17 Abd pain: KUB personally reviewed - small/lg bowel distention; no free air or air-fluid levels. Radiologist suggests possible ileus. Hx pos for constipation - resume MiraLAX BID and also will start Senna Plus BID; MOM and dulc supp PRN. Also w/ hx of urinary retention (had incontinent void this am) - check bladder residual. Labs reviewed: mild leukopenia (stable from labs on 09/18 - located in chart); mild macrocytic anemia (known hx of vit B12 def and is on IM injections at facility); A1c 5.9% done at outside facility. BMP and TSH stable. UA not suggestive of UTI but will need to have low threshold for developing UTI d/t hx of chronic UTI. BP elevated on admit but she is not on any antiHTN - monitor for now and consider adding in BP med if remains elevated. 09/27/17 Psych: Will decrease Luvox to 25mg PO BID with plan to decrease further on Sunday 10/01 to minimize withdrawal symptoms. 09/28/17 Psych- Pt tends to isolate but no behaviors. Continue current care
[2017-09-29] MEDS: FLUVOXAMINE 50 MG TABLET PO SCH ×2 (08:10→20:09)
[2017-09-29] MEDS: ACETAMINOPHEN 325 MG TABLET PO PRN ×3 (08:11→20:09)
[2017-09-29] MEDS: SENNA + DOCUSATE TABLET PO SCH ×2 (08:11→20:10)
[2017-09-29] MEDS: POLYETHYL GLYCOL 3350 17gm PACKET PO SCH ×2 (08:11→20:09)
--- NOTE | 2017-09-29 11:36 | Neuropsych Progress Note ---
[facility] Subjective Date: 09/29/17 - Sujective/Severity of Illness Medications: Acetaminophen (Tylenol) 325 - 650 mg PO Q5H PRN PRN Reason: Discomfort Last Admin: 09/29/17 08:11 Dose: 650 mg Bisacodyl (Dulcolax) 10 mg RECTALLY DAILY PRN PRN Reason: Constipation Last Admin: 09/26/17 20:54 Dose: 10 mg Ergocalciferol (Vitamin D-2) 50,000 unit PO MO@0800 [facility] Fluvoxamine Maleate (Luvox) 25 mg PO QAM [facility] Last Admin: 09/29/17 08:10 Dose: 25 mg Fluvoxamine Maleate (Luvox) 25 mg PO HS [facility] Last Admin: 09/28/17 20:14 Dose: 25 mg Haloperidol (Haldol) 0.5 mg PO Q6H PRN PRN Reason: Extreme agitation Last Admin: 09/28/17 02:56 Dose: 0.5 mg Haloperidol Lactate (Haldol) 0.5 mg IM Q6H PRN PRN Reason: Extreme agitation Magnesium Hydroxide (Mom) 30 ml PO DAILY PRN PRN Reason: Constipation Last Admin: 09/26/17 22:09 Dose: 30 ml Polyethylene Glycol (Miralax) 17 gm PO BID [facility] Last Admin: 09/29/17 08:11 Dose: 17 gm Senna/Docusate Sodium (Senna Plus Tablet) 1 tab PO BID [facility] Last Admin: 09/29/17 08:11 Dose: Not Given Subjective: Patient seen and chart reviewed. Nursing reports pt is doing fairly well. She tends to isolate and staff has encouraged her to come to the dayroom more. On face to face the pt is pleasant and cooperative. She is sleeping and eating well. She reports her mood is fairly stable and she denies any S/I. Tolerating meds. Voices no concerns at this time Start Time: 10:00 Stop Time: 10:15 Mental Status Exam Vitals: Last Vital Signs Temp 97.5 F 09/29/17 09:52 Pulse 89 09/29/17 09:52 Resp 20 09/29/17 09:52 BP 133/73 09/29/17 09:52 Pulse Ox 95 09/29/17 09:52 Height: 1.47 m Weight: 62.709 kg - Mental Status Exam Muscle Strength/Tone: Normal Dressing: Casual Grooming: Fair Attitude: Guarded, Defensive Motor Activity: Normal Eye Contact: Good Speech: Normal Volume: Loud (patient hard of hearing) Rhythm: Appropriate Rhythm Orientation: Disoriented to time, Disoriented to situation, Oriented to person, Oriented to place Mood: Euthymic Thought Organization: Confused Associations: Illogical Abstract Reasoning: Poor abstract reasoning Thought Content: Other (Patient is guarded about symptoms - difficult to fully assess) Perception/Psychotic: Perception Normal (per patient - not observed responding to internal stimuli) Language: Naming Intact Fund of Knowledge: Poor fund of knowledge Memory: Poor-recent Suicidal Ideation: Denies Homicidal Ideation: Denies Insight: Impaired Judgement: Impaired Impulse Control: Poor - Laboratory Result Diagrams: 09/25/17 20:13 09/25/17 20:13 Assessment and Plan (1) Major neurocognitive disorder Problem details: R/O Bipolar disorder Current visit: Yes Status: Acute Hospital Course Summary Disclaimer: The visit summary below is not to be considered part of the above Progress Note. Hospital Course: 09/26/17 Abd pain: KUB personally reviewed - small/lg bowel distention; no free air or air-fluid levels. Radiologist suggests possible ileus. Hx pos for constipation - resume MiraLAX BID and also will start Senna Plus BID; MOM and dulc supp PRN. Also w/ hx of urinary retention (had incontinent void this am) - check bladder residual. Labs reviewed: mild leukopenia (stable from labs on 09/18 - located in chart); mild macrocytic anemia (known hx of vit B12 def and is on IM injections at facility); A1c 5.9% done at outside facility. BMP and TSH stable. UA not suggestive of UTI but will need to have low threshold for developing UTI d/t hx of chronic UTI. BP elevated on admit but she is not on any antiHTN - monitor for now and consider adding in BP med if remains elevated. 09/27/17 Psych: Will decrease Luvox to 25mg PO BID with plan to decrease further on Sunday 10/01 to minimize withdrawal symptoms. 09/28/17 Psych- Pt tends to isolate but no behaviors. Continue current care 09/29/2017 Out more today. Continue current care
[2017-09-29] MEDS: HALOPERIDOL 0.5 MG TABLET PO PRN (17:50)
[2017-09-30] MEDS ORDERED: ERGOCALCIFEROL 2000 UNIT PO SCH (08:00)
[2017-09-30] MEDS ORDERED: [UNRECOGNIZED DRUG - OTHER] PO SCH (08:00)
[2017-09-30] MEDS: FLUVOXAMINE 50 MG TABLET PO SCH (08:43)
[2017-09-30] MEDS: ERGOCALCIFEROL 50,000 UNIT CAPSULE PO SCH (08:43)
[2017-09-30] MEDS: SENNA + DOCUSATE TABLET PO SCH ×2 (08:43→20:01)
[2017-09-30] MEDS: POLYETHYL GLYCOL 3350 17gm PACKET PO SCH ×2 (08:43→20:00)
[2017-09-30] MEDS: HALOPERIDOL 0.5 MG TABLET PO PRN ×2 (09:43→22:58)
--- NOTE | 2017-09-30 14:07 | Progress Note ---
- Date 09/30/17 Subjective: Ira is seen today ambulating in the [place]son with her home caregiver. She is alert and pleasant as she jokes around with staff. She does complain of having some left posterior hip/buttock pain during ambulation. She does not appear to be in any distress and does tolerate ambulating the length of the jackson. Denies having shortness of breath or chest pain. She reports her appetite is good and the food here is "great". Objective Vital signs: Temperature 97.2 F 09/30/17 08:00 Pulse Rate 82 09/30/17 08:00 Respiratory Rate 18 09/30/17 08:00 Blood Pressure 156/71 H 09/30/17 08:00 Pulse Oximetry 96 09/30/17 08:00 Height/Weight/BMI: Height 1.47 m Weight 62.709 kg Body Mass Index 28.8 - Constitutional Present: no acute distress, well nourished, well developed - Routine HEENT Exam Eye: Present: EOMI ENT: Present: mucous membranes moist, dentition normal - Routine Respiratory Exam Present: CTA bilaterally. Absent: wheezes - Routine Cardiovascular Exam Present: RRR, S1, S2. Absent: murmur - Routine Abdominal Exam Present: soft, normoactive bowel sounds, non distended. Absent: tenderness - Routine Extremities Exam Present: tenderness (Left posterior buttock) - Routine Skin Exam Present: intact, dry, warm - Routine Neurological Exam Present: alert, CN II-XII intact, moving all extremities - Routine Lymphatic Exam Lymphatic: Absent: adenopathy - Routine Psychiatric Exam Present: normal affect, cooperative Results - Labs CBC & Chem 7: 09/25/17 20:13 09/25/17 20:13 Assessment and Plan Assessment and Plan: IMPRESSION Abdominal pain Behavioral changes leukopenia HTN vascular dementia hyperlipidemia urinary retention hx of UTI anemia depression & anxiety r/o OCD & personality d/o vitamin b12 deficiency constipation osteoporosis breast cancer in remission PLAN Overall appears medically stable Asked nursing staff to give Tylenol for hip pain. Able to ambulate without difficulty. Continue MiraLAX, milk of magnesia, Dulcolax for ongoing bowel motivation. Encourage patient to participate in unit activities and provide a safe environment. Psychiatric care as per Dr. Venegas - Physician Narrative Narrative: Date: 09/30/17 Time: 1403 Hospital Course Summary Disclaimer: The visit summary below is not to be considered part of the above Progress Note. Hospital Course: 09/26/17 Abd pain: KUB personally reviewed - small/lg bowel distention; no free air or air-fluid levels. Radiologist suggests possible ileus. Hx pos for constipation - resume MiraLAX BID and also will start Senna Plus BID; MOM and dulc supp PRN. Also w/ hx of urinary retention (had incontinent void this am) - check bladder residual. Labs reviewed: mild leukopenia (stable from labs on 09/18 - located in chart); mild macrocytic anemia (known hx of vit B12 def and is on IM injections at facility); A1c 5.9% done at outside facility. BMP and TSH stable. UA not suggestive of UTI but will need to have low threshold for developing UTI d/t hx of chronic UTI. BP elevated on admit but she is not on any antiHTN - monitor for now and consider adding in BP med if remains elevated. 09/27/17 Psych: Will decrease Luvox to 25mg PO BID with plan to decrease further on Sunday 10/01 to minimize withdrawal symptoms. 09/28/17 Psych- Pt tends to isolate but no behaviors. Continue current care 09/29/2017 Out more today. Continue current care 09/30-Overall appears medically stable. Asked nursing staff to give Tylenol for hip pain. Able to ambulate without difficulty. Continue MiraLAX, milk of magnesia, Dulcolax for ongoing bowel motivation. Encourage patient to participate in unit activities and provide a safe environment. Psychiatric care as per Dr. Venegas
--- NOTE | 2017-09-30 14:22 | Neuropsych Progress Note ---
[facility] Subjective Date: 09/30/17 - Sujective/Severity of Illness Medications: Acetaminophen (Tylenol) 325 - 650 mg PO Q5H PRN PRN Reason: Discomfort Last Admin: 09/29/17 20:09 Dose: 650 mg Bisacodyl (Dulcolax) 10 mg RECTALLY DAILY PRN PRN Reason: Constipation Last Admin: 09/26/17 20:54 Dose: 10 mg Ergocalciferol (Vitamin D-2) 50,000 unit PO MO@0800 [facility] Last Admin: 09/30/17 08:43 Dose: 50,000 unit Fluvoxamine Maleate (Luvox) 25 mg PO QAM [facility] Last Admin: 09/30/17 08:43 Dose: 25 mg Haloperidol (Haldol) 0.5 mg PO Q6H PRN PRN Reason: Extreme agitation Last Admin: 09/30/17 09:43 Dose: 0.5 mg Haloperidol Lactate (Haldol) 0.5 mg IM Q6H PRN PRN Reason: Extreme agitation Magnesium Hydroxide (Mom) 30 ml PO DAILY PRN PRN Reason: Constipation Last Admin: 09/26/17 22:09 Dose: 30 ml Polyethylene Glycol (Miralax) 17 gm PO BID [facility] Last Admin: 09/30/17 08:43 Dose: 17 gm Senna/Docusate Sodium (Senna Plus Tablet) 1 tab PO BID [facility] Last Admin: 09/30/17 08:43 Dose: 1 tab Subjective: Patient seen and chart reviewed. Case discussed with treatment team. On interview, patient has a visitor and jokingly says her mood is "terrible." She has an odd affect at times, laughs somewhat inappropriately, does not know when is a time to be serious, etc. She then goes on to talk about poking holes in her cheeseburger with her visitor. Patient denies any SI, HI or AVH. Patient denies any adverse side effects related to psychotropic medications. Nursing staff report patient can be "dramatic" and prefers to isolate in her room most times. STM quite poor; SLUMS 08/01 on admission. Patient has been adherent with medications. Patient slept 8.25 hours overnight. VSS. Patient is eating well. Psychotropic PRNs required in the past 24 hours: none. Start Time: 09:40 Stop Time: 10:00 Mental Status Exam Vitals: Last Vital Signs Temp 97.2 F 09/30/17 08:00 Pulse 82 09/30/17 08:00 Resp 18 09/30/17 08:00 BP 156/71 H 09/30/17 08:00 Pulse Ox 96 09/30/17 08:00 Height: 1.47 m Weight: 62.709 kg - Mental Status Exam Muscle Strength/Tone: Normal Dressing: Casual Grooming: Fair Attitude: Guarded Motor Activity: Normal Eye Contact: Good Speech: Normal Volume: Loud (patient hard of hearing) Rhythm: Appropriate Rhythm Orientation: Disoriented to time, Disoriented to situation, Oriented to person, Oriented to place Mood: Other (Jokingly states her mood is "terrible," relaxed affect with visitor but odd) Thought Organization: Confused Associations: Illogical Abstract Reasoning: Poor abstract reasoning Thought Content: Other (No abnormal thought content elicited) Perception/Psychotic: Perception Normal Language: Naming Intact Fund of Knowledge: Poor fund of knowledge Memory: Poor-recent Suicidal Ideation: Denies Homicidal Ideation: Denies Insight: Impaired Judgement: Impaired Impulse Control: Other (Limited) - Laboratory Result Diagrams: 09/25/17 20:13 09/25/17 20:13 Assessment and Plan (1) Major neurocognitive disorder Problem details: R/O Bipolar disorder Current visit: Yes Status: Acute Will again decrease Luvox in half to only 25mg PO q AM; monitor mood/behavior. Will contact DPOA in regards to starting a mood stabilizer vs. Abilify. Hospital Course Summary Disclaimer: The visit summary below is not to be considered part of the above Progress Note. Hospital Course: 09/26/17 Abd pain: KUB personally reviewed - small/lg bowel distention; no free air or air-fluid levels. Radiologist suggests possible ileus. Hx pos for constipation - resume MiraLAX BID and also will start Senna Plus BID; MOM and dulc supp PRN. Also w/ hx of urinary retention (had incontinent void this am) - check bladder residual. Labs reviewed: mild leukopenia (stable from labs on 09/18 - located in chart); mild macrocytic anemia (known hx of vit B12 def and is on IM injections at facility); A1c 5.9% done at outside facility. BMP and TSH stable. UA not suggestive of UTI but will need to have low threshold for developing UTI d/t hx of chronic UTI. BP elevated on admit but she is not on any antiHTN - monitor for now and consider adding in BP med if remains elevated. 09/27/17 Psych: Will decrease Luvox to 25mg PO BID with plan to decrease further on Sunday 10/01 to minimize withdrawal symptoms. 09/28/17 Psych- Pt tends to isolate but no behaviors. Continue current care 09/29/2017 Out more today. Continue current care 09/30-Overall appears medically stable. Asked nursing staff to give Tylenol for hip pain. Able to ambulate without difficulty. Continue MiraLAX, milk of magnesia, Dulcolax for ongoing bowel motivation. Encourage patient to participate in unit activities and provide a safe environment. Psychiatric care as per Dr. Venegas 09/30/17 Psych: Will again decrease Luvox in half to only 25mg PO q AM; monitor mood/behavior. Will contact DPOA in regards to starting a mood stabilizer vs. Abilify.
[2017-09-30] MEDS: ACETAMINOPHEN 325 MG TABLET PO PRN (22:58)
[2017-10-01] MEDS: FLUVOXAMINE 50 MG TABLET PO SCH (09:55)
[2017-10-01] MEDS: POLYETHYL GLYCOL 3350 17gm PACKET PO SCH ×2 (09:56→20:01)
[2017-10-01] MEDS: SENNA + DOCUSATE TABLET PO SCH ×2 (09:56→20:01)
[2017-10-01] MEDS: HALOPERIDOL 5 MG/ML INJECTION IM PRN (17:55)
--- NOTE | 2017-10-01 18:09 | Neuropsych Progress Note ---
[facility] Subjective Date: 10/01/17 - Sujective/Severity of Illness Medications: Acetaminophen (Tylenol) 325 - 650 mg PO Q5H PRN PRN Reason: Discomfort Last Admin: 09/30/17 22:58 Dose: 650 mg Bisacodyl (Dulcolax) 10 mg RECTALLY DAILY PRN PRN Reason: Constipation Last Admin: 09/26/17 20:54 Dose: 10 mg Divalproex Sodium (Depakote) 500 mg PO [facility] Divalproex Sodium (Depakote) 250 mg PO DAILY [facility] Ergocalciferol (Vitamin D-2) 50,000 unit PO MO@0800 [facility] Last Admin: 09/30/17 08:43 Dose: 50,000 unit Haloperidol (Haldol) 0.5 mg PO Q6H PRN PRN Reason: Extreme agitation Last Admin: 09/30/17 22:58 Dose: 0.5 mg Haloperidol Lactate (Haldol) 0.5 mg IM Q6H PRN PRN Reason: Extreme agitation Last Admin: 10/01/17 17:55 Dose: 0.5 mg Magnesium Hydroxide (Mom) 30 ml PO DAILY PRN PRN Reason: Constipation Last Admin: 09/26/17 22:09 Dose: 30 ml Oseltamivir Phosphate (Tamiflu) 30 mg PO DAILY [facility] Stop: 10/06/17 09:01 Last Admin: 10/01/17 09:56 Dose: 30 mg Polyethylene Glycol (Miralax) 17 gm PO BID [facility] Last Admin: 10/01/17 09:56 Dose: 17 gm Senna/Docusate Sodium (Senna Plus Tablet) 1 tab PO BID [facility] Last Admin: 10/01/17 09:56 Dose: 1 tab Subjective: Patient seen and chart reviewed. Case discussed with treatment team. On interview, patient reports that her mood is good but she is quite irritable with staff who encourage her to spend time in the dayroom rather than isolate to her room. She states that she didn't sleep well (and never does) despite nursing staff reporting that she slept 6 hours last night. Patient denies any SI, HI or AVH. Patient denies any adverse side effects related to psychotropic medications. Nursing staff report patient can be "dramatic" and prefers to isolate in her room most times. STM quite poor; SLUMS 08/01 on admission. Patient has been adherent with medications. Patient slept 6 hours overnight. VSS. Patient is eating well. Psychotropic PRNs required in the past 24 hours: none. I spoke with niece/DPJANET Mccray and discussed medication options - she gave informed consent to trial of Depakote to start this evening. Start Time: 09:40 Stop Time: 10:00 Mental Status Exam Vitals: Last Vital Signs Temp 97.4 F 10/01/17 15:35 Pulse 97 10/01/17 15:35 Resp 16 10/01/17 15:35 BP 133/69 10/01/17 15:35 Pulse Ox 96 10/01/17 15:35 Height: 1.47 m Weight: 62.709 kg - Mental Status Exam Muscle Strength/Tone: Normal Dressing: Casual Grooming: Fair Attitude: Uncooperative (at times) Motor Activity: Normal Eye Contact: Good Speech: Normal Volume: Loud (patient hard of hearing) Rhythm: Appropriate Rhythm Orientation: Disoriented to time, Disoriented to situation, Oriented to person, Oriented to place Mood: Euthymic, Other (labile affect) Rate of Thoughts: Delayed Thought Organization: Confused Associations: Illogical Abstract Reasoning: Poor abstract reasoning Thought Content: Other (No abnormal thought content elicited) Perception/Psychotic: Perception Normal Language: Naming Intact Fund of Knowledge: Poor fund of knowledge Memory: Poor-recent Suicidal Ideation: Denies Homicidal Ideation: Denies Insight: Impaired Judgement: Impaired Impulse Control: Other (Limited) - Laboratory Result Diagrams: 10/01/17 13:35 10/01/17 13:35 Laboratory Results - last 24 hr 10/01/17 10/01/17 13:35 13:35 WBC 3.9 L RBC 4.25 Hgb 13.2 Hct 42.7 MCV 100.5 H MCH 31.1 MCHC 30.9 L RDW Std Deviation 52.4 H Plt Count 255 MPV 9.7 Immature Gran % (Auto) 0.3 Neut % (Auto) 59.4 Lymph % (Auto) 25.1 [place] % (Auto) 10.8 H Eos % (Auto) 3.6 Baso % (Auto) 0.8 Neut # (Auto) 2.3 Lymph # (Auto) 1.0 [place] # (Auto) 0.4 Eos # (Auto) 0.1 Baso # (Auto) 0.0 Abs Immat Gran (auto) 0.01 Turbidity < 20 Sodium 143 Potassium 4.2 Chloride 106 Carbon Dioxide 29 Anion Gap 8 BUN 12.0 Creatinine 0.8 GFR Calculation 69 BUN/Creatinine Ratio 15 Glucose 144 H Calculated Osmolality 278 Calcium 9.7 Icterus Index < 2 Specimen Hemolysis < 15 Assessment and Plan (1) Major neurocognitive disorder Problem details: R/O Bipolar disorder Current visit: Yes Status: Acute Discontinued Luvox today. Will start Depakote DR 500mg PO q HS tonight and 250mg PO q AM. Plan for VPA level on 10/05 and can adjust accordingly. Hospital Course Summary Disclaimer: The visit summary below is not to be considered part of the above Progress Note. Hospital Course: 09/26/17 Abd pain: KUB personally reviewed - small/lg bowel distention; no free air or air-fluid levels. Radiologist suggests possible ileus. Hx pos for constipation - resume MiraLAX BID and also will start Senna Plus BID; MOM and dulc supp PRN. Also w/ hx of urinary retention (had incontinent void this am) - check bladder residual. Labs reviewed: mild leukopenia (stable from labs on 09/18 - located in chart); mild macrocytic anemia (known hx of vit B12 def and is on IM injections at facility); A1c 5.9% done at outside facility. BMP and TSH stable. UA not suggestive of UTI but will need to have low threshold for developing UTI d/t hx of chronic UTI. BP elevated on admit but she is not on any antiHTN - monitor for now and consider adding in BP med if remains elevated. 09/27/17 Psych: Will decrease Luvox to 25mg PO BID with plan to decrease further on Sunday 10/01 to minimize withdrawal symptoms. 09/28/17 Psych- Pt tends to isolate but no behaviors. Continue current care 09/29/2017 Out more today. Continue current care 09/30-Overall appears medically stable. Asked nursing staff to give Tylenol for hip pain. Able to ambulate without difficulty. Continue MiraLAX, milk of magnesia, Dulcolax for ongoing bowel motivation. Encourage patient to participate in unit activities and provide a safe environment. Psychiatric care as per Dr. Venegas 09/30/17 Psych: Will again decrease Luvox in half to only 25mg PO q AM; monitor mood/behavior. Will contact DPOA in regards to starting a mood stabilizer vs. Abilify. 10/01/17 Psych: Discontinued Luvox - no withdrawal symptoms noted. Will start Depakote DR 500mg PO q HS tonight and 250mg PO q AM. Plan for VPA level on 10/05 and can adjust accordingly.
[2017-10-01] MEDS: DIVALPROEX 250 MG TABLET PO SCH (20:00)
[2017-10-02] MEDS: POLYETHYL GLYCOL 3350 17gm PACKET PO SCH ×2 (09:51→21:27)
[2017-10-02] MEDS: SENNA + DOCUSATE TABLET PO SCH ×2 (09:51→21:28)
[2017-10-02] MEDS: DIVALPROEX 250 MG TABLET PO SCH ×2 (09:52→21:27)
[2017-10-02] MEDS: AMLODIPINE 5 MG TABLET PO SCH (17:29)
--- NOTE | 2017-10-02 19:51 | Neuropsych Progress Note ---
[facility] Subjective Date: 10/03/17 - Sujective/Severity of Illness Medications: Acetaminophen (Tylenol) 325 - 650 mg PO Q5H PRN PRN Reason: Discomfort Last Admin: 09/30/17 22:58 Dose: 650 mg Amlodipine Besylate (Norvasc) 5 mg PO DAILY [facility] Last Admin: 10/02/17 17:29 Dose: 5 mg Bisacodyl (Dulcolax) 10 mg RECTALLY DAILY PRN PRN Reason: Constipation Last Admin: 09/26/17 20:54 Dose: 10 mg Divalproex Sodium (Depakote) 500 mg PO HS [facility] Last Admin: 10/01/17 20:00 Dose: 500 mg Divalproex Sodium (Depakote) 250 mg PO DAILY [facility] Last Admin: 10/02/17 09:52 Dose: 250 mg Ergocalciferol (Vitamin D-2) 50,000 unit PO MO@0800 [facility] Last Admin: 09/30/17 08:43 Dose: 50,000 unit Haloperidol (Haldol) 0.5 mg PO Q6H PRN PRN Reason: Extreme agitation Last Admin: 09/30/17 22:58 Dose: 0.5 mg Haloperidol Lactate (Haldol) 0.5 mg IM Q6H PRN PRN Reason: Extreme agitation Last Admin: 10/01/17 17:55 Dose: 0.5 mg Magnesium Hydroxide (Mom) 30 ml PO DAILY PRN PRN Reason: Constipation Last Admin: 09/26/17 22:09 Dose: 30 ml Oseltamivir Phosphate (Tamiflu) 30 mg PO DAILY [facility] Stop: 10/06/17 09:01 Last Admin: 10/02/17 09:51 Dose: 30 mg Polyethylene Glycol (Miralax) 17 gm PO BID [facility] Last Admin: 10/02/17 09:51 Dose: 17 gm Senna/Docusate Sodium (Senna Plus Tablet) 1 tab PO BID [facility] Last Admin: 10/02/17 09:51 Dose: 1 tab Subjective: Patient seen and chart reviewed. Case discussed with treatment team. Patient is sleeping at time of rounds. MSE below based in part on my last interaction with her. Nursing staff report patient can be "dramatic" and prefers to isolate in her room most times. STM quite poor; SLUMS 08/01 on admission. She can be impulsive with poor safety awareness, and difficult to redirect at times. Patient has been adherent with medications. Patient slept 8.5 hours overnight. VSS. Patient is eating well. Psychotropic PRNs required in the past 24 hours: Haldol 0.5mg IM given at 1755. Start Time: 09:40 Stop Time: 10:00 Mental Status Exam Vitals: Last Vital Signs Temp 97.6 F 10/02/17 16:00 Pulse 90 10/02/17 16:00 Resp 16 10/02/17 16:00 BP 177/84 H 10/02/17 16:00 Pulse Ox 97 10/02/17 16:00 Height: 1.47 m Weight: 62.709 kg - Mental Status Exam Muscle Strength/Tone: Normal Dressing: Casual Grooming: Fair Attitude: Uncooperative (at times) Motor Activity: Normal Eye Contact: Good Speech: Normal Volume: Loud (patient hard of hearing) Rhythm: Appropriate Rhythm Orientation: Disoriented to time, Disoriented to situation, Oriented to person, Oriented to place Mood: Irritable, Other (labile affect) Rate of Thoughts: Delayed Thought Organization: Confused Associations: Illogical Abstract Reasoning: Poor abstract reasoning Thought Content: Other (No abnormal thought content elicited) Perception/Psychotic: Perception Normal Language: Naming Intact Fund of Knowledge: Poor fund of knowledge Memory: Poor-recent Suicidal Ideation: Denies Homicidal Ideation: Denies Insight: Impaired Judgement: Impaired Impulse Control: Other (Limited) - Laboratory Result Diagrams: 10/01/17 13:35 10/01/17 13:35 Assessment and Plan (1) Major neurocognitive disorder Problem details: R/O Bipolar disorder Current visit: Yes Status: Acute Continue current care with plan to check VPA level as before and adjust accordingly. Hospital Course Summary Disclaimer: The visit summary below is not to be considered part of the above Progress Note. Hospital Course: 09/26/17 Abd pain: KUB personally reviewed - small/lg bowel distention; no free air or air-fluid levels. Radiologist suggests possible ileus. Hx pos for constipation - resume MiraLAX BID and also will start Senna Plus BID; MOM and dulc supp PRN. Also w/ hx of urinary retention (had incontinent void this am) - check bladder residual. Labs reviewed: mild leukopenia (stable from labs on 09/18 - located in chart); mild macrocytic anemia (known hx of vit B12 def and is on IM injections at facility); A1c 5.9% done at outside facility. BMP and TSH stable. UA not suggestive of UTI but will need to have low threshold for developing UTI d/t hx of chronic UTI. BP elevated on admit but she is not on any antiHTN - monitor for now and consider adding in BP med if remains elevated. 09/27/17 Psych: Will decrease Luvox to 25mg PO BID with plan to decrease further on Sunday 10/01 to minimize withdrawal symptoms. 09/28/17 Psych- Pt tends to isolate but no behaviors. Continue current care 09/29/2017 Out more today. Continue current care 09/30-Overall appears medically stable. Asked nursing staff to give Tylenol for hip pain. Able to ambulate without difficulty. Continue MiraLAX, milk of magnesia, Dulcolax for ongoing bowel motivation. Encourage patient to participate in unit activities and provide a safe environment. Psychiatric care as per Dr. Venegas 09/30/17 Psych: Will again decrease Luvox in half to only 25mg PO q AM; monitor mood/behavior. Will contact DPOA in regards to starting a mood stabilizer vs. Abilify. 10/01/17 Psych: Discontinued Luvox - no withdrawal symptoms noted. Will start Depakote DR 500mg PO q HS tonight and 250mg PO q AM. Plan for VPA level on 10/05 and can adjust accordingly. 10/02/17 Psych: Continue current care with plan to check VPA level as before and adjust accordingly.
[2017-10-03] MEDS: AMLODIPINE 5 MG TABLET PO SCH (08:06)
[2017-10-03] MEDS: DIVALPROEX 250 MG TABLET PO SCH ×2 (08:06→20:07)
[2017-10-03] MEDS: SENNA + DOCUSATE TABLET PO SCH ×3 (08:07→20:07)
[2017-10-03] MEDS: ACETAMINOPHEN 325 MG TABLET PO PRN ×2 (08:07→16:24)
[2017-10-03] MEDS: POLYETHYL GLYCOL 3350 17gm PACKET PO SCH ×2 (08:07→20:07)
--- NOTE | 2017-10-03 15:50 | Progress Note ---
- Date 10/03/17 Subjective: Ira is seen sitting in the day room. She reports she is doing well. No complaints at this time. No pain, SOA, n/v. States appetite is "too good." Bowels are moving. Objective Vital signs: Temperature 97.9 F 10/03/17 08:00 Pulse Rate 101 H 10/03/17 08:00 Respiratory Rate 18 10/03/17 08:00 Blood Pressure 132/81 10/03/17 08:00 Pulse Oximetry 97 10/03/17 08:00 Height/Weight/BMI: Height 1.47 m Weight 62.709 kg Body Mass Index 28.8 - Constitutional Present: no acute distress, well nourished, well developed - Routine HEENT Exam Head: Present: normocephalic, atraumatic - Routine Respiratory Exam Present: CTA bilaterally. Absent: wheezes - Routine Cardiovascular Exam Present: RRR, murmur - Routine Abdominal Exam Present: soft, non distended, non tender - Routine Extremities Exam Present: no edema, normal capillary refill - Routine Skin Exam Present: dry, warm - Routine Neurological Exam Present: alert - Routine Lymphatic Exam Lymphatic: Absent: adenopathy - Routine Psychiatric Exam Present: normal affect, cooperative Results - Labs CBC & Chem 7: 10/01/17 13:35 10/01/17 13:35 Assessment and Plan Assessment and Plan: IMPRESSION Abdominal pain Behavioral changes leukopenia HTN vascular dementia hyperlipidemia urinary retention hx of UTI anemia depression & anxiety r/o OCD & personality d/o vitamin b12 deficiency constipation osteoporosis breast cancer in remission PLAN Patient appears medically stable. Labs, VS's, chart reviewed. No changes at this time. - Physician Narrative Narrative: Date: 10/03/17 Time: 1547 Hospital Course Summary Disclaimer: The visit summary below is not to be considered part of the above Progress Note. Hospital Course: 09/26/17 Abd pain: KUB personally reviewed - small/lg bowel distention; no free air or air-fluid levels. Radiologist suggests possible ileus. Hx pos for constipation - resume MiraLAX BID and also will start Senna Plus BID; MOM and dulc supp PRN. Also w/ hx of urinary retention (had incontinent void this am) - check bladder residual. Labs reviewed: mild leukopenia (stable from labs on 09/18 - located in chart); mild macrocytic anemia (known hx of vit B12 def and is on IM injections at facility); A1c 5.9% done at outside facility. BMP and TSH stable. UA not suggestive of UTI but will need to have low threshold for developing UTI d/t hx of chronic UTI. BP elevated on admit but she is not on any antiHTN - monitor for now and consider adding in BP med if remains elevated. 09/27/17 Psych: Will decrease Luvox to 25mg PO BID with plan to decrease further on Sunday 10/01 to minimize withdrawal symptoms. 09/28/17 Psych- Pt tends to isolate but no behaviors. Continue current care 09/29/2017 Out more today. Continue current care 09/30-Overall appears medically stable. Asked nursing staff to give Tylenol for hip pain. Able to ambulate without difficulty. Continue MiraLAX, milk of magnesia, Dulcolax for ongoing bowel motivation. Encourage patient to participate in unit activities and provide a safe environment. Psychiatric care as per Dr. Venegas 09/30/17 Psych: Will again decrease Luvox in half to only 25mg PO q AM; monitor mood/behavior. Will contact DPOA in regards to starting a mood stabilizer vs. Abilify. 10/01/17 Psych: Discontinued Luvox - no withdrawal symptoms noted. Will start Depakote DR 500mg PO q HS tonight and 250mg PO q AM. Plan for VPA level on 10/05 and can adjust accordingly.
--- NOTE | 2017-10-03 22:06 | Neuropsych Progress Note ---
[facility] Subjective Date: 10/03/17 - Sujective/Severity of Illness Medications: Acetaminophen (Tylenol) 325 - 650 mg PO Q5H PRN PRN Reason: Discomfort Last Admin: 10/03/17 16:24 Dose: 650 mg Amlodipine Besylate (Norvasc) 5 mg PO DAILY [facility] Last Admin: 10/03/17 08:06 Dose: 5 mg Bisacodyl (Dulcolax) 10 mg RECTALLY DAILY PRN PRN Reason: Constipation Last Admin: 09/26/17 20:54 Dose: 10 mg Divalproex Sodium (Depakote) 500 mg PO HS [facility] Last Admin: 10/03/17 20:07 Dose: 500 mg Divalproex Sodium (Depakote) 250 mg PO DAILY [facility] Last Admin: 10/03/17 08:06 Dose: 250 mg Ergocalciferol (Vitamin D-2) 50,000 unit PO MO@0800 [facility] Last Admin: 09/30/17 08:43 Dose: 50,000 unit Haloperidol (Haldol) 0.5 mg PO Q6H PRN PRN Reason: Extreme agitation Last Admin: 09/30/17 22:58 Dose: 0.5 mg Haloperidol Lactate (Haldol) 0.5 mg IM Q6H PRN PRN Reason: Extreme agitation Last Admin: 10/01/17 17:55 Dose: 0.5 mg Magnesium Hydroxide (Mom) 30 ml PO DAILY PRN PRN Reason: Constipation Last Admin: 09/26/17 22:09 Dose: 30 ml Oseltamivir Phosphate (Tamiflu) 30 mg PO DAILY [facility] Stop: 10/06/17 09:01 Last Admin: 10/03/17 08:06 Dose: 30 mg Polyethylene Glycol (Miralax) 17 gm PO BID [facility] Last Admin: 10/03/17 20:07 Dose: 17 gm Senna/Docusate Sodium (Senna Plus Tablet) 1 tab PO BID [facility] Last Admin: 10/03/17 20:07 Dose: 1 tab Subjective: Patient seen and chart reviewed. Case discussed with treatment team. Patient reports that her mood is good but complains of back pain - she is willing to try a heating pad to see if that will help. She is overheard asking housekeeping to do small tasks for her and is irritable with her and nursing staff - but then more pleasant when I attempt to interview her. Patient denies SI, HI or AVH. She denies any adverse side effect related to medication. Patient communicates fairly well verbally but is lower functioning than she seems upon social interactions. Nursing staff report patient can be "dramatic" and prefers to isolate in her room most times. This often seems to be a point of contention and control in her interactions with staff. STM quite poor; SLUMS 08/01 on admission. She can be impulsive with poor safety awareness, and difficult to redirect at times. Patient has been adherent with medications. Patient slept 9 hours overnight. VSS. Patient is eating well. Psychotropic PRNs required in the past 24 hours: None. Start Time: 10:40 Stop Time: 11:00 Mental Status Exam Vitals: Last Vital Signs Temp 97.0 F 10/03/17 20:43 Pulse 98 10/03/17 20:43 Resp 16 10/03/17 20:43 BP 129/71 10/03/17 20:43 Pulse Ox 96 10/03/17 20:43 Height: 1.47 m Weight: 59.8 kg - Mental Status Exam Muscle Strength/Tone: Normal Dressing: Casual Grooming: Fair Attitude: Manipulative Motor Activity: Normal Eye Contact: Good Speech: Normal Volume: Normal Rhythm: Appropriate Rhythm Sensory: Alert Orientation: Disoriented to time, Disoriented to situation, Oriented to person, Oriented to place Mood: Euthymic (labile affect - improved from previous however) Rate of Thoughts: Delayed Thought Organization: Confused Associations: Illogical Abstract Reasoning: Poor abstract reasoning Thought Content: Somatic Concerns Perception/Psychotic: Perception Normal Language: Naming Intact Fund of Knowledge: Poor fund of knowledge Memory: Poor-recent Suicidal Ideation: Denies Homicidal Ideation: Denies Insight: Impaired Judgement: Impaired Impulse Control: Other (Limited) - Laboratory Result Diagrams: 10/01/17 13:35 10/01/17 13:35 Assessment and Plan (1) Major neurocognitive disorder Problem details: R/O Bipolar disorder Current visit: Yes Status: Acute Continue current care; plan for VPA level in AM on 10/05 and adjust accordingly. Hospital Course Summary Disclaimer: The visit summary below is not to be considered part of the above Progress Note. Hospital Course: 09/26/17 Abd pain: KUB personally reviewed - small/lg bowel distention; no free air or air-fluid levels. Radiologist suggests possible ileus. Hx pos for constipation - resume MiraLAX BID and also will start Senna Plus BID; MOM and dulc supp PRN. Also w/ hx of urinary retention (had incontinent void this am) - check bladder residual. Labs reviewed: mild leukopenia (stable from labs on 09/18 - located in chart); mild macrocytic anemia (known hx of vit B12 def and is on IM injections at facility); A1c 5.9% done at outside facility. BMP and TSH stable. UA not suggestive of UTI but will need to have low threshold for developing UTI d/t hx of chronic UTI. BP elevated on admit but she is not on any antiHTN - monitor for now and consider adding in BP med if remains elevated. 09/27/17 Psych: Will decrease Luvox to 25mg PO BID with plan to decrease further on Sunday 10/01 to minimize withdrawal symptoms. 09/28/17 Psych- Pt tends to isolate but no behaviors. Continue current care 09/29/2017 Out more today. Continue current care 09/30-Overall appears medically stable. Asked nursing staff to give Tylenol for hip pain. Able to ambulate without difficulty. Continue MiraLAX, milk of magnesia, Dulcolax for ongoing bowel motivation. Encourage patient to participate in unit activities and provide a safe environment. Psychiatric care as per Dr. Venegas 09/30/17 Psych: Will again decrease Luvox in half to only 25mg PO q AM; monitor mood/behavior. Will contact DPOA in regards to starting a mood stabilizer vs. Abilify. 10/01/17 Psych: Discontinued Luvox - no withdrawal symptoms noted. Will start Depakote DR 500mg PO q HS tonight and 250mg PO q AM. Plan for VPA level on 10/05 and can adjust accordingly. 10/02/17 Psych: Continue current care with plan to check VPA level as before and adjust accordingly.
[2017-10-04] MEDS: AMLODIPINE 5 MG TABLET PO SCH (09:28)
[2017-10-04] MEDS: DIVALPROEX 250 MG TABLET PO SCH ×3 (09:29→20:55)
[2017-10-04] MEDS: POLYETHYL GLYCOL 3350 17gm PACKET PO SCH ×2 (09:29→21:04)
[2017-10-04] MEDS: SENNA + DOCUSATE TABLET PO SCH ×2 (09:29→21:04)
[2017-10-04] MEDS: ACETAMINOPHEN 325 MG TABLET PO PRN ×3 (09:39→20:51)
--- NOTE | 2017-10-04 20:53 | Neuropsych Progress Note ---
[facility] Subjective Date: 10/05/17 - Sujective/Severity of Illness Medications: Acetaminophen (Tylenol) 325 - 650 mg PO Q5H PRN PRN Reason: Discomfort Last Admin: 10/04/17 20:51 Dose: 650 mg Amlodipine Besylate (Norvasc) 5 mg PO DAILY [facility] Last Admin: 10/04/17 09:28 Dose: 5 mg Bisacodyl (Dulcolax) 10 mg RECTALLY DAILY PRN PRN Reason: Constipation Last Admin: 09/26/17 20:54 Dose: 10 mg Divalproex Sodium (Depakote) 500 mg PO HS [facility] Last Admin: 10/04/17 20:51 Dose: 250 mg Divalproex Sodium (Depakote) 250 mg PO DAILY [facility] Last Admin: 10/04/17 09:29 Dose: 250 mg Ergocalciferol (Vitamin D-2) 50,000 unit PO MO@0800 [facility] Last Admin: 09/30/17 08:43 Dose: 50,000 unit Haloperidol (Haldol) 0.5 mg PO Q6H PRN PRN Reason: Extreme agitation Last Admin: 09/30/17 22:58 Dose: 0.5 mg Haloperidol Lactate (Haldol) 0.5 mg IM Q6H PRN PRN Reason: Extreme agitation Last Admin: 10/01/17 17:55 Dose: 0.5 mg Magnesium Hydroxide (Mom) 30 ml PO DAILY PRN PRN Reason: Constipation Last Admin: 09/26/17 22:09 Dose: 30 ml Oseltamivir Phosphate (Tamiflu) 30 mg PO DAILY [facility] Stop: 10/06/17 09:01 Last Admin: 10/04/17 09:29 Dose: 30 mg Polyethylene Glycol (Miralax) 17 gm PO BID [facility] Last Admin: 10/04/17 09:29 Dose: 17 gm Senna/Docusate Sodium (Senna Plus Tablet) 1 tab PO BID [facility] Last Admin: 10/04/17 09:29 Dose: 1 tab Subjective: Patient seen and chart reviewed. Case discussed with treatment team. Patient reports that her mood is good and smiles broadly during interview. She has a tendency to want to isolate in her room but will come out for meals, etc. and is willing to spend some time in day room. Patient denies SI, HI or AVH. She denies any adverse side effect related to medication. Patient communicates fairly well verbally but is lower functioning than she seems upon social interactions. Nursing staff report patient can be "dramatic" but has not had any significant behavioral difficulties on the unit. Patient has been adherent with medications. Patient slept 7.5 hours overnight. VSS. Patient is eating well. Psychotropic PRNs required in the past 24 hours: None. Start Time: 12:00 Stop Time: 12:20 Mental Status Exam Vitals: Last Vital Signs Temp 97.2 F 10/04/17 08:58 Pulse 93 10/04/17 08:58 Resp 16 10/04/17 08:58 BP 124/71 10/04/17 08:58 Pulse Ox 97 10/04/17 08:58 Height: 1.47 m Weight: 59.8 kg - Mental Status Exam Muscle Strength/Tone: Normal Dressing: Casual Grooming: Fair Attitude: Cooperative (can be dramatic at times) Motor Activity: Normal Eye Contact: Good Speech: Normal Volume: Normal Rhythm: Appropriate Rhythm Orientation: Disoriented to time, Disoriented to situation, Oriented to person, Oriented to place Mood: Euthymic Affect: Bright, Relaxed Rate of Thoughts: Delayed Thought Organization: Confused Associations: Intact Abstract Reasoning: Poor abstract reasoning Thought Content: Somatic Concerns Perception/Psychotic: Perception Normal Language: Naming Intact Fund of Knowledge: Poor fund of knowledge Memory: Poor-recent Suicidal Ideation: Denies Homicidal Ideation: Denies Insight: Impaired Judgement: Impaired Impulse Control: Fair - Laboratory Result Diagrams: 10/05/17 06:59 10/05/17 06:59 Laboratory Results - last 24 hr 10/04/17 10/04/17 07:01 16:45 Hemoglobin A1c 5.8 H Triglycerides 127 Cholesterol 185 LDL Cholesterol, Calc 114.6 VLDL Cholesterol 25.4 HDL Cholesterol 45 Cholesterol/HDL Ratio 4.1 H Stl C. diff Tox B Gene Negative Assessment and Plan (1) Major neurocognitive disorder Problem details: R/O Bipolar disorder Current visit: Yes Status: Acute Will check VPA level in AM along with CBC, CMP. Patient is doing well clinically. Hospital Course Summary Disclaimer: The visit summary below is not to be considered part of the above Progress Note. Hospital Course: 09/26/17 Abd pain: KUB personally reviewed - small/lg bowel distention; no free air or air-fluid levels. Radiologist suggests possible ileus. Hx pos for constipation - resume MiraLAX BID and also will start Senna Plus BID; MOM and dulc supp PRN. Also w/ hx of urinary retention (had incontinent void this am) - check bladder residual. Labs reviewed: mild leukopenia (stable from labs on 09/18 - located in chart); mild macrocytic anemia (known hx of vit B12 def and is on IM injections at facility); A1c 5.9% done at outside facility. BMP and TSH stable. UA not suggestive of UTI but will need to have low threshold for developing UTI d/t hx of chronic UTI. BP elevated on admit but she is not on any antiHTN - monitor for now and consider adding in BP med if remains elevated. 09/27/17 Psych: Will decrease Luvox to 25mg PO BID with plan to decrease further on Sunday 10/01 to minimize withdrawal symptoms. 09/28/17 Psych- Pt tends to isolate but no behaviors. Continue current care 09/29/2017 Out more today. Continue current care 09/30-Overall appears medically stable. Asked nursing staff to give Tylenol for hip pain. Able to ambulate without difficulty. Continue MiraLAX, milk of magnesia, Dulcolax for ongoing bowel motivation. Encourage patient to participate in unit activities and provide a safe environment. Psychiatric care as per Dr. Venegas 09/30/17 Psych: Will again decrease Luvox in half to only 25mg PO q AM; monitor mood/behavior. Will contact DPOA in regards to starting a mood stabilizer vs. Abilify. 10/01/17 Psych: Discontinued Luvox - no withdrawal symptoms noted. Will start Depakote DR 500mg PO q HS tonight and 250mg PO q AM. Plan for VPA level on 10/05 and can adjust accordingly. 10/02/17 Psych: Continue current care with plan to check VPA level as before and adjust accordingly. 10/04/17 Psych: Will check VPA level in AM along with CBC, CMP. Patient is doing well clinically.
[2017-10-05] MEDS: DIVALPROEX 250 MG TABLET PO SCH ×3 (09:02→22:48)
[2017-10-05] MEDS: SENNA + DOCUSATE TABLET PO SCH ×3 (09:03→22:48)
[2017-10-05] MEDS: POLYETHYL GLYCOL 3350 17gm PACKET PO SCH ×3 (09:04→22:48)
[2017-10-05] MEDS: AMLODIPINE 5 MG TABLET PO SCH (09:04)
--- NOTE | 2017-10-05 11:09 | Neuropsych Progress Note ---
[facility] Subjective Date: 10/05/17 - Sujective/Severity of Illness Medications: Acetaminophen (Tylenol) 325 - 650 mg PO Q5H PRN PRN Reason: Discomfort Last Admin: 10/04/17 20:51 Dose: 650 mg Amlodipine Besylate (Norvasc) 5 mg PO DAILY [facility] Last Admin: 10/05/17 09:04 Dose: 5 mg Bisacodyl (Dulcolax) 10 mg RECTALLY DAILY PRN PRN Reason: Constipation Last Admin: 09/26/17 20:54 Dose: 10 mg Divalproex Sodium (Depakote) 500 mg PO HS [facility] Last Admin: 10/04/17 20:55 Dose: 500 mg Divalproex Sodium (Depakote) 250 mg PO DAILY [facility] Last Admin: 10/05/17 09:02 Dose: 250 mg Ergocalciferol (Vitamin D-2) 50,000 unit PO MO@0800 [facility] Last Admin: 09/30/17 08:43 Dose: 50,000 unit Haloperidol (Haldol) 0.5 mg PO Q6H PRN PRN Reason: Extreme agitation Last Admin: 09/30/17 22:58 Dose: 0.5 mg Haloperidol Lactate (Haldol) 0.5 mg IM Q6H PRN PRN Reason: Extreme agitation Last Admin: 10/01/17 17:55 Dose: 0.5 mg Magnesium Hydroxide (Mom) 30 ml PO DAILY PRN PRN Reason: Constipation Last Admin: 09/26/17 22:09 Dose: 30 ml Oseltamivir Phosphate (Tamiflu) 30 mg PO DAILY [facility] Stop: 10/06/17 09:01 Last Admin: 10/05/17 09:04 Dose: 30 mg Polyethylene Glycol (Miralax) 17 gm PO BID [facility] Last Admin: 10/05/17 09:04 Dose: Not Given Senna/Docusate Sodium (Senna Plus Tablet) 1 tab PO BID [facility] Last Admin: 10/05/17 09:03 Dose: 1 tab Subjective: Patient seen and chart reviewed. Nursing reports pt is doing fairly well. She continues to isolate at times but will get out if asked. Sleeping well and has a good appetite. On face to face the pt is pleasant and cooperative. She reports her mood is stable and she denies any S/I. Tolerating meds. Voices no concerns at this time Start Time: 10:15 Stop Time: 10:30 Mental Status Exam Vitals: Last Vital Signs Temp 97.3 F 10/05/17 08:00 Pulse 89 10/05/17 08:00 Resp 18 10/05/17 08:00 BP 119/72 10/05/17 08:00 Pulse Ox 96 10/05/17 08:00 Height: 1.47 m Weight: 59.8 kg - Mental Status Exam Muscle Strength/Tone: Normal Dressing: Casual Grooming: Fair Attitude: Manipulative Motor Activity: Normal Eye Contact: Good Speech: Normal Volume: Normal Rhythm: Appropriate Rhythm Orientation: Disoriented to time, Disoriented to situation, Oriented to person, Oriented to place Mood: Euthymic (labile affect - improved from previous however) Rate of Thoughts: Delayed Thought Organization: Confused Associations: Illogical Abstract Reasoning: Poor abstract reasoning Thought Content: Somatic Concerns Perception/Psychotic: Perception Normal Language: Naming Intact Fund of Knowledge: Poor fund of knowledge Memory: Poor-recent Suicidal Ideation: Denies Homicidal Ideation: Denies Insight: Impaired Judgement: Impaired Impulse Control: Other (Limited) - Laboratory Result Diagrams: 10/05/17 06:59 10/05/17 06:59 Laboratory Results - last 24 hr 10/04/17 10/05/17 10/05/17 16:45 06:59 06:59 WBC 2.7 L RBC 3.81 L Hgb 12.1 Hct 38.8 MCV 101.8 H MCH 31.8 MCHC 31.2 RDW Std Deviation 52.5 H Plt Count 215 MPV 9.5 Immature Gran % (Auto) 0.7 H Neut % (Auto) 40.4 Lymph % (Auto) 38.5 [place] % (Auto) 11.5 H Eos % (Auto) 7.0 H Baso % (Auto) 1.9 Neut # (Auto) 1.1 L Lymph # (Auto) 1.0 [place] # (Auto) 0.3 Eos # (Auto) 0.2 Baso # (Auto) 0.1 Abs Immat Gran (auto) 0.02 Turbidity < 20 Sodium 142 Potassium 4.0 Chloride 106 Carbon Dioxide 29 Anion Gap 7 BUN 9.0 Creatinine 0.8 GFR Calculation 69 BUN/Creatinine Ratio 11 Glucose 102 Calculated Osmolality 272 Calcium 9.2 Total Bilirubin 0.40 Conjugated Bilirubin 0.00 Unconjugated Bilirubin 0.20 Icterus Index < 2 AST 17 ALT 20 Alkaline Phosphatase 175 H Total Protein 7.0 Albumin 3.5 Globulin 3.5 Albumin/Globulin Ratio 1.0 L Specimen Hemolysis < 15 Stl C. diff Tox B Gene Negative Valproic Acid 76.8 Assessment and Plan (1) Major neurocognitive disorder Problem details: R/O Bipolar disorder Current visit: Yes Status: Acute Hospital Course Summary Disclaimer: The visit summary below is not to be considered part of the above Progress Note. Hospital Course: 09/26/17 Abd pain: KUB personally reviewed - small/lg bowel distention; no free air or air-fluid levels. Radiologist suggests possible ileus. Hx pos for constipation - resume MiraLAX BID and also will start Senna Plus BID; MOM and dulc supp PRN. Also w/ hx of urinary retention (had incontinent void this am) - check bladder residual. Labs reviewed: mild leukopenia (stable from labs on 09/18 - located in chart); mild macrocytic anemia (known hx of vit B12 def and is on IM injections at facility); A1c 5.9% done at outside facility. BMP and TSH stable. UA not suggestive of UTI but will need to have low threshold for developing UTI d/t hx of chronic UTI. BP elevated on admit but she is not on any antiHTN - monitor for now and consider adding in BP med if remains elevated. 09/27/17 Psych: Will decrease Luvox to 25mg PO BID with plan to decrease further on Sunday 10/01 to minimize withdrawal symptoms. 09/28/17 Psych- Pt tends to isolate but no behaviors. Continue current care 09/29/2017 Out more today. Continue current care 09/30-Overall appears medically stable. Asked nursing staff to give Tylenol for hip pain. Able to ambulate without difficulty. Continue MiraLAX, milk of magnesia, Dulcolax for ongoing bowel motivation. Encourage patient to participate in unit activities and provide a safe environment. Psychiatric care as per Dr. Venegas 09/30/17 Psych: Will again decrease Luvox in half to only 25mg PO q AM; monitor mood/behavior. Will contact DPOA in regards to starting a mood stabilizer vs. Abilify. 10/01/17 Psych: Discontinued Luvox - no withdrawal symptoms noted. Will start Depakote DR 500mg PO q HS tonight and 250mg PO q AM. Plan for VPA level on 10/05 and can adjust accordingly. 10/02/17 Psych: Continue current care with plan to check VPA level as before and adjust accordingly. 10/05/17 Psych: Pt doing well. Continue current care
[2017-10-05] MEDS: HALOPERIDOL 5 MG/ML INJECTION IM PRN (13:20)
[2017-10-05] MEDS: ACETAMINOPHEN 325 MG TABLET PO PRN (19:44)
[2017-10-06] MEDS: HALOPERIDOL 0.5 MG TABLET PO PRN ×2 (07:38→23:04)
[2017-10-06] MEDS: POLYETHYL GLYCOL 3350 17gm PACKET PO SCH ×2 (08:00→19:33)
[2017-10-06] MEDS: AMLODIPINE 5 MG TABLET PO SCH (08:00)
[2017-10-06] MEDS: SENNA + DOCUSATE TABLET PO SCH ×2 (08:00→19:33)
[2017-10-06] MEDS: DIVALPROEX 250 MG TABLET PO SCH ×3 (08:00→19:32)
--- NOTE | 2017-10-06 13:40 | Neuropsych Progress Note ---
[facility] Subjective Date: 10/06/17 - Sujective/Severity of Illness Medications: Acetaminophen (Tylenol) 325 - 650 mg PO Q5H PRN PRN Reason: Discomfort Last Admin: 10/05/17 19:44 Dose: 650 mg Amlodipine Besylate (Norvasc) 5 mg PO DAILY [facility] Last Admin: 10/05/17 09:04 Dose: 5 mg Bisacodyl (Dulcolax) 10 mg RECTALLY DAILY PRN PRN Reason: Constipation Last Admin: 09/26/17 20:54 Dose: 10 mg Ergocalciferol (Vitamin D-2) 50,000 unit PO MO@0800 [facility] Last Admin: 09/30/17 08:43 Dose: 50,000 unit Haloperidol (Haldol) 0.5 mg PO Q6H PRN PRN Reason: Extreme agitation Last Admin: 10/06/17 07:38 Dose: 0.5 mg Haloperidol Lactate (Haldol) 0.5 mg IM Q6H PRN PRN Reason: Extreme agitation Last Admin: 10/05/17 13:20 Dose: 0.5 mg Magnesium Hydroxide (Mom) 30 ml PO DAILY PRN PRN Reason: Constipation Last Admin: 09/26/17 22:09 Dose: 30 ml Polyethylene Glycol (Miralax) 17 gm PO BID [facility] Last Admin: 10/05/17 22:48 Dose: Not Given Senna/Docusate Sodium (Senna Plus Tablet) 1 tab PO BID [facility] Last Admin: 10/05/17 22:48 Dose: Not Given Subjective: Patient seen and chart reviewed.Nursing reports pt had an episode yesterday where she became very angry and agitated and was given Haldol. Since that time the pt has been doing well. Sleeping well and has a good appetite. On face to face the pt states she is doing well. She is pleasant and cooperative and joking with staff. She reports her mood is stable. Denies S/I or psychosis. Tolerating meds Start Time: 10:45 Stop Time: 11:00 Mental Status Exam Vitals: Last Vital Signs Temp 97.2 F 10/06/17 08:00 Pulse 103 H 10/06/17 08:00 Resp 18 10/06/17 08:00 BP 138/72 10/06/17 08:00 Pulse Ox 98 10/06/17 08:00 Height: 1.47 m Weight: 59.8 kg - Mental Status Exam Muscle Strength/Tone: Normal Dressing: Casual Grooming: Fair Attitude: Cooperative (can be dramatic at times) Motor Activity: Normal Eye Contact: Good Speech: Normal Volume: Normal Rhythm: Appropriate Rhythm Orientation: Disoriented to time, Disoriented to situation, Oriented to person, Oriented to place Mood: Euthymic Rate of Thoughts: Delayed Thought Organization: Confused Associations: Intact Abstract Reasoning: Poor abstract reasoning Thought Content: Somatic Concerns Perception/Psychotic: Perception Normal Language: Naming Intact Fund of Knowledge: Poor fund of knowledge Memory: Poor-recent Suicidal Ideation: Denies Homicidal Ideation: Denies Insight: Impaired Judgement: Impaired Impulse Control: Fair - Laboratory Result Diagrams: 10/05/17 06:59 10/05/17 06:59 Assessment and Plan (1) Major neurocognitive disorder Problem details: R/O Bipolar disorder Current visit: Yes Status: Acute Hospital Course Summary Disclaimer: The visit summary below is not to be considered part of the above Progress Note. Hospital Course: 09/26/17 Abd pain: KUB personally reviewed - small/lg bowel distention; no free air or air-fluid levels. Radiologist suggests possible ileus. Hx pos for constipation - resume MiraLAX BID and also will start Senna Plus BID; MOM and dulc supp PRN. Also w/ hx of urinary retention (had incontinent void this am) - check bladder residual. Labs reviewed: mild leukopenia (stable from labs on 09/18 - located in chart); mild macrocytic anemia (known hx of vit B12 def and is on IM injections at facility); A1c 5.9% done at outside facility. BMP and TSH stable. UA not suggestive of UTI but will need to have low threshold for developing UTI d/t hx of chronic UTI. BP elevated on admit but she is not on any antiHTN - monitor for now and consider adding in BP med if remains elevated. 09/27/17 Psych: Will decrease Luvox to 25mg PO BID with plan to decrease further on Sunday 10/01 to minimize withdrawal symptoms. 09/28/17 Psych- Pt tends to isolate but no behaviors. Continue current care 09/29/2017 Out more today. Continue current care 09/30-Overall appears medically stable. Asked nursing staff to give Tylenol for hip pain. Able to ambulate without difficulty. Continue MiraLAX, milk of magnesia, Dulcolax for ongoing bowel motivation. Encourage patient to participate in unit activities and provide a safe environment. Psychiatric care as per Dr. Venegas 09/30/17 Psych: Will again decrease Luvox in half to only 25mg PO q AM; monitor mood/behavior. Will contact DPOA in regards to starting a mood stabilizer vs. Abilify. 10/01/17 Psych: Discontinued Luvox - no withdrawal symptoms noted. Will start Depakote DR 500mg PO q HS tonight and 250mg PO q AM. Plan for VPA level on 10/05 and can adjust accordingly. 10/02/17 Psych: Continue current care with plan to check VPA level as before and adjust accordingly. 10/04/17 Psych: Will check VPA level in AM along with CBC, CMP. Patient is doing well clinically. 10/06/17 Psych: Pt fairly stable. WBC count is at 2.7. Will decrease Depakote to 250mg PO BID for concern this may be the cause. Will continue to monitor
[2017-10-06] MEDS: ACETAMINOPHEN 325 MG TABLET PO PRN ×2 (15:00→23:04)
[2017-10-07] MEDS: SENNA + DOCUSATE TABLET PO SCH ×4 (00:32→22:11)
[2017-10-07] MEDS: DIVALPROEX 250 MG TABLET PO SCH ×4 (00:32→22:11)
[2017-10-07] MEDS: POLYETHYL GLYCOL 3350 17gm PACKET PO SCH ×4 (00:32→20:12)
[2017-10-07] MEDS: ERGOCALCIFEROL 50,000 UNIT CAPSULE PO SCH (09:36)
[2017-10-07] MEDS: AMLODIPINE 5 MG TABLET PO SCH (09:36)
[2017-10-07] MEDS: HALOPERIDOL 0.5 MG TABLET PO PRN (09:36)
--- NOTE | 2017-10-07 14:00 | Neuropsych Progress Note ---
[facility] Subjective Date: 10/07/17 - Sujective/Severity of Illness Medications: Acetaminophen (Tylenol) 325 - 650 mg PO Q5H PRN PRN Reason: Discomfort Last Admin: 10/06/17 23:04 Dose: 650 mg Amlodipine Besylate (Norvasc) 5 mg PO DAILY [facility] Last Admin: 10/07/17 09:36 Dose: 5 mg Bisacodyl (Dulcolax) 10 mg RECTALLY DAILY PRN PRN Reason: Constipation Last Admin: 09/26/17 20:54 Dose: 10 mg Divalproex Sodium (Depakote) 250 mg PO BID [facility] Last Admin: 10/07/17 09:36 Dose: 250 mg Ergocalciferol (Vitamin D-2) 50,000 unit PO MO@0800 [facility] Last Admin: 10/07/17 09:36 Dose: 50,000 unit Haloperidol (Haldol) 0.5 mg PO Q6H PRN PRN Reason: Extreme agitation Last Admin: 10/07/17 09:36 Dose: 0.5 mg Haloperidol Lactate (Haldol) 0.5 mg IM Q6H PRN PRN Reason: Extreme agitation Last Admin: 10/05/17 13:20 Dose: 0.5 mg Magnesium Hydroxide (Mom) 30 ml PO DAILY PRN PRN Reason: Constipation Last Admin: 09/26/17 22:09 Dose: 30 ml Polyethylene Glycol (Miralax) 17 gm PO BID [facility] Last Admin: 10/07/17 09:36 Dose: 17 gm Senna/Docusate Sodium (Senna Plus Tablet) 1 tab PO BID [facility] Last Admin: 10/07/17 09:36 Dose: 1 tab Subjective: Patient seen and chart reviewed. Case discussed with treatment team. On interview, patient is quite pleasant and reports her mood is good. She is eating breakfast in the dayroom. Patient denies any SI, HI or AVH. Patient denies any adverse side effects related to psychotropic medications. Nursing staff report patient was aggressive Saturday and has received PRN Haldol periodically since then, which has been significantly helpful for her mood. Plan to discuss regular use with family/DPOA as we had to decrease dose of Depakote. Patient has been adherent with medications. Patient slept 6.5 hours overnight. VSS. Patient is eating well. Start Time: 09:00 Stop Time: 09:20 Mental Status Exam Vitals: Last Vital Signs Temp 97.2 F 10/07/17 08:00 Pulse 92 10/07/17 08:00 Resp 16 10/07/17 08:00 BP 140/74 H 10/07/17 08:00 Pulse Ox 96 10/07/17 08:00 Height: 1.47 m Weight: 59.8 kg - Mental Status Exam Muscle Strength/Tone: Normal Dressing: Casual Grooming: Fair Attitude: Cooperative (can be dramatic at times) Motor Activity: Normal Eye Contact: Good Speech: Normal Volume: Normal Rhythm: Appropriate Rhythm Orientation: Disoriented to time, Disoriented to situation, Oriented to person, Oriented to place Mood: Euthymic Affect: Relaxed Rate of Thoughts: Delayed Thought Organization: Confused Associations: Intact Abstract Reasoning: Poor abstract reasoning Thought Content: Normal Perception/Psychotic: Perception Normal Language: Naming Intact Fund of Knowledge: Poor fund of knowledge Memory: Poor-recent Suicidal Ideation: Denies Homicidal Ideation: Denies Insight: Impaired Judgement: Impaired Impulse Control: Fair - Laboratory Result Diagrams: 10/05/17 06:59 10/05/17 06:59 Assessment and Plan (1) Major neurocognitive disorder Problem details: R/O Bipolar disorder Current visit: Yes Status: Acute Will plan to discuss use of scheduled low-dose Haldol with family as significant clinical improvement observed with PRN use. Depakote dose decreased on 10/06 due to concern for neutropenia; plan to continue 250mg PO BID and recheck VPA level in AM on 10/09 to see whether patient is tolerating medication ( it has been helpful clinically). Hospital Course Summary Disclaimer: The visit summary below is not to be considered part of the above Progress Note. Hospital Course: 09/26/17 Abd pain: KUB personally reviewed - small/lg bowel distention; no free air or air-fluid levels. Radiologist suggests possible ileus. Hx pos for constipation - resume MiraLAX BID and also will start Senna Plus BID; MOM and dulc supp PRN. Also w/ hx of urinary retention (had incontinent void this am) - check bladder residual. Labs reviewed: mild leukopenia (stable from labs on 09/18 - located in chart); mild macrocytic anemia (known hx of vit B12 def and is on IM injections at facility); A1c 5.9% done at outside facility. BMP and TSH stable. UA not suggestive of UTI but will need to have low threshold for developing UTI d/t hx of chronic UTI. BP elevated on admit but she is not on any antiHTN - monitor for now and consider adding in BP med if remains elevated. 09/27/17 Psych: Will decrease Luvox to 25mg PO BID with plan to decrease further on Sunday 10/01 to minimize withdrawal symptoms. 09/28/17 Psych- Pt tends to isolate but no behaviors. Continue current care 09/29/2017 Out more today. Continue current care 09/30-Overall appears medically stable. Asked nursing staff to give Tylenol for hip pain. Able to ambulate without difficulty. Continue MiraLAX, milk of magnesia, Dulcolax for ongoing bowel motivation. Encourage patient to participate in unit activities and provide a safe environment. Psychiatric care as per Dr. Venegas 09/30/17 Psych: Will again decrease Luvox in half to only 25mg PO q AM; monitor mood/behavior. Will contact DPOA in regards to starting a mood stabilizer vs. Abilify. 10/01/17 Psych: Discontinued Luvox - no withdrawal symptoms noted. Will start Depakote DR 500mg PO q HS tonight and 250mg PO q AM. Plan for VPA level on 10/05 and can adjust accordingly. 10/02/17 Psych: Continue current care with plan to check VPA level as before and adjust accordingly. 10/04/17 Psych: Will check VPA level in AM along with CBC, CMP. Patient is doing well clinically. 10/06/17 Psych: Pt fairly stable. WBC count is at 2.7. Will decrease Depakote to 250mg PO BID for concern this may be the cause. Will continue to monitor. 10/07/17 Psych: Will plan to discuss use of scheduled low-dose Haldol with family as significant clinical improvement observed with PRN use. Depakote dose decreased on 10/06 due to concern for neutropenia; plan to continue 250mg PO BID and recheck VPA level in AM on 10/09 to see whether patient is tolerating medication (it has been helpful clinically).
[2017-10-07] MEDS: ACETAMINOPHEN 325 MG TABLET PO PRN (15:09)
[2017-10-07] MEDS: HALOPERIDOL 0.5 MG TABLET PO SCH (17:39)
--- NOTE | 2017-10-08 09:26 | Progress Note ---
- Date 10/08/17 Subjective: Patient is seen sitting at the breakfast table. She has no concerns. She has no pain, no nausea or vomiting. Appetite is good. Nurses have no concerns. Objective Vital signs: Temperature 97.2 F 10/07/17 21:43 Pulse Rate 89 10/07/17 21:43 Respiratory Rate 20 10/07/17 21:43 Blood Pressure 125/71 10/07/17 21:43 Pulse Oximetry 97 10/07/17 21:43 Height/Weight/BMI: Height 1.47 m Weight 59.8 kg Body Mass Index 28.8 - Constitutional Present: no acute distress, well nourished, well developed - Routine HEENT Exam Head: Present: normocephalic, atraumatic - Routine Respiratory Exam Present: CTA bilaterally. Absent: wheezes - Routine Cardiovascular Exam Present: RRR, no murmur - Routine Abdominal Exam Present: soft, non distended, non tender - Routine Extremities Exam Present: no edema, normal capillary refill - Routine Skin Exam Present: dry, warm - Routine Neurological Exam Present: alert - Routine Lymphatic Exam Lymphatic: Absent: adenopathy - Routine Psychiatric Exam Present: normal affect, cooperative Results - Labs CBC & Chem 7: 10/05/17 06:59 10/05/17 06:59 Assessment and Plan (1) Major neurocognitive disorder Problem details: R/O Bipolar disorder Current visit: Yes Status: Acute Assessment and Plan: IMPRESSION Behavioral changes Leukopenia HTN vascular dementia hyperlipidemia urinary retention hx of UTI anemia depression & anxiety r/o OCD & personality d/o vitamin b12 deficiency constipation osteoporosis breast cancer in remission PLAN Repeat CBC to follow low white count. Patient appears medically stable. Labs, VS's, chart reviewed. No changes at this time. - Physician Narrative Narrative: Date: 10/08/17 Time: 922 Hospital Course Summary Disclaimer: The visit summary below is not to be considered part of the above Progress Note. Hospital Course: 09/26/17 Abd pain: KUB personally reviewed - small/lg bowel distention; no free air or air-fluid levels. Radiologist suggests possible ileus. Hx pos for constipation - resume MiraLAX BID and also will start Senna Plus BID; MOM and dulc supp PRN. Also w/ hx of urinary retention (had incontinent void this am) - check bladder residual. Labs reviewed: mild leukopenia (stable from labs on 09/18 - located in chart); mild macrocytic anemia (known hx of vit B12 def and is on IM injections at facility); A1c 5.9% done at outside facility. BMP and TSH stable. UA not suggestive of UTI but will need to have low threshold for developing UTI d/t hx of chronic UTI. BP elevated on admit but she is not on any antiHTN - monitor for now and consider adding in BP med if remains elevated. 09/27/17 Psych: Will decrease Luvox to 25mg PO BID with plan to decrease further on Sunday 10/01 to minimize withdrawal symptoms. 09/28/17 Psych- Pt tends to isolate but no behaviors. Continue current care 09/29/2017 Out more today. Continue current care 09/30-Overall appears medically stable. Asked nursing staff to give Tylenol for hip pain. Able to ambulate without difficulty. Continue MiraLAX, milk of magnesia, Dulcolax for ongoing bowel motivation. Encourage patient to participate in unit activities and provide a safe environment. Psychiatric care as per Dr. Venegas 09/30/17 Psych: Will again decrease Luvox in half to only 25mg PO q AM; monitor mood/behavior. Will contact DPOA in regards to starting a mood stabilizer vs. Abilify. 10/01/17 Psych: Discontinued Luvox - no withdrawal symptoms noted. Will start Depakote DR 500mg PO q HS tonight and 250mg PO q AM. Plan for VPA level on 10/05 and can adjust accordingly. 10/02/17 Psych: Continue current care with plan to check VPA level as before and adjust accordingly. 10/04/17 Psych: Will check VPA level in AM along with CBC, CMP. Patient is doing well clinically. 10/06/17 Psych: Pt fairly stable. WBC count is at 2.7. Will decrease Depakote to 250mg PO BID for concern this may be the cause. Will continue to monitor. 10/07/17 Psych: Will plan to discuss use of scheduled low-dose Haldol with family as significant clinical improvement observed with PRN use. Depakote dose decreased on 10/06 due to concern for neutropenia; plan to continue 250mg PO BID and recheck VPA level in AM on 10/09 to see whether patient is tolerating medication (it has been helpful clinically). 10/08/17 Hospitalist Repeat CBC to follow low white count. Patient appears medically stable. Labs, VS's, chart reviewed. No changes at this time.
[2017-10-08] MEDS: POLYETHYL GLYCOL 3350 17gm PACKET PO SCH (09:27)
[2017-10-08] MEDS: DIVALPROEX 250 MG TABLET PO SCH (09:27)
[2017-10-08] MEDS: HALOPERIDOL 0.5 MG TABLET PO SCH ×2 (09:27→17:23)
[2017-10-08] MEDS: AMLODIPINE 5 MG TABLET PO SCH (09:27)
[2017-10-08] MEDS: SENNA + DOCUSATE TABLET PO SCH (09:27)
--- NOTE | 2017-10-08 14:40 | Neuropsych Progress Note ---
[facility] Subjective Date: 10/08/17 - Sujective/Severity of Illness Medications: Acetaminophen (Tylenol) 325 - 650 mg PO Q5H PRN PRN Reason: Discomfort Last Admin: 10/07/17 15:09 Dose: 650 mg Amlodipine Besylate (Norvasc) 5 mg PO DAILY [facility] Last Admin: 10/08/17 09:27 Dose: 5 mg Bisacodyl (Dulcolax) 10 mg RECTALLY DAILY PRN PRN Reason: Constipation Last Admin: 09/26/17 20:54 Dose: 10 mg Divalproex Sodium (Depakote) 250 mg PO DAILY [facility] Ergocalciferol (Vitamin D-2) 50,000 unit PO MO@0800 [facility] Last Admin: 10/07/17 09:36 Dose: 50,000 unit Haloperidol (Haldol) 0.5 mg PO Q6H PRN PRN Reason: Extreme agitation Last Admin: 10/07/17 09:36 Dose: 0.5 mg Haloperidol (Haldol) 0.5 mg PO 08,1730 [facility] Last Admin: 10/08/17 09:27 Dose: 0.5 mg Haloperidol Lactate (Haldol) 0.5 mg IM Q6H PRN PRN Reason: Extreme agitation Last Admin: 10/05/17 13:20 Dose: 0.5 mg Magnesium Hydroxide (Mom) 30 ml PO DAILY PRN PRN Reason: Constipation Last Admin: 09/26/17 22:09 Dose: 30 ml Polyethylene Glycol (Miralax) 17 gm PO BID [facility] Last Admin: 10/08/17 09:27 Dose: 17 gm Senna/Docusate Sodium (Senna Plus Tablet) 1 tab PO BID [facility] Last Admin: 10/08/17 09:27 Dose: 1 tab Subjective: Patient seen and chart reviewed. Case discussed with treatment team. On interview, patient is quite pleasant and reports her mood is good. Patient denies any SI, HI or AVH. Patient denies any adverse side effects related to psychotropic medications -- HOWEVER, I am concerned from most recent labs that Depakote could be causing pancytopenia and patient will not tolerate it despite doing well in interacting with others. Spoke with niece/DPOA yesterday who gave informed consent to schedule Haldol 0.5mg PO BID. Patient has been adherent with medications. Patient slept well overnight. VSS. Patient is eating well. Start Time: 11:40 Stop Time: 12:00 Mental Status Exam Vitals: Last Vital Signs Temp 97.2 F 10/08/17 08:00 Pulse 108 H 10/08/17 08:00 Resp 20 10/08/17 08:00 BP 132/94 H 10/08/17 08:00 Pulse Ox 98 10/08/17 08:00 Height: 1.47 m Weight: 59.8 kg - Mental Status Exam Muscle Strength/Tone: Normal Dressing: Casual Grooming: Fair Attitude: Cooperative Motor Activity: Normal Eye Contact: Good Speech: Normal Volume: Normal Rhythm: Appropriate Rhythm Orientation: Disoriented to time, Disoriented to situation, Oriented to person, Oriented to place Mood: Euthymic Affect: Bright, Relaxed Rate of Thoughts: Delayed Thought Organization: Confused Associations: Intact Abstract Reasoning: Poor abstract reasoning Thought Content: Normal Perception/Psychotic: Perception Normal Language: Naming Intact Fund of Knowledge: Poor fund of knowledge Memory: Poor-recent Suicidal Ideation: Denies Homicidal Ideation: Denies Insight: Impaired Judgement: Impaired Impulse Control: Fair - Laboratory Result Diagrams: 10/08/17 09:36 10/05/17 06:59 Laboratory Results - last 24 hr 10/08/17 09:36 WBC 4.2 L RBC 2.39 L Hgb 7.0 L Hct 24.1 L MCV 100.8 H MCH 29.3 MCHC 29.0 L RDW Std Deviation 49.1 Plt Count 63 L D MPV 10.9 Immature Gran % (Auto) Not performed Neut % (Auto) Not performed Lymph % (Auto) Not performed [place] % (Auto) Not performed Eos % (Auto) Not performed Baso % (Auto) Not performed Neut # (Auto) Not performed Lymph # (Auto) Not performed [place] # (Auto) Not performed Eos # (Auto) Not performed Baso # (Auto) Not performed Abs Immat Gran (auto) Not performed Neutrophils % (Manual) 54.0 Lymphocytes % (Manual) 28.0 Monocytes % (Manual) 10.0 H Eosinophils % (Manual) 6.0 H Basophils % (Manual) 2.0 Neutrophils # (Manual) 2.3 Lymphocytes # (Manual) 1.2 Monocytes # (Manual) 0.4 Eosinophils # (Manual) 0.3 Basophils # (Manual) 0.1 RBC Morph Comment Normal Assessment and Plan (1) Major neurocognitive disorder Problem details: R/O Bipolar disorder Current visit: Yes Status: Acute Will plan to decrease Depakote to 250mg PO daily; may need to completely discontinue due to recent pancytopenia on labwork. Continue Haldol 0.5mg PO BID (at 0800, 1730) from yesterday and monitor clinical response with this combination. Hospital Course Summary Disclaimer: The visit summary below is not to be considered part of the above Progress Note. Hospital Course: 09/26/17 Abd pain: KUB personally reviewed - small/lg bowel distention; no free air or air-fluid levels. Radiologist suggests possible ileus. Hx pos for constipation - resume MiraLAX BID and also will start Senna Plus BID; MOM and dulc supp PRN. Also w/ hx of urinary retention (had incontinent void this am) - check bladder residual. Labs reviewed: mild leukopenia (stable from labs on 09/18 - located in chart); mild macrocytic anemia (known hx of vit B12 def and is on IM injections at facility); A1c 5.9% done at outside facility. BMP and TSH stable. UA not suggestive of UTI but will need to have low threshold for developing UTI d/t hx of chronic UTI. BP elevated on admit but she is not on any antiHTN - monitor for now and consider adding in BP med if remains elevated. 09/27/17 Psych: Will decrease Luvox to 25mg PO BID with plan to decrease further on Sunday 10/01 to minimize withdrawal symptoms. 09/28/17 Psych- Pt tends to isolate but no behaviors. Continue current care 09/29/2017 Out more today. Continue current care 09/30-Overall appears medically stable. Asked nursing staff to give Tylenol for hip pain. Able to ambulate without difficulty. Continue MiraLAX, milk of magnesia, Dulcolax for ongoing bowel motivation. Encourage patient to participate in unit activities and provide a safe environment. Psychiatric care as per Dr. Venegas 09/30/17 Psych: Will again decrease Luvox in half to only 25mg PO q AM; monitor mood/behavior. Will contact DPOA in regards to starting a mood stabilizer vs. Abilify. 10/01/17 Psych: Discontinued Luvox - no withdrawal symptoms noted. Will start Depakote DR 500mg PO q HS tonight and 250mg PO q AM. Plan for VPA level on 10/05 and can adjust accordingly. 10/02/17 Psych: Continue current care with plan to check VPA level as before and adjust accordingly. 10/04/17 Psych: Will check VPA level in AM along with CBC, CMP. Patient is doing well clinically. 10/06/17 Psych: Pt fairly stable. WBC count is at 2.7. Will decrease Depakote to 250mg PO BID for concern this may be the cause. Will continue to monitor. 10/07/17 Psych: Will plan to discuss use of scheduled low-dose Haldol with family as significant clinical improvement observed with PRN use. Depakote dose decreased on 10/06 due to concern for neutropenia; plan to continue 250mg PO BID and recheck VPA level in AM on 10/09 to see whether patient is tolerating medication (it has been helpful clinically). 10/08/17 Hospitalist Repeat CBC to follow low white count. Patient appears medically stable. Labs, VS's, chart reviewed. No changes at this time. 10/08/17 Psych: Will plan to decrease Depakote to 250mg PO daily; may need to completely discontinue due to recent pancytopenia on labwork. Continue Haldol 0.5mg PO BID (at 0800, 1730) from yesterday and monitor clinical response with this combination.
[2017-10-08] MEDS: ACETAMINOPHEN 325 MG TABLET PO PRN (15:06)
[2017-10-09] MEDS: HALOPERIDOL 5 MG/ML INJECTION IM PRN (00:10)
[2017-10-09] MEDS: POLYETHYL GLYCOL 3350 17gm PACKET PO SCH ×2 (09:42→20:27)
[2017-10-09] MEDS: DIVALPROEX 250 MG TABLET PO SCH (09:43)
[2017-10-09] MEDS: AMLODIPINE 5 MG TABLET PO SCH (09:43)
[2017-10-09] MEDS: ACETAMINOPHEN 325 MG TABLET PO PRN ×2 (09:43→21:15)
[2017-10-09] MEDS: HALOPERIDOL 0.5 MG TABLET PO SCH ×2 (09:43→17:23)
[2017-10-09] MEDS: SENNA + DOCUSATE TABLET PO SCH ×2 (09:43→20:27)
--- NOTE | 2017-10-09 19:16 | Progress Note ---
Progress Note: Labs, vitals, nurses notes and psych noted reviewed. Hgb and platelets dropped significantly. Likely d/t depakote. Dose was reduced yesterday by psych. Will repeat CBC in am. Pt is asymptomatic. Discussed with Dr. Mcguire.
--- NOTE | 2017-10-09 19:29 | Neuropsych Progress Note ---
[facility] Subjective Date: 10/10/17 - Sujective/Severity of Illness Medications: Acetaminophen (Tylenol) 325 - 650 mg PO Q5H PRN PRN Reason: Discomfort Last Admin: 10/09/17 09:43 Dose: 650 mg Amlodipine Besylate (Norvasc) 5 mg PO DAILY [facility] Last Admin: 10/09/17 09:43 Dose: 5 mg Bisacodyl (Dulcolax) 10 mg RECTALLY DAILY PRN PRN Reason: Constipation Last Admin: 09/26/17 20:54 Dose: 10 mg Divalproex Sodium (Depakote) 250 mg PO DAILY [facility] Last Admin: 10/09/17 09:43 Dose: 250 mg Ergocalciferol (Vitamin D-2) 50,000 unit PO MO@0800 [facility] Last Admin: 10/07/17 09:36 Dose: 50,000 unit Haloperidol (Haldol) 0.5 mg PO Q6H PRN PRN Reason: Extreme agitation Last Admin: 10/07/17 09:36 Dose: 0.5 mg Haloperidol (Haldol) 1 mg PO 08,1730 [facility] Haloperidol Lactate (Haldol) 0.5 mg IM Q6H PRN PRN Reason: Extreme agitation Last Admin: 10/05/17 13:20 Dose: 0.5 mg Magnesium Hydroxide (Mom) 30 ml PO DAILY PRN PRN Reason: Constipation Last Admin: 09/26/17 22:09 Dose: 30 ml Polyethylene Glycol (Miralax) 17 gm PO BID [facility] Last Admin: 10/09/17 09:42 Dose: 17 gm Senna/Docusate Sodium (Senna Plus Tablet) 1 tab PO BID [facility] Last Admin: 10/09/17 09:43 Dose: Not Given Subjective: Patient seen and chart reviewed. Case discussed with treatment team. On interview, patient is quite pleasant and reports her mood is good. She laughs and acts appropriately through interview. Patient denies any SI, HI or AVH. Patient denies any adverse side effects related to psychotropic medications -- HOWEVER, I am concerned from most recent labs that Depakote was in fact cause of pancytopenia; cell counts improving since dosage decrease. Staff report since decreasing depakote patient has had increase in demanding and agitated behavior, somewhat argumentative. Patient has been adherent with medications. Patient slept well overnight. VSS. Patient is eating well. No psychotropic PRNs required in past 24 hours. Start Time: 14:00 Stop Time: 14:20 Mental Status Exam Vitals: Last Vital Signs Temp 97.6 F 10/09/17 15:29 Pulse 104 H 10/09/17 15:29 Resp 16 10/09/17 15:29 BP 118/65 10/09/17 15:29 Pulse Ox 98 10/09/17 15:29 Height: 1.47 m Weight: 59.8 kg - Mental Status Exam Muscle Strength/Tone: Normal Dressing: Casual Grooming: Fair Attitude: Cooperative Motor Activity: Normal Eye Contact: Good Speech: Normal Volume: Normal Rhythm: Appropriate Rhythm Orientation: Disoriented to time, Disoriented to situation, Oriented to person, Oriented to place Mood: Euthymic (labile affect since decreasing Depakote) Rate of Thoughts: Delayed Thought Organization: Confused Associations: Intact Abstract Reasoning: Poor abstract reasoning Thought Content: Normal Perception/Psychotic: Perception Normal Language: Naming Intact Fund of Knowledge: Poor fund of knowledge Memory: Poor-recent Suicidal Ideation: Denies Homicidal Ideation: Denies Insight: Impaired Judgement: Impaired Impulse Control: Fair - Laboratory Result Diagrams: 10/10/17 07:41 10/05/17 06:59 Assessment and Plan (1) Major neurocognitive disorder Problem details: R/O Bipolar disorder Current visit: Yes Status: Acute Depakote DR has been increased to 250mg PO daily only; will increase Haldol to 1mg PO BID and monitor CBC with med changes. Hospital Course Summary Disclaimer: The visit summary below is not to be considered part of the above Progress Note. Hospital Course: 09/26/17 Abd pain: KUB personally reviewed - small/lg bowel distention; no free air or air-fluid levels. Radiologist suggests possible ileus. Hx pos for constipation - resume MiraLAX BID and also will start Senna Plus BID; MOM and dulc supp PRN. Also w/ hx of urinary retention (had incontinent void this am) - check bladder residual. Labs reviewed: mild leukopenia (stable from labs on 09/18 - located in chart); mild macrocytic anemia (known hx of vit B12 def and is on IM injections at facility); A1c 5.9% done at outside facility. BMP and TSH stable. UA not suggestive of UTI but will need to have low threshold for developing UTI d/t hx of chronic UTI. BP elevated on admit but she is not on any antiHTN - monitor for now and consider adding in BP med if remains elevated. 09/27/17 Psych: Will decrease Luvox to 25mg PO BID with plan to decrease further on Sunday 10/01 to minimize withdrawal symptoms. 09/28/17 Psych- Pt tends to isolate but no behaviors. Continue current care 09/29/2017 Out more today. Continue current care 09/30-Overall appears medically stable. Asked nursing staff to give Tylenol for hip pain. Able to ambulate without difficulty. Continue MiraLAX, milk of magnesia, Dulcolax for ongoing bowel motivation. Encourage patient to participate in unit activities and provide a safe environment. Psychiatric care as per Dr. Venegas 09/30/17 Psych: Will again decrease Luvox in half to only 25mg PO q AM; monitor mood/behavior. Will contact DPOA in regards to starting a mood stabilizer vs. Abilify. 10/01/17 Psych: Discontinued Luvox - no withdrawal symptoms noted. Will start Depakote DR 500mg PO q HS tonight and 250mg PO q AM. Plan for VPA level on 10/05 and can adjust accordingly. 10/02/17 Psych: Continue current care with plan to check VPA level as before and adjust accordingly. 10/04/17 Psych: Will check VPA level in AM along with CBC, CMP. Patient is doing well clinically. 10/06/17 Psych: Pt fairly stable. WBC count is at 2.7. Will decrease Depakote to 250mg PO BID for concern this may be the cause. Will continue to monitor. 10/07/17 Psych: Will plan to discuss use of scheduled low-dose Haldol with family as significant clinical improvement observed with PRN use. Depakote dose decreased on 10/06 due to concern for neutropenia; plan to continue 250mg PO BID and recheck VPA level in AM on 10/09 to see whether patient is tolerating medication (it has been helpful clinically). 10/08/17 Hospitalist Repeat CBC to follow low white count. Patient appears medically stable. Labs, VS's, chart reviewed. No changes at this time. 10/08/17 Psych: Will plan to decrease Depakote to 250mg PO daily; may need to completely discontinue due to recent pancytopenia on labwork. Continue Haldol 0.5mg PO BID (at 0800, 1730) from yesterday and monitor clinical response with this combination. 10/09/17 Psych: Depakote DR has been increased to 250mg PO daily only; will increase Haldol to 1mg PO BID and monitor CBC with med changes.
[2017-10-10] MEDS: AMLODIPINE 5 MG TABLET PO SCH (08:22)
[2017-10-10] MEDS: HALOPERIDOL 1 MG TABLET PO SCH ×2 (08:22→17:09)
[2017-10-10] MEDS: DIVALPROEX 250 MG TABLET PO SCH (08:22)
[2017-10-10] MEDS: SENNA + DOCUSATE TABLET PO SCH ×2 (08:25→20:30)
[2017-10-10] MEDS: POLYETHYL GLYCOL 3350 17gm PACKET PO SCH ×2 (08:25→20:30)
--- NOTE | 2017-10-10 14:42 | Progress Note ---
Progress Note: F-u of low hgb and platelets: Labs were OK today. Suspect lab error given the significant change in hgb and platelets prior to and following blood draw on 10/08/17. Depakote dose was decreased but would not expect labs to rebound that quickly.
--- NOTE | 2017-10-10 16:08 | Neuropsych Progress Note ---
[facility] Subjective Date: 10/10/17 - Sujective/Severity of Illness Medications: Acetaminophen (Tylenol) 325 - 650 mg PO Q5H PRN PRN Reason: Discomfort Last Admin: 10/09/17 21:15 Dose: 650 mg Amlodipine Besylate (Norvasc) 5 mg PO DAILY [facility] Last Admin: 10/10/17 08:22 Dose: 5 mg Bisacodyl (Dulcolax) 10 mg RECTALLY DAILY PRN PRN Reason: Constipation Last Admin: 09/26/17 20:54 Dose: 10 mg Divalproex Sodium (Depakote) 250 mg PO DAILY [facility] Last Admin: 10/10/17 08:22 Dose: 250 mg Ergocalciferol (Vitamin D-2) 50,000 unit PO MO@0800 [facility] Last Admin: 10/07/17 09:36 Dose: 50,000 unit Haloperidol (Haldol) 0.5 mg PO Q6H PRN PRN Reason: Extreme agitation Last Admin: 10/07/17 09:36 Dose: 0.5 mg Haloperidol (Haldol) 1 mg PO 08,1730 [facility] Last Admin: 10/10/17 08:22 Dose: 1 mg Haloperidol Lactate (Haldol) 0.5 mg IM Q6H PRN PRN Reason: Extreme agitation Last Admin: 10/05/17 13:20 Dose: 0.5 mg Magnesium Hydroxide (Mom) 30 ml PO DAILY PRN PRN Reason: Constipation Last Admin: 09/26/17 22:09 Dose: 30 ml Polyethylene Glycol (Miralax) 17 gm PO BID [facility] Last Admin: 10/10/17 08:25 Dose: Not Given Senna/Docusate Sodium (Senna Plus Tablet) 1 tab PO BID [facility] Last Admin: 10/10/17 08:25 Dose: Not Given Subjective: Patient seen and chart reviewed. Case discussed with treatment team. Patient is sleeping at time of rounds. MSE based in part on my last interaction with her and staff report. Staff report patient has been pleasant over past 24 hours, without significant behavioral difficulty. Patient has been adherent with medications. Patient slept well (8.25 hours) overnight. VSS. Patient is eating well. No psychotropic PRNs required in past 24 hours. Start Time: 14:00 Stop Time: 14:20 Mental Status Exam Vitals: Last Vital Signs Temp 97.0 F 10/10/17 08:00 Pulse 84 10/10/17 08:00 Resp 18 10/10/17 08:00 BP 134/67 10/10/17 08:00 Pulse Ox 99 10/10/17 08:00 Height: 1.47 m Weight: 59.8 kg - Mental Status Exam Muscle Strength/Tone: Normal Dressing: Casual Grooming: Fair Attitude: Cooperative Motor Activity: Normal Eye Contact: Good Speech: Normal Volume: Normal Rhythm: Appropriate Rhythm Orientation: Disoriented to time, Disoriented to situation, Oriented to person, Oriented to place Mood: Euthymic (mood lability resolving) Rate of Thoughts: Delayed Thought Organization: Confused Associations: Intact Abstract Reasoning: Poor abstract reasoning Thought Content: Normal Perception/Psychotic: Perception Normal Language: Naming Intact Fund of Knowledge: Poor fund of knowledge Memory: Poor-recent Suicidal Ideation: Denies Homicidal Ideation: Denies Insight: Impaired Judgement: Impaired Impulse Control: Fair - Laboratory Result Diagrams: 10/10/17 07:41 10/05/17 06:59 Laboratory Results - last 24 hr 10/10/17 07:41 WBC 3.8 L RBC 3.99 L Hgb 12.6 D Hct 39.8 D MCV 99.7 MCH 31.6 MCHC 31.7 RDW Std Deviation 50.5 H Plt Count 158 D MPV 10.8 Immature Gran % (Auto) 0.5 Neut % (Auto) 39.9 Lymph % (Auto) 36.2 [place] % (Auto) 14.6 H Eos % (Auto) 7.7 H Baso % (Auto) 1.1 Neut # (Auto) 1.5 L Lymph # (Auto) 1.4 [place] # (Auto) 0.6 Eos # (Auto) 0.3 Baso # (Auto) 0.0 Abs Immat Gran (auto) 0.02 Assessment and Plan (1) Major neurocognitive disorder Problem details: R/O Bipolar disorder Current visit: Yes Status: Acute Continue current care as patient is doing well clinically; will monitor CBC in regards to tolerability of current med regimen and plan to discharge if well- tolerated. Hospital Course Summary Disclaimer: The visit summary below is not to be considered part of the above Progress Note. Hospital Course: 09/26/17 Abd pain: KUB personally reviewed - small/lg bowel distention; no free air or air-fluid levels. Radiologist suggests possible ileus. Hx pos for constipation - resume MiraLAX BID and also will start Senna Plus BID; MOM and dulc supp PRN. Also w/ hx of urinary retention (had incontinent void this am) - check bladder residual. Labs reviewed: mild leukopenia (stable from labs on 09/18 - located in chart); mild macrocytic anemia (known hx of vit B12 def and is on IM injections at facility); A1c 5.9% done at outside facility. BMP and TSH stable. UA not suggestive of UTI but will need to have low threshold for developing UTI d/t hx of chronic UTI. BP elevated on admit but she is not on any antiHTN - monitor for now and consider adding in BP med if remains elevated. 09/27/17 Psych: Will decrease Luvox to 25mg PO BID with plan to decrease further on Sunday 10/01 to minimize withdrawal symptoms. 09/28/17 Psych- Pt tends to isolate but no behaviors. Continue current care 09/29/2017 Out more today. Continue current care 09/30-Overall appears medically stable. Asked nursing staff to give Tylenol for hip pain. Able to ambulate without difficulty. Continue MiraLAX, milk of magnesia, Dulcolax for ongoing bowel motivation. Encourage patient to participate in unit activities and provide a safe environment. Psychiatric care as per Dr. Venegas 09/30/17 Psych: Will again decrease Luvox in half to only 25mg PO q AM; monitor mood/behavior. Will contact DPOA in regards to starting a mood stabilizer vs. Abilify. 10/01/17 Psych: Discontinued Luvox - no withdrawal symptoms noted. Will start Depakote DR 500mg PO q HS tonight and 250mg PO q AM. Plan for VPA level on 10/05 and can adjust accordingly. 10/02/17 Psych: Continue current care with plan to check VPA level as before and adjust accordingly. 10/04/17 Psych: Will check VPA level in AM along with CBC, CMP. Patient is doing well clinically. 10/06/17 Psych: Pt fairly stable. WBC count is at 2.7. Will decrease Depakote to 250mg PO BID for concern this may be the cause. Will continue to monitor. 10/07/17 Psych: Will plan to discuss use of scheduled low-dose Haldol with family as significant clinical improvement observed with PRN use. Depakote dose decreased on 10/06 due to concern for neutropenia; plan to continue 250mg PO BID and recheck VPA level in AM on 10/09 to see whether patient is tolerating medication (it has been helpful clinically). 10/08/17 Hospitalist Repeat CBC to follow low white count. Patient appears medically stable. Labs, VS's, chart reviewed. No changes at this time. 10/08/17 Psych: Will plan to decrease Depakote to 250mg PO daily; may need to completely discontinue due to recent pancytopenia on labwork. Continue Haldol 0.5mg PO BID (at 0800, 1730) from yesterday and monitor clinical response with this combination. 10/09/17 Psych: Depakote DR has been increased to 250mg PO daily only; will increase Haldol to 1mg PO BID and monitor CBC with med changes. 10/10/17 Psych: Continue current care as patient is doing well clinically; will monitor CBC in regards to tolerability of current med regimen and plan to discharge if well-tolerated.
[2017-10-10] MEDS: ACETAMINOPHEN 325 MG TABLET PO PRN (20:21)
[2017-10-11] MEDS: DIVALPROEX 250 MG TABLET PO SCH (08:49)
[2017-10-11] MEDS: POLYETHYL GLYCOL 3350 17gm PACKET PO SCH ×2 (08:50→20:04)
[2017-10-11] MEDS: AMLODIPINE 5 MG TABLET PO SCH (08:50)
[2017-10-11] MEDS: HALOPERIDOL 1 MG TABLET PO SCH ×2 (08:50→17:43)
[2017-10-11] MEDS: SENNA + DOCUSATE TABLET PO SCH ×2 (08:50→20:04)
--- NOTE | 2017-10-11 13:42 | Neuropsych Progress Note ---
[facility] Subjective Date: 10/11/17 - Sujective/Severity of Illness Medications: Acetaminophen (Tylenol) 325 - 650 mg PO Q5H PRN PRN Reason: Discomfort Last Admin: 10/10/17 20:21 Dose: 650 mg Amlodipine Besylate (Norvasc) 5 mg PO DAILY [facility] Last Admin: 10/11/17 08:50 Dose: 5 mg Bisacodyl (Dulcolax) 10 mg RECTALLY DAILY PRN PRN Reason: Constipation Last Admin: 09/26/17 20:54 Dose: 10 mg Divalproex Sodium (Depakote) 250 mg PO DAILY [facility] Last Admin: 10/11/17 08:49 Dose: 250 mg Ergocalciferol (Vitamin D-2) 50,000 unit PO MO@0800 [facility] Last Admin: 10/07/17 09:36 Dose: 50,000 unit Haloperidol (Haldol) 0.5 mg PO Q6H PRN PRN Reason: Extreme agitation Last Admin: 10/07/17 09:36 Dose: 0.5 mg Haloperidol (Haldol) 1 mg PO 08,1730 [facility] Last Admin: 10/11/17 08:50 Dose: 1 mg Haloperidol Lactate (Haldol) 0.5 mg IM Q6H PRN PRN Reason: Extreme agitation Last Admin: 10/05/17 13:20 Dose: 0.5 mg Magnesium Hydroxide (Mom) 30 ml PO DAILY PRN PRN Reason: Constipation Last Admin: 09/26/17 22:09 Dose: 30 ml Polyethylene Glycol (Miralax) 17 gm PO BID [facility] Last Admin: 10/11/17 08:50 Dose: Not Given Senna/Docusate Sodium (Senna Plus Tablet) 1 tab PO BID [facility] Last Admin: 10/11/17 08:50 Dose: Not Given Subjective: Patient seen and chart reviewed. Case discussed with treatment team. Patient is quite pleasant and jovial during our interview. She reports her mood is good and she feels well physically. She denies SI, HI, AVH. Staff report patient has been pleasant over past 24 hours, without significant behavioral difficulty. Patient has been adherent with medications. Patient slept well (6.25 hours) overnight. VSS. Patient is eating well. No psychotropic PRNs required in past 24 hours. Start Time: 09:40 Stop Time: 10:00 Mental Status Exam Vitals: Last Vital Signs Temp 97.2 F 10/11/17 08:00 Pulse 93 10/11/17 08:00 Resp 16 10/11/17 08:00 BP 141/78 H 10/11/17 08:00 Pulse Ox 93 10/11/17 08:00 Height: 1.47 m Weight: 58.9 kg - Mental Status Exam Muscle Strength/Tone: Normal Dressing: Casual Grooming: Fair Attitude: Cooperative Motor Activity: Normal Eye Contact: Good Speech: Normal Volume: Normal Rhythm: Appropriate Rhythm Orientation: Disoriented to time, Disoriented to situation, Oriented to person, Oriented to place Mood: Euthymic (mood lability resolving) Affect: Bright Rate of Thoughts: Delayed Thought Organization: Organized Associations: Intact Abstract Reasoning: Poor abstract reasoning Thought Content: Normal Perception/Psychotic: Perception Normal Language: Naming Intact Fund of Knowledge: Poor fund of knowledge Memory: Poor-recent Suicidal Ideation: Denies Homicidal Ideation: Denies Insight: Impaired Judgement: Impaired Impulse Control: Fair - Laboratory Result Diagrams: 10/10/17 07:41 10/05/17 06:59 Assessment and Plan (1) Major neurocognitive disorder Problem details: moderate, vascular, with behavioral disturbance R/O Bipolar disorder Current visit: Yes Status: Acute Other medical conditions: Leukopenia HTN hyperlipidemia urinary retention hx of UTI anemia vitamin b12 deficiency constipation osteoporosis breast cancer in remission Continue current care; plan to check CBC on Friday 10/13 to ensure tolerability to Depakote; family and CM working on discharge planning as well. Hospital Course Summary Disclaimer: The visit summary below is not to be considered part of the above Progress Note. Hospital Course: 09/26/17 Abd pain: KUB personally reviewed - small/lg bowel distention; no free air or air-fluid levels. Radiologist suggests possible ileus. Hx pos for constipation - resume MiraLAX BID and also will start Senna Plus BID; MOM and dulc supp PRN. Also w/ hx of urinary retention (had incontinent void this am) - check bladder residual. Labs reviewed: mild leukopenia (stable from labs on 09/18 - located in chart); mild macrocytic anemia (known hx of vit B12 def and is on IM injections at facility); A1c 5.9% done at outside facility. BMP and TSH stable. UA not suggestive of UTI but will need to have low threshold for developing UTI d/t hx of chronic UTI. BP elevated on admit but she is not on any antiHTN - monitor for now and consider adding in BP med if remains elevated. 09/27/17 Psych: Will decrease Luvox to 25mg PO BID with plan to decrease further on Sunday 10/01 to minimize withdrawal symptoms. 09/28/17 Psych- Pt tends to isolate but no behaviors. Continue current care 09/29/2017 Out more today. Continue current care 09/30-Overall appears medically stable. Asked nursing staff to give Tylenol for hip pain. Able to ambulate without difficulty. Continue MiraLAX, milk of magnesia, Dulcolax for ongoing bowel motivation. Encourage patient to participate in unit activities and provide a safe environment. Psychiatric care as per Dr. Venegas 09/30/17 Psych: Will again decrease Luvox in half to only 25mg PO q AM; monitor mood/behavior. Will contact DPOA in regards to starting a mood stabilizer vs. Abilify. 10/01/17 Psych: Discontinued Luvox - no withdrawal symptoms noted. Will start Depakote DR 500mg PO q HS tonight and 250mg PO q AM. Plan for VPA level on 10/05 and can adjust accordingly. 10/02/17 Psych: Continue current care with plan to check VPA level as before and adjust accordingly. 10/04/17 Psych: Will check VPA level in AM along with CBC, CMP. Patient is doing well clinically. 10/06/17 Psych: Pt fairly stable. WBC count is at 2.7. Will decrease Depakote to 250mg PO BID for concern this may be the cause. Will continue to monitor. 10/07/17 Psych: Will plan to discuss use of scheduled low-dose Haldol with family as significant clinical improvement observed with PRN use. Depakote dose decreased on 10/06 due to concern for neutropenia; plan to continue 250mg PO BID and recheck VPA level in AM on 10/09 to see whether patient is tolerating medication (it has been helpful clinically). 10/08/17 Hospitalist Repeat CBC to follow low white count. Patient appears medically stable. Labs, VS's, chart reviewed. No changes at this time. 10/08/17 Psych: Will plan to decrease Depakote to 250mg PO daily; may need to completely discontinue due to recent pancytopenia on labwork. Continue Haldol 0.5mg PO BID (at 0800, 1730) from yesterday and monitor clinical response with this combination. 10/09/17 Psych: Depakote DR has been increased to 250mg PO daily only; will increase Haldol to 1mg PO BID and monitor CBC with med changes. 10/10/17 Psych: Continue current care as patient is doing well clinically; will monitor CBC in regards to tolerability of current med regimen and plan to discharge if well-tolerated. 10/11/17 Psych: Continue current care; plan to check CBC on Friday 10/13 to ensure tolerability to Depakote; family and CM working on discharge planning as well.
--- NOTE | 2017-10-11 19:03 | Progress Note ---
- Date 10/11/17 Subjective: Ira is seen while sitting in the day room, watching TV. She reports that she is doing well and denies any new complaints. No chest pain, shortness of breath, abdominal pain, nausea, vomiting or dysuria. Nursing reports that she complains of various chronic pains each day without new injuries or changes. Her appetite is stable and bowels are moving. Objective Vital signs: Temperature 97.6 F 10/11/17 16:00 Pulse Rate 97 10/11/17 16:00 Respiratory Rate 16 10/11/17 16:00 Blood Pressure 128/67 10/11/17 16:00 Pulse Oximetry 98 10/11/17 16:00 Height/Weight/BMI: Height 4 ft 10 in Weight 129 lb 13.636 oz Body Mass Index 28.8 Comments: sitting in day room - Constitutional Present: no acute distress, well nourished, well developed, thin, cooperative - Routine HEENT Exam Head: Present: normocephalic, atraumatic Eye: Present: PERRL. Absent: conjunctival icterus ENT: Present: mucous membranes moist - Routine Respiratory Exam Present: decreased breath sounds, CTA bilaterally. Absent: rhonchi, stridor, wheezes, crackles - Routine Cardiovascular Exam Present: RRR, S1, S2 - Routine Abdominal Exam Present: soft, normoactive bowel sounds, non distended, non tender - Routine Extremities Exam Present: edema (1+), full ROM, pulses intact. Absent: calf tenderness - Routine Back/Spine/Pelvis Exam Back/Spine: Present: full ROM. Absent: vertebral tenderness - Routine Musculoskeletal Exam Musculoskeletal: Present: moving extremities well - Routine Skin Exam Present: dry, warm. Absent: jaundice Comments: afebrile. 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 Overall, Ira appears to be medically stable. Continue psychiatric care per Dr. Venegas and team. Continue to provide safe and supportive environment. Family and case management working on discharge planning. Recheck labs on 10/13/17. Labs, VS's, chart reviewed. No changes at this time. Resuscitation Status: Do Not Resuscitate - Time spent with patient Time with patient PN: 25 minutes - Physician Narrative Physician: Giancarlo Mcguire MD Narrative: Date: 10/11/17 Time: 1858 Hospital Course Summary Disclaimer: The visit summary below is not to be considered part of the above Progress Note. Hospital Course: 09/26/17 Abd pain: KUB personally reviewed - small/lg bowel distention; no free air or air-fluid levels. Radiologist suggests possible ileus. Hx pos for constipation - resume MiraLAX BID and also will start Senna Plus BID; MOM and dulc supp PRN. Also w/ hx of urinary retention (had incontinent void this am) - check bladder residual. Labs reviewed: mild leukopenia (stable from labs on 09/18 - located in chart); mild macrocytic anemia (known hx of vit B12 def and is on IM injections at facility); A1c 5.9% done at outside facility. BMP and TSH stable. UA not suggestive of UTI but will need to have low threshold for developing UTI d/t hx of chronic UTI. BP elevated on admit but she is not on any antiHTN - monitor for now and consider adding in BP med if remains elevated. 09/27/17 Psych: Will decrease Luvox to 25mg PO BID with plan to decrease further on Sunday 10/01 to minimize withdrawal symptoms. 09/28/17 Psych- Pt tends to isolate but no behaviors. Continue current care 09/29/2017 Out more today. Continue current care 09/30-Overall appears medically stable. Asked nursing staff to give Tylenol for hip pain. Able to ambulate without difficulty. Continue MiraLAX, milk of magnesia, Dulcolax for ongoing bowel motivation. Encourage patient to participate in unit activities and provide a safe environment. Psychiatric care as per Dr. Venegas 09/30/17 Psych: Will again decrease Luvox in half to only 25mg PO q AM; monitor mood/behavior. Will contact [facility] in regards to starting a mood stabilizer vs. Abilify. 10/01/17 Psych: Discontinued Luvox - no withdrawal symptoms noted. Will start Depakote DR 500mg PO q HS tonight and 250mg PO q AM. Plan for VPA level on 10/05 and can adjust accordingly. 10/02/17 Psych: Continue current care with plan to check VPA level as before and adjust accordingly. 10/04/17 Psych: Will check VPA level in AM along with CBC, CMP. Patient is doing well clinically. 10/06/17 Psych: Pt fairly stable. WBC count is at 2.7. Will decrease Depakote to 250mg PO BID for concern this may be the cause. Will continue to monitor. 10/07/17 Psych: Will plan to discuss use of scheduled low-dose Haldol with family as significant clinical improvement observed with PRN use. Depakote dose decreased on 10/06 due to concern for neutropenia; plan to continue 250mg PO BID and recheck VPA level in AM on 10/09 to see whether patient is tolerating medication (it has been helpful clinically). 10/08/17 Hospitalist Repeat CBC to follow low white count. Patient appears medically stable. Labs, VS's, chart reviewed. No changes at this time. 10/08/17 Psych: Will plan to decrease Depakote to 250mg PO daily; may need to completely discontinue due to recent pancytopenia on labwork. Continue Haldol 0.5mg PO BID (at 0800, 1730) from yesterday and monitor clinical response with this combination. 10/09/17 Psych: Depakote DR has been increased to 250mg PO daily only; will increase Haldol to 1mg PO BID and monitor CBC with med changes. 10/10/17 Psych: Continue current care as patient is doing well clinically; will monitor CBC in regards to tolerability of current med regimen and plan to discharge if well-tolerated. 10/11/17 Psych: Continue current care; plan to check CBC on Friday 10/13 to ensure tolerability to Depakote; family and CM working on discharge planning as well. PLAN - 10/11/17. Overall, Ira appears to be medically stable. Continue psychiatric care per Dr. Venegas and team. Continue to provide safe and supportive environment. Family and case management working on discharge planning. Recheck labs on 10/13/17. Labs, VS's, chart reviewed. No changes at this time.
[2017-10-11] MEDS: ACETAMINOPHEN 325 MG TABLET PO PRN (20:04)
[2017-10-12] MEDS: HALOPERIDOL 1 MG TABLET PO SCH ×2 (08:21→17:09)
[2017-10-12] MEDS: AMLODIPINE 5 MG TABLET PO SCH (08:21)
[2017-10-12] MEDS: DIVALPROEX 250 MG TABLET PO SCH (08:22)
[2017-10-12] MEDS: SENNA + DOCUSATE TABLET PO SCH ×2 (08:22→20:02)
[2017-10-12] MEDS: POLYETHYL GLYCOL 3350 17gm PACKET PO SCH ×2 (08:22→20:02)
--- NOTE | 2017-10-12 10:21 | Neuropsych Progress Note ---
[facility] Subjective Date: 10/12/17 - Sujective/Severity of Illness Medications: Acetaminophen (Tylenol) 325 - 650 mg PO Q5H PRN PRN Reason: Discomfort Last Admin: 10/11/17 20:04 Dose: 650 mg Amlodipine Besylate (Norvasc) 5 mg PO DAILY [facility] Last Admin: 10/12/17 08:21 Dose: 5 mg Bisacodyl (Dulcolax) 10 mg RECTALLY DAILY PRN PRN Reason: Constipation Last Admin: 09/26/17 20:54 Dose: 10 mg Divalproex Sodium (Depakote) 250 mg PO DAILY [facility] Last Admin: 10/12/17 08:22 Dose: 250 mg Ergocalciferol (Vitamin D-2) 50,000 unit PO MO@0800 [facility] Last Admin: 10/07/17 09:36 Dose: 50,000 unit Haloperidol (Haldol) 0.5 mg PO Q6H PRN PRN Reason: Extreme agitation Last Admin: 10/07/17 09:36 Dose: 0.5 mg Haloperidol (Haldol) 1 mg PO 08,1730 [facility] Last Admin: 10/12/17 08:21 Dose: 1 mg Haloperidol Lactate (Haldol) 0.5 mg IM Q6H PRN PRN Reason: Extreme agitation Last Admin: 10/05/17 13:20 Dose: 0.5 mg Magnesium Hydroxide (Mom) 30 ml PO DAILY PRN PRN Reason: Constipation Last Admin: 09/26/17 22:09 Dose: 30 ml Polyethylene Glycol (Miralax) 17 gm PO BID [facility] Last Admin: 10/12/17 08:22 Dose: Not Given Senna/Docusate Sodium (Senna Plus Tablet) 1 tab PO BID [facility] Last Admin: 10/12/17 08:22 Dose: Not Given Subjective: Patient seen and chart reviewed. Nursing reports pt is doingwell. Sleeping well and has a good appetite. No behaviors noted. On face to face the pt states she is doing well. her mood is stable. She denies pain and voices no concerns at this time Start Time: 10:30 Stop Time: 10:45 Mental Status Exam Vitals: Last Vital Signs Temp 97.9 F 10/12/17 08:00 Pulse 94 10/12/17 10:00 Resp 18 10/12/17 08:00 BP 138/88 10/12/17 08:00 Pulse Ox 99 10/12/17 08:00 Height: 1.47 m Weight: 58.9 kg - Mental Status Exam Muscle Strength/Tone: Normal Dressing: Casual Grooming: Fair Attitude: Cooperative Motor Activity: Normal Eye Contact: Good Speech: Normal Volume: Normal Rhythm: Appropriate Rhythm Orientation: Disoriented to time, Disoriented to situation, Oriented to person, Oriented to place Mood: Euthymic (mood lability resolving) Rate of Thoughts: Delayed Thought Organization: Organized Associations: Intact Abstract Reasoning: Poor abstract reasoning Thought Content: Normal Perception/Psychotic: Perception Normal Language: Naming Intact Fund of Knowledge: Poor fund of knowledge Memory: Poor-recent Suicidal Ideation: Denies Homicidal Ideation: Denies Insight: Impaired Judgement: Impaired Impulse Control: Fair - Laboratory Result Diagrams: 10/12/17 07:00 10/12/17 07:00 Laboratory Results - last 24 hr 10/12/17 10/12/17 07:00 07:00 WBC 3.2 L RBC 3.69 L Hgb 11.4 L Hct 37.6 MCV 101.9 H MCH 30.9 MCHC 30.3 L RDW Std Deviation 50.3 H Plt Count 189 MPV 10.7 Immature Gran % (Auto) 0.3 Neut % (Auto) 36.7 Lymph % (Auto) 41.0 Moca % (Auto) 14.9 H Eos % (Auto) 6.2 H Baso % (Auto) 0.9 Neut # (Auto) 1.2 L Lymph # (Auto) 1.3 Moca # (Auto) 0.5 Eos # (Auto) 0.2 Baso # (Auto) 0.0 Abs Immat Gran (auto) 0.01 Turbidity < 20 Sodium 141 Potassium 4.2 Chloride 106 Carbon Dioxide 30 Anion Gap 5 BUN 15.0 Creatinine 0.7 GFR Calculation 80 BUN/Creatinine Ratio 21 Glucose 103 Calculated Osmolality 272 Calcium 8.9 Icterus Index < 2 Specimen Hemolysis 51 H Assessment and Plan (1) Major neurocognitive disorder Problem details: moderate, vascular, with behavioral disturbance R/O Bipolar disorder Current visit: Yes Status: Acute Hospital Course Summary Disclaimer: The visit summary below is not to be considered part of the above Progress Note. Hospital Course: 09/26/17 Abd pain: KUB personally reviewed - small/lg bowel distention; no free air or air-fluid levels. Radiologist suggests possible ileus. Hx pos for constipation - resume MiraLAX BID and also will start Senna Plus BID; MOM and dulc supp PRN. Also w/ hx of urinary retention (had incontinent void this am) - check bladder residual. Labs reviewed: mild leukopenia (stable from labs on 09/18 - located in chart); mild macrocytic anemia (known hx of vit B12 def and is on IM injections at facility); A1c 5.9% done at outside facility. BMP and TSH stable. UA not suggestive of UTI but will need to have low threshold for developing UTI d/t hx of chronic UTI. BP elevated on admit but she is not on any antiHTN - monitor for now and consider adding in BP med if remains elevated. 09/27/17 Psych: Will decrease Luvox to 25mg PO BID with plan to decrease further on Sunday 10/01 to minimize withdrawal symptoms. 09/28/17 Psych- Pt tends to isolate but no behaviors. Continue current care 09/29/2017 Out more today. Continue current care 09/30-Overall appears medically stable. Asked nursing staff to give Tylenol for hip pain. Able to ambulate without difficulty. Continue MiraLAX, milk of magnesia, Dulcolax for ongoing bowel motivation. Encourage patient to participate in unit activities and provide a safe environment. Psychiatric care as per Dr. Venegas 09/30/17 Psych: Will again decrease Luvox in half to only 25mg PO q AM; monitor mood/behavior. Will contact [facility] in regards to starting a mood stabilizer vs. Abilify. 10/01/17 Psych: Discontinued Luvox - no withdrawal symptoms noted. Will start Depakote DR 500mg PO q HS tonight and 250mg PO q AM. Plan for VPA level on 10/05 and can adjust accordingly. 10/02/17 Psych: Continue current care with plan to check VPA level as before and adjust accordingly. 10/04/17 Psych: Will check VPA level in AM along with CBC, CMP. Patient is doing well clinically. 10/06/17 Psych: Pt fairly stable. WBC count is at 2.7. Will decrease Depakote to 250mg PO BID for concern this may be the cause. Will continue to monitor. 10/07/17 Psych: Will plan to discuss use of scheduled low-dose Haldol with family as significant clinical improvement observed with PRN use. Depakote dose decreased on 10/06 due to concern for neutropenia; plan to continue 250mg PO BID and recheck VPA level in AM on 10/09 to see whether patient is tolerating medication (it has been helpful clinically). 10/08/17 Hospitalist Repeat CBC to follow low white count. Patient appears medically stable. Labs, VS's, chart reviewed. No changes at this time. 10/08/17 Psych: Will plan to decrease Depakote to 250mg PO daily; may need to completely discontinue due to recent pancytopenia on labwork. Continue Haldol 0.5mg PO BID (at 0800, 1730) from yesterday and monitor clinical response with this combination. 10/09/17 Psych: Depakote DR has been increased to 250mg PO daily only; will increase Haldol to 1mg PO BID and monitor CBC with med changes. 10/10/17 Psych: Continue current care as patient is doing well clinically; will monitor CBC in regards to tolerability of current med regimen and plan to discharge if well-tolerated. 10/11/17 Psych: Continue current care; plan to check CBC on Friday 10/13 to ensure tolerability to Depakote; family and CM working on discharge planning as well. PLAN - 10/11/17. Overall, Ira appears to be medically stable. Continue psychiatric care per Dr. Venegas and team. Continue to provide safe and supportive environment. Family and case management working on discharge planning. Recheck labs on 10/13/17. Labs, VS's, chart reviewed. No changes at this time. 10/12/17 Psych Pt doing well. Continue current care
[2017-10-12] MEDS: ACETAMINOPHEN 325 MG TABLET PO PRN (18:11)
[2017-10-13] MEDS: POLYETHYL GLYCOL 3350 17gm PACKET PO SCH ×2 (09:03→20:06)
[2017-10-13] MEDS: HALOPERIDOL 1 MG TABLET PO SCH ×2 (09:03→17:08)
[2017-10-13] MEDS: SENNA + DOCUSATE TABLET PO SCH ×3 (09:03→20:06)
[2017-10-13] MEDS: AMLODIPINE 5 MG TABLET PO SCH (09:03)
[2017-10-13] MEDS: DIVALPROEX 250 MG TABLET PO SCH (09:03)
--- NOTE | 2017-10-13 09:55 | Neuropsych Progress Note ---
[facility] Subjective Date: 10/13/17 - Sujective/Severity of Illness Medications: Acetaminophen (Tylenol) 325 - 650 mg PO Q5H PRN PRN Reason: Discomfort Last Admin: 10/12/17 18:11 Dose: 650 mg Amlodipine Besylate (Norvasc) 5 mg PO DAILY [facility] Last Admin: 10/13/17 09:03 Dose: 5 mg Bisacodyl (Dulcolax) 10 mg RECTALLY DAILY PRN PRN Reason: Constipation Last Admin: 09/26/17 20:54 Dose: 10 mg Divalproex Sodium (Depakote) 250 mg PO DAILY [facility] Last Admin: 10/13/17 09:03 Dose: 250 mg Ergocalciferol (Vitamin D-2) 50,000 unit PO MO@0800 [facility] Last Admin: 10/07/17 09:36 Dose: 50,000 unit Haloperidol (Haldol) 0.5 mg PO Q6H PRN PRN Reason: Extreme agitation Last Admin: 10/07/17 09:36 Dose: 0.5 mg Haloperidol (Haldol) 1 mg PO 08,1730 [facility] Last Admin: 10/13/17 09:03 Dose: 1 mg Haloperidol Lactate (Haldol) 0.5 mg IM Q6H PRN PRN Reason: Extreme agitation Last Admin: 10/05/17 13:20 Dose: 0.5 mg Magnesium Hydroxide (Mom) 30 ml PO DAILY PRN PRN Reason: Constipation Last Admin: 09/26/17 22:09 Dose: 30 ml Polyethylene Glycol (Miralax) 17 gm PO BID [facility] Last Admin: 10/13/17 09:03 Dose: Not Given Senna/Docusate Sodium (Senna Plus Tablet) 1 tab PO BID [facility] Last Admin: 10/13/17 09:03 Dose: Not Given Subjective: Patient seen and chart reviewed. Nursing reports pt is doing well. Sleeping well and has a good appetite. She can be irritable at times but is redirectable. On face to face the pt states she is doing well. She reports she feels her mood is stable and she denies any S/I. She reports tolerating her medication well. She voices no concerns. Start Time: 10:30 Stop Time: 10:45 Mental Status Exam Vitals: Last Vital Signs Temp 97.9 F 10/13/17 08:00 Pulse 91 10/13/17 08:00 Resp 16 10/13/17 08:00 BP 140/72 H 10/13/17 08:00 Pulse Ox 97 10/13/17 08:00 Height: 1.47 m Weight: 58.9 kg - Mental Status Exam Muscle Strength/Tone: Normal Dressing: Casual Grooming: Fair Attitude: Cooperative Motor Activity: Normal Eye Contact: Good Speech: Normal Volume: Normal Rhythm: Appropriate Rhythm Orientation: Disoriented to time, Disoriented to situation, Oriented to person, Oriented to place Mood: Euthymic (mood lability resolving) Rate of Thoughts: Delayed Thought Organization: Organized Associations: Intact Abstract Reasoning: Poor abstract reasoning Thought Content: Normal Perception/Psychotic: Perception Normal Language: Naming Intact Fund of Knowledge: Poor fund of knowledge Memory: Poor-recent Suicidal Ideation: Denies Homicidal Ideation: Denies Insight: Impaired Judgement: Impaired Impulse Control: Fair - Laboratory Result Diagrams: 10/12/17 07:00 10/12/17 07:00 Assessment and Plan (1) Major neurocognitive disorder Problem details: moderate, vascular, with behavioral disturbance R/O Bipolar disorder Current visit: Yes Status: Acute Hospital Course Summary Disclaimer: The visit summary below is not to be considered part of the above Progress Note. Hospital Course: 09/26/17 Abd pain: KUB personally reviewed - small/lg bowel distention; no free air or air-fluid levels. Radiologist suggests possible ileus. Hx pos for constipation - resume MiraLAX BID and also will start Senna Plus BID; MOM and dulc supp PRN. Also w/ hx of urinary retention (had incontinent void this am) - check bladder residual. Labs reviewed: mild leukopenia (stable from labs on 09/18 - located in chart); mild macrocytic anemia (known hx of vit B12 def and is on IM injections at facility); A1c 5.9% done at outside facility. BMP and TSH stable. UA not suggestive of UTI but will need to have low threshold for developing UTI d/t hx of chronic UTI. BP elevated on admit but she is not on any antiHTN - monitor for now and consider adding in BP med if remains elevated. 09/27/17 Psych: Will decrease Luvox to 25mg PO BID with plan to decrease further on Sunday 10/01 to minimize withdrawal symptoms. 09/28/17 Psych- Pt tends to isolate but no behaviors. Continue current care 09/29/2017 Out more today. Continue current care 09/30-Overall appears medically stable. Asked nursing staff to give Tylenol for hip pain. Able to ambulate without difficulty. Continue MiraLAX, milk of magnesia, Dulcolax for ongoing bowel motivation. Encourage patient to participate in unit activities and provide a safe environment. Psychiatric care as per Dr. Venegas 09/30/17 Psych: Will again decrease Luvox in half to only 25mg PO q AM; monitor mood/behavior. Will contact [facility] in regards to starting a mood stabilizer vs. Abilify. 10/01/17 Psych: Discontinued Luvox - no withdrawal symptoms noted. Will start Depakote DR 500mg PO q HS tonight and 250mg PO q AM. Plan for VPA level on 10/05 and can adjust accordingly. 10/02/17 Psych: Continue current care with plan to check VPA level as before and adjust accordingly. 10/04/17 Psych: Will check VPA level in AM along with CBC, CMP. Patient is doing well clinically. 10/06/17 Psych: Pt fairly stable. WBC count is at 2.7. Will decrease Depakote to 250mg PO BID for concern this may be the cause. Will continue to monitor. 10/07/17 Psych: Will plan to discuss use of scheduled low-dose Haldol with family as significant clinical improvement observed with PRN use. Depakote dose decreased on 10/06 due to concern for neutropenia; plan to continue 250mg PO BID and recheck VPA level in AM on 10/09 to see whether patient is tolerating medication (it has been helpful clinically). 10/08/17 Hospitalist Repeat CBC to follow low white count. Patient appears medically stable. Labs, VS's, chart reviewed. No changes at this time. 10/08/17 Psych: Will plan to decrease Depakote to 250mg PO daily; may need to completely discontinue due to recent pancytopenia on labwork. Continue Haldol 0.5mg PO BID (at 0800, 1730) from yesterday and monitor clinical response with this combination. 10/09/17 Psych: Depakote DR has been increased to 250mg PO daily only; will increase Haldol to 1mg PO BID and monitor CBC with med changes. 10/10/17 Psych: Continue current care as patient is doing well clinically; will monitor CBC in regards to tolerability of current med regimen and plan to discharge if well-tolerated. 10/11/17 Psych: Continue current care; plan to check CBC on Friday 10/13 to ensure tolerability to Depakote; family and CM working on discharge planning as well. PLAN - 10/11/17. Overall, Ira appears to be medically stable. Continue psychiatric care per Dr. Venegas and team. Continue to provide safe and supportive environment. Family and case management working on discharge planning. Recheck labs on 10/13/17. Labs, VS's, chart reviewed. No changes at this time. 10/12/17 Psych Pt doing well. Continue current care 10/13/2017 Psych Pt doing well. CBC in AM.
[2017-10-14 07:57] VITALS: O2SAT 95
[2017-10-14] MEDS: HALOPERIDOL 1 MG TABLET PO SCH (08:06)
[2017-10-14] MEDS: SENNA + DOCUSATE TABLET PO SCH (08:06)
[2017-10-14] MEDS: AMLODIPINE 5 MG TABLET PO SCH (08:06)
[2017-10-14] MEDS: POLYETHYL GLYCOL 3350 17gm PACKET PO SCH (08:06)
[2017-10-14] MEDS: DIVALPROEX 250 MG TABLET PO SCH (08:06)
[2017-10-14] MEDS: ERGOCALCIFEROL 50,000 UNIT CAPSULE PO SCH (08:06)
--- NOTE | 2017-10-14 10:24 | Extended Care Facility Orders ---
Admission Orders Admit to:: [facility] Allergies/Adverse Reactions: Allergies alprazolam Allergy (Verified 09/25/17 19:48) Sulfa (Sulfonamide Antibiotics) Allergy (Verified 09/25/17 19:48) Admitting Diagnosis: major neurocognitive disorder w/behavioral disturb Admitting Physician: Sabrina Venegas MD Attending Physician: Sabrina Venegas MD Code Status: Do Not Resuscitate Anticiapted Length of Stay: greater than 30 days Rehab Potential: fair Rehab Prognosis: fair Diet: 09/26/17 Breakfast Regular Diet [DIET] Diet Modifications: Evaluations/Treatment: Psychiatric, as needed Halfway Certification: I certify that SNF services are required to be given on an Inpatient basis because of the patients need for nursing home care on a continuing basis for the condition(s) for which he/she received inpatient hospital services prior to his/her transfer to the SNF. SNF inpatient care is necessary for the following reasons Indication for Halfway: Not Applicable - Additional Information In Event of Arrest: Do Not Start CPR Resident is Aware of Diagnosis: Yes Referrals: Velia Felix APRN [Advanced Practice Nurse] - (Velia Felix APRN will see patient on rounds at the facility for Mental Health follow-up. ) Denita Mg MD [Family Provider] - (Dr. Mary Mg on 10/22/17 at 10:00 am for Hosp. follow-up. [phone] [facility] [address] [address])
--- NOTE | 2017-10-14 13:42 | Extended Care Facility Orders ---
Admission Orders Admit to:: Half-Way Allergies/Adverse Reactions: Allergies alprazolam Allergy (Verified 09/25/17 19:48) Sulfa (Sulfonamide Antibiotics) Allergy (Verified 09/25/17 19:48) Admitting Diagnosis: major neurocognitive disorder w/behavioral disturb Admitting Physician: Sabrina Venegas MD Attending Physician: Sabrina Venegas MD Code Status: Do Not Resuscitate Anticiapted Length of Stay: greater than 30 days Rehab Potential: fair Rehab Prognosis: fair Diet: 09/26/17 Breakfast Regular Diet [DIET] Diet Modifications: May use Facility Protocol or Standing Orders: Yes May have flu vaccine: Yes Evaluations/Treatment: Psychiatric, as needed Half-Way Certification: I certify that SNF services are required to be given on an Inpatient basis because of the patients need for [facility] care on a continuing basis for the condition(s) for which he/she received inpatient hospital services prior to his/her transfer to the SNF. SNF inpatient care is necessary for the following reasons Indication for Half-Way: Med Admininistration, Other (labs) - Additional Information In Event of Arrest: Do Not Start CPR Referrals: Velia Felix APRN [Advanced Practice Nurse] - (Velia Felix APRN will see patient on rounds at the facility for Mental Health follow-up. ) Denita Mg MD [Family Provider] - (Dr. Mary Mg on 10/22/17 at 10:00 am for Hosp. follow-up. [facility] [address] [address])
[2017-10-14] MEDS: ACETAMINOPHEN 325 MG TABLET PO PRN (15:32)
[2017-10-14 16:35] VITALS: BP 126/68; PULSE 80; RESP 18; TEMP 98.3
== END 2017-10-14 16:10 | DRG 884 ==
LOC: ED 18:10 → GEN 21:52 → ED 22:58 → GEN 22:58
PROVIDERS: ADMIT Psychiatry & Neurology Psychiatry; ATTEND Psychiatry & Neurology Psychiatry